=== PATIENT | male | born 1960 | race Caucasian/White ===

== ENCOUNTER 2017-05-17 13:01 | Emergency (ER) | payer MEDICARE, OTHER ==
[2017-05-17 13:01] VITALS: BMI 31.0
[2017-05-17 13:07] VITALS: BP 163/73; PULSE 109; RESP 16; TEMP 98.4; O2SAT 97
--- NOTE | 2017-05-17 13:55 | ED PDOC ---
HPI: Abdomen Time Seen by Provider: 05/17/17 13:19 Chief Complaint (Nursing): Alcohol Ingestion Chief Complaint (Provider): Abdominal Pain History Per: Patient History/Exam Limitations: no limitations Onset/Duration Of Symptoms: Days Location Of Pain/Discomfort: RUQ Associated Symptoms: Nausea, Vomiting Additional Complaint(s): Shiv Alfonso is a 56 year old male with a past medical history of hypertension , diabetes, depression, and anxiety, who was brought to the ER by EMS for evaluation of vomiting, with associated abdominal pain, onset yesterday. Patient reports occasional mild back pain, and right upper quadrant abdominal pain. He admits to alcohol use yesterday. Patient offers no other medical complaints at this time. PMD: Phill Pandey Past Medical History Reviewed: Historical Data, Nursing Documentation, Vital Signs Vital Signs: Last Vital Signs Temp 98.4 F 05/17/17 13:04 Pulse 109 H 05/17/17 13:04 Resp 16 05/17/17 13:04 BP 163/73 H 05/17/17 13:04 Pulse Ox 97 05/17/17 16:01 - Medical History PMH: Anxiety, Bipolar Disorder, Depression, Diabetes, HTN Denies: Chronic Kidney Disease - Surgical History Surgical History: No Surg Hx - Family History Family History: States: Unknown Family Hx - Social History Current smoker - smoking cessation education provided: No Alcohol: Other (admits use) - Immunization History Hx Tetanus Toxoid Vaccination: No Hx Influenza Vaccination: No Hx Pneumococcal Vaccination: No - Home Medications Home Medications: Ambulatory Orders Medication Instructions Recorded MetFORMIN [glucoPHAGE] 1,000 mg PO BID 01/14/14 Famotidine [Pepcid] 20 mg PO BID #30 tab 09/14/14 Haloperidol 2 mg PO HS 09/14/14 Aspirin [Ecotrin] 81 mg PO DAILY #30 tabec 03/18/15 Citalopram [celEXA] 20 mg PO DAILY #30 tab 03/18/15 Folic Acid 1 mg PO DAILY #30 tab 03/18/15 Haloperidol [Haldol] 2 mg PO HS #30 tab 03/18/15 Lisinopril [Zestril] 20 mg PO DAILY #0 tab 03/18/15 Lisinopril [Zestril] 20 mg PO DAILY #30 tab 03/18/15 Metoprolol Tartrate 50 mg PO Q12H #60 tablet 03/18/15 Thiamine [Vitamin B1 Tab] 100 mg PO DAILY #30 tab 03/18/15 busPIRone [Buspar] 5 mg PO DAILY #30 tab 03/18/15 diltiaZEM CD [Cardizem CD] 240 mg PO DAILY #30 tab 03/18/15 metFORMIN [glucOPHAGE] 1,000 mg PO BID #60 tab 03/18/15 - Allergies Allergies/Adverse Reactions: Allergies Allergy/AdvReac Type Severity Reaction Status Date / Time No Known Allergies Allergy Verified 03/12/15 18:59 Review of Systems ROS Statement: Except As Marked, All Systems Reviewed And Found Negative Gastrointestinal: Positive for: Vomiting, Abdominal Pain Musculoskeletal: Positive for: Back Pain (mild, occasional) Physical Exam - Reviewed Nursing Documentation Reviewed: Yes Vital Signs Reviewed: Yes - Physical Exam Appears: Positive for: Non-toxic, No Acute Distress Head Exam: Positive for: ATRAUMATIC, NORMAL INSPECTION, NORMOCEPHALIC Skin: Positive for: Normal Color Eye Exam: Positive for: Normal appearance. Negative for: Nystagmus, Periorbital swelling, Conjunctival injection Neck: Positive for: Normal, Painless ROM, Supple, Trachea Midline. Negative for : Decreased ROM Cardiovascular/Chest: Positive for: Regular Rate, Rhythm. Negative for: Murmur Respiratory: Positive for: Normal Breath Sounds. Negative for: Respiratory Distress Pulses-Carotid (L): 2+ Pulses-Carotid (R): 2+ Pulses-Radial (L): 2+ Pulses-Radial (R): 2+ Gastrointestinal/Abdominal: Positive for: Soft, Other ((+) Fields's Sign; (+) Hanna Sign; (-) rovsing; no rebound tenderness or guarding). Negative for: Guarding, Rebound, Asicites Extremity: Positive for: Normal ROM, Capillary Refill, Other ((-) Florian's sign) . Negative for: Deformity, Swelling Neurologic/Psych: Positive for: Alert - Laboratory Results Result Diagrams: 05/17/17 14:21 05/17/17 14:21 - ECG O2 Sat by Pulse Oximetry: 97 (RA) Pulse Ox Interpretation: Normal Medical Decision Making Medical Decision Making: Time: 13:17 Differential: Cholecystitis Plan: --Alcohol Serum --Amylase --CMP --Drug Screen --Lipase --CBC --Urinalysis -- Regular Insulin 10 units --US Abdomen RBS - 457 on arrival with ETOH at 167 upon discharge RBS 158; Abdominal Ultrasound: FINDINGS: LIVER: Measures 18.0 cm. Hepatopedal blood flow. Fatty infiltration manifest ultrasonographically as increased echogenicity of the liver parenchyma. Nodular contour to the liver suggests cirrhotic disease. No mass. No intrahepatic bile duct dilatation. GALLBLADDER: Cholelithiasis. Negative study for gallbladder wall thickening, pericholecystic fluid, sonographic Fields's sign. COMMON BILE DUCT: Measures 5 mm. No stones. No dilatation. PANCREAS: Unremarkable as visualized. No mass. No ductal dilatation. RIGHT KIDNEY: Measures cm. Normal echogenicity. No calculus, mass, or hydronephrosis. LEFT KIDNEY: Measures cm. Normal echogenicity. No calculus, mass, or hydronephrosis. SPLEEN: Normal in size and contour. No mass. AORTA: No aneurysmal dilatation. IVC: Unremarkable. OTHER FINDINGS: None. IMPRESSION: Cholelithiasis. No sonographic evidence of acute cholecystitis. Similar findings identified on the prior study. Scribe Attestation: Documented by Wendy Cid, acting as a scribe for Obey Hernandez PA-C Provider Scribe Attestation: All medical record entries made by the Scribe were at my direction and personally dictated by me. I have reviewed the chart and agree that the record accurately reflects my personal performance of the history, physical exam, medical decision making, and the department course for this patient. I have also personally directed, reviewed, and agree with the discharge instructions and disposition. Disposition - Clinical Impression Clinical Impression: Alcohol abuse with intoxication, Cholecystolithiasis - Patient ED Disposition Is Patient to be Admitted: No Doctor Will See Patient In The: Office Counseled Patient/Family Regarding: Studies Performed, Diagnosis, Need For Followup, Rx Given, Smoking Cessation - Disposition Referrals: [facility] [Outside] Disposition: Routine/Home Disposition Time: 17:04 Condition: GOOD Additional Instructions: Continue to take your diabetes medication-- it is critical Instructions: Gallstones (DC), Alcohol Abuse and Alcoholism (DC), Effects of Alcohol on Your Health, Gallstones Forms: [employer] (German)
[2017-05-17 14:31] LABS: BASO % 0.8 % (0.0-2.0); EOS % 1.1 % (0.0-4.0); HEMOGLOBIN 13.4 g/dL (12.0-18.0); LYMPH # 1.5 K/uL (1.0-4.3); LYMPH % 34.1 % (20.0-40.0); MEAN CORPUSCULAR HEMOGLOBIN 38.8 pg (27.0-31.0); MONO # 0.4 K/uL (0.0-0.8); MONO % 9.4 % (0.0-10.0); NEUT # 2.4 K/uL (1.8-7.0); NEUT % 54.6 % (50.0-75.0); NRBC % 0.1 % (0.0-0.0); RBC 3.46 Mil/uL (4.40-5.90); RED CELL DISTRIBUTION WIDTH 14.6 % (11.5-14.5); WHITE BLOOD COUNT 4.4 K/uL (4.8-10.8)
[2017-05-17 14:36] LABS: URINE BILIRUBIN NEGATIVE (NEGATIVE); URINE BLOOD NEGATIVE (NEGATIVE); URINE CLARITY CLEAR (Clear); URINE GLUCOSE (UA) >=500 mg/dL (Normal); URINE LEUKOCYTE ESTERASE NEG Leu/uL (Negative); URINE PROTEIN NEGATIVE (NEGATIVE); URINE UROBILINOGEN 0.2-1.0 mg/dL (0.2-1.0)
[2017-05-17 14:38] LABS: URINE COLOR YELLOW (YELLOW)
[2017-05-17] MEDS: Sodium Chloride 0.9% 1,000 ML IV SCH ×2 (14:46→15:30)
[2017-05-17 14:48] LABS: ALB/GLOB RATIO 1.1 (1.0-2.1); ALT/SGPT 39 U/L (21-72); AMYLASE 83 U/L (30-110); AST/SGOT 50 U/L (17-59); BLOOD UREA NITROGEN 7 mg/dl (9-20); CALCIUM 9.3 mg/dL (8.4-10.2); GFR AFRICAN-AMERICAN > 60; GFR NON-AFRICAN AMERICAN > 60; LIPASE 78 U/L (23-300)
[2017-05-17 14:54] LABS: BARBITURATES, UR NEGATIVE (NEGATIVE); BENZODIAZEPINES, UR NEGATIVE (NEGATIVE); OPIATES, UR NEGATIVE (NEGATIVE); PHENCYCLIDINE, UR NEGATIVE (NEGATIVE)
--- NOTE | 2017-05-17 15:31 | US ---
HISTORY: r/o choley and acute abd COMPARISON: 01/17/2013 abdominal ultrasound TECHNIQUE: Sonographic evaluation of the abdomen. FINDINGS: LIVER: Measures 18.0 cm. Hepatopedal blood flow. Fatty infiltration manifest ultrasonographically as increased echogenicity of the liver parenchyma. Nodular contour to the liver suggests cirrhotic disease. No mass. No intrahepatic bile duct dilatation. GALLBLADDER: Cholelithiasis. Negative study for gallbladder wall thickening, pericholecystic fluid, sonographic Fields's sign. COMMON BILE DUCT: Measures 5 mm. No stones. No dilatation. PANCREAS: Unremarkable as visualized. No mass. No ductal dilatation. RIGHT KIDNEY: Measures cm. Normal echogenicity. No calculus, mass, or hydronephrosis. LEFT KIDNEY: Measures cm. Normal echogenicity. No calculus, mass, or hydronephrosis. SPLEEN: Normal in size and contour. No mass. AORTA: No aneurysmal dilatation. IVC: Unremarkable. OTHER FINDINGS: None. IMPRESSION: Cholelithiasis. No sonographic evidence of acute cholecystitis. Similar findings identified on the prior study.
[2017-05-17] MEDS ORDERED: Insulin Regular 100 units/ml IV SCH (16:00)
[2017-05-17 16:16] LABS: MEAN CELL VOLUME 110.7 fl (80.0-94.0)
[2017-05-17] MEDS ORDERED: Insulin Regular 100 units/ml ONE (16:21)
== END 2017-05-17 17:21 | disposition home or self-care (01) ==
LOC: H.ER 13:01
DX: K80.20 Calculus of gallbladder without cholecystitis without obstruction (principal); F10.129 Alcohol abuse with intoxication, unspecified; E11.9 Type 2 diabetes mellitus without complications; Z86.59 Personal history of other mental and behavioral disorders; I10 Essential (primary) hypertension; Z79.4 Long term (current) use of insulin; Z79.82 Long term (current) use of aspirin
CPT/HCPCS: 76700; 80053; 80320; 80324; 80345; 80346; 80349; 80353; 80358; 80361; 81003; 82150; 82948; 83690; 83992; 85025; 96361; 96374; 99282; J7040

== ENCOUNTER 2017-10-21 20:21 | Emergency (ER) | payer MEDICARE ==
[2017-10-21 20:22] VITALS: BMI 27.4
[2017-10-21 20:48] VITALS: BP 131/49; PULSE 85; RESP 18; TEMP 98.9; O2SAT 100
--- NOTE | 2017-10-21 22:31 | ED PDOC ---
Lower Extremity Pain/Injury Time Seen by Provider: 10/21/17 21:24 Chief Complaint (Nursing): Weakness/Neurological Deficit Chief Complaint (Provider): Weakness/Neurological Deficit History Per: Patient History/Exam Limitations: no limitations Onset/Duration Of Symptoms: Persistent (x2 months) Current Symptoms Are (Timing): Still Present Additional Complaint(s): 57 year old male with pmHx of HTN and arthritis, arrives with complaint of persistent bilateral lower extremity pain for the last 2 months. Patient reports he had physical therapy, in which, he completed treatment today. He denies taking any medication for relief or further medical complaints. Patient is requesting Rx for percocet as it has "helped in the past". PMD: Dr. Beba Castillo Past Medical History Reviewed: Historical Data, Nursing Documentation, Vital Signs Vital Signs: Last Vital Signs Temp 98.9 F 10/21/17 20:45 Pulse 85 10/21/17 20:45 Resp 18 10/21/17 20:45 BP 131/49 L 10/21/17 20:45 Pulse Ox 100 10/21/17 20:45 - Medical History PMH: Anxiety, Asthma, Atrial Fibrillation, Bipolar Disorder, Depression, Diabetes, HTN Denies: HIV, Chronic Kidney Disease - Surgical History Other surgeries: bilateral knee repair - Family History Family History: States: Unknown Family Hx - Immunization History Hx Tetanus Toxoid Vaccination: No Hx Influenza Vaccination: No Hx Pneumococcal Vaccination: No - Home Medications Home Medications: Ambulatory Orders Medication Instructions Recorded Famotidine [Pepcid] 20 mg PO BID #30 tab 09/14/14 Aspirin [Ecotrin] 81 mg PO DAILY #30 tabec 03/18/15 Citalopram [celEXA] 20 mg PO DAILY #30 tab 03/18/15 Folic Acid 1 mg PO DAILY #30 tab 03/18/15 Haloperidol [Haldol] 2 mg PO HS #30 tab 03/18/15 Lisinopril [Zestril] 20 mg PO DAILY #30 tab 03/18/15 Metoprolol Tartrate 50 mg PO Q12H #60 tablet 03/18/15 Thiamine [Vitamin B1 Tab] 100 mg PO DAILY #30 tab 03/18/15 busPIRone [Buspar] 5 mg PO DAILY #30 tab 03/18/15 diltiaZEM CD [Cardizem CD] 240 mg PO DAILY #30 tab 03/18/15 metFORMIN [glucOPHAGE] 1,000 mg PO BID #60 tab 03/18/15 Albuterol HFA [Ventolin HFA 90 1 puff IH Q4 #1 puff 08/14/17 mcg/actuation (8 g)] Hydroxyzine HCl 25 mg PO Q8 #20 tablet 08/14/17 Naproxen 500 mg PO BID #20 tab 10/21/17 oxyCODONE/Acetaminophen [Percocet 1 ea PO Q6 PRN #12 tab 10/21/17 5/325 mg Tab] - Allergies Allergies/Adverse Reactions: Allergies Allergy/AdvReac Type Severity Reaction Status Date / Time No Known Allergies Allergy Verified 10/21/17 20:45 Review of Systems ROS Statement: Except As Marked, All Systems Reviewed And Found Negative Musculoskeletal: Positive for: Leg Pain (bilateral) Neurological: Positive for: Weakness (lower extremities) Physical Exam - Reviewed Nursing Documentation Reviewed: Yes Vital Signs Reviewed: Yes - Physical Exam Appears: Positive for: Non-toxic, No Acute Distress Head Exam: Positive for: ATRAUMATIC, NORMAL INSPECTION, NORMOCEPHALIC Skin: Positive for: Normal Color Eye Exam: Positive for: Normal appearance, EOMI, PERRL ENT: Positive for: Normal ENT Inspection Neck: Positive for: Normal, Painless ROM, Supple Cardiovascular/Chest: Positive for: Regular Rate, Rhythm, Chest Non Tender Respiratory: Positive for: Normal Breath Sounds. Negative for: Respiratory Distress Extremity: Positive for: Normal ROM (upper/lower). 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 Negative for: Motor/Sensory Deficits - ECG O2 Sat by Pulse Oximetry: 100 (RA) Pulse Ox Interpretation: Normal - Progress Re-evaluation Time: 22:45 Condition: Re-examined, Improved Medical Decision Making Medical Decision Making: Initial Impression: Chronic lower extremity pain; arthritis Initial Plan: * Accucheck * Toradol 30mg IM Scribe Attestation: Documented by Angela Oakes, acting as a scribe for Yaa Mahmood MD. Provider Scribe Attestation: All medical record entries made by the Scribe were at my direction and personally dictated by me. I have reviewed the chart and agree that the record accurately reflects my personal performance of the history, physical exam, medical decision making, and the department course for this patient. I have also personally directed, reviewed, and agree with the discharge instructions and disposition. Disposition - Clinical Impression Clinical Impression: Knee pain, chronic - Patient ED Disposition Is Patient to be Admitted: No Doctor Will See Patient In The: Office Counseled Patient/Family Regarding: Studies Performed, Diagnosis, Need For Followup - Disposition Referrals: Beba Castillo MD [Medical Doctor] - Disposition: Routine/Home Disposition Time: 22:46 Condition: GOOD Additional Instructions: CHRISTEN MANZO, thank you for letting us take care of you today. Your provider was Yaa Mahmood MD and you were treated for BODY PAIN. The emergency medical care you received today was directed at your acute symptoms. If you were prescribed any medication, please fill it and take as directed. It may take several days for your symptoms to resolve. Return to the Emergency Department if your symptoms worsen, do not improve, or if you have any other problems. Please contact your doctor or call one of the physicians/clinics you have been referred to that are listed on the Patient Visit Information form that is included in your discharge packet. Bring any paperwork you were given at discharge with you along with any medications you are taking to your follow up visit. Our treatment cannot replace ongoing medical care by a primary care provider outside of the emergency department. Thank you for allowing the [facility] team to be part of your care today. If you had an X-Ray or CT scan: A Radiologist will review the ED reading if any change in treatment is needed we will contact you. If you had a blood, urine, or wound culture: It will take several days for the results, if any change in treatment is needed we will contact you. If you had an STI test: It will take 48 hours for the results. Please call after 1 week if you have not heard back. Prescriptions: Naproxen 500 mg PO BID #20 tab oxyCODONE/Acetaminophen [Percocet 5/325 mg Tab] 1 ea PO Q6 PRN #12 tab PRN Reason: Pain, Severe (8-10) Instructions: Knee Pain (DC)
== END 2017-10-21 23:00 | disposition home or self-care (01) ==
LOC: H.ER 20:21
DX: M79.606 Pain in leg, unspecified (principal); M25.569 Pain in unspecified knee; E11.9 Type 2 diabetes mellitus without complications; F31.9 Bipolar disorder, unspecified; F41.9 Anxiety disorder, unspecified; I10 Essential (primary) hypertension; Z79.84 Long term (current) use of oral hypoglycemic drugs
CPT/HCPCS: 82948; 96372; 99281; J1885

== ENCOUNTER 2017-12-07 02:11 | Observation (INO) | payer MEDICARE ==
[2017-12-07 02:11] VITALS: BMI 27.4
[2017-12-07] MEDS ORDERED: Morphine 4 MG/ML VIAL IVP ONE (02:57)
[2017-12-07] MEDS ORDERED: Sodium Chloride 0.9% 250 ML IV STA (02:58)
--- NOTE | 2017-12-07 03:01 | ED PDOC ---
HPI: Abdomen Time Seen by Provider: 12/07/17 02:35 Chief Complaint (Nursing): Abdominal Pain Chief Complaint (Provider): abdominal pain History Per: Patient History/Exam Limitations: no limitations Onset/Duration Of Symptoms: Hrs (5) Current Symptoms Are (Timing): Still Present Location Of Pain/Discomfort: RUQ, Epigastric Associated Symptoms: Nausea, Vomiting Additional Complaint(s): 57 y/o male history of liver cirrhosis brought in by EMS for evaluation of upper abdominal pain x 5 hours. Associated vomiting x 2. Denies fever, chest pain, shortness of breath, palpitations, changes in bowel movements, urinary symptoms. Last paracentisis approximately 3 weeks ago Past Medical History Reviewed: Historical Data, Nursing Documentation, Vital Signs Vital Signs: Last Vital Signs Temp 98.6 F 12/07/17 02:17 Pulse 106 H 12/07/17 02:17 Resp 17 12/07/17 02:17 BP 95/68 L 12/07/17 02:17 Pulse Ox 98 12/07/17 02:17 - Medical History PMH: Anxiety, Asthma, Atrial Fibrillation, Bipolar Disorder, Depression, Diabetes, HTN Denies: HIV, Chronic Kidney Disease - Surgical History Surgical History: No Surg Hx - Family History Family History: States: Unknown Family Hx - Immunization History Hx Tetanus Toxoid Vaccination: (unk) Hx Influenza Vaccination: No Hx Pneumococcal Vaccination: (unk) - Home Medications Home Medications: Ambulatory Orders Medication Instructions Recorded No Known Home Med 12/07/17 - Allergies Allergies/Adverse Reactions: Allergies Allergy/AdvReac Type Severity Reaction Status Date / Time No Known Allergies Allergy Verified 12/07/17 02:19 Review of Systems ROS Statement: Except As Marked, All Systems Reviewed And Found Negative Gastrointestinal: Positive for: Nausea, Vomiting, Abdominal Pain Physical Exam - Reviewed Nursing Documentation Reviewed: Yes Vital Signs Reviewed: Yes - Physical Exam Appears: Positive for: Well, Non-toxic Head Exam: Positive for: ATRAUMATIC Skin: Positive for: Normal Color Eye Exam: Positive for: Normal appearance ENT: Positive for: Normal ENT Inspection Cardiovascular/Chest: Positive for: Regular Rate, Rhythm Respiratory: Positive for: Normal Breath Sounds Gastrointestinal/Abdominal: Positive for: Bowel Sounds, Soft, Tenderness (epigastric, RUQ), Asicites Back: Positive for: Normal Inspection Extremity: Positive for: Normal ROM Neurologic/Psych: Positive for: Alert, Oriented (x3) - Laboratory Results Result Diagrams: 12/07/17 03:10 12/07/17 03:10 - ECG ECG: Positive for: Viewed By Me (reviewed by ED attending) ECG Rhythm: Positive for: Sinus Rhythm O2 Sat by Pulse Oximetry: 98 - Progress ED Course And Treament: labs, ekg, IV morphine, IV fluids, IV zofran Lac 2.9 Case discussed with ED attending Dr. Carreno, IV rocephin, IV vanco ordered. Will admit for SBP Case discussed with Dr. Romano, medical service on-call, for admission Disposition - Clinical Impression Clinical Impression: SBP (spontaneous bacterial peritonitis), Liver cirrhosis, Abdominal pain - Patient ED Disposition Is Patient to be Admitted: Yes - Disposition Disposition Time: 05:00 Condition: FAIR
[2017-12-07] MEDS ORDERED: Morphine 4 MG/ML VIAL ONE (03:10)
[2017-12-07 03:19] LABS: BASO % 0.8 % (0.0-2.0); EOS # 0.1 K/uL (0.0-0.7); HEMOGLOBIN 10.6 g/dL (12.0-18.0); LYMPH # 1.4 K/uL (1.0-4.3); LYMPH % 23.3 % (20.0-40.0); MEAN CELL VOLUME 107.7 fl (80.0-94.0); MEAN CORPUSCULAR HEMOGLOBIN 37.8 pg (27.0-31.0); MEAN CORPUSCULAR HGB CONC 35.1 g/dL (33.0-37.0); MONO # 0.7 K/uL (0.0-0.8); MONO % 12.1 % (0.0-10.0); NEUT # 3.6 K/uL (1.8-7.0); NEUT % 61.8 % (50.0-75.0); RBC 2.79 Mil/uL (4.40-5.90); RED CELL DISTRIBUTION WIDTH 15.8 % (11.5-14.5); WHITE BLOOD COUNT 5.9 K/uL (4.8-10.8)
[2017-12-07 03:33] LABS: ALB/GLOB RATIO 0.6 (1.0-2.1); ALBUMIN 2.6 g/dL (3.5-5.0); ALT/SGPT 22 U/L (21-72); AST/SGOT 36 U/L (17-59); BLOOD UREA NITROGEN 14 mg/dl (9-20); CALCIUM 8.4 mg/dL (8.4-10.2); GFR NON-AFRICAN AMERICAN > 60; LIPASE 28 U/L (23-300)
[2017-12-07 04:07] LABS: VENOUS BLOOD GAS BASE EXCESS 2.6 mmol/L (0.0-2.0); VENOUS BLOOD GAS PCO2 41 mmHg (40-60); VENOUS BLOOD GAS PO2 17 mm/Hg (30-55); VENOUS BLOOD PH 7.43 (7.32-7.43)
[2017-12-07] MEDS ORDERED: Piperacillin/Tazobact 3.375 GM in Sodium Chloride 0.9% 100 ML IV ONE (04:09)
[2017-12-07] MEDS ORDERED: Vancomycin 1 g Inj ONE (04:13)
[2017-12-07] MEDS ORDERED: Piperacillin/Tazobact 3.375 gm Inj IVPB ONE (05:23)
--- NOTE | 2017-12-07 07:02 | CARD ---
APPROVED REPORT Date of service: 12/07/2017 EKG Measurement Heart [id number] <Conclusion> Normal sinus rhythm Prolonged QT Abnormal ECG
--- NOTE | 2017-12-07 07:52 | CP.PCM.HP ---
<Mendez Benjamin - Last Filed: 12/07/17 12:46> History of Present Illness - History of Present Illness History of Present Illness: 57 y/o M with a PMHx of HTN, DM, asthma, ETOH abuse with liver cirrhosis, was admitted for evaluation and management of upper abdominal pain x 5 hours. Abdominal pain was diffuse, severe and associated with nausea and nbnb vomiting x2. He reports last paracentesis approximately 3 weeks ago. Otherwise he denies fever, chest pain, shortness of breath, palpitations, changes in bowel movements, urinary symptoms. PMH: liver cirrhosis, anxiety, depression, DM, HTN, Alcohol abuse, asthma PSH: denies FH: denies SH: Does report smoking. Pt drinks at least 3x per week, ~3 beers as per patient. No recent rec drugs. Present on Admission - Present on Admission Any Indicators Present on Admission: No Review of Systems - Review of Systems All systems: reviewed and no additional remarkable complaints except (HPI) Past Patient History - Infectious Disease Hx of Infectious Diseases: None - Past Medical History & Family History Past Medical History?: Yes - Past Social History Smoking Status: Never Smoked - CARDIAC Hx Cardiac Disorders: Yes (HTN, afib) Hx Atrial Fibrillation: Yes Hx Hypertension: Yes - PULMONARY Hx Respiratory Disorders: Yes (asthma) Hx Asthma: Yes - NEUROLOGICAL Hx Neurological Disorder: No - HEENT Hx HEENT Problems: No - RENAL Hx Chronic Kidney Disease: No - ENDOCRINE/METABOLIC Hx Endocrine Disorders: Yes (DM) Hx Diabetes Mellitus Type 2: Yes - HEMATOLOGICAL/ONCOLOGICAL Hx Blood Disorders: Yes (liver cirrhosis) Hx Cirrhosis: Yes - INTEGUMENTARY Hx Dermatological Problems: No - MUSCULOSKELETAL/RHEUMATOLOGICAL Hx Musculoskeletal Disorders: No Hx Falls: No - GASTROINTESTINAL Hx Gastrointestinal Disorders: No - GENITOURINARY/GYNECOLOGICAL Hx Genitourinary Disorders: No - PSYCHIATRIC Hx Psychophysiologic Disorder: Yes (anxiety, depression, bipolar) Hx Anxiety: Yes Hx Bipolar Disorder: Yes Hx Substance Use: No - SURGICAL HISTORY Hx Surgeries: Yes Hx Herniorrhaphy: Yes - ANESTHESIA Hx Anesthesia: Yes Hx Anesthesia Reactions: No Hx Malignant Hyperthermia: No Has any member of the family had a problem w/ anesthesia?: No Meds Allergies/Adverse Reactions: Allergies Allergy/AdvReac Type Severity Reaction Status Date / Time No Known Allergies Allergy Verified 12/07/17 02:19 Physical Exam - Constitutional Appears: No Acute Distress - Head Exam Head Exam: NORMAL INSPECTION - Eye Exam Eye Exam: EOMI - Respiratory Exam Respiratory Exam: Clear to Auscultation Bilateral - Cardiovascular Exam Cardiovascular Exam: REGULAR RHYTHM, +S1, +S2 - GI/Abdominal Exam GI & Abdominal Exam: Distended, Normal Bowel Sounds. absent: Tenderness - Extremities Exam Extremities exam: Negative for: pedal edema - Neurological Exam Neurological exam: Alert, Oriented x3 - Skin Skin Exam: Dry, Warm Results - Vital Signs Recent Vital Signs: Last Vital Signs Temp 97.8 F 12/07/17 05:19 Pulse 80 12/07/17 05:19 Resp 22 12/07/17 05:19 BP 101/59 L 12/07/17 05:19 Pulse Ox 97 12/07/17 05:19 - Labs Result Diagrams: 12/07/17 03:10 12/07/17 03:10 Labs: Laboratory Results - last 24 hr 12/07/17 12/07/17 12/07/17 03:10 03:10 03:10 WBC 5.9 RBC 2.79 L Hgb 10.6 L Hct 30.1 L MCV 107.7 H D MCH 37.8 H MCHC 35.1 RDW 15.8 H Plt Count 182 MPV 9.0 Neut % (Auto) 61.8 Lymph % (Auto) 23.3 [place] % (Auto) 12.1 H Eos % (Auto) 2.0 Baso % (Auto) 0.8 Neut # (Auto) 3.6 Lymph # (Auto) 1.4 [place] # (Auto) 0.7 Eos # (Auto) 0.1 Baso # (Auto) 0.0 pO2 VBG pH VBG pCO2 VBG HCO3 VBG Total CO2 VBG O2 Sat (Calc) VBG Base Excess VBG Potassium Glucose Lactate FiO2 Sodium 136 Potassium 4.4 Chloride 105 Carbon Dioxide 24 Anion Gap 11 BUN 14 Creatinine 1.1 Est GFR ( Amer) > 60 Est GFR (Non-Af Amer) > 60 POC Glucose (mg/dL) Random Glucose 115 H Lactic Acid Calcium 8.4 Total Bilirubin 2.4 H AST 36 ALT 22 Alkaline Phosphatase 115 Ammonia 30 D Total Protein 7.2 Albumin 2.6 L Globulin 4.6 H Albumin/Globulin Ratio 0.6 L Lipase 28 Venous Blood Potassium Alcohol, Quantitative < 10 12/07/17 12/07/17 12/07/17 03:55 06:40 07:10 WBC RBC Hgb Hct MCV MCH MCHC RDW Plt Count MPV Neut % (Auto) Lymph % (Auto) [place] % (Auto) Eos % (Auto) Baso % (Auto) Neut # (Auto) Lymph # (Auto) [place] # (Auto) Eos # (Auto) Baso # (Auto) pO2 17 L VBG pH 7.43 VBG pCO2 41 VBG HCO3 25.0 VBG Total CO2 28.5 H VBG O2 Sat (Calc) 24.0 L VBG Base Excess 2.6 H VBG Potassium 4.8 Glucose 119 H Lactate 2.9 H FiO2 21.0 Sodium 138.0 Potassium Chloride 108.0 H Carbon Dioxide Anion Gap BUN Creatinine Est GFR ( Amer) Est GFR (Non-Af Amer) POC Glucose (mg/dL) 107 Random Glucose Lactic Acid 1.2 Calcium Total Bilirubin AST ALT Alkaline Phosphatase Ammonia Total Protein Albumin Globulin Albumin/Globulin Ratio Lipase Venous Blood Potassium 4.8 Alcohol, Quantitative Assessment & Plan - Assessment and Plan (Free Text) Assessment: 57 y/o M with a PMHx of HTN, DM, asthma, ETOH abuse with liver cirrhosis admitted with abdominal pain, leukocytosis r/o SBP (spontaneous bacterial peritonitis). Plan: Labs reviewed NPO IV fluids Home meds resumed GI consulted, input appreciated continue IV abx Continue management as ordered. Case seen and examined with Dr Romano. <Robbin Romano - Last Filed: 12/09/17 15:51> Results - Vital Signs Recent Vital Signs: Last Vital Signs Temp 97.7 F 12/09/17 08:02 Pulse 84 12/09/17 08:02 Resp 19 12/09/17 08:02 BP 106/56 L 12/09/17 08:02 Pulse Ox 99 12/09/17 08:02 - Labs Result Diagrams: 12/08/17 13:46 12/07/17 03:10 Labs: Laboratory Results - last 24 hr 12/08/17 12/08/17 12/09/17 15:49 21:14 06:34 POC Glucose (mg/dL) 140 H 126 H 151 H Assessment & Plan - Assessment and Plan (Free Text) Assessment: Patient was personally seen and examined by me in rounds with residents. Available labs and diagnostic data reviewed. Case, Patient's condition and management plan discussed with residents in rounds. Agree with resident's progress note. Plan: As ordered.
--- NOTE | 2017-12-07 08:30 | RAD ---
Date of service: 12/07/2017 HISTORY: admit COMPARISON: 10/03/2017 FINDINGS: LUNGS: Current lung volumes more shallow than before. No interval infiltrate PLEURA: No significant pleural effusion identified, no pneumothorax apparent. CARDIOVASCULAR: There is presence of aortic atherosclerotic calcification on x-ray. Mild cardiomegaly suspect-even allowing for shallow inspiration. No pulmonary vascular congestion. OSSEOUS STRUCTURES: Bilateral shoulder arthrosis VISUALIZED UPPER ABDOMEN: Normal. OTHER FINDINGS: None. IMPRESSION: No interval pathology noted.
[2017-12-07 09:40] LABS: INR 1.9; PROTHROMBIN TIME 21.1 Seconds (9.8-13.1)
[2017-12-07 09:43] LABS: PARTIAL THROMBOPLASTIN TIME 36.2 Seconds (25.6-37.1)
[2017-12-07] MEDS: Piperacillin/Tazobact 3.375 GM in Sodium Chloride 0.9% 100 ML IVPB SCH ×3 (11:40→21:43)
[2017-12-07 16:51] LABS: URINE BILIRUBIN NEGATIVE (NEGATIVE); URINE BLOOD NEGATIVE (NEGATIVE); URINE CALCIUM OXALATE CRYSTALS OCC /hpf (<OCC); URINE CLARITY SLIGHTY-CLOUDY (Clear); URINE COLOR AMBER (YELLOW); URINE GLUCOSE (UA) NEG (Normal); URINE LEUKOCYTE ESTERASE NEG Leu/uL (Negative); URINE PROTEIN NEGATIVE (NEGATIVE)
[2017-12-07 17:34] LABS: BARBITURATES, UR NEGATIVE (NEGATIVE); BENZODIAZEPINES, UR POSITIVE (NEGATIVE); OPIATES, UR POSITIVE (NEGATIVE); PHENCYCLIDINE, UR NEGATIVE (NEGATIVE)
[2017-12-08] MEDS: Piperacillin/Tazobact 3.375 GM in Sodium Chloride 0.9% 100 ML IVPB SCH ×4 (04:08→23:00)
--- NOTE | 2017-12-08 07:27 | CP.PCM.PN ---
<Rodrick Guzman - Last Filed: 12/08/17 18:50> Subjective - Date & Time of Evaluation Date of Evaluation: 12/08/17 Time of Evaluation: 07:15 - Subjective Subjective: 57 y/o M was seen and examined by bedside with Dr Romano. Pt reports feeling OK, abdominal pain has improved. Pt afebrile, tolerating liquid diet, had abdominal pain and acid reflux overnight, both of them resolved as per patient. Objective - Vital Signs/Intake and Output Vital Signs (last 24 hours): Temp Pulse Resp BP Pulse Ox 98.6 F 82 18 135/81 97 12/08/17 00:05 12/08/17 00:05 12/08/17 00:05 12/08/17 00:05 12/08/17 00:05 - Medications Medications: Current Medications Acetaminophen (Tylenol 325mg Tab) 650 mg PO Q6 PRN PRN Reason: Pain, moderate (4-7) Vancomycin HCl 1 gm/ Sodium (Chloride) 250 mls @ 166.667 mls/hr IVPB Q12 JERED; Protocol Last Admin: 12/07/17 21:40 Dose: 166.667 mls/hr Piperacillin Sod/Tazobactam (Sod 3.375 gm/ Sodium Chloride) 100 mls @ 100 mls/hr IVPB Q6 JERED; Protocol Last Admin: 12/08/17 04:08 Dose: 100 mls/hr - Labs Labs: 12/07/17 03:10 12/07/17 03:10 PT 21.1 Seconds (9.8-13.1) H 12/07/17 09:24 INR 1.9 12/07/17 09:24 APTT 36.2 Seconds (25.6-37.1) 12/07/17 09:24 - Constitutional Appears: No Acute Distress - Head Exam Head Exam: ATRAUMATIC, NORMAL INSPECTION - Eye Exam Eye Exam: EOMI, Normal appearance - ENT Exam ENT Exam: Mucous Membranes Dry - Neck Exam Neck Exam: Full ROM. absent: Meningismus - Respiratory Exam Respiratory Exam: NORMAL BREATHING PATTERN. absent: Rales, Rhonchi, Wheezes - Cardiovascular Exam Cardiovascular Exam: REGULAR RHYTHM, +S1, +S2 - GI/Abdominal Exam GI & Abdominal Exam: Distended (very distended, mild caput medusa observed. ), Soft. absent: Guarding, Tenderness - Extremities Exam Extremities Exam: absent: Calf Tenderness - Neurological Exam Neurological Exam: Alert, Awake, Oriented x3 Assessment and Plan - Assessment and Plan (Free Text) Assessment: 57 y/o M with a PMHx of HTN, DM, asthma, ETOH abuse with liver cirrhosis admit carlyle with abdominal pain, leukocytosis r/o SBP (spontaneous bacterial peritonitis). PLAN: --On liquid diet. Will advance diet after paracentesis. --Paracentesis to be performed today. --Will order ascitic fluid studies. Need to r/o SBP. --GI consulted, input appreciated --continue IV Vancomycina dn IV Zosyn. --Continue management as ordered. Case discussed with Dr Romano. <Robbin Romano - Last Filed: 12/09/17 15:47> Objective - Vital Signs/Intake and Output Vital Signs (last 24 hours): Temp Pulse Resp BP Pulse Ox 97.7 F 84 19 106/56 L 99 12/09/17 08:02 12/09/17 08:02 12/09/17 08:02 12/09/17 08:02 12/09/17 08:02 - Labs Labs: 12/08/17 13:46 12/07/17 03:10 PT 21.1 Seconds (9.8-13.1) H 12/07/17 09:24 INR 1.9 12/07/17 09:24 APTT 36.2 Seconds (25.6-37.1) 12/07/17 09:24 Assessment and Plan - Assessment and Plan (Free Text) Assessment: Patient was personally seen and examined by me in rounds with residents. Available labs and diagnostic data reviewed. Case, Patient's condition and management plan discussed with residents in rounds. Agree with resident's progress note. Plan: As ordered.
--- NOTE | 2017-12-08 09:50 | CP.PCM.PN ---
Subjective - Date & Time of Evaluation Date of Evaluation: 12/08/17 Time of Evaluation: 09:49 - Subjective Subjective: no overnight events Objective - Vital Signs/Intake and Output Vital Signs (last 24 hours): Temp Pulse Resp BP Pulse Ox 97.9 F 79 20 126/76 98 12/08/17 08:28 12/08/17 08:28 12/08/17 08:28 12/08/17 08:28 12/08/17 08:28 - Medications Medications: Current Medications Acetaminophen (Tylenol 325mg Tab) 650 mg PO Q6 PRN PRN Reason: Pain, moderate (4-7) Vancomycin HCl 1 gm/ Sodium (Chloride) 250 mls @ 166.667 mls/hr IVPB Q12 JERED; Protocol Last Admin: 12/08/17 09:20 Dose: 166.667 mls/hr Piperacillin Sod/Tazobactam (Sod 3.375 gm/ Sodium Chloride) 100 mls @ 100 mls/hr IVPB Q6 JERED; Protocol Last Admin: 12/08/17 09:19 Dose: 100 mls/hr - Labs Labs: 12/07/17 03:10 12/07/17 03:10 PT 21.1 Seconds (9.8-13.1) H 12/07/17 09:24 INR 1.9 12/07/17 09:24 APTT 36.2 Seconds (25.6-37.1) 12/07/17 09:24 - Head Exam Head Exam: NORMOCEPHALIC - Neck Exam Neck Exam: Normal Inspection - Respiratory Exam Respiratory Exam: Clear to Ausculation Bilateral, NORMAL BREATHING PATTERN - Cardiovascular Exam Cardiovascular Exam: REGULAR RHYTHM - GI/Abdominal Exam GI & Abdominal Exam: Distended, Normal Bowel Sounds Assessment and Plan - Assessment and Plan (Free Text) Assessment: 57 yo male with ascites paraentesis consider imaging
[2017-12-08] MEDS ORDERED: Lidocaine Hydrochloride 0 ML INJ ONE (12:20)
[2017-12-08] MEDS ORDERED: Lidocaine 1% Inj (20ml) ONE (12:21)
--- NOTE | 2017-12-08 13:14 | PCM.SURG1 ---
Surgeon's Initial Post Op Note - Surgeon's Notes Surgeon: Cruzito Reilly MD Stone Operator: NONE Type of Anesthesia: Local Pre-Operative Diagnosis: Ascites, cirrhosis Operative Findings: US showed large amount of ascites Post-Operative Diagnosis: Ascites, cirrhosis Operation Performed: US guided paracentesis Specimen/Specimens Removed: 9.6 liters of straw colored fluid Estimated Blood Loss: EBL {In ML}: 0 Blood Products Given: N/A Drains Used: No Drains Post-Op Condition: Fair Date of Surgery/Procedure: 12/08/17 Time of Surgery/Procedure: 13:10
[2017-12-08 13:28] LABS: TOTAL PROTEIN,BODY FLUID < 2.0 g/dL (NONE ESTABLISHED)
[2017-12-08 14:22] LABS: EOS # 0.1 K/uL (0.0-0.7); EOS % 2.5 % (0.0-4.0); HEMOGLOBIN 10.6 g/dL (12.0-18.0); LYMPH # 1.7 K/uL (1.0-4.3); LYMPH % 32.4 % (20.0-40.0); MEAN CORPUSCULAR HGB CONC 33.9 g/dL (33.0-37.0); MEAN PLATELET VOLUME 9.6 fl (7.2-11.7); MONO # 0.6 K/uL (0.0-0.8); MONO % 11.6 % (0.0-10.0); NEUT # 2.7 K/uL (1.8-7.0); NEUT % 52.5 % (50.0-75.0); NRBC % 0.2 % (0.0-0.0); RBC 2.86 Mil/uL (4.40-5.90); RED CELL DISTRIBUTION WIDTH 15.9 % (11.5-14.5); WHITE BLOOD COUNT 5.1 K/uL (4.8-10.8)
--- NOTE | 2017-12-08 20:44 | CON ---
DATE: 12/07/2017 REFERRING DOCTOR: Robbin Romano MD REASON FOR CONSULTATION: Ascites and abdominal pain. HISTORY OF PRESENT ILLNESS: This is a 57-year-old male with history of recent diabetes, , alcohol abuse, history of cirrhosis, ascites who actually had a paracentesis a few weeks ago, now comes in with shortness of breath and increased abdominal girth as well. The patient denies any fever, chills, nausea, or vomiting. The pain is minimal, still is actively drinking, otherwise lying in bed; comfortable, in no apparent distress. PAST MEDICAL HISTORY: As above. PAST SURGICAL HISTORY: As above. MEDICATIONS: Have been reviewed. REVIEW OF SYSTEMS: All other systems have been reviewed and negative apart from the HPI. PHYSICAL EXAMINATION: GENERAL: A pleasant elderly-appearing female, lying in bed comfortably, in no apparent distress. VITAL SIGNS: Here in the hospital are grossly unremarkable. HEENT: Head: Normocephalic and atraumatic. Eyes: Pupils are equally reactive to light bilaterally. No conjunctival pallor or icterus. NECK: Supple. Normal range of motion. No lymphadenopathy appreciated. LUNGS: Coarse breath sounds bilaterally. HEART: S1 and S2. Regular rate and rhythm. No murmurs appreciated. ABDOMEN: Soft, distended. No rebound. No guarding. RECTAL: Deferred. EXTREMITIES: Pulses felt bilaterally. SKIN: Warm, dry, and intact. NEUROLOGIC: A and O x3. LABORATORY DATA: Labs and radiology have been reviewed. WBC 5.9, hemoglobin 10.6, hematocrit 30.1, INR 1.9. LFTs are essentially unremarkable. ASSESSMENT AND PLAN: This is a 57-year-old man with pain and discomfort. The plan is for diagnostic therapeutic paracentesis, antibiotics for now. We will follow the patient with you. Thank you for the consult. Juan Galdamez MD/ PhD cc: Robbin Romano MD
[2017-12-09] MEDS: Piperacillin/Tazobact 3.375 GM in Sodium Chloride 0.9% 100 ML IVPB SCH ×2 (04:59→08:59)
--- NOTE | 2017-12-09 07:17 | CP.PCM.PN ---
Subjective - Date & Time of Evaluation Date of Evaluation: 12/09/17 Time of Evaluation: 07:10 Objective - Vital Signs/Intake and Output Vital Signs (last 24 hours): Temp Pulse Resp BP Pulse Ox 97.9 F 76 20 124/74 100 12/09/17 00:38 12/09/17 00:38 12/09/17 00:38 12/09/17 00:38 12/09/17 00:38 - Medications Medications: Current Medications Acetaminophen (Tylenol 325mg Tab) 650 mg PO Q6 PRN PRN Reason: Pain, moderate (4-7) Last Admin: 12/08/17 10:42 Dose: 650 mg Famotidine (Pepcid) 40 mg PO HS JERED Last Admin: 12/08/17 23:00 Dose: 40 mg Vancomycin HCl 1 gm/ Sodium (Chloride) 250 mls @ 166.667 mls/hr IVPB Q12 JERED; Protocol Last Admin: 12/08/17 22:00 Dose: 166.667 mls/hr Piperacillin Sod/Tazobactam (Sod 3.375 gm/ Sodium Chloride) 100 mls @ 100 mls /hr IVPB Q6 JERED; Protocol Last Admin: 12/09/17 04:59 Dose: 100 mls/hr - Labs Labs: 12/08/17 13:46 12/07/17 03:10 PT 21.1 Seconds (9.8-13.1) H 12/07/17 09:24 INR 1.9 12/07/17 09:24 APTT 36.2 Seconds (25.6-37.1) 12/07/17 09:24
[2017-12-09 08:03] VITALS: BP 106/56; PULSE 84; RESP 19; TEMP 97.7; O2SAT 99
[2017-12-09] MEDS ORDERED: Lactobacillus Acidophilus 500 MU Cap PO SCH (10:30)
--- NOTE | 2017-12-09 12:39 | US ---
Date of Procedure: 12/08/2017 PROCEDURE: Ultrasound-guided paracentesis, CPT 53815 Medications: 7 cc 1% Lidocaine HISTORY: Ascites, abdominal pain, cirrhosis TECHNIQUE: Following informed consent , the patient was placed supine on the stretcher and the site was marked. A limited abdominal ultrasound was performed that showed a large amount of intra-abdominal fluid. Procedural time out was called and the Pt's abdomen was marked and prepped and draped in the usual sterile fashion. Ultrasound-guided large volume paracentesis performed. A total of 10 liters of straw colored fluid was removed without complication. IMPRESSION: Ultrasound-guided large volume paracentesis.
--- NOTE | 2017-12-09 12:40 | CP.PCM.PCO ---
Assessment/Plan - Assessment/Plan Assessment (Free Text): Pt stable, feels better today after paracentesis yesterday. Pt ambulated on unit with PT and did well. Rx given for rolling walker. Pt's ascitic fluid culture so far negative, reviewed labs with Dr. Galdamez, patient is cleared to be discharged home with outpatient follow up. Patient seen and cleared for d/c home by Dr. Romano.
--- NOTE | 2017-12-09 13:17 | CP.PCM.PN ---
Subjective - Date & Time of Evaluation Date of Evaluation: 12/09/17 Time of Evaluation: 13:16 - Subjective Subjective: no overnight events Objective - Vital Signs/Intake and Output Vital Signs (last 24 hours): Temp Pulse Resp BP Pulse Ox 97.7 F 84 19 106/56 L 99 12/09/17 08:02 12/09/17 08:02 12/09/17 08:02 12/09/17 08:02 12/09/17 08:02 - Medications Medications: Current Medications Acetaminophen (Tylenol 325mg Tab) 650 mg PO Q6 PRN PRN Reason: Pain, moderate (4-7) Last Admin: 12/08/17 10:42 Dose: 650 mg Famotidine (Pepcid) 40 mg PO HS JERED Last Admin: 12/08/17 23:00 Dose: 40 mg Vancomycin HCl 1 gm/ Sodium (Chloride) 250 mls @ 166.667 mls/hr IVPB Q12 JERED; Protocol Last Admin: 12/09/17 08:58 Dose: 166.667 mls/hr Piperacillin Sod/Tazobactam (Sod 3.375 gm/ Sodium Chloride) 100 mls @ 100 mls/hr IVPB Q6 JERED; Protocol Last Admin: 12/09/17 08:59 Dose: 100 mls/hr Lactobacillus Acidophilus (Bacid Acidophilus) 1 cap PO BID JERED Last Admin: 12/09/17 10:56 Dose: 1 cap - Labs Labs: 12/08/17 13:46 12/07/17 03:10 PT 21.1 Seconds (9.8-13.1) H 12/07/17 09:24 INR 1.9 12/07/17 09:24 APTT 36.2 Seconds (25.6-37.1) 12/07/17 09:24 - Head Exam Head Exam: NORMOCEPHALIC - Neck Exam Neck Exam: Normal Inspection - Respiratory Exam Respiratory Exam: NORMAL BREATHING PATTERN - Cardiovascular Exam Cardiovascular Exam: REGULAR RHYTHM - GI/Abdominal Exam GI & Abdominal Exam: Soft, Normal Bowel Sounds Assessment and Plan - Assessment and Plan (Free Text) Assessment: 57 yo male with decompensated cirrhosis doing well after paracentesis dc planning when able
--- NOTE | 2017-12-09 13:55 | CP.PCM.DIS ---
Provider - Provider Date of Admission: 12/07/17 04:10 Attending physician: Robbin Romano MD Primary care physician: none Consults: GI: Dr Galdamez Time Spent in preparation of Discharge (in minutes): 30 Diagnosis - Discharge Diagnosis (1) Abdominal pain Status: Acute (2) Ascites Status: Acute (3) Liver cirrhosis Status: Chronic Hospital Course - Lab Results Lab Results: Micro Results 12/08/17 13:00 Ascitic Fluid Gram Stain - Final 12/08/17 13:00 Ascitic Fluid Body Fluid Culture - Preliminary NO GROWTH AFTER 24 HOURS 12/07/17 04:20 Blood-Venous Blood Culture - Preliminary NO GROWTH AFTER 48 HOURS 12/07/17 04:50 Blood-Venous Blood Culture - Preliminary NO GROWTH AFTER 48 HOURS Most Recent Lab Values WBC 5.1 K/uL (4.8-10.8) 12/08/17 13:46 RBC 2.86 Mil/uL (4.40-5.90) L 12/08/17 13:46 Hgb 10.6 g/dL (12.0-18.0) L 12/08/17 13:46 Hct 31.2 % (35.0-51.0) L 12/08/17 13:46 MCV 109.0 fl (80.0-94.0) H 12/08/17 13:46 MCH 37.0 pg (27.0-31.0) H 12/08/17 13:46 MCHC 33.9 g/dL (33.0-37.0) 12/08/17 13:46 RDW 15.9 % (11.5-14.5) H 12/08/17 13:46 Plt Count 184 K/uL (130-400) 12/08/17 13:46 MPV 9.6 fl (7.2-11.7) 12/08/17 13:46 Neut % (Auto) 52.5 % (50.0-75.0) 12/08/17 13:46 Lymph % (Auto) 32.4 % (20.0-40.0) 12/08/17 13:46 [place] % (Auto) 11.6 % (0.0-10.0) H 12/08/17 13:46 Eos % (Auto) 2.5 % (0.0-4.0) 12/08/17 13:46 Baso % (Auto) 1.0 % (0.0-2.0) 12/08/17 13:46 Neut # (Auto) 2.7 K/uL (1.8-7.0) 12/08/17 13:46 Lymph # (Auto) 1.7 K/uL (1.0-4.3) 12/08/17 13:46 [place] # (Auto) 0.6 K/uL (0.0-0.8) 12/08/17 13:46 Eos # (Auto) 0.1 K/uL (0.0-0.7) 12/08/17 13:46 Baso # (Auto) 0.0 K/uL (0.0-0.2) 12/08/17 13:46 PT 21.1 Seconds (9.8-13.1) H 12/07/17 09:24 INR 1.9 12/07/17 09:24 APTT 36.2 Seconds (25.6-37.1) 12/07/17 09:24 pO2 17 mm/Hg (30-55) L 12/07/17 03:55 VBG pH 7.43 (7.32-7.43) 12/07/17 03:55 VBG pCO2 41 mmHg (40-60) 12/07/17 03:55 VBG HCO3 25.0 mmol/L 12/07/17 03:55 VBG Total CO2 28.5 mmol/L (22-28) H 12/07/17 03:55 VBG O2 Sat (Calc) 24.0 % (40-65) L 12/07/17 03:55 VBG Base Excess 2.6 mmol/L (0.0-2.0) H 12/07/17 03:55 VBG Potassium 4.8 mmol/L (3.6-5.2) 12/07/17 03:55 Sodium 138.0 mmol/L (132-148) 12/07/17 03:55 Chloride 108.0 mmol/L (98-107) H 12/07/17 03:55 Glucose 119 mg/dL (75-110) H 12/07/17 03:55 Lactate 2.9 mmol/L (0.7-2.1) H 12/07/17 03:55 FiO2 21.0 % 12/07/17 03:55 Sodium 136 mmol/l (132-148) 12/07/17 03:10 Potassium 4.4 MMOL/L (3.6-5.0) 12/07/17 03:10 Chloride 105 mmol/L (98-107) 12/07/17 03:10 Carbon Dioxide 24 mmol/L (22-30) 12/07/17 03:10 Anion Gap 11 (10-20) 12/07/17 03:10 BUN 14 mg/dl (9-20) 12/07/17 03:10 Creatinine 1.1 mg/dl (0.8-1.5) 12/07/17 03:10 Est GFR ( Amer) > 60 12/07/17 03:10 Est GFR (Non-Af Amer) > 60 12/07/17 03:10 POC Glucose (mg/dL) 151 mg/dL (65-110) H 12/09/17 06:34 Random Glucose 115 mg/dL (75-110) H 12/07/17 03:10 Lactic Acid 1.2 MMOL/L (0.7-2.1) 12/07/17 06:40 Calcium 8.4 mg/dL (8.4-10.2) 12/07/17 03:10 Total Bilirubin 2.4 mg/dl (0.2-1.3) H 12/07/17 03:10 AST 36 U/L (17-59) 12/07/17 03:10 ALT 22 U/L (21-72) 12/07/17 03:10 Alkaline Phosphatase 115 U/L (38-126) 12/07/17 03:10 Ammonia 30 umo/L (16-60) D 12/07/17 03:10 Total Protein 7.2 G/DL (6.3-8.2) 12/07/17 03:10 Albumin 2.6 g/dL (3.5-5.0) L 12/07/17 03:10 Globulin 4.6 gm/dL (2.2-3.9) H 12/07/17 03:10 Albumin/Globulin Ratio 0.6 (1.0-2.1) L 12/07/17 03:10 Lipase 28 U/L (23-300) 12/07/17 03:10 Venous Blood Potassium 4.8 mmol/L (3.6-5.2) 12/07/17 03:55 Urine Color Katerina (YELLOW) 12/07/17 16:34 Urine Clarity Slighty-cloudy (Clear) 12/07/17 16:34 Urine pH 5.0 (5.0-8.0) 12/07/17 16:34 Ur Specific [place] 1.015 (1.003-1.030) 12/07/17 16:34 Urine Protein Negative mg/dL (NEGATIVE) 12/07/17 16:34 Urine Glucose (UA) Neg mg/dL (Normal) 12/07/17 16:34 Urine Ketones Negative mg/dL (NEGATIVE) 12/07/17 16:34 Urine Blood Negative (NEGATIVE) 12/07/17 16:34 Urine Nitrate Negative (NEGATIVE) 12/07/17 16:34 Urine Bilirubin Negative (NEGATIVE) 12/07/17 16:34 Urine Urobilinogen 4.0 mg/dL (0.2-1.0) 12/07/17 16:34 Ur Leukocyte Esterase Neg Jessica/uL (Negative) 12/07/17 16:34 Urine RBC (Auto) 1 /hpf (0-3) 12/07/17 16:34 Urine Microscopic WBC 2 /hpf (0-5) 12/07/17 16:34 Calcium Oxalate Crystal Occ /hpf (<OCC) H 12/07/17 16:34 Hyaline Casts 11-20 /hpf (0-2) H 12/07/17 16:34 Fluid Glucose 112 mg/dL (NONE ESTABLISHED) 12/08/17 13:00 Fluid Total Protein < 2.0 g/dL (NONE ESTABLISHED) 12/08/17 13:00 Fluid LDH 147 IU (NONE ESTABLISHED) 12/08/17 13:00 Urine Opiates Screen Positive (NEGATIVE) H 12/07/17 16:34 Urine Methadone Screen Negative (NEGATIVE) 12/07/17 16:34 Ur Barbiturates Screen Negative (NEGATIVE) 12/07/17 16:34 Ur Phencyclidine Scrn Negative (NEGATIVE) 12/07/17 16:34 Ur Amphetamines Screen Negative (NEGATIVE) 12/07/17 16:34 U Benzodiazepines Scrn Positive (NEGATIVE) 12/07/17 16:34 U Oth Cocaine Metabols Negative (NEGATIVE) 12/07/17 16:34 U Cannabinoids Screen Negative (NEGATIVE) 12/07/17 16:34 Alcohol, Quantitative < 10 mg/dl (0-10) 12/07/17 03:10 - Hospital Course Hospital Course: 57 y/o M with a PMHx of HTN, DM, asthma, ETOH abuse with liver cirrhosis, was admitted for evaluation and management of severe abdominal pain, ascitis and ?SBP. Pt had a paracentesis during this admission, 9.6L were extracted. Ascitic culture showed NO growth in 24 hours, WBC is wnl, pt has remained afebrile, tolerating PO and hemodynamically stable. No suspicion of SBP. GI specialist, Dr Galdamez, evaluated patient and recommended outpatient management. Pt will be discharged with instructions to f/u PCP and GI doctor within 1 week. - Date & Time of H&P Date of H&P: 12/07/17 Time of H&P: 07:52 Discharge Exam - Head Exam Head Exam: NORMOCEPHALIC - Additional Findings Additional findings: - Constitutional Appears: No Acute Distress - Head Exam Head Exam: ATRAUMATIC, NORMAL INSPECTION - Eye Exam Eye Exam: EOMI, Normal appearance - ENT Exam ENT Exam: Mucous Membranes Dry - Neck Exam Neck Exam: Full ROM. absent: Meningismus - Respiratory Exam Respiratory Exam: NORMAL BREATHING PATTERN. absent: Rales, Rhonchi, Wheezes - Cardiovascular Exam Cardiovascular Exam: REGULAR RHYTHM, +S1, +S2 - GI/Abdominal Exam GI & Abdominal Exam: Non-distended, Soft. absent: Guarding, Tenderness - Extremities Exam Extremities Exam: absent: Calf Tenderness - Neurological Exam Neurological Exam: Alert, Awake, Oriented x3 Discharge Plan - Discharge Medications Prescriptions: Famotidine [Pepcid] 40 mg PO HS #30 tab - Follow Up Plan Condition: FAIR Disposition: HOME/ ROUTINE Instructions: Cirrhosis (DC), Peritonitis (DC), Abdominal Paracentesis (DC) Additional Instructions: hacer ilana con bill primario dentro 1 semana Referrals: [facility] [place] [Outside] Robbin Romano MD [Staff Provider] - Juan Galdamez MD, PhD [Staff Provider] -
== END 2017-12-09 13:51 | disposition home or self-care (01) ==
LOC: H.ER 02:11 → INTOOBSV 04:10 → H.ERHOLD 04:10 → H.MEDSURG1 05:48
PROVIDERS: ADMIT Internal Medicine; ATTEND Internal Medicine
DX: K70.31 Alcoholic cirrhosis of liver with ascites (principal); K21.9 Gastro-esophageal reflux disease without esophagitis; I48.91 Unspecified atrial fibrillation; I10 Essential (primary) hypertension; E11.9 Type 2 diabetes mellitus without complications; J45.909 Unspecified asthma, uncomplicated; F31.9 Bipolar disorder, unspecified; F41.9 Anxiety disorder, unspecified
CPT/HCPCS: 36415; 49083; 71045; 80053; 80320; 80324; 80345; 80346; 80349; 80353; 80358; 80361; 81003; 82140; 82803; 82945; 82948; 83605; 83615; 83690; 83992; 85025; 85610; 85730; 87015; 87040; 87070; 87116; 87206; 88104; 88305; 93005; 96374; 99285; C1729; G0378; J2270; J2405; J2543; J7040

== ENCOUNTER 2017-12-13 12:52 | Inpatient (IN) | payer MEDICARE ==
[2017-12-13 12:52] VITALS: BMI 27.4
--- NOTE | 2017-12-13 14:12 | ED PDOC ---
HPI: SOB/CHF/COPD Time Seen by Provider: 12/13/17 13:39 Chief Complaint (Nursing): Shortness Of Breath Chief Complaint (Provider): Shortness Of Breath History Per: Patient History/Exam Limitations: no limitations Onset/Duration Of Symptoms: Days (x2) Current Symptoms Are (Timing): Still Present Additional Complaint(s): 57 year old male with pmHx of ascites and liver cirrhosis, arrives to ED for an evaluation of abdominal swelling, vomiting, and shortness of breath ongoing for weeks. Patient reports latest paracentesis was performed on 12/07/17. Additionally, he states that he hears the devil telling him to kill himself and yelling "help" in exam room. Otherwise, he denies any visual hallucinations, fever, chills, chest pain, abdominal pain, or taking any medications for relief. PCP: Dr. Beba Castillo Past Medical History Reviewed: Historical Data, Nursing Documentation, Vital Signs Vital Signs: Last Vital Signs Temp 98.1 F 12/13/17 13:08 Pulse 107 H 12/13/17 13:08 Resp 26 H 12/13/17 13:08 BP 119/73 12/13/17 13:08 Pulse Ox 99 12/13/17 13:08 - Medical History PMH: Anxiety, Asthma, Atrial Fibrillation, Bipolar Disorder, Depression, Diabetes, HTN Denies: HIV, Chronic Kidney Disease - Family History Family History: States: Unknown Family Hx - Immunization History Hx Tetanus Toxoid Vaccination: (unk) Hx Influenza Vaccination: No Hx Pneumococcal Vaccination: (unk) - Home Medications Home Medications: Ambulatory Orders Medication Instructions Recorded RX: No Known Home Med 12/13/17 - Allergies Allergies/Adverse Reactions: Allergies Allergy/AdvReac Type Severity Reaction Status Date / Time No Known Allergies Allergy Verified 12/13/17 13:08 Review of Systems ROS Statement: Except As Marked, All Systems Reviewed And Found Negative Constitutional: Negative for: Fever, Chills Cardiovascular: Negative for: Chest Pain Gastrointestinal: Positive for: Vomiting, Other (abdominal swelling). Negative for: Abdominal Pain Psych: Positive for: Suicidal ideation (with auditory hallucinations) Physical Exam - Reviewed Nursing Documentation Reviewed: Yes Vital Signs Reviewed: Yes - Physical Exam Appears: Positive for: No Acute Distress Head Exam: Positive for: ATRAUMATIC, NORMAL INSPECTION, NORMOCEPHALIC Skin: Positive for: Normal Color Eye Exam: Positive for: Scleral icterus. Negative for: Normal appearance ENT: Positive for: Normal ENT Inspection Neck: Positive for: Normal Cardiovascular/Chest: Positive for: Tachycardia. Negative for: Regular Rate, Rhythm Respiratory: Positive for: Normal Breath Sounds. Negative for: Respiratory Distress Gastrointestinal/Abdominal: Positive for: Soft, Distended. Negative for: Tenderness Extremity: Positive for: Normal ROM (upper/lower) Neurologic/Psych: Positive for: Alert, Oriented - Laboratory Results Result Diagrams: 12/13/17 14:10 12/13/17 14:10 - ECG O2 Sat by Pulse Oximetry: 99 (RA) Pulse Ox Interpretation: Normal Medical Decision Making Medical Decision Making: Initial Impression: Ascites; Dyspnea; SI Differential Diagnosis: Ascites, renal failure, anasarca, psychosis, hepatic en cephalopathy Initial Plan: * EKG * Labs * Crisis evaluation * CXR * 1:1 OBS -- Scribe Attestation: Documented by Angela Oakes, acting as a scribe for Yaa Mahmood MD. Provider Scribe Attestation: All medical record entries made by the Scribe were at my direction and personally dictated by me. I have reviewed the chart and agree that the record accurately reflects my personal performance of the history, physical exam, medical decision making, and the department course for this patient. I have also personally directed, reviewed, and agree with the discharge instructions and disposition. Disposition - Clinical Impression Clinical Impression: Ascites, Dyspnea, Suicidal ideation - Patient ED Disposition Is Patient to be Admitted: Yes Discussed With : Robbin Romano Doctor Will See Patient In The: ED Counseled Patient/Family Regarding: Studies Performed, Diagnosis - Disposition Disposition Time: 15:00 Condition: FAIR - Pt Status Changed To: Hospital Disposition Of: Observation - POA Present On Arrival: None
[2017-12-13 14:36] LABS: BASO % 0.3 % (0.0-2.0); EOS # 0.1 K/uL (0.0-0.7); EOS % 1.5 % (0.0-4.0); HEMOGLOBIN 10.4 g/dL (12.0-18.0); MEAN CELL VOLUME 110.8 fl (80.0-94.0); MEAN CORPUSCULAR HEMOGLOBIN 36.6 pg (27.0-31.0); MEAN CORPUSCULAR HGB CONC 33.1 g/dL (33.0-37.0); MEAN PLATELET VOLUME 9.4 fl (7.2-11.7); MONO # 0.6 K/uL (0.0-0.8); MONO % 10.2 % (0.0-10.0); NEUT # 4.3 K/uL (1.8-7.0); NRBC % 0.1 % (0.0-0.0); RBC 2.85 Mil/uL (4.40-5.90); RED CELL DISTRIBUTION WIDTH 16.2 % (11.5-14.5)
--- NOTE | 2017-12-13 14:41 | RAD ---
Date of service: 12/13/2017 HISTORY: dyspnea COMPARISON: 12/07/2017. FINDINGS: LUNGS: The lungs are well inflated and clear. PLEURA: No pleural effusions or pneumothorax. CARDIOVASCULAR: The heart is normal in size. Atherosclerotic aortic arch calcifications are present. OSSEOUS STRUCTURES: Within normal limits for the patient's age. VISUALIZED UPPER ABDOMEN: Normal. OTHER FINDINGS: None. IMPRESSION: No active pulmonary disease.
[2017-12-13 14:47] LABS: INR 1.5
[2017-12-13 14:49] LABS: PARTIAL THROMBOPLASTIN TIME 33.1 Seconds (25.6-37.1)
[2017-12-13 14:54] LABS: ALB/GLOB RATIO 0.6 (1.0-2.1); ALBUMIN 2.9 g/dL (3.5-5.0); CALCIUM 8.5 mg/dL (8.4-10.2)
[2017-12-13] MEDS ORDERED: Alum-Mag Hydrox-Simethicone Susp (30 mL) PO PRN (17:19)
[2017-12-13] MEDS ORDERED: Alum-Mag Hydrox-Simethicone Susp (30 mL) ONE (18:07)
--- NOTE | 2017-12-13 18:16 | CARD ---
APPROVED REPORT Date of service: 12/13/2017 EKG Measurement Heart [id number] [place] [id number] [id number] <Conclusion> Sinus tachycardia with premature atrial complexes Otherwise normal ECG
[2017-12-13 19:36] LABS: ABG ALLEN TEST YES; ARTERIAL BLOOD GAS HCO3 24.7 mmol/L (21-28); ARTERIAL BLOOD GAS O2 SAT 100.5 % (95-98); ARTERIAL BLOOD GAS PCO2 32 mm/Hg (35-45); ARTERIAL BLOOD GAS PH 7.46 (7.35-7.45); ARTERIAL BLOOD GAS PO2 83 mm/Hg (80-100); ARTERIAL BLOOD GAS TCO2 23.8 mmol/L (22-28)
[2017-12-13] MEDS ORDERED: Oxycodone/Acetaminophen 5/325 mg Tab ONE (22:20)
[2017-12-13] MEDS: Oxycodone/Acetaminophen 5/325 mg Tab PO PRN (22:22)
[2017-12-14] MEDS: Oxycodone/Acetaminophen 5/325 mg Tab PO PRN ×2 (03:28→23:48)
[2017-12-14 06:22] LABS: BASO # 0.1 K/uL (0.0-0.2); BASO % 1.5 % (0.0-2.0); EOS # 0.2 K/uL (0.0-0.7); EOS % 3.9 % (0.0-4.0); HEMOGLOBIN 9.4 g/dL (12.0-18.0); LYMPH # 1.6 K/uL (1.0-4.3); LYMPH % 31.4 % (20.0-40.0); MEAN CORPUSCULAR HEMOGLOBIN 36.7 pg (27.0-31.0); MEAN CORPUSCULAR HGB CONC 34.3 g/dL (33.0-37.0); MEAN PLATELET VOLUME 8.8 fl (7.2-11.7); MONO # 0.7 K/uL (0.0-0.8); MONO % 12.9 % (0.0-10.0); NEUT # 2.6 K/uL (1.8-7.0); NEUT % 50.3 % (50.0-75.0); RBC 2.55 Mil/uL (4.40-5.90); RED CELL DISTRIBUTION WIDTH 16.3 % (11.5-14.5); WHITE BLOOD COUNT 5.2 K/uL (4.8-10.8)
[2017-12-14 06:43] LABS: ALB/GLOB RATIO 0.5 (1.0-2.1); ALBUMIN 2.3 g/dL (3.5-5.0); CALCIUM 8.1 mg/dL (8.4-10.2)
--- NOTE | 2017-12-14 07:47 | CP.PCM.HP ---
<ThomasRodrick - Last Filed: 12/14/17 13:32> History of Present Illness - History of Present Illness History of Present Illness: 57 y/o M with a PMHx of HTN, DM, asthma, ETOH abuse with liver cirrhosis, was admitted for evaluation and management of recurrent abdominal pain, abdominal distension and hearing voices. Pt was recently discharged from hospital after extracting 9.6 L of fluid from paracentesis. Pt was ankit and examiend by bedside with Dr Romano. Pt reports abdominal pain and distension. Pt re-stated that he is hearing the devil telling him to kill himself. Pt afebrile, no WBC elevation with NO events overnight. PMHx: liver cirrhosis, anxiety, depression, DM, HTN, Alcohol abuse, asthma PSHx: denies FHx: denies SHx: Does report smoking. Pt drinks at least 3x per week, ~3 beers as per patient. No recent rec drugs. Present on Admission - Present on Admission Any Indicators Present on Admission: No Review of Systems - Constitutional Constitutional: absent: Chills, Fever - EENT Eyes: absent: Change in Vision Nose/Mouth/Throat: absent: Nasal Congestion, Dysphagia, Sore Throat, Facial Pain, Neck Pain - Cardiovascular Cardiovascular: absent: Chest Pain, Diaphoresis - Respiratory Respiratory: absent: Cough, Dyspnea - Gastrointestinal Gastrointestinal: Abdominal Pain, Bloating, Nausea. absent: Diarrhea, Vomiting - Genitourinary Genitourinary: absent: Dysuria, Hematuria, Nocturia Past Patient History - Infectious Disease Hx of Infectious Diseases: None - Past Medical History & Family History Past Medical History?: Yes - Past Social History Smoking Status: Never Smoked - CARDIAC Hx Cardiac Disorders: Yes Hx Atrial Fibrillation: Yes Hx Hypertension: Yes - PULMONARY Hx Respiratory Disorders: Yes Hx Asthma: Yes - NEUROLOGICAL Hx Neurological Disorder: No - HEENT Hx HEENT Problems: No - RENAL Hx Chronic Kidney Disease: No - ENDOCRINE/METABOLIC Hx Endocrine Disorders: Yes (DM) Hx Diabetes Mellitus Type 2: Yes - HEMATOLOGICAL/ONCOLOGICAL Hx Blood Disorders: No Hx Human Immunodeficiency Virus (HIV): No - INTEGUMENTARY Hx Dermatological Problems: No - MUSCULOSKELETAL/RHEUMATOLOGICAL Hx Musculoskeletal Disorders: Yes Hx Falls: Yes - GASTROINTESTINAL Hx Gastrointestinal Disorders: No - GENITOURINARY/GYNECOLOGICAL Hx Genitourinary Disorders: No - PSYCHIATRIC Hx Psychophysiologic Disorder: Yes Hx Anxiety: Yes Hx Bipolar Disorder: Yes Hx Depression: Yes - SURGICAL HISTORY Hx Surgeries: Yes Hx Herniorrhaphy: Yes - ANESTHESIA Hx Anesthesia: Yes Hx Anesthesia Reactions: No Meds Allergies/Adverse Reactions: Allergies Allergy/AdvReac Type Severity Reaction Status Date / Time No Known Allergies Allergy Verified 12/13/17 13:08 Physical Exam - Constitutional Appears: No Acute Distress - Head Exam Head Exam: ATRAUMATIC, NORMAL INSPECTION - Eye Exam Eye Exam: EOMI - ENT Exam ENT Exam: Mucous Membranes Dry - Neck Exam Neck exam: Positive for: Full Rom, Normal Inspection - Respiratory Exam Respiratory Exam: NORMAL BREATHING PATTERN. absent: Rhonchi, Wheezes - Cardiovascular Exam Cardiovascular Exam: +S1, +S2 - GI/Abdominal Exam GI & Abdominal Exam: Normal Bowel Sounds, Soft. absent: Guarding, Rebound, Tenderness - Extremities Exam Extremities exam: Positive for: full ROM, normal inspection. Negative for: calf tenderness - Back Exam Back exam: absent: CVA tenderness (L), CVA tenderness (R) - Neurological Exam Neurological exam: Alert, Oriented x3 Results - Vital Signs Recent Vital Signs: Last Vital Signs Temp 98.1 F 12/14/17 00:33 Pulse 82 12/14/17 00:33 Resp 19 12/14/17 00:33 BP 117/80 12/14/17 00:33 Pulse Ox 97 12/14/17 00:33 - Labs Result Diagrams: 12/14/17 05:45 12/14/17 05:45 Labs: Laboratory Results - last 24 hr 12/13/17 12/13/17 12/13/17 14:10 14:10 14:10 WBC 6.0 RBC 2.85 L Hgb 10.4 L Hct 31.6 L MCV 110.8 H MCH 36.6 H MCHC 33.1 RDW 16.2 H Plt Count 178 MPV 9.4 Neut % (Auto) 72.0 Lymph % (Auto) 16.0 L Moody % (Auto) 10.2 H Eos % (Auto) 1.5 Baso % (Auto) 0.3 Neut # (Auto) 4.3 Lymph # (Auto) 1.0 Moody # (Auto) 0.6 Eos # (Auto) 0.1 Baso # (Auto) 0.0 PT 17.0 H INR 1.5 APTT 33.1 pCO2 pO2 HCO3 ABG pH ABG Total CO2 ABG O2 Saturation ABG Base Excess Alcides Test ABG Potassium A-a O2 Difference Glucose Lactate FiO2 Sodium 132 Potassium 4.0 Chloride 100 Carbon Dioxide 20 L Anion Gap 16 BUN 35 H Creatinine 3.7 H Est GFR ( Amer) 21 Est GFR (Non-Af Amer) 17 POC Glucose (mg/dL) Random Glucose 246 H Calcium 8.5 Total Bilirubin 1.3 AST 34 ALT 28 Alkaline Phosphatase 135 H Ammonia NT-Pro-B Natriuret Pep 1540 H Total Protein 7.5 Albumin 2.9 L Globulin 4.7 H Albumin/Globulin Ratio 0.6 L Arterial Blood Potassium 12/13/17 12/13/17 12/13/17 14:10 19:18 19:30 WBC RBC Hgb Hct MCV MCH MCHC RDW Plt Count MPV Neut % (Auto) Lymph % (Auto) Moody % (Auto) Eos % (Auto) Baso % (Auto) Neut # (Auto) Lymph # (Auto) Moody # (Auto) Eos # (Auto) Baso # (Auto) PT INR APTT pCO2 32 L pO2 83 HCO3 24.7 ABG pH 7.46 H ABG Total CO2 23.8 ABG O2 Saturation 100.5 H ABG Base Excess -0.3 Alcides Test Yes ABG Potassium 3.0 L A-a O2 Difference 27.0 Glucose 252 H Lactate 2.7 H FiO2 21.0 Sodium 129.0 L Potassium Chloride 100.0 Carbon Dioxide Anion Gap BUN Creatinine Est GFR ( Amer) Est GFR (Non-Af Amer) POC Glucose (mg/dL) 197 H Random Glucose Calcium Total Bilirubin AST ALT Alkaline Phosphatase Ammonia 10 L NT-Pro-B Natriuret Pep Total Protein Albumin Globulin Albumin/Globulin Ratio Arterial Blood Potassium 3.0 L 12/13/17 12/14/17 12/14/17 23:15 05:45 05:45 WBC 5.2 RBC 2.55 L Hgb 9.4 L Hct 27.3 L MCV 107.0 H D MCH 36.7 H MCHC 34.3 RDW 16.3 H Plt Count 138 MPV 8.8 Neut % (Auto) 50.3 Lymph % (Auto) 31.4 Moody % (Auto) 12.9 H Eos % (Auto) 3.9 Baso % (Auto) 1.5 Neut # (Auto) 2.6 Lymph # (Auto) 1.6 Moody # (Auto) 0.7 Eos # (Auto) 0.2 Baso # (Auto) 0.1 PT INR APTT pCO2 pO2 HCO3 ABG pH ABG Total CO2 ABG O2 Saturation ABG Base Excess Alcides Test ABG Potassium A-a O2 Difference Glucose Lactate FiO2 Sodium 132 Potassium 3.3 L Chloride 102 Carbon Dioxide 22 Anion Gap 11 BUN 36 H Creatinine 4.0 H Est GFR ( Amer) 19 Est GFR (Non-Af Amer) 16 POC Glucose (mg/dL) 207 H Random Glucose 138 H Calcium 8.1 L Total Bilirubin 1.2 AST 37 ALT 22 Alkaline Phosphatase 86 Ammonia NT-Pro-B Natriuret Pep Total Protein 6.5 Albumin 2.3 L D Globulin 4.2 H Albumin/Globulin Ratio 0.5 L Arterial Blood Potassium 12/14/17 06:33 WBC RBC Hgb Hct MCV MCH MCHC RDW Plt Count MPV Neut % (Auto) Lymph % (Auto) Moody % (Auto) Eos % (Auto) Baso % (Auto) Neut # (Auto) Lymph # (Auto) Moody # (Auto) Eos # (Auto) Baso # (Auto) PT INR APTT pCO2 pO2 HCO3 ABG pH ABG Total CO2 ABG O2 Saturation ABG Base Excess Alcides Test ABG Potassium A-a O2 Difference Glucose Lactate FiO2 Sodium Potassium Chloride Carbon Dioxide Anion Gap BUN Creatinine Est GFR ( Amer) Est GFR (Non-Af Amer) POC Glucose (mg/dL) 135 H Random Glucose Calcium Total Bilirubin AST ALT Alkaline Phosphatase Ammonia NT-Pro-B Natriuret Pep Total Protein Albumin Globulin Albumin/Globulin Ratio Arterial Blood Potassium Assessment & Plan - Assessment and Plan (Free Text) Assessment: 57 y/o M with a PMHx of HTN, DM, asthma, ETOH abuse with liver cirrhosis, admitted for evaluation and management of recurrent of ascitis and auditory hallucinations. PLAN: --Stable --Paracentesis --GI consult, Dr Galdamez --Psychiatry consult, Dr Herrera. --Serum alcohol level --UDS --Potassium chloride PO due to hypokalemia 3.3. --Continue management as ordered Case discussed with Dr Juan Antonio Lozoya, PGY-2 - Date & Time Date: 12/14/17 Time: 13:57 <Robbin Romano - Last Filed: 12/17/17 06:53> Results - Vital Signs Recent Vital Signs: Last Vital Signs Temp 98.2 F 12/17/17 01:25 Pulse 81 12/17/17 01:25 Resp 20 12/17/17 01:25 BP 95/51 L 12/17/17 01:25 Pulse Ox 98 12/17/17 01:25 - Labs Result Diagrams: 12/16/17 10:03 12/16/17 10:03 Labs: Laboratory Results - last 24 hr 12/16/17 12/16/17 12/16/17 10:03 10:03 10:03 WBC 4.3 L RBC 2.52 L Hgb 9.2 L Hct 27.2 L MCV 107.8 H D MCH 36.5 H MCHC 33.9 RDW 16.0 H Plt Count 146 MPV 9.4 Neut % (Auto) 44.9 L Lymph % (Auto) 35.2 Moody % (Auto) 14.6 H Eos % (Auto) 4.0 Baso % (Auto) 1.3 Neut # (Auto) 2.0 Lymph # (Auto) 1.5 Moody # (Auto) 0.6 Eos # (Auto) 0.2 Baso # (Auto) 0.1 Sodium 132 Potassium 4.4 Chloride 103 Carbon Dioxide 21 L Anion Gap 12 BUN 39 H Creatinine 4.6 H Est GFR ( Amer) 16 Est GFR (Non-Af Amer) 13 POC Glucose (mg/dL) Random Glucose 116 H Calcium 8.2 L Total Bilirubin 1.8 H AST 26 ALT 22 Alkaline Phosphatase 75 Ammonia 26 Total Protein 6.2 L Albumin 2.5 L Globulin 3.7 Albumin/Globulin Ratio 0.7 L Lipase 30 Fluid Source Fluid Appearance Fluid WBC Fluid RBC Fluid Tot Cell Count Fluid Neutrophils Fluid Lymphocytes Fld Monocyte/Macrophag Fluid Comment 12/16/17 12/16/17 12/16/17 11:03 13:36 15:19 WBC RBC Hgb Hct MCV MCH MCHC RDW Plt Count MPV Neut % (Auto) Lymph % (Auto) Moody % (Auto) Eos % (Auto) Baso % (Auto) Neut # (Auto) Lymph # (Auto) Moody # (Auto) Eos # (Auto) Baso # (Auto) Sodium Potassium Chloride Carbon Dioxide Anion Gap BUN Creatinine Est GFR ( Amer) Est GFR (Non-Af Amer) POC Glucose (mg/dL) 112 H 103 Random Glucose Calcium Total Bilirubin AST ALT Alkaline Phosphatase Ammonia Total Protein Albumin Globulin Albumin/Globulin Ratio Lipase Fluid Source Peritoneal/ascites Fluid Appearance Cloudy Fluid WBC 140.0 Fluid RBC 20.0 H Fluid Tot Cell Count 100 H Fluid Neutrophils 41.0 H Fluid Lymphocytes 40.0 H Fld Monocyte/Macrophag 19 H Fluid Comment None 12/16/17 12/17/17 21:24 06:20 WBC RBC Hgb Hct MCV MCH MCHC RDW Plt Count MPV Neut % (Auto) Lymph % (Auto) Moody % (Auto) Eos % (Auto) Baso % (Auto) Neut # (Auto) Lymph # (Auto) Moody # (Auto) Eos # (Auto) Baso # (Auto) Sodium Potassium Chloride Carbon Dioxide Anion Gap BUN Creatinine Est GFR ( Amer) Est GFR (Non-Af Amer) POC Glucose (mg/dL) 174 H 95 Random Glucose Calcium Total Bilirubin AST ALT Alkaline Phosphatase Ammonia Total Protein Albumin Globulin Albumin/Globulin Ratio Lipase Fluid Source Fluid Appearance Fluid WBC Fluid RBC Fluid Tot Cell Count Fluid Neutrophils Fluid Lymphocytes Fld Monocyte/Macrophag Fluid Comment Assessment & Plan - Assessment and Plan (Free Text) Assessment: Patient was personally seen and examined by me in rounds with residents. Available labs and diagnostic data reviewed. Case, Patient's condition and management plan discussed with residents in rounds. Agree with resident's progress note. Plan: As ordered.
--- NOTE | 2017-12-14 09:06 | CT ---
Date of service: 12/13/2017 PROCEDURE: CT HEAD WITHOUT CONTRAST. HISTORY: ALTERED MENTAL STATUS COMPARISON: None available. TECHNIQUE: Axial computed tomography images were obtained through the head/brain without intravenous contrast. Radiation dose: Total exam DLP = 1000.29 mGy-cm. This CT exam was performed using one or more of the following dose reduction techniques: Automated exposure control, adjustment of the mA and/or kV according to patient size, and/or use of iterative reconstruction technique. FINDINGS: HEMORRHAGE: No intracranial hemorrhage. BRAIN: No mass effect or edema. Mild cerebral atrophy. VENTRICLES: Unremarkable. No hydrocephalus. CALVARIUM: Unremarkable. PARANASAL SINUSES: Unremarkable as visualized. No significant inflammatory changes. MASTOID AIR CELLS: Unremarkable as visualized. No inflammatory changes. OTHER FINDINGS: None. IMPRESSION: Mild cerebral atrophy.
[2017-12-14] MEDS: Insulin Lispro (humaLOG) 100 Units/ml Inj SC SCH ×4 (09:21→21:48)
[2017-12-14] MEDS ORDERED: Potassium Chloride 20 mEq ER Tab PO ONE (12:27)
--- NOTE | 2017-12-14 14:44 | CP.PCM.CON ---
History of Present Illness - History of Present Illness History of Present Illness: This patient whole is 57 years of age male I was called to see him for abnormal kidney function. Was a rising BUN/creatinine. Apparently patient has been admitted multiple time and he has been having recurrent ascites and has been having paracentesis and the last treatment was about a week ago and they remove about 9000 mL of fluid at that time or more. And readmitted today was rising BUN/creatinine.patient was diagnosed with alcoholic liver cirrhosis. Home medication is not available at this point. Patient complaining golf nausea no vomiting PMHx: liver cirrhosis, anxiety, depression, DM, HTN, Alcohol abuse, asthma PSHx: denies FHx: denies SHx: Does report smoking. Pt drinks at least 3x per week, ~3 beers as per patie nt. No recent rec drugs. Review of Systems - Constitutional Constitutional: Anorexia. absent: Chills - EENT Eyes: absent: Exophthalmos Nose/Mouth/Throat: absent: Epistaxis, Nasal Discharge - Cardiovascular Cardiovascular: Leg Edema. absent: Chest Pain, Dyspnea, Leg Ulcers - Respiratory Respiratory: Chest Congestion. absent: Hemoptysis - Gastrointestinal Gastrointestinal: absent: Abdominal Pain, Coffee Ground Emesis Additional comments: distention of the abdomen - Genitourinary Genitourinary: Nocturia - Musculoskeletal Musculoskeletal: Muscle Weakness - Neurological Neurological: absent: Confusion, Numbness, Focal Weakness - Psychiatric Psychiatric: Change in Appetite, Confusion - Endocrine Endocrine: Fatigue - Hematologic/Lymphatic Hematologic: absent: Easy Bleeding Past Patient History - Infectious Disease Hx of Infectious Diseases: None - Past Medical History & Family History Past Medical History?: Yes - Past Social History Smoking Status: Never Smoked - CARDIAC Hx Cardiac Disorders: Yes Hx Atrial Fibrillation: Yes Hx Hypertension: Yes - PULMONARY Hx Respiratory Disorders: Yes Hx Asthma: Yes - NEUROLOGICAL Hx Neurological Disorder: No - HEENT Hx HEENT Problems: No - RENAL Hx Chronic Kidney Disease: No - ENDOCRINE/METABOLIC Hx Endocrine Disorders: Yes (DM) Hx Diabetes Mellitus Type 2: Yes - HEMATOLOGICAL/ONCOLOGICAL Hx Blood Disorders: No Hx Human Immunodeficiency Virus (HIV): No - INTEGUMENTARY Hx Dermatological Problems: No - MUSCULOSKELETAL/RHEUMATOLOGICAL Hx Musculoskeletal Disorders: Yes Hx Falls: Yes - GASTROINTESTINAL Hx Gastrointestinal Disorders: No - GENITOURINARY/GYNECOLOGICAL Hx Genitourinary Disorders: No - PSYCHIATRIC Hx Psychophysiologic Disorder: Yes Hx Anxiety: Yes Hx Bipolar Disorder: Yes Hx Depression: Yes - SURGICAL HISTORY Hx Surgeries: Yes Hx Herniorrhaphy: Yes - ANESTHESIA Hx Anesthesia: Yes Hx Anesthesia Reactions: No Meds Allergies/Adverse Reactions: Allergies Allergy/AdvReac Type Severity Reaction Status Date / Time No Known Allergies Allergy Verified 12/13/17 13:08 - Medications Medications: Current Medications Acetaminophen (Tylenol 325mg Tab) 650 mg PO Q4 PRN PRN Reason: Pain, moderate (4-7) Last Admin: 12/13/17 18:09 Dose: 650 mg Al Hydrox/Mg Hydrox/Simethicone (Maalox Plus 30 Ml) 30 ml PO DAILY PRN PRN Reason: Indigestion / Heartburn Last Admin: 12/13/17 18:06 Dose: 30 ml Famotidine (Pepcid) 40 mg PO HS JERED Last Admin: 12/13/17 22:22 Dose: 40 mg Insulin Human Lispro (Humalog) 0 units SC ACHS JERED; Protocol Last Admin: 12/14/17 10:57 Dose: Not Given Lactulose (Enulose) 20 gm PO Q8 JERED Ondansetron HCl (Zofran Tab) 4 mg PO Q4 PRN PRN Reason: Nausea/Vomiting Oxycodone/Acetaminophen (Percocet 5/325 Mg Tab) 1 tab PO Q4 PRN PRN Reason: Pain, severe (8-10) Stop: 12/16/17 17:21 Last Admin: 12/14/17 03:28 Dose: 1 tab Physical Exam - Constitutional Appears: No Acute Distress - Eye Exam Eye Exam: Conjunctival injection - ENT Exam ENT Exam: Mucous Membranes Moist - Neck Exam Neck exam: Negative for: Lymphadenopathy - Respiratory Exam Respiratory Exam: NORMAL BREATHING PATTERN. absent: Chest Wall Tenderness - Cardiovascular Exam Cardiovascular Exam: absent: Gallop, JVD, Rubs - GI/Abdominal Exam GI & Abdominal Exam: Distended Additional comments: massive ascites - Extremities Exam Extremities exam: Negative for: calf tenderness - Back Exam Back exam: absent: CVA tenderness (L), CVA tenderness (R) - Neurological Exam Neurological exam: Altered - Psychiatric Exam Psychiatric exam: Depressed Results - Vital Signs Recent Vital Signs: Last Vital Signs Temp 97.4 F L 12/14/17 09:18 Pulse 81 12/14/17 09:18 Resp 20 12/14/17 09:18 BP 104/57 L 12/14/17 09:18 Pulse Ox 98 12/14/17 09:18 - Labs Result Diagrams: 12/14/17 05:45 12/14/17 05:45 Labs: Laboratory Results - last 24 hr 12/13/17 12/13/17 12/13/17 14:10 14:10 14:10 WBC RBC Hgb Hct MCV MCH MCHC RDW Plt Count MPV Neut % (Auto) Lymph % (Auto) Calvert % (Auto) Eos % (Auto) Baso % (Auto) Neut # (Auto) Lymph # (Auto) Calvert # (Auto) Eos # (Auto) Baso # (Auto) PT 17.0 H INR 1.5 APTT 33.1 pCO2 pO2 HCO3 ABG pH ABG Total CO2 ABG O2 Saturation ABG Base Excess Alcides Test ABG Potassium A-a O2 Difference Glucose Lactate FiO2 Sodium 132 Potassium 4.0 Chloride 100 Carbon Dioxide 20 L Anion Gap 16 BUN 35 H Creatinine 3.7 H Est GFR ( Amer) 21 Est GFR (Non-Af Amer) 17 POC Glucose (mg/dL) Random Glucose 246 H Calcium 8.5 Total Bilirubin 1.3 AST 34 ALT 28 Alkaline Phosphatase 135 H Ammonia 10 L NT-Pro-B Natriuret Pep 1540 H Total Protein 7.5 Albumin 2.9 L Globulin 4.7 H Albumin/Globulin Ratio 0.6 L Arterial Blood Potassium 12/13/17 12/13/17 12/13/17 19:18 19:30 23:15 WBC RBC Hgb Hct MCV MCH MCHC RDW Plt Count MPV Neut % (Auto) Lymph % (Auto) Calvert % (Auto) Eos % (Auto) Baso % (Auto) Neut # (Auto) Lymph # (Auto) Calvert # (Auto) Eos # (Auto) Baso # (Auto) PT INR APTT pCO2 32 L pO2 83 HCO3 24.7 ABG pH 7.46 H ABG Total CO2 23.8 ABG O2 Saturation 100.5 H ABG Base Excess -0.3 Alcides Test Yes ABG Potassium 3.0 L A-a O2 Difference 27.0 Glucose 252 H Lactate 2.7 H FiO2 21.0 Sodium 129.0 L Potassium Chloride 100.0 Carbon Dioxide Anion Gap BUN Creatinine Est GFR ( Amer) Est GFR (Non-Af Amer) POC Glucose (mg/dL) 197 H 207 H Random Glucose Calcium Total Bilirubin AST ALT Alkaline Phosphatase Ammonia NT-Pro-B Natriuret Pep Total Protein Albumin Globulin Albumin/Globulin Ratio Arterial Blood Potassium 3.0 L 12/14/17 12/14/17 12/14/17 05:45 05:45 06:33 WBC 5.2 RBC 2.55 L Hgb 9.4 L Hct 27.3 L MCV 107.0 H D MCH 36.7 H MCHC 34.3 RDW 16.3 H Plt Count 138 MPV 8.8 Neut % (Auto) 50.3 Lymph % (Auto) 31.4 Calvert % (Auto) 12.9 H Eos % (Auto) 3.9 Baso % (Auto) 1.5 Neut # (Auto) 2.6 Lymph # (Auto) 1.6 Calvert # (Auto) 0.7 Eos # (Auto) 0.2 Baso # (Auto) 0.1 PT INR APTT pCO2 pO2 HCO3 ABG pH ABG Total CO2 ABG O2 Saturation ABG Base Excess Alcides Test ABG Potassium A-a O2 Difference Glucose Lactate FiO2 Sodium 132 Potassium 3.3 L Chloride 102 Carbon Dioxide 22 Anion Gap 11 BUN 36 H Creatinine 4.0 H Est GFR ( Amer) 19 Est GFR (Non-Af Amer) 16 POC Glucose (mg/dL) 135 H Random Glucose 138 H Calcium 8.1 L Total Bilirubin 1.2 AST 37 ALT 22 Alkaline Phosphatase 86 Ammonia NT-Pro-B Natriuret Pep Total Protein 6.5 Albumin 2.3 L D Globulin 4.2 H Albumin/Globulin Ratio 0.5 L Arterial Blood Potassium 12/14/17 10:49 WBC RBC Hgb Hct MCV MCH MCHC RDW Plt Count MPV Neut % (Auto) Lymph % (Auto) Calvert % (Auto) Eos % (Auto) Baso % (Auto) Neut # (Auto) Lymph # (Auto) Calvert # (Auto) Eos # (Auto) Baso # (Auto) PT INR APTT pCO2 pO2 HCO3 ABG pH ABG Total CO2 ABG O2 Saturation ABG Base Excess Alcides Test ABG Potassium A-a O2 Difference Glucose Lactate FiO2 Sodium Potassium Chloride Carbon Dioxide Anion Gap BUN Creatinine Est GFR ( Amer) Est GFR (Non-Af Amer) POC Glucose (mg/dL) 146 H Random Glucose Calcium Total Bilirubin AST ALT Alkaline Phosphatase Ammonia NT-Pro-B Natriuret Pep Total Protein Albumin Globulin Albumin/Globulin Ratio Arterial Blood Potassium Assessment & Plan (1) SHELLIE (acute kidney injury) Assessment and Plan: acute kidney injury superimposed perhaps on chronic kidney disease related to massive ascites with recurrent hemodynamic changes. I cannot rule out hepatorenal syndrome. Alcoholic liver disease with massive ascitis with recurrent paracentesis anemia Massive ascites recommendation Stat spot urine for sodium osmolality and creatinine Stat 25% 50 mL albumin every 4 hrs for 6 doses. IV fluid D5 normal saline at 40 mL/h. Prognosis is guarded. medication dose is adjusted per renal failure DC aluminium hydroxide Status: Acute (2) Ascites Status: Acute
--- NOTE | 2017-12-14 15:28 | CP.PCM.CON ---
History of Present Illness - History of Present Illness History of Present Illness: 57 y/o M with a PMHx of HTN, DM, asthma, ETOH abuse with liver cirrhosis, was admitted for evaluation and management of recurrent abdominal pain, abdominal distension and hearing voices. Pt was recently discharged from hospital after e xtracting 9.6 L of fluid from paracentesis. Pt re-stated that he is hearing the devil telling him to kill himself. pt on evaluation confused , oriented to person only , reported auditory hallucinations, voices asking him to hurt himself , unable to engage in the interview believing he is in a caravan and stating the month is February Past Patient History - Infectious Disease Hx of Infectious Diseases: None - Past Medical History & Family History Past Medical History?: Yes - Past Social History Smoking Status: Never Smoked - CARDIAC Hx Cardiac Disorders: Yes Hx Atrial Fibrillation: Yes Hx Hypertension: Yes - PULMONARY Hx Respiratory Disorders: Yes Hx Asthma: Yes - NEUROLOGICAL Hx Neurological Disorder: No - HEENT Hx HEENT Problems: No - RENAL Hx Chronic Kidney Disease: No - ENDOCRINE/METABOLIC Hx Endocrine Disorders: Yes (DM) Hx Diabetes Mellitus Type 2: Yes - HEMATOLOGICAL/ONCOLOGICAL Hx Blood Disorders: No Hx Human Immunodeficiency Virus (HIV): No - INTEGUMENTARY Hx Dermatological Problems: No - MUSCULOSKELETAL/RHEUMATOLOGICAL Hx Musculoskeletal Disorders: Yes Hx Falls: Yes - GASTROINTESTINAL Hx Gastrointestinal Disorders: No - GENITOURINARY/GYNECOLOGICAL Hx Genitourinary Disorders: No - PSYCHIATRIC Hx Psychophysiologic Disorder: Yes Hx Anxiety: Yes Hx Bipolar Disorder: Yes Hx Depression: Yes - SURGICAL HISTORY Hx Surgeries: Yes Hx Herniorrhaphy: Yes - ANESTHESIA Hx Anesthesia: Yes Hx Anesthesia Reactions: No Meds Allergies/Adverse Reactions: Allergies Allergy/AdvReac Type Severity Reaction Status Date / Time No Known Allergies Allergy Verified 12/13/17 13:08 - Medications Medications: Current Medications Acetaminophen (Tylenol 325mg Tab) 650 mg PO Q4 PRN PRN Reason: Pain, moderate (4-7) Last Admin: 12/13/17 18:09 Dose: 650 mg Al Hydrox/Mg Hydrox/Simethicone (Maalox Plus 30 Ml) 30 ml PO DAILY PRN PRN Reason: Indigestion / Heartburn Last Admin: 12/13/17 18:06 Dose: 30 ml Famotidine (Pepcid) 40 mg PO HS [facility] Last Admin: 12/13/17 22:22 Dose: 40 mg Insulin Human Lispro (Humalog) 0 units SC ACHS [facility]; Protocol Last Admin: 12/14/17 10:57 Dose: Not Given Lactulose (Enulose) 20 gm PO Q8 [facility] Ondansetron HCl (Zofran Tab) 4 mg PO Q4 PRN PRN Reason: Nausea/Vomiting Oxycodone/Acetaminophen (Percocet 5/325 Mg Tab) 1 tab PO Q4 PRN PRN Reason: Pain, severe (8-10) Stop: 12/16/17 17:21 Last Admin: 12/14/17 03:28 Dose: 1 tab Results - Vital Signs Recent Vital Signs: Last Vital Signs Temp 97.4 F L 12/14/17 09:18 Pulse 81 12/14/17 09:18 Resp 20 12/14/17 09:18 BP 104/57 L 12/14/17 09:18 Pulse Ox 98 12/14/17 09:18 - Labs Result Diagrams: 12/14/17 05:45 12/14/17 05:45 Labs: Laboratory Results - last 24 hr 12/13/17 12/13/17 12/13/17 19:18 19:30 23:15 WBC RBC Hgb Hct MCV MCH MCHC RDW Plt Count MPV Neut % (Auto) Lymph % (Auto) [place] % (Auto) Eos % (Auto) Baso % (Auto) Neut # (Auto) Lymph # (Auto) [place] # (Auto) Eos # (Auto) Baso # (Auto) pCO2 32 L pO2 83 HCO3 24.7 ABG pH 7.46 H ABG Total CO2 23.8 ABG O2 Saturation 100.5 H ABG Base Excess -0.3 Alcides Test Yes ABG Potassium 3.0 L A-a O2 Difference 27.0 Sodium 129.0 L Chloride 100.0 Glucose 252 H Lactate 2.7 H FiO2 21.0 Potassium Carbon Dioxide Anion Gap BUN Creatinine Est GFR ( Amer) Est GFR (Non-Af Amer) POC Glucose (mg/dL) 197 H 207 H Random Glucose Calcium Total Bilirubin AST ALT Alkaline Phosphatase Total Protein Albumin Globulin Albumin/Globulin Ratio Arterial Blood Potassium 3.0 L 12/14/17 12/14/17 12/14/17 05:45 05:45 06:33 WBC 5.2 RBC 2.55 L Hgb 9.4 L Hct 27.3 L MCV 107.0 H D MCH 36.7 H MCHC 34.3 RDW 16.3 H Plt Count 138 MPV 8.8 Neut % (Auto) 50.3 Lymph % (Auto) 31.4 [place] % (Auto) 12.9 H Eos % (Auto) 3.9 Baso % (Auto) 1.5 Neut # (Auto) 2.6 Lymph # (Auto) 1.6 [place] # (Auto) 0.7 Eos # (Auto) 0.2 Baso # (Auto) 0.1 pCO2 pO2 HCO3 ABG pH ABG Total CO2 ABG O2 Saturation ABG Base Excess Alcides Test ABG Potassium A-a O2 Difference Sodium 132 Chloride 102 Glucose Lactate FiO2 Potassium 3.3 L Carbon Dioxide 22 Anion Gap 11 BUN 36 H Creatinine 4.0 H Est GFR ( Amer) 19 Est GFR (Non-Af Amer) 16 POC Glucose (mg/dL) 135 H Random Glucose 138 H Calcium 8.1 L Total Bilirubin 1.2 AST 37 ALT 22 Alkaline Phosphatase 86 Total Protein 6.5 Albumin 2.3 L D Globulin 4.2 H Albumin/Globulin Ratio 0.5 L Arterial Blood Potassium 12/14/17 10:49 WBC RBC Hgb Hct MCV MCH MCHC RDW Plt Count MPV Neut % (Auto) Lymph % (Auto) [place] % (Auto) Eos % (Auto) Baso % (Auto) Neut # (Auto) Lymph # (Auto) [place] # (Auto) Eos # (Auto) Baso # (Auto) pCO2 pO2 HCO3 ABG pH ABG Total CO2 ABG O2 Saturation ABG Base Excess Alcides Test ABG Potassium A-a O2 Difference Sodium Chloride Glucose Lactate FiO2 Potassium Carbon Dioxide Anion Gap BUN Creatinine Est GFR ( Amer) Est GFR (Non-Af Amer) POC Glucose (mg/dL) 146 H Random Glucose Calcium Total Bilirubin AST ALT Alkaline Phosphatase Total Protein Albumin Globulin Albumin/Globulin Ratio Arterial Blood Potassium Assessment & Plan - Assessment and Plan (Free Text) Assessment: delirium with psychosis alcohol abuse Plan: recommend to start haldol 0.25mg bid continue 1:1 precautions for safety
[2017-12-14] MEDS ORDERED: Dextrose 5%/0.9% NS 1,000 ML IV SCH (15:30)
[2017-12-14] MEDS: Albumin Human 25% (12.5 gm/50 ml) IV SCH ×3 (17:06→23:29)
[2017-12-15 01:53] LABS: CREATININE, RANDOM URINE 254.2 mg/dL
[2017-12-15 01:56] LABS: BARBITURATES, UR NEGATIVE (NEGATIVE); BENZODIAZEPINES, UR POSITIVE (NEGATIVE); OPIATES, UR POSITIVE (NEGATIVE); OSMOLALITY,URINE 314 mosm/kg (300-1000); PHENCYCLIDINE, UR NEGATIVE (NEGATIVE)
[2017-12-15] MEDS: Albumin Human 25% (12.5 gm/50 ml) IV SCH ×4 (05:00→15:11)
[2017-12-15] MEDS: Insulin Lispro (humaLOG) 100 Units/ml Inj SC SCH ×4 (07:58→22:46)
[2017-12-15 08:22] LABS: HEMOGLOBIN 9.7 g/dL (12.0-18.0); MEAN CELL VOLUME 110.8 fl (80.0-94.0); MEAN CORPUSCULAR HEMOGLOBIN 36.9 pg (27.0-31.0); MEAN CORPUSCULAR HGB CONC 33.3 g/dL (33.0-37.0); RBC 2.63 Mil/uL (4.40-5.90); RED CELL DISTRIBUTION WIDTH 15.6 % (11.5-14.5); WHITE BLOOD COUNT 5.2 K/uL (4.8-10.8)
--- NOTE | 2017-12-15 08:23 | CON ---
DATE: 12/14/2017REFERRING DOCTOR: Robbin Romano MD REASON FOR CONSULTATION: Ascites. HISTORY OF PRESENT ILLNESS: This is a pleasant 57-year-old man, who visited the hospital for paracentesis, who now comes in for abdominal pain, , and shortness of breath, but also mental status changes as well. He is not acting himself. He is hearing voices and is confused. Otherwise, he is lying in bed comfortable, in no apparent distress. PAST MEDICAL HISTORY: Includes anxiety, asthma, AFib, bipolar, depression, diabetes, hypertension, and cirrhosis. PAST SURGICAL HISTORY: Noncontributory. FAMILY HISTORY: Noncontributory. SOCIAL HISTORY: poor historian. MEDICATIONS: Have been reviewed. PHYSICAL EXAMINATION GENERAL: Pleasant, elderly-appearing man, confused, lying in bed comfortably, in no apparent distress. HEENT: Head: Normocephalic, atraumatic. Eyes: Pupils equally reactive to light bilaterally. No conjunctival pallor or icterus. NECK: Supple. LUNGS: Coarse breath sounds bilaterally. HEART: S1, S2, regular rate and rhythm. ABDOMEN: Distended, some discomfort on deep palpation. No rebound or guarding. RECTAL: Deferred. EXTREMITIES: Some edema. NEUROLOGIC: A and O x1. LABORATORY DATA: All labs and relevant radiology have been reviewed, WBC 5.3, hemoglobin 9.4, hematocrit 27.3, and potassium is 3.3. LFT is essentially unremarkable. ASSESSMENT AND PLAN: This is a 57-year-old male with confusion and ascites and cirrhosis. I would recommend workup for a possible including empirical dose of lactulose. I will consider paracentesis through as well as reese-culturing the patient for . Prognosis is guarded. We will follow the patient with you. Thank you for consult. Juan Galdamez MD/ PhD
[2017-12-15 08:40] LABS: ALB/GLOB RATIO 0.6 (1.0-2.1); ALBUMIN 2.8 g/dL (3.5-5.0); CALCIUM 8.2 mg/dL (8.4-10.2)
--- NOTE | 2017-12-15 09:21 | CP.PCM.PN ---
Subjective - Date & Time of Evaluation Date of Evaluation: 12/14/17 Time of Evaluation: 13:15 - Subjective Subjective: no overnight events Objective - Vital Signs/Intake and Output Vital Signs (last 24 hours): Temp Pulse Resp BP Pulse Ox 98.2 F 100 H 19 146/85 98 12/15/17 08:12 12/15/17 08:12 12/15/17 08:12 12/15/17 08:12 12/15/17 08:12 - Medications Medications: Current Medications Acetaminophen (Tylenol 325mg Tab) 650 mg PO Q4 PRN PRN Reason: Pain, moderate (4-7) Last Admin: 12/13/17 18:09 Dose: 650 mg Albumin Human (Albumin Human 25% (12.5 Gm/50 Ml)) 12.5 gm IV Q4 JERED Last Admin: 12/15/17 08:24 Dose: 12.5 gm Famotidine (Pepcid) 40 mg PO HS JERED Last Admin: 12/14/17 21:49 Dose: 40 mg Haloperidol (Haldol) 0.25 mg PO BID [facility]ER[facility] Dextrose/Sodium Chloride (Dextrose 5%/0.9% Ns 1000 Ml) 1,000 mls @ 40 mls/hr IV .Q24H [facility] Stop: 12/15/17 15:27 Last Admin: 12/14/17 17:10 Dose: 40 mls/hr Insulin Human Lispro (Humalog) 0 units SC ACHS [facility]; Protocol Last Admin: 12/15/17 07:58 Dose: Not Given Lactulose (Enulose) 20 gm PO Q8 JERED Last Admin: 12/15/17 08:55 Dose: 20 gm Oxycodone/Acetaminophen (Percocet 5/325 Mg Tab) 1 tab PO Q4 PRN PRN Reason: Pain, severe (8-10) Stop: 12/16/17 17:21 Last Admin: 12/14/17 23:48 Dose: 1 tab - Labs Labs: 12/15/17 08:00 12/15/17 08:00 PT 17.0 Seconds (9.8-13.1) H 12/13/17 14:10 INR 1.5 12/13/17 14:10 APTT 33.1 Seconds (25.6-37.1) 12/13/17 14:10 - Neck Exam Neck Exam: Normal Inspection - Respiratory Exam Respiratory Exam: Clear to Ausculation Bilateral, NORMAL BREATHING PATTERN - Cardiovascular Exam Cardiovascular Exam: REGULAR RHYTHM - GI/Abdominal Exam GI & Abdominal Exam: Distended, Soft Assessment and Plan - Assessment and Plan (Free Text) Assessment: 57 yo male with decompensated cirrhosis IR for paracentesis once consent psych consult
--- NOTE | 2017-12-15 10:09 | CP.PCM.PN ---
Subjective - Date & Time of Evaluation Date of Evaluation: 12/15/17 Time of Evaluation: 10:08 - Subjective Subjective: no overnight events Objective - Vital Signs/Intake and Output Vital Signs (last 24 hours): Temp Pulse Resp BP Pulse Ox 98.2 F 100 H 19 146/85 98 12/15/17 08:12 12/15/17 08:12 12/15/17 08:12 12/15/17 08:12 12/15/17 08:12 - Medications Medications: Current Medications Acetaminophen (Tylenol 325mg Tab) 650 mg PO Q4 PRN PRN Reason: Pain, moderate (4-7) Last Admin: 12/13/17 18:09 Dose: 650 mg Albumin Human (Albumin Human 25% (12.5 Gm/50 Ml)) 12.5 gm IV Q4 JERED Last Admin: 12/15/17 08:24 Dose: 12.5 gm Famotidine (Pepcid) 40 mg PO HS JERED Last Admin: 12/14/17 21:49 Dose: 40 mg Haloperidol Lactate (Haldol) 0.25 mg PO BID JERED Dextrose/Sodium Chloride (Dextrose 5%/0.9% Ns 1000 Ml) 1,000 mls @ 40 mls/hr IV .Q24H [facility]ER[facility] Stop: 12/15/17 15:27 Last Admin: 12/14/17 17:10 Dose: 40 mls/hr Insulin Human Lispro (Humalog) 0 units SC ACHS [facility]; Protocol Last Admin: 12/15/17 07:58 Dose: Not Given Lactulose (Enulose) 20 gm PO Q8 JERED Last Admin: 12/15/17 08:55 Dose: 20 gm Oxycodone/Acetaminophen (Percocet 5/325 Mg Tab) 1 tab PO Q4 PRN PRN Reason: Pain, severe (8-10) Stop: 12/16/17 17:21 Last Admin: 12/14/17 23:48 Dose: 1 tab - Labs Labs: 12/15/17 08:00 12/15/17 08:00 PT 17.0 Seconds (9.8-13.1) H 12/13/17 14:10 INR 1.5 12/13/17 14:10 APTT 33.1 Seconds (25.6-37.1) 12/13/17 14:10 - Head Exam Head Exam: NORMOCEPHALIC - Neck Exam Neck Exam: Normal Inspection - Cardiovascular Exam Cardiovascular Exam: REGULAR RHYTHM - GI/Abdominal Exam GI & Abdominal Exam: Soft, Normal Bowel Sounds Assessment and Plan - Assessment and Plan (Free Text) Assessment: 57 yo male with decompensated cirrhosis paracentesis psych consult
--- NOTE | 2017-12-15 10:24 | CP.PCM.PN ---
Subjective - Date & Time of Evaluation Date of Evaluation: 12/15/17 Time of Evaluation: 10:24 - Subjective Subjective: patient is partially comfortable was Vital sign noted Objective - Vital Signs/Intake and Output Vital Signs (last 24 hours): Temp Pulse Resp BP Pulse Ox 98.2 F 100 H 19 146/85 98 12/15/17 08:12 12/15/17 08:12 12/15/17 08:12 12/15/17 08:12 12/15/17 08:12 - Medications Medications: Current Medications Acetaminophen (Tylenol 325mg Tab) 650 mg PO Q4 PRN PRN Reason: Pain, moderate (4-7) Last Admin: 12/13/17 18:09 Dose: 650 mg Albumin Human (Albumin Human 25% (12.5 Gm/50 Ml)) 12.5 gm IV Q4 JERED Last Admin: 12/15/17 08:24 Dose: 12.5 gm Famotidine (Pepcid) 40 mg PO HS JERED Last Admin: 12/14/17 21:49 Dose: 40 mg Haloperidol Lactate (Haldol) 0.25 mg PO BID JERED Dextrose/Sodium Chloride (Dextrose 5%/0.9% Ns 1000 Ml) 1,000 mls @ 40 mls/hr IV .Q24H [facility] Stop: 12/15/17 15:27 Last Admin: 12/14/17 17:10 Dose: 40 mls/hr Insulin Human Lispro (Humalog) 0 units SC ACHS [facility]; Protocol Last Admin: 12/15/17 07:58 Dose: Not Given Lactulose (Enulose) 20 gm PO Q8 JERED Last Admin: 12/15/17 08:55 Dose: 20 gm Oxycodone/Acetaminophen (Percocet 5/325 Mg Tab) 1 tab PO Q4 PRN PRN Reason: Pain, severe (8-10) Stop: 12/16/17 17:21 Last Admin: 12/14/17 23:48 Dose: 1 tab - Labs Labs: 12/15/17 08:00 12/15/17 08:00 PT 17.0 Seconds (9.8-13.1) H 12/13/17 14:10 INR 1.5 12/13/17 14:10 APTT 33.1 Seconds (25.6-37.1) 12/13/17 14:10 - Constitutional Appears: No Acute Distress - Eye Exam Eye Exam: Conjunctival injection - ENT Exam ENT Exam: Mucous Membranes Moist - Neck Exam Neck Exam: absent: Lymphadenopathy - Respiratory Exam Respiratory Exam: Rhonchi, NORMAL BREATHING PATTERN. absent: Chest Wall Tenderness - Cardiovascular Exam Cardiovascular Exam: absent: Gallop, JVD, Rubs - GI/Abdominal Exam GI & Abdominal Exam: Soft, Normal Bowel Sounds - Extremities Exam Extremities Exam: absent: Calf Tenderness - Back Exam Back Exam: absent: CVA tenderness (L), CVA tenderness (R) - Neurological Exam Neurological Exam: Alert - Skin Skin Exam: absent: Cyanosis Assessment and Plan (1) SHELLIE (acute kidney injury) Assessment & Plan: Assessment and Plan: acute kidney injury superimposed perhaps on chronic kidney disease related to massive ascites with recurrent hemodynamic changes. hepatorenal syndrome. Alcoholic liver disease with massive ascitis with recurrent paracentesis anemia Massive ascites recommendation Stat spot urine for sodium osmolality and creatinine Stat 25% 50 mL albumin every 4 hrs for 6 doses. Prognosis is guarded. medication dose is adjusted per renal failure DC aluminium hydroxide patient may need hemodialysis if kidney function worsening by tomorrow Status: Acute (2) Ascites Status: Acute
[2017-12-15] MEDS: Haloperidol Lactate 2 mg/ml Liquid PO SCH ×2 (10:57→16:03)
--- NOTE | 2017-12-15 11:52 | CP.PCM.PN ---
<Rodrick Guzman - Last Filed: 12/15/17 11:50> Subjective - Date & Time of Evaluation Date of Evaluation: 12/15/17 Time of Evaluation: 10:00 - Subjective Subjective: 57 y/o M was seen and examined by bedside with Dr Loredo. Pt was responsive to verbal commands, seems confused, only oriented to person. Pt afebrile with NO acute events overnight. Paracentesis was not performed yesterday as patient in confused, he could not give consent. Objective - Vital Signs/Intake and Output Vital Signs (last 24 hours): Temp Pulse Resp BP Pulse Ox 98.2 F 100 H 19 146/85 98 12/15/17 08:12 12/15/17 08:12 12/15/17 08:12 12/15/17 08:12 12/15/17 08:12 - Medications Medications: Current Medications Acetaminophen (Tylenol 325mg Tab) 650 mg PO Q4 PRN PRN Reason: Pain, moderate (4-7) Last Admin: 12/13/17 18:09 Dose: 650 mg Albumin Human (Albumin Human 25% (12.5 Gm/50 Ml)) 12.5 gm IV Q4 [facility] Last Admin: 12/15/17 10:55 Dose: 12.5 gm Famotidine (Pepcid) 40 mg PO HS [facility] Last Admin: 12/14/17 21:49 Dose: 40 mg Haloperidol Lactate (Haldol) 0.25 mg PO BID [facility] Last Admin: 12/15/17 10:57 Dose: 0.25 mg Dextrose/Sodium Chloride (Dextrose 5%/0.9% Ns 1000 Ml) 1,000 mls @ 40 mls/hr IV .Q24H [facility] Stop: 12/15/17 15:27 Last Admin: 12/14/17 17:10 Dose: 40 mls/hr Insulin Human Lispro (Humalog) 0 units SC ACHS [facility]; Protocol Last Admin: 12/15/17 07:58 Dose: Not Given Lactulose (Enulose) 20 gm PO Q8 [facility] Last Admin: 12/15/17 08:55 Dose: 20 gm Oxycodone/Acetaminophen (Percocet 5/325 Mg Tab) 1 tab PO Q4 PRN PRN Reason: Pain, severe (8-10) Stop: 12/16/17 17:21 Last Admin: 12/14/17 23:48 Dose: 1 tab - Labs Labs: 12/15/17 08:00 12/15/17 08:00 PT 17.0 Seconds (9.8-13.1) H 12/13/17 14:10 INR 1.5 12/13/17 14:10 APTT 33.1 Seconds (25.6-37.1) 12/13/17 14:10 - Constitutional Appears: No Acute Distress, Confused - Head Exam Head Exam: ATRAUMATIC, NORMAL INSPECTION - Eye Exam Eye Exam: EOMI - ENT Exam ENT Exam: Mucous Membranes Dry - Neck Exam Neck Exam: Full ROM, Normal Inspection. absent: Meningismus - Respiratory Exam Respiratory Exam: NORMAL BREATHING PATTERN. absent: Rales, Rhonchi, Wheezes - Cardiovascular Exam Cardiovascular Exam: REGULAR RHYTHM, +S1, +S2 - GI/Abdominal Exam GI & Abdominal Exam: Distended, Firm, Tenderness (diffuse). absent: Guarding - Extremities Exam Extremities Exam: Normal Inspection. absent: Calf Tenderness Assessment and Plan - Assessment and Plan (Free Text) Assessment: 57 y/o M with a PMHx of HTN, DM, asthma, ETOH abuse with liver cirrhosis, admitted for evaluation and management of recurrent of ascitis and auditory hallucinations. PLAN: --Confused, creatinine rising, GFR decreasing, abdomen increasing in size, cirrhisis is decompensated. Paracentesis is medically necessary. --GI consult, Dr Galdamez --Psychiatry consult, Dr Herrera. Not able to performed an accurate exam due to confusion. --Serum alcohol level and UDS --Continue management as ordered Case was discussed with Dr Loredo who agrees with the above. JESSICA Lozoya PGY-2 <Mingo Loredo - Last Filed: 12/25/17 20:24> Objective - Vital Signs/Intake and Output Vital Signs (last 24 hours): Temp Pulse Resp BP Pulse Ox 97.6 F 66 20 136/83 100 12/25/17 16:38 12/25/17 16:38 12/25/17 16:38 12/25/17 16:38 12/25/17 16:38 - Medications Medications: Current Medications Acetaminophen (Tylenol 325mg Tab) 650 mg PO Q4 PRN PRN Reason: Pain, moderate (4-7) Last Admin: 12/24/17 17:48 Dose: 650 mg Acetaminophen/Codeine Phosphate (Tylenol/Codeine 300 Mg/30 Mg) 1 tab PO Q6 PRN PRN Reason: Pain, severe (8-10) Last Admin: 12/24/17 19:49 Dose: 1 tab Bacitracin (Bacitracin) 1 ea TOP TID [facility] Famotidine (Pepcid) 40 mg PO HS [facility] Last Admin: 12/24/17 21:22 Dose: 40 mg Furosemide (Lasix) 20 mg PO DAILY [facility] Last Admin: 12/25/17 09:08 Dose: 20 mg Haloperidol (Haldol) 2 mg PO TID [facility] Last Admin: 12/25/17 16:42 Dose: 2 mg Insulin Human Lispro (Humalog) 0 units SC ACHS [facility]; Protocol Last Admin: 12/25/17 16:44 Dose: 2 u Lactulose (Enulose) 20 gm PO Q8 [facility] Last Admin: 12/25/17 16:42 Dose: 20 gm Midodrine (Proamatine) 10 mg PO TID [facility] Last Admin: 12/25/17 16:43 Dose: 10 mg Octreotide Acetate (Sandostatin) 200 mcg SC Q8 [facility] Last Admin: 12/25/17 16:46 Dose: 200 mcg Ondansetron HCl (Zofran Inj) 4 mg IVP Q8 PRN PRN Reason: Nausea/Vomiting Last Admin: 12/22/17 08:33 Dose: 4 mg Propranolol HCl (Inderal) 10 mg PO Q12 [facility] Last Admin: 12/25/17 09:09 Dose: 10 mg Sodium Bicarbonate (Sodium Bicarbonate Tab) 650 mg PO BID [facility] Last Admin: 12/25/17 16:42 Dose: 650 mg Spironolactone (Aldactone) 12.5 mg PO DAILY [facility] Last Admin: 12/25/17 09:08 Dose: 12.5 mg Thiamine HCl (Vitamin B1 Tab) 100 mg PO DAILY [facility] Last Admin: 12/25/17 09:08 Dose: 100 mg Vitamin B Complex/Vit C/Folic Acid (Nephro-Ree) 1 tab PO DAILY [facility] Last Admin: 12/25/17 09:05 Dose: 1 tab - Labs Labs: 12/25/17 06:20 12/25/17 06:20 PT 17.0 Seconds (9.8-13.1) H 12/13/17 14:10 INR 1.5 12/13/17 14:10 APTT 33.1 Seconds (25.6-37.1) 12/13/17 14:10 Assessment and Plan - Assessment and Plan (Free Text) Plan: I was present during evaluation and discussed with Dr Guzman re plans of care and mgt. Mingo Loredo M.D.
[2017-12-16] MEDS: Oxycodone/Acetaminophen 5/325 mg Tab PO PRN (05:35)
[2017-12-16] MEDS: Insulin Lispro (humaLOG) 100 Units/ml Inj SC SCH ×4 (07:15→22:10)
[2017-12-16] MEDS: Haloperidol Lactate 2 mg/ml Liquid PO SCH ×2 (08:19→16:20)
--- NOTE | 2017-12-16 09:15 | CP.PCM.PCO ---
Assessment & Plan - Assessment and Plan (Free Text) Assessment: 57 yr old M with decompensated liver cirrhosis with ARF, pt. is very confused, disoriented to place and time, pt. does not have next to kin for contact ; No emergency contact or friend/ family listed; with large ascites, worsening renal fx pt. will require stat Paracentesis today
[2017-12-16] MEDS ORDERED: Albumin Human 25% (12.5 gm/50 ml) IV ONE (09:21)
[2017-12-16 10:12] LABS: BASO # 0.1 K/uL (0.0-0.2); BASO % 1.3 % (0.0-2.0); EOS # 0.2 K/uL (0.0-0.7); HEMOGLOBIN 9.2 g/dL (12.0-18.0); LYMPH # 1.5 K/uL (1.0-4.3); LYMPH % 35.2 % (20.0-40.0); MEAN CELL VOLUME 107.8 fl (80.0-94.0); MEAN CORPUSCULAR HEMOGLOBIN 36.5 pg (27.0-31.0); MEAN CORPUSCULAR HGB CONC 33.9 g/dL (33.0-37.0); MEAN PLATELET VOLUME 9.4 fl (7.2-11.7); MONO # 0.6 K/uL (0.0-0.8); MONO % 14.6 % (0.0-10.0); NEUT % 44.9 % (50.0-75.0); RBC 2.52 Mil/uL (4.40-5.90); WHITE BLOOD COUNT 4.3 K/uL (4.8-10.8)
[2017-12-16 10:22] LABS: ALB/GLOB RATIO 0.7 (1.0-2.1); ALBUMIN 2.5 g/dL (3.5-5.0); CALCIUM 8.2 mg/dL (8.4-10.2)
--- NOTE | 2017-12-16 11:55 | CP.PCM.PCO ---
Assessment and Plan - Assessment and Plan (Free Text) Assessment: patient markedly confused , disoriented with massive ascites, decompensated liver cirrohsis and will require paracentesis stat pt. currently unable to give consent and does not have next of kin or emergency contact listed, therefore plan for paracentesis today plan for Albumin 25% pre and post paracentesis cont to monitor renal fx
[2017-12-16] MEDS ORDERED: Lidocaine 1% Inj (20ml) ONE (12:20)
--- NOTE | 2017-12-16 12:47 | CP.PCM.PCO ---
Physician Communication Note - Physician Communication Note Physician Communication Note: Stat paracentesis performed.
--- NOTE | 2017-12-16 12:49 | PCM.SURG1 ---
Surgeon's Initial Post Op Note - Surgeon's Notes Surgeon: Rashawn Embroidery Supervisor: None Type of Anesthesia: Local Pre-Operative Diagnosis: Ascites Operative Findings: Ascites Post-Operative Diagnosis: Ascites. Paracentesis performed based on the emergent need as per two of his physicians as documented. Operation Performed: Paracentesis Specimen/Specimens Removed: Abdominal fluid aspirated. Estimated Blood Loss: EBL {In ML}: 1 Date of Surgery/Procedure: 12/16/17 Time of Surgery/Procedure: 12:45
--- NOTE | 2017-12-16 13:25 | PN ---
DATE: 12/16/2017 SUBJECTIVE: The patient seen and examined. Interim events noted. The patient remains in regular medical floor with one-to-one observation for safety. The patient feels okay. Complains of abdominal distention. Remains confused, requiring one-to-one observation. Denies any chest pain or shortness of breath at rest. PHYSICAL EXAMINATION: GENERAL: The patient is in no acute distress. VITAL SIGNS: Stable. HEART: S1 and S2, normal, regular. LUNGS: Good bilateral air exchange. ABDOMEN: Soft, distended. No actual tenderness but lots of ascites fluid. No sign of acute abdomen. No guarding. No rigidity. No rebound. Bowel sounds are present and normal. EXTREMITIES: No edema. No calf swelling. No tenderness. No acute ischemia CENTRAL NERVOUS SYSTEM: Essentially unchanged. DIAGNOSTIC DATA: Available diagnostic data reviewed. ASSESSMENT AND PLAN: The patient does require paracentesis although family is not available, as per the patient's friend. He does not know about any family member. He signed the consent. Paracentesis is medically necessary and emergent. I agree with the administrative consent by ____ physician. Plan as ordered. Robbin Romano MD
--- NOTE | 2017-12-16 13:31 | CP.PCM.PN ---
Subjective - Date & Time of Evaluation Date of Evaluation: 12/16/17 Time of Evaluation: 13:35 - Subjective Subjective: Patient just came from paracentesis Awake and conscious appears to be comfortable Objective - Vital Signs/Intake and Output Vital Signs (last 24 hours): Temp Pulse Resp BP Pulse Ox 97.6 F 77 17 102/56 L 100 12/16/17 13:26 12/16/17 13:26 12/16/17 13:26 12/16/17 13:26 12/16/17 13:26 - Medications Medications: Current Medications Acetaminophen (Tylenol 325mg Tab) 650 mg PO Q4 PRN PRN Reason: Pain, moderate (4-7) Last Admin: 12/13/17 18:09 Dose: 650 mg Albumin Human (Albumin Human 25% (12.5 Gm/50 Ml)) 12.5 gm IV Q8 JERED Famotidine (Pepcid) 40 mg PO HS [facility] Last Admin: 12/15/17 22:48 Dose: 40 mg Haloperidol Lactate (Haldol) 0.25 mg PO BID [facility] Last Admin: 12/16/17 08:19 Dose: 0.25 mg Insulin Human Lispro (Humalog) 0 units SC ACHS [facility]; Protocol Last Admin: 12/16/17 13:08 Dose: Not Given Lactulose (Enulose) 20 gm PO Q8 [facility] Last Admin: 12/16/17 08:19 Dose: 20 gm Oxycodone/Acetaminophen (Percocet 5/325 Mg Tab) 1 tab PO Q4 PRN PRN Reason: Pain, severe (8-10) Stop: 12/16/17 17:21 Last Admin: 12/16/17 05:35 Dose: 1 tab - Labs Labs: 12/16/17 10:03 12/16/17 10:03 PT 17.0 Seconds (9.8-13.1) H 12/13/17 14:10 INR 1.5 12/13/17 14:10 APTT 33.1 Seconds (25.6-37.1) 12/13/17 14:10 - Constitutional Appears: No Acute Distress - Eye Exam Eye Exam: Conjunctival injection - ENT Exam ENT Exam: Mucous Membranes Moist - Neck Exam Neck Exam: absent: Lymphadenopathy - Respiratory Exam Respiratory Exam: absent: Chest Wall Tenderness - GI/Abdominal Exam GI & Abdominal Exam: Guarding, Soft, Normal Bowel Sounds Additional comments: Status post paracentesis now - Extremities Exam Extremities Exam: absent: Calf Tenderness - Back Exam Back Exam: absent: CVA tenderness (L), CVA tenderness (R) - Neurological Exam Neurological Exam: Alert - Psychiatric Exam Psychiatric exam: Normal Affect - Skin Skin Exam: absent: Cyanosis Assessment and Plan (1) SHELLIE (acute kidney injury) Assessment & Plan: acute kidney injury superimposed perhaps on chronic kidney disease related to massive ascites with recurrent hemodynamic changes. hepatorenal syndrome. 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 massive ascitis with recurrent paracentesis anemia recommendation Stat 25% 50 mL albumin every 12 hours for 2 days. Prognosis is guarded. medication dose is adjusted per renal failure DC aluminium hydroxide patient may need hemodialysis if kidney function worsening by tomorrow Status post paracentesis with removal of 5 L of fluid today Status: Acute (2) Ascites Status: Acute
[2017-12-16 13:37] LABS: BODY FLUID TYPE PERITONEAL/ASCITES
[2017-12-16 14:22] LABS: BF GROSS APPEARANCE CLOUDY (CLEAR)
[2017-12-16 14:52] LABS: BODY FLUID MONO/MACROPHAGE 19 % (0-0); BODY FLUID TOTAL COUNT 100 (0-0)
[2017-12-16] MEDS: Albumin Human 25% (12.5 gm/50 ml) IV SCH (16:20)
[2017-12-17] MEDS: Albumin Human 25% (12.5 gm/50 ml) IV SCH ×5 (00:45→22:17)
[2017-12-17] MEDS: Insulin Lispro (humaLOG) 100 Units/ml Inj SC SCH ×4 (07:03→22:16)
[2017-12-17 07:48] LABS: HEMOGLOBIN 8.2 g/dL (12.0-18.0); MEAN CELL VOLUME 107.3 fl (80.0-94.0); MEAN CORPUSCULAR HEMOGLOBIN 36.5 pg (27.0-31.0); RBC 2.25 Mil/uL (4.40-5.90); RED CELL DISTRIBUTION WIDTH 15.7 % (11.5-14.5); WHITE BLOOD COUNT 3.7 K/uL (4.8-10.8)
[2017-12-17 07:59] LABS: ALB/GLOB RATIO 0.7 (1.0-2.1); ALBUMIN 2.3 g/dL (3.5-5.0); CALCIUM 7.9 mg/dL (8.4-10.2)
[2017-12-17] MEDS ORDERED: Epoetin Alfa 4000 UNIT/ML Inj SC SCH (10:00)
[2017-12-17] MEDS: Haloperidol Lactate 2 mg/ml Liquid PO SCH ×2 (10:11→17:29)
[2017-12-17] MEDS: Multivitamin Vitamin B Complex (Nephro-Vite) Tab PO SCH (11:58)
--- NOTE | 2017-12-17 13:59 | PN ---
DATE: 12/17/2017 SUBJECTIVE: The patient seen and examined. Interim events noted. Consults noted and appreciated. The patient is status post abdominal paracentesis. The patient had 5 liter liquid removed. The patient is sleeping, arousable. Feels okay. Denies any chest pain or shortness of breath, but the patient required one-to-one observation for safety. PHYSICAL EXAMINATION: GENERAL: The patient is in no acute distress. VITAL SIGNS: Stable. HEART: S1 and S2, normal and regular. LUNGS: Good bilateral air exchange. ABDOMEN: Soft and nontender. The patient has gross ascites still present, but no sign of acute abdomen. No guarding. No rigidity. No rebound. Bowel sounds are plus and normal EXTREMITIES: No edema. No calf swelling. No tenderness. No acute ischemia. CENTRAL NERVOUS SYSTEM: Essentially unchanged. DIAGNOSTIC DATA: Available diagnostic data reviewed. Paracentesis fluid shows WBC count of 140 compared to the RBC count of . Cultures is pending. ASSESSMENT AND PLAN: Overall, the patient is clinically stable. Blood pressure was on a little bit of lower side. The patient is already on . Plan as ordered. Robbin Romano MD
--- NOTE | 2017-12-17 16:28 | CP.PCM.PN ---
Subjective - Date & Time of Evaluation Date of Evaluation: 12/17/17 Time of Evaluation: 16:25 - Subjective Subjective: Nephrology Consultation Note Assessment: Stable Acute Kidney Injury (N17.9) likely due to hepatorenal syndrome DM, HTN, alcoholic cirrhosis, anemia Plan No acute need for renal replacement therapy at this time but may need soon and will need close follow up. Maintain hemodynamics stable. Avoid hypotension. Patient not on ACEI/ARB due to recent SHELLIE Monitor Input/Output, daily weights and renal function with basic metabolic panel started Octreotide and Midodrine albumin 100 gm over next 24 hrs ordered added thiamine, MVI and epogen for anemia consider further evaluation at liver transplant center in view of advanced cirrhosis and severe SHELLIE Dose meds/antibiotics for reduced GFR. Avoid fleets enema/magnesium based laxatives. Avoid nephrotoxins/NSAIDs/ iodinated contrast (unless needed emergently) Glycemic control Further work up for as per primary team Thanks for allowing me to participate in care of your patient. Will follow p atient with you. Please call if any Qs Dr Braxton Graham Office: [phone] Subjective: Noted events overnight. Patients feels okay. Denies chest pain, palpitation, shortness of breath, c/o leg swelling. All other negative Physical Examination: General Appearance: Comfortable, in no acute respiratory distress, co-operative . Vitals reviewed and noted as below Head; Atraumatic, normocephalic ENT: no ulcers no thrush. Tongue is midline. Oropharynx: no rash or ulcers. EYES: Pupils are equal, round and reactive to light accommodation. Eye muscles and extraocular movement intact. Sclera is anicteric. Neck; supple no lymphadenopathy, no thyromegaly or bruit Lungs: Normal respiratory rate/effort. Breath sounds bilateral equal and clear Heart: Normal rate. s1s2 normal. No rub or gallop. Extremities: trace edema. No varicose veins Neurological: Patient is alert, awake and oriented to person, place and time. No focal deficit. Strength bilateral appropriate and equal Skin: Warm and dry. Normal turgor. No rash. Palpitation: Normal elasticity for age Abdomen: Abdomen is soft. Bowel sounds +. There is no abdominal tenderness, no guarding/rigidity no organomegaly. distended and ascitic + Psych: normal insight and normal affect/mood MSK: no joint tenderness or swelling. Digits and nails normal, no deformity : kidney or bladder not palpable Labs/imaging reviewed. Past medical history, past surgical history, family history, social history, allergy reviewed and noted as below Family hx: no hx of CKD. Rest non-contributory Objective - Vital Signs/Intake and Output Vital Signs (last 24 hours): Temp Pulse Resp BP Pulse Ox 98 F 81 19 85/52 L 95 12/17/17 08:56 12/17/17 08:56 12/17/17 08:56 12/17/17 08:56 12/17/17 08:56 - Medications Medications: Current Medications Acetaminophen (Tylenol 325mg Tab) 650 mg PO Q4 PRN PRN Reason: Pain, moderate (4-7) Last Admin: 12/17/17 03:49 Dose: 650 mg Albumin Human (Albumin Human 25% (12.5 Gm/50 Ml)) 25 gm IV Q6 [facility] Stop: 12/18/17 04:01 Last Admin: 12/17/17 11:55 Dose: 25 gm Epoetin José Manuel (Procrit) 4,000 unit SC TTS [facility] Stop: 12/22/17 09:01 Last Admin: 12/17/17 11:58 Dose: 4,000 unit Famotidine (Pepcid) 40 mg PO HS [facility] Last Admin: 12/16/17 21:42 Dose: 40 mg Haloperidol Lactate (Haldol) 0.25 mg PO BID [facility] Last Admin: 12/17/17 10:11 Dose: 0.25 mg Insulin Human Lispro (Humalog) 0 units SC ACHS [facility]; Protocol Last Admin: 12/17/17 12:57 Dose: Not Given Lactulose (Enulose) 20 gm PO Q8 [facility] Last Admin: 12/17/17 10:11 Dose: 20 gm Midodrine (Proamatine) 10 mg PO TID [facility] Last Admin: 12/17/17 14:32 Dose: Not Given Octreotide Acetate (Sandostatin) 200 mcg SC Q8 [facility] Last Admin: 12/17/17 11:57 Dose: 200 mcg Thiamine HCl (Vitamin B1 Tab) 100 mg PO DAILY [facility] Last Admin: 12/17/17 11:57 Dose: 100 mg Vitamin B Complex/Vit C/Folic Acid (Nephro-Ree) 1 tab PO DAILY [facility] Last Admin: 12/17/17 11:58 Dose: 1 tab - Labs Labs: 12/17/17 05:30 12/17/17 05:30 PT 17.0 Seconds (9.8-13.1) H 12/13/17 14:10 INR 1.5 12/13/17 14:10 APTT 33.1 Seconds (25.6-37.1) 12/13/17 14:10
[2017-12-18] MEDS: Albumin Human 25% (12.5 gm/50 ml) IV SCH (03:52)
[2017-12-18] MEDS: Insulin Lispro (humaLOG) 100 Units/ml Inj SC SCH ×5 (06:53→22:53)
[2017-12-18 07:26] LABS: HEMOGLOBIN 8.6 g/dL (12.0-18.0); MEAN CELL VOLUME 107.5 fl (80.0-94.0); MEAN CORPUSCULAR HEMOGLOBIN 36.7 pg (27.0-31.0); MEAN CORPUSCULAR HGB CONC 34.1 g/dL (33.0-37.0); RBC 2.33 Mil/uL (4.40-5.90); RED CELL DISTRIBUTION WIDTH 15.9 % (11.5-14.5); WHITE BLOOD COUNT 3.7 K/uL (4.8-10.8)
[2017-12-18 08:16] LABS: ALB/GLOB RATIO 1.1 (1.0-2.1); ALBUMIN 3.3 g/dL (3.5-5.0); CALCIUM 8.5 mg/dL (8.4-10.2)
[2017-12-18] MEDS: Haloperidol Lactate 2 mg/ml Liquid PO SCH ×2 (08:44→17:07)
[2017-12-18] MEDS: Multivitamin Vitamin B Complex (Nephro-Vite) Tab PO SCH (08:44)
--- NOTE | 2017-12-18 10:22 | PN ---
DATE: 12/18/2017 SUBJECTIVE: The patient seen and examined. Interim events noted. Consults noted and appreciated. The patient remains in regular medical floor with observation for safety and psychiatric issue. Denies any specific medical complaint. PHYSICAL EXAMINATION: VITAL SIGNS: Stable. HEART: S1 and S2, normal, regular. LUNGS: Good bilateral air exchange. ABDOMEN: The patient still has significant ascites, but no sign of acute abdomen. No guarding. No rigidity. No rebound. Bowel sounds are plus and normal. Abdomen is soft with ascites. EXTREMITIES: No edema. No calf swelling. No tenderness. No acute ischemia. CENTRAL NERVOUS SYSTEM: Essentially unchanged. DIAGNOSTIC DATA: Available diagnostic data reviewed. culture so far is negative. ASSESSMENT AND PLAN: Overall, the patient is clinically stable. Plan as ordered. Robbin Romano MD
--- NOTE | 2017-12-18 12:59 | CP.PCM.PN ---
Subjective - Date & Time of Evaluation Date of Evaluation: 12/18/17 Time of Evaluation: 12:59 - Subjective Subjective: Nephrology Consultation Note Assessment: Stable Acute Kidney Injury (N17.9) likely due to hepatorenal syndrome DM, HTN, alcoholic cirrhosis, anemia Plan No acute need for renal replacement therapy at this time but may need soon and will need close follow up. Maintain hemodynamics stable. Avoid hypotension. Patient not on ACEI/ARB due to recent SHELLIE Monitor Input/Output, daily weights and renal function with basic metabolic p kylie started Octreotide and Midodrine albumin 100 gm over next 24 hrs ordered added thiamine, MVI and epogen for anemia, sodium bicarb 650 bid consider further evaluation at liver transplant center in view of advanced cirrhosis and severe SHELLIE Dose meds/antibiotics for reduced GFR. Avoid fleets enema/magnesium based laxatives. Avoid nephrotoxins/NSAIDs/ iodinated contrast (unless needed emergently) Glycemic control Further work up for as per primary team Thanks for allowing me to participate in care of your patient. Dr Dalton Kim will follow patient with you from tomorrow. Please call if any Qs Dr Braxton Graham Office: [phone] Subjective: Noted events overnight. Patients feels okay. Denies chest pain, palpitation, shortness of breath, c/o leg swelling. also c/o upper abdomen pain All other negative Physical Examination: General Appearance: Comfortable, in no acute respiratory distress, co-operative . Vitals reviewed and noted as below Head; Atraumatic, normocephalic ENT: no ulcers no thrush. Tongue is midline. Oropharynx: no rash or ulcers. EYES: Pupils are equal, round and reactive to light accommodation. Eye muscles and extraocular movement intact. Sclera is anicteric. Neck; supple no lymphadenopathy, no thyromegaly or bruit Lungs: Normal respiratory rate/effort. Breath sounds bilateral equal and clear Heart: Normal rate. s1s2 normal. No rub or gallop. Extremities: trace edema. No varicose veins Neurological: Patient is alert, awake and oriented to person, place and time. No focal deficit. Strength bilateral appropriate and equal Skin: Warm and dry. Normal turgor. No rash. Palpitation: Normal elasticity for age Abdomen: Abdomen is soft. Bowel sounds +. There is mild epigastric abdominal tenderness, no guarding/rigidity no organomegaly. distended and ascitic + Psych: normal insight and normal affect/mood MSK: no joint tenderness or swelling. Digits and nails normal, no deformity : kidney or bladder not palpable Labs/imaging reviewed. Past medical history, past surgical history, family history, social history, allergy reviewed and noted as below Family hx: no hx of CKD. Rest non-contributory Objective - Vital Signs/Intake and Output Vital Signs (last 24 hours): Temp Pulse Resp BP Pulse Ox 97.9 F 69 20 135/65 99 12/18/17 08:34 12/18/17 08:34 12/18/17 08:34 12/18/17 08:34 12/18/17 08:34 - Medications Medications: Current Medications Acetaminophen (Tylenol 325mg Tab) 650 mg PO Q4 PRN PRN Reason: Pain, moderate (4-7) Last Admin: 12/18/17 08:43 Dose: 650 mg Epoetin José Manuel (Procrit) 8,000 unit SC MWF [facility] Stop: 12/23/17 09:01 Famotidine (Pepcid) 40 mg PO HS [facility] Last Admin: 12/17/17 22:16 Dose: 40 mg Haloperidol Lactate (Haldol) 0.25 mg PO BID [facility] Last Admin: 12/18/17 08:44 Dose: 0.25 mg Insulin Human Lispro (Humalog) 0 units SC ACHS [facility]; Protocol Last Admin: 12/18/17 12:51 Dose: 1 u Lactulose (Enulose) 20 gm PO Q8 [facility] Last Admin: 12/18/17 08:42 Dose: 20 gm Midodrine (Proamatine) 10 mg PO TID [facility] Last Admin: 12/18/17 12:53 Dose: 10 mg Octreotide Acetate (Sandostatin) 200 mcg SC Q8 [facility] Last Admin: 12/18/17 01:05 Dose: 200 mcg Sodium Bicarbonate (Sodium Bicarbonate Tab) 650 mg PO BID [facility] Last Admin: 12/18/17 12:53 Dose: 650 mg Thiamine HCl (Vitamin B1 Tab) 100 mg PO DAILY [facility] Last Admin: 12/18/17 08:44 Dose: 100 mg Vitamin B Complex/Vit C/Folic Acid (Nephro-Ree) 1 tab PO DAILY [facility] Last Admin: 12/18/17 08:44 Dose: 1 tab - Labs Labs: 12/18/17 05:30 12/18/17 05:30 PT 17.0 Seconds (9.8-13.1) H 12/13/17 14:10 INR 1.5 12/13/17 14:10 APTT 33.1 Seconds (25.6-37.1) 12/13/17 14:10
[2017-12-18] MEDS ORDERED: Acetaminophen-Codeine 300/30 mg Tab PO STA (13:51)
--- NOTE | 2017-12-18 18:03 | US ---
Ultrasound guided paracentesis. Clinical History: Ascites with abdominal pain and distension. Technique: Informed consent could not be obtained from the patient due to his confused status. Due to the emergent nature of the procedure, two attending physicians involved in the care of the patient documented the immediate need for the procedure. Sonography of the abdomen was performed in a supine position. This revealed a small amount of non-loculated ascites, greatest in the right lower quadrant. A puncture site was selected and the area was prepped and draped in the usual sterile fashion. 1% lidocaine was used to anesthetize the skin and soft tissues. A 5 Maltese paracentesis catheter was trocared into the right lower quadrant under real time ultrasound guidance. A permanent image was stored. Abdominal fluid aspirated. Impression: Ultrasound-guided paracentesis in the right lower quadrant. Patient tolerated the procedure well.
[2017-12-19 06:36] LABS: HEMOGLOBIN 9.6 g/dL (12.0-18.0); MEAN CELL VOLUME 107.2 fl (80.0-94.0); MEAN CORPUSCULAR HEMOGLOBIN 36.3 pg (27.0-31.0); MEAN CORPUSCULAR HGB CONC 33.9 g/dL (33.0-37.0); RBC 2.65 Mil/uL (4.40-5.90); RED CELL DISTRIBUTION WIDTH 16.3 % (11.5-14.5); WHITE BLOOD COUNT 5.5 K/uL (4.8-10.8)
[2017-12-19 06:55] LABS: ALB/GLOB RATIO 0.9 (1.0-2.1); CALCIUM 8.7 mg/dL (8.4-10.2)
[2017-12-19] MEDS: Insulin Lispro (humaLOG) 100 Units/ml Inj SC SCH ×4 (08:38→21:46)
[2017-12-19] MEDS: Haloperidol Lactate 2 mg/ml Liquid PO SCH (08:38)
[2017-12-19] MEDS: Multivitamin Vitamin B Complex (Nephro-Vite) Tab PO SCH (08:39)
--- NOTE | 2017-12-19 09:17 | CP.PCM.PN ---
Subjective - Date & Time of Evaluation Date of Evaluation: 12/19/17 Time of Evaluation: 09:17 - Subjective Subjective: patient awake not in acute distress Vital sign noted to be stable Objective - Vital Signs/Intake and Output Vital Signs (last 24 hours): Temp Pulse Resp BP Pulse Ox 97.9 F 63 20 94/51 L 100 12/19/17 01:12 12/19/17 01:12 12/19/17 01:12 12/19/17 01:12 12/19/17 01:12 - Medications Medications: Current Medications Acetaminophen (Tylenol 325mg Tab) 650 mg PO Q4 PRN PRN Reason: Pain, moderate (4-7) Last Admin: 12/18/17 08:43 Dose: 650 mg Epoetin José Manuel (Procrit) 8,000 unit SC F [facility] Stop: 12/23/17 09:01 Famotidine (Pepcid) 40 mg PO HS [facility] Last Admin: 12/18/17 21:53 Dose: 40 mg Haloperidol Lactate (Haldol) 0.25 mg PO BID [facility] Last Admin: 12/19/17 08:38 Dose: 0.25 mg Insulin Human Lispro (Humalog) 0 units SC [facility]; Protocol Last Admin: 12/19/17 08:38 Dose: Not Given Lactulose (Enulose) 20 gm PO Q8 [facility] Last Admin: 12/19/17 08:38 Dose: 20 gm Midodrine (Proamatine) 10 mg PO TID [facility] Last Admin: 12/19/17 08:39 Dose: 10 mg Octreotide Acetate (Sandostatin) 200 mcg SC Q8 [facility] Last Admin: 12/19/17 08:42 Dose: 200 mcg Sodium Bicarbonate (Sodium Bicarbonate Tab) 650 mg PO BID [facility] Last Admin: 12/19/17 08:38 Dose: 650 mg Thiamine HCl (Vitamin B1 Tab) 100 mg PO DAILY [facility] Last Admin: 12/19/17 08:40 Dose: 100 mg Vitamin B Complex/Vit C/Folic Acid (Nephro-Ree) 1 tab PO DAILY [facility] Last Admin: 12/19/17 08:39 Dose: 1 tab - Labs Labs: 12/19/17 06:00 12/19/17 06:00 PT 17.0 Seconds (9.8-13.1) H 12/13/17 14:10 INR 1.5 12/13/17 14:10 APTT 33.1 Seconds (25.6-37.1) 12/13/17 14:10 - Constitutional Appears: No Acute Distress - Eye Exam Eye Exam: Conjunctival injection - ENT Exam ENT Exam: Mucous Membranes Moist - Neck Exam Neck Exam: absent: Lymphadenopathy - Respiratory Exam Respiratory Exam: NORMAL BREATHING PATTERN. absent: Chest Wall Tenderness - GI/Abdominal Exam GI & Abdominal Exam: Soft, Normal Bowel Sounds - Extremities Exam Extremities Exam: absent: Calf Tenderness - Back Exam Back Exam: absent: CVA tenderness (L), CVA tenderness (R) - Neurological Exam Neurological Exam: Awake - Skin Skin Exam: absent: Cyanosis Assessment and Plan (1) SHELLIE (acute kidney injury) Assessment & Plan: acute kidney injury superimposed perhaps on chronic kidney disease related to massive ascites with recurrent hemodynamic changes. hepatorenal syndrome. 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 massive ascitis with recurrent paracentesis anemia recommendation intermittent use of 25% albumin for hypotension. Prognosis is guarded. medication dose is adjusted per renal failure DC aluminium hydroxide kidney function improving serum creatinine trending down and coming down slowly. Status post paracentesis with removal of 5 L of fluid continue EPO for anemia Status: Acute (2) Ascites Status: Acute
[2017-12-19] MEDS: Epoetin Alfa 20000 UNIT/ML Inj SC SCH (10:01)
--- NOTE | 2017-12-19 12:22 | PN ---
DATE: 12/19/2017 SUBJECTIVE: The patient seen and examined. Interim events noted. Consults noted and appreciated. The patient remains in regular medical floor with one-to-one observation. The patient is more awake, responsive, conversant, wants to talk with family, also cannot provide family information about how to reach them. Does provide some names, [place]. The patient denies any medical complaint. No chest pain or shortness of breath. Just worried about abdominal distention, but has no pain in the abdomen. Able to tolerate food well. PHYSICAL EXAMINATION: GENERAL: The patient is in no acute distress. VITAL SIGNS: Stable. HEART: S1 and S2, normal and regular. LUNGS: Good bilateral air exchange. ABDOMEN: Soft, nontender, distended. The patient has marked ascites. No sign of acute abdomen. No guarding. No rigidity. No rebound. EXTREMITIES: No edema. No calf swelling. No tenderness. No acute ischemia. CENTRAL NERVOUS SYSTEM: Essentially unchanged. DIAGNOSTIC DATA: Available diagnostic data reviewed. ASSESSMENT AND PLAN: Overall, the patient's . Robbin Romano MD
--- NOTE | 2017-12-19 14:10 | CP.PCM.CON ---
History of Present Illness - History of Present Illness History of Present Illness: Psychiatry consult follow-up note CC: "I get confused sometimes." HPI: 57 y/o M with a PMHx of HTN, DM, asthma, ETOH abuse with liver cirrhosis, was admitted for evaluation and management of recurrent abdominal pain, abdominal distension and acute psychosis. Patient continues to be acutely psychotic, w/ intermittent AH telling him to hurt himself and intermittent VH of a "black man". He is also paranoid that someone may be doing something to his food, but can not elaborate further. He is currently A + O x self. He does not know the date, but is aware he is in a hospital (does not know which one or the city). He believes he is in the hospital because he is not eating well. He does remember that the doctors told him that his liver and kidneys "are not working well." He denies active ideation to harm himself but does report feeling distressed by his hallucinations. Impression: 57 yo male w/ acute delirium w/ psychosis. -Patient does not have capacity to make medical decisions at this time -Increase Haldol -Continue 1:1 for safety Past Patient History - Infectious Disease Hx of Infectious Diseases: None - Past Medical History & Family History Past Medical History?: Yes - Past Social History Smoking Status: Never Smoked - CARDIAC Hx Cardiac Disorders: Yes Hx Atrial Fibrillation: Yes Hx Hypertension: Yes - PULMONARY Hx Respiratory Disorders: Yes Hx Asthma: Yes - NEUROLOGICAL Hx Neurological Disorder: No - HEENT Hx HEENT Problems: No - RENAL Hx Chronic Kidney Disease: No - ENDOCRINE/METABOLIC Hx Endocrine Disorders: Yes (DM) Hx Diabetes Mellitus Type 2: Yes - HEMATOLOGICAL/ONCOLOGICAL Hx Blood Disorders: No Hx Human Immunodeficiency Virus (HIV): No - INTEGUMENTARY Hx Dermatological Problems: No - MUSCULOSKELETAL/RHEUMATOLOGICAL Hx Musculoskeletal Disorders: Yes Hx Falls: Yes - GASTROINTESTINAL Hx Gastrointestinal Disorders: No - GENITOURINARY/GYNECOLOGICAL Hx Genitourinary Disorders: No - PSYCHIATRIC Hx Psychophysiologic Disorder: Yes Hx Anxiety: Yes Hx Bipolar Disorder: Yes Hx Depression: Yes - SURGICAL HISTORY Hx Surgeries: Yes Hx Herniorrhaphy: Yes - ANESTHESIA Hx Anesthesia: Yes Hx Anesthesia Reactions: No Meds Allergies/Adverse Reactions: Allergies Allergy/AdvReac Type Severity Reaction Status Date / Time No Known Allergies Allergy Verified 12/13/17 13:08 - Medications Medications: Current Medications Acetaminophen (Tylenol 325mg Tab) 650 mg PO Q4 PRN PRN Reason: Pain, moderate (4-7) Last Admin: 12/18/17 08:43 Dose: 650 mg Epoetin José Manuel (Procrit) 8,000 unit SC MWF [facility] Stop: 12/23/17 09:01 Last Admin: 12/19/17 10:01 Dose: 8,000 unit Famotidine (Pepcid) 40 mg PO HS [facility] Last Admin: 12/18/17 21:53 Dose: 40 mg Haloperidol (Haldol) 0.5 mg PO BID [facility] Insulin Human Lispro (Humalog) 0 units SC ACHS [facility]; Protocol Last Admin: 12/19/17 12:07 Dose: 1 u Lactulose (Enulose) 20 gm PO Q8 [facility] Last Admin: 12/19/17 08:38 Dose: 20 gm Midodrine (Proamatine) 10 mg PO TID [facility] Last Admin: 12/19/17 12:07 Dose: 10 mg Octreotide Acetate (Sandostatin) 200 mcg SC Q8 [facility] Last Admin: 12/19/17 08:42 Dose: 200 mcg Sodium Bicarbonate (Sodium Bicarbonate Tab) 650 mg PO BID [facility] Last Admin: 12/19/17 08:38 Dose: 650 mg Thiamine HCl (Vitamin B1 Tab) 100 mg PO DAILY [facility] Last Admin: 12/19/17 08:40 Dose: 100 mg Vitamin B Complex/Vit C/Folic Acid (Nephro-Ree) 1 tab PO DAILY [facility] Last Admin: 12/19/17 08:39 Dose: 1 tab Results - Vital Signs Recent Vital Signs: Last Vital Signs Temp 97.7 F 12/19/17 09:18 Pulse 69 12/19/17 09:18 Resp 20 12/19/17 09:18 BP 115/52 L 12/19/17 09:18 Pulse Ox 100 12/19/17 09:18 - Labs Result Diagrams: 12/19/17 06:00 12/19/17 06:00 Labs: Laboratory Results - last 24 hr 12/17/17 12/17/17 12/17/17 10:49 15:25 21:20 WBC RBC Hgb Hct MCV MCH MCHC RDW Plt Count Sodium Potassium Chloride Carbon Dioxide Anion Gap BUN Creatinine Est GFR ( Amer) Est GFR (Non-Af Amer) POC Glucose (mg/dL) 124 H 149 H 200 H Random Glucose Calcium Total Bilirubin AST ALT Alkaline Phosphatase Total Protein Albumin Globulin Albumin/Globulin Ratio 12/18/17 12/18/17 12/18/17 05:51 11:28 16:20 WBC RBC Hgb Hct MCV MCH MCHC RDW Plt Count Sodium Potassium Chloride Carbon Dioxide Anion Gap BUN Creatinine Est GFR ( Amer) Est GFR (Non-Af Amer) POC Glucose (mg/dL) 180 H 172 H 149 H Random Glucose Calcium Total Bilirubin AST ALT Alkaline Phosphatase Total Protein Albumin Globulin Albumin/Globulin Ratio 12/18/17 12/19/17 12/19/17 21:18 05:00 06:00 WBC 5.5 RBC 2.65 L Hgb 9.6 L Hct 28.4 L MCV 107.2 H MCH 36.3 H MCHC 33.9 RDW 16.3 H Plt Count 152 Sodium Potassium Chloride Carbon Dioxide Anion Gap BUN Creatinine Est GFR ( Amer) Est GFR (Non-Af Amer) POC Glucose (mg/dL) 184 H 178 H Random Glucose Calcium Total Bilirubin AST ALT Alkaline Phosphatase Total Protein Albumin Globulin Albumin/Globulin Ratio 12/19/17 12/19/17 06:00 11:33 WBC RBC Hgb Hct MCV MCH MCHC RDW Plt Count Sodium 136 Potassium 3.9 Chloride 106 Carbon Dioxide 20 L Anion Gap 14 BUN 37 H Creatinine 3.9 H Est GFR ( Amer) 19 Est GFR (Non-Af Amer) 16 POC Glucose (mg/dL) 191 H Random Glucose 173 H Calcium 8.7 Total Bilirubin 1.8 H AST 30 ALT 25 Alkaline Phosphatase 65 Total Protein 6.3 Albumin 3.0 L Globulin 3.3 Albumin/Globulin Ratio 0.9 L
[2017-12-20 06:24] LABS: HEMOGLOBIN 9.8 g/dL (12.0-18.0); MEAN CELL VOLUME 107.3 fl (80.0-94.0); MEAN CORPUSCULAR HEMOGLOBIN 36.1 pg (27.0-31.0); MEAN CORPUSCULAR HGB CONC 33.6 g/dL (33.0-37.0); RBC 2.72 Mil/uL (4.40-5.90); RED CELL DISTRIBUTION WIDTH 16.1 % (11.5-14.5); WHITE BLOOD COUNT 6.1 K/uL (4.8-10.8)
[2017-12-20] MEDS: Insulin Lispro (humaLOG) 100 Units/ml Inj SC SCH ×4 (06:42→21:52)
[2017-12-20 06:48] LABS: ALB/GLOB RATIO 0.9 (1.0-2.1); CALCIUM 8.2 mg/dL (8.4-10.2)
[2017-12-20] MEDS: Acetaminophen-Codeine 300/30 mg Tab PO PRN ×2 (08:57→16:42)
[2017-12-20] MEDS: Multivitamin Vitamin B Complex (Nephro-Vite) Tab PO SCH (08:58)
[2017-12-20] MEDS ORDERED: Potassium Chloride 20 mEq ER Tab PO ONE (10:29)
--- NOTE | 2017-12-20 11:10 | CP.PCM.PN ---
Subjective - Date & Time of Evaluation Date of Evaluation: 12/20/17 Time of Evaluation: 11:08 - Subjective Subjective: patient awake not in acute distress. Vital signs stable Objective - Vital Signs/Intake and Output Vital Signs (last 24 hours): Temp Pulse Resp BP Pulse Ox 97.8 F 70 20 96/58 L 99 12/20/17 08:47 12/20/17 08:47 12/20/17 08:47 12/20/17 08:47 12/20/17 08:47 - Medications Medications: Current Medications Acetaminophen (Tylenol 325mg Tab) 650 mg PO Q4 PRN PRN Reason: Pain, moderate (4-7) Last Admin: 12/20/17 06:04 Dose: 650 mg Acetaminophen/Codeine Phosphate (Tylenol/Codeine 300 Mg/30 Mg) 1 tab PO Q6 PRN PRN Reason: Pain, severe (8-10) Last Admin: 12/20/17 08:57 Dose: 1 tab Epoetin José Manuel (Procrit) 8,000 unit SC MWF [facility] Stop: 12/23/17 09:01 Last Admin: 12/19/17 10:01 Dose: 8,000 unit Famotidine (Pepcid) 40 mg PO HS [facility] Last Admin: 12/19/17 21:08 Dose: 40 mg Haloperidol (Haldol) 0.5 mg PO TID [facility] Last Admin: 12/20/17 08:56 Dose: 0.5 mg Insulin Human Lispro (Humalog) [address] [facility]; Protocol Last Admin: 12/20/17 06:42 Dose: Not Given Lactulose (Enulose) 20 gm PO Q8 [facility] Last Admin: 12/20/17 08:55 Dose: 20 gm Midodrine (Proamatine) 10 mg PO TID [facility] Last Admin: 12/20/17 08:58 Dose: 10 mg Octreotide Acetate (Sandostatin) 200 mcg SC Q8 [facility] Last Admin: 12/20/17 09:05 Dose: 200 mcg Sodium Bicarbonate (Sodium Bicarbonate Tab) 650 mg PO BID [facility] Last Admin: 12/20/17 08:58 Dose: 650 mg Thiamine HCl (Vitamin B1 Tab) 100 mg PO DAILY [facility] Last Admin: 12/20/17 08:57 Dose: 100 mg Vitamin B Complex/Vit C/Folic Acid (Nephro-Ree) 1 tab PO DAILY [facility] Last Admin: 12/20/17 08:58 Dose: 1 tab - Labs Labs: 12/20/17 05:35 12/20/17 05:35 PT 17.0 Seconds (9.8-13.1) H 12/13/17 14:10 INR 1.5 12/13/17 14:10 APTT 33.1 Seconds (25.6-37.1) 12/13/17 14:10 - Constitutional Appears: No Acute Distress - Eye Exam Eye Exam: Conjunctival injection - ENT Exam ENT Exam: Mucous Membranes Moist - Respiratory Exam Respiratory Exam: NORMAL BREATHING PATTERN. absent: Chest Wall Tenderness - Cardiovascular Exam Cardiovascular Exam: absent: Gallop, JVD, Rubs - GI/Abdominal Exam GI & Abdominal Exam: Guarding, Soft, Normal Bowel Sounds - Extremities Exam Extremities Exam: absent: Calf Tenderness - Back Exam Back Exam: absent: CVA tenderness (L), CVA tenderness (R) - Neurological Exam Neurological Exam: Alert - Psychiatric Exam Psychiatric exam: Normal Affect - Skin Skin Exam: absent: Cyanosis Assessment and Plan (1) SHELLIE (acute kidney injury) Assessment & Plan: acute kidney injury superimposed perhaps on chronic kidney disease related to massive ascites with recurrent hemodynamic changes. hepatorenal syndrome. 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 massive ascitis with recurrent paracentesis anemia recommendation intermittent use of 25% albumin for hypotension. Prognosis is guarded. medication dose is adjusted per renal failure DC aluminium hydroxide kidney function improving serum creatinine trending down and coming down slowly. Status post paracentesis with removal of 5 L of fluid continue EPO for anemia Status: Acute (2) Ascites Status: Acute
--- NOTE | 2017-12-20 12:54 | PN ---
DATE: 12/20/2017 SUBJECTIVE: The patient seen and examined. Interim events noted. The patient complains of pain, not adequately controlled with current pain management. No chest pain. No shortness of breath. Abdomen remains distended, but no sign of obstruction. The patient is moving bowels and is moving gas. Also able to tolerate food without any problems. PHYSICAL EXAMINATION: GENERAL: The patient is in discomfort due to pain, but no acute distress. VITAL SIGNS: Stable. HEENT: S1 and S2, normal and regular. LUNGS: Good bilateral air exchange. ABDOMEN: Soft and nontender. The patient has ascites. No sign of acute abdomen. No guarding. No rigidity. No rebound. EXTREMITIES: No calf swelling. No tenderness. No acute ischemia. CENTRAL NERVOUS SYSTEM: Essentially unchanged. DIAGNOSTIC DATA: Available diagnostic data reviewed. ASSESSMENT AND PLAN: Overall, the patient's general medical condition is stable. Abdomen remains grossly distended with ascites, may need paracentesis again. Plan as ordered. Robbin Romano MD
[2017-12-21 06:14] LABS: HEMOGLOBIN 9.8 g/dL (12.0-18.0); MEAN CELL VOLUME 106.3 fl (80.0-94.0); MEAN CORPUSCULAR HEMOGLOBIN 36.1 pg (27.0-31.0); RBC 2.73 Mil/uL (4.40-5.90); RED CELL DISTRIBUTION WIDTH 16.2 % (11.5-14.5); WHITE BLOOD COUNT 5.5 K/uL (4.8-10.8)
[2017-12-21 06:32] LABS: ALB/GLOB RATIO 0.8 (1.0-2.1); ALBUMIN 2.5 g/dL (3.5-5.0); CALCIUM 8.3 mg/dL (8.4-10.2)
[2017-12-21] MEDS: Insulin Lispro (humaLOG) 100 Units/ml Inj SC SCH ×4 (06:47→22:36)
[2017-12-21] MEDS: Multivitamin Vitamin B Complex (Nephro-Vite) Tab PO SCH (09:49)
--- NOTE | 2017-12-21 10:11 | PN ---
DATE: 12/21/2017 SUBJECTIVE: The patient seen and examined. Interim events noted. The patient remains in regular medical floor with observation. Currently, the patient is sleeping, arousable. Still complains of lot of pain, but it is controlled with pain medication. No new complaint of chest pain or shortness of breath. PHYSICAL EXAMINATION: GENERAL: The patient is in no acute distress. VITAL SIGNS: Stable. HEART: S1 and S2, normal, regular. LUNGS: Good bilateral air exchange. ABDOMEN: Soft, nontender. The patient has gross ascites, but no sign of acute abdomen. No guarding, no rigidity, no rebound. EXTREMITIES: No edema. No calf swelling. No tenderness. No acute ischemia. CENTRAL NERVOUS SYSTEM: Essentially unchanged. DIAGNOSTIC DATA: Available diagnostic data reviewed. ASSESSMENT AND PLAN: Overall, the patient's general medical condition is stable. Plan as ordered. Robbin Romano MD
[2017-12-21] MEDS: Acetaminophen-Codeine 300/30 mg Tab PO PRN ×2 (10:46→20:41)
--- NOTE | 2017-12-21 10:51 | CP.PCM.PN ---
Subjective - Date & Time of Evaluation Date of Evaluation: 12/16/17 Time of Evaluation: 16:30 - Subjective Subjective: s/p paracentesis Objective - Vital Signs/Intake and Output Vital Signs (last 24 hours): Temp Pulse Resp BP Pulse Ox 97.6 F 67 20 124/58 L 99 12/21/17 08:59 12/21/17 08:59 12/21/17 08:59 12/21/17 08:59 12/21/17 08:59 - Medications Medications: Current Medications Acetaminophen (Tylenol 325mg Tab) 650 mg PO Q4 PRN PRN Reason: Pain, moderate (4-7) Last Admin: 12/20/17 12:12 Dose: 650 mg Acetaminophen/Codeine Phosphate (Tylenol/Codeine 300 Mg/30 Mg) 1 tab PO Q6 PRN PRN Reason: Pain, severe (8-10) Last Admin: 12/21/17 10:46 Dose: 1 tab Epoetin José Manuel (Procrit) 8,000 unit SC MWF [facility] Stop: 12/23/17 09:01 Last Admin: 12/19/17 10:01 Dose: 8,000 unit Famotidine (Pepcid) 40 mg PO HS [facility] Last Admin: 12/20/17 21:01 Dose: 40 mg Haloperidol (Haldol) 0.5 mg PO TID [facility] Last Admin: 12/21/17 09:48 Dose: 0.5 mg Insulin Human Lispro (Humalog) 0 units SC [facility]; Protocol Last Admin: 12/21/17 06:47 Dose: Not Given Lactulose (Enulose) 20 gm PO Q8 [facility] Last Admin: 12/21/17 09:48 Dose: 20 gm Midodrine (Proamatine) 10 mg PO TID [facility] Last Admin: 12/21/17 09:51 Dose: 10 mg Octreotide Acetate (Sandostatin) 200 mcg SC Q8 [facility] Last Admin: 12/21/17 09:52 Dose: 200 mcg Ondansetron HCl (Zofran Inj) 4 mg IVP Q8 PRN PRN Reason: Nausea/Vomiting Last Admin: 12/20/17 21:01 Dose: 4 mg Sodium Bicarbonate (Sodium Bicarbonate Tab) 650 mg PO BID [facility] Last Admin: 12/21/17 09:51 Dose: 650 mg Thiamine HCl (Vitamin B1 Tab) 100 mg PO DAILY [facility] Last Admin: 12/21/17 09:49 Dose: 100 mg Vitamin B Complex/Vit C/Folic Acid (Nephro-Ree) 1 tab PO DAILY [facility] Last Admin: 12/21/17 09:49 Dose: 1 tab - Labs Labs: 12/21/17 06:00 12/21/17 06:00 PT 17.0 Seconds (9.8-13.1) H 12/13/17 14:10 INR 1.5 12/13/17 14:10 APTT 33.1 Seconds (25.6-37.1) 12/13/17 14:10 - Neck Exam Neck Exam: Normal Inspection - Respiratory Exam Respiratory Exam: Clear to Ausculation Bilateral, NORMAL BREATHING PATTERN - Cardiovascular Exam Cardiovascular Exam: REGULAR RHYTHM - GI/Abdominal Exam GI & Abdominal Exam: Distended, Soft, Normal Bowel Sounds Assessment and Plan - Assessment and Plan (Free Text) Assessment: 57 yo male with decompensated cirrhosis tends labs psych consult
--- NOTE | 2017-12-21 12:27 | CP.PCM.PN ---
Subjective - Date & Time of Evaluation Date of Evaluation: 12/19/17 Time of Evaluation: 08:15 - Subjective Subjective: no overnight events Objective - Vital Signs/Intake and Output Vital Signs (last 24 hours): Temp Pulse Resp BP Pulse Ox 97.6 F 67 20 124/58 L 99 12/21/17 08:59 12/21/17 08:59 12/21/17 08:59 12/21/17 08:59 12/21/17 08:59 - Medications Medications: Current Medications Acetaminophen (Tylenol 325mg Tab) 650 mg PO Q4 PRN PRN Reason: Pain, moderate (4-7) Last Admin: 12/20/17 12:12 Dose: 650 mg Acetaminophen/Codeine Phosphate (Tylenol/Codeine 300 Mg/30 Mg) 1 tab PO Q6 PRN PRN Reason: Pain, severe (8-10) Last Admin: 12/21/17 10:46 Dose: 1 tab Epoetin José Manuel (Procrit) 8,000 unit SC MWF [facility] Stop: 12/23/17 09:01 Last Admin: 12/19/17 10:01 Dose: 8,000 unit Famotidine (Pepcid) 40 mg PO HS [facility] Last Admin: 12/20/17 21:01 Dose: 40 mg Haloperidol (Haldol) 0.5 mg PO TID [facility] Last Admin: 12/21/17 09:48 Dose: 0.5 mg Insulin Human Lispro (Humalog) 0 units SC [facility]; Protocol Last Admin: 12/21/17 06:47 Dose: Not Given Lactulose (Enulose) 20 gm PO Q8 [facility] Last Admin: 12/21/17 09:48 Dose: 20 gm Midodrine (Proamatine) 10 mg PO TID [facility] Last Admin: 12/21/17 09:51 Dose: 10 mg Octreotide Acetate (Sandostatin) 200 mcg SC Q8 [facility] Last Admin: 12/21/17 09:52 Dose: 200 mcg Ondansetron HCl (Zofran Inj) 4 mg IVP Q8 PRN PRN Reason: Nausea/Vomiting Last Admin: 12/20/17 21:01 Dose: 4 mg Sodium Bicarbonate (Sodium Bicarbonate Tab) 650 mg PO BID [facility] Last Admin: 12/21/17 09:51 Dose: 650 mg Thiamine HCl (Vitamin B1 Tab) 100 mg PO DAILY [facility] Last Admin: 12/21/17 09:49 Dose: 100 mg Vitamin B Complex/Vit C/Folic Acid (Nephro-Ree) 1 tab PO DAILY [facility] Last Admin: 12/21/17 09:49 Dose: 1 tab - Labs Labs: 12/21/17 06:00 12/21/17 06:00 PT 17.0 Seconds (9.8-13.1) H 12/13/17 14:10 INR 1.5 12/13/17 14:10 APTT 33.1 Seconds (25.6-37.1) 12/13/17 14:10 - Head Exam Head Exam: NORMOCEPHALIC - Neck Exam Neck Exam: Normal Inspection - Respiratory Exam Respiratory Exam: Clear to Ausculation Bilateral, NORMAL BREATHING PATTERN - Cardiovascular Exam Cardiovascular Exam: REGULAR RHYTHM - GI/Abdominal Exam GI & Abdominal Exam: Distended, Soft, Normal Bowel Sounds Assessment and Plan - Assessment and Plan (Free Text) Assessment: 57 yo male with decompensated cirrhosis no new events
--- NOTE | 2017-12-21 12:44 | CP.PCM.PN ---
Subjective - Date & Time of Evaluation Date of Evaluation: 12/21/17 Time of Evaluation: 12:43 - Subjective Subjective: patient awake Vital signs stable No significant changes Objective - Vital Signs/Intake and Output Vital Signs (last 24 hours): Temp Pulse Resp BP Pulse Ox 97.6 F 67 20 124/58 L 99 12/21/17 08:59 12/21/17 08:59 12/21/17 08:59 12/21/17 08:59 12/21/17 08:59 - Medications Medications: Current Medications Acetaminophen (Tylenol 325mg Tab) 650 mg PO Q4 PRN PRN Reason: Pain, moderate (4-7) Last Admin: 12/20/17 12:12 Dose: 650 mg Acetaminophen/Codeine Phosphate (Tylenol/Codeine 300 Mg/30 Mg) 1 tab PO Q6 PRN PRN Reason: Pain, severe (8-10) Last Admin: 12/21/17 10:46 Dose: 1 tab Epoetin José Manuel (Procrit) 8,000 unit SC MWF [facility] Stop: 12/23/17 09:01 Last Admin: 12/19/17 10:01 Dose: 8,000 unit Famotidine (Pepcid) 40 mg PO HS [facility] Last Admin: 12/20/17 21:01 Dose: 40 mg Haloperidol (Haldol) 0.5 mg PO TID [facility] Last Admin: 12/21/17 09:48 Dose: 0.5 mg Insulin Human Lispro (Humalog) 0 units SC [facility]; Protocol Last Admin: 12/21/17 06:47 Dose: Not Given Lactulose (Enulose) 20 gm PO Q8 [facility] Last Admin: 12/21/17 09:48 Dose: 20 gm Midodrine (Proamatine) 10 mg PO TID [facility] Last Admin: 12/21/17 09:51 Dose: 10 mg Octreotide Acetate (Sandostatin) 200 mcg SC Q8 [facility] Last Admin: 12/21/17 09:52 Dose: 200 mcg Ondansetron HCl (Zofran Inj) 4 mg IVP Q8 PRN PRN Reason: Nausea/Vomiting Last Admin: 12/20/17 21:01 Dose: 4 mg Sodium Bicarbonate (Sodium Bicarbonate Tab) 650 mg PO BID [facility] Last Admin: 12/21/17 09:51 Dose: 650 mg Thiamine HCl (Vitamin B1 Tab) 100 mg PO DAILY [facility] Last Admin: 12/21/17 09:49 Dose: 100 mg Vitamin B Complex/Vit C/Folic Acid (Nephro-Ree) 1 tab PO DAILY [facility] Last Admin: 12/21/17 09:49 Dose: 1 tab - Labs Labs: 12/21/17 06:00 12/21/17 06:00 PT 17.0 Seconds (9.8-13.1) H 12/13/17 14:10 INR 1.5 12/13/17 14:10 APTT 33.1 Seconds (25.6-37.1) 12/13/17 14:10 - Constitutional Appears: No Acute Distress - Eye Exam Eye Exam: Conjunctival injection - ENT Exam ENT Exam: Mucous Membranes Moist - Neck Exam Neck Exam: absent: Lymphadenopathy - Respiratory Exam Respiratory Exam: Chest Wall Tenderness, NORMAL BREATHING PATTERN - Cardiovascular Exam Cardiovascular Exam: absent: Gallop, Rubs - GI/Abdominal Exam GI & Abdominal Exam: Distended, Normal Bowel Sounds - Extremities Exam Extremities Exam: absent: Calf Tenderness - Back Exam Back Exam: absent: CVA tenderness (L), CVA tenderness (R) Assessment and Plan (1) SHELLIE (acute kidney injury) Assessment & Plan: acute kidney injury superimposed perhaps on chronic kidney disease related to massive ascites with recurrent hemodynamic changes. hepatorenal syndrome. 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 massive ascitis with recurrent paracentesis anemia recommendation intermittent use of 25% albumin for hypotension. Prognosis is guarded. medication dose is adjusted per renal failure DC aluminium hydroxide kidney function improving serum creatinine trending down and coming down slowly. Status post paracentesis with removal of 5 L of fluid continue EPO for anemia Status: Acute (2) Ascites Status: Acute
[2017-12-21] MEDS: Epoetin Alfa 20000 UNIT/ML Inj SC SCH (13:36)
[2017-12-22 06:58] LABS: HEMOGLOBIN 10.1 g/dL (12.0-18.0); MEAN CELL VOLUME 109.7 fl (80.0-94.0); MEAN CORPUSCULAR HEMOGLOBIN 36.8 pg (27.0-31.0); MEAN CORPUSCULAR HGB CONC 33.6 g/dL (33.0-37.0); RBC 2.76 Mil/uL (4.40-5.90); RED CELL DISTRIBUTION WIDTH 16.4 % (11.5-14.5); WHITE BLOOD COUNT 5.2 K/uL (4.8-10.8)
[2017-12-22 07:09] LABS: ALB/GLOB RATIO 0.8 (1.0-2.1); ALBUMIN 2.9 g/dL (3.5-5.0); CALCIUM 8.4 mg/dL (8.4-10.2)
[2017-12-22] MEDS: Acetaminophen-Codeine 300/30 mg Tab PO PRN (08:28)
[2017-12-22] MEDS: Insulin Lispro (humaLOG) 100 Units/ml Inj SC SCH ×4 (08:33→22:56)
[2017-12-22] MEDS: Multivitamin Vitamin B Complex (Nephro-Vite) Tab PO SCH (08:34)
--- NOTE | 2017-12-22 09:17 | PN ---
DATE: 12/22/2017 SUBJECTIVE: The patient seen and examined. Interim events noted. The patient remains in regular medical floor with observation for safety. The patient feels okay actually. Does not feel any pain at this time. No chest pain. No shortness of breath. PHYSICAL EXAMINATION: GENERAL The patient is in no acute distress. VITAL SIGNS: Stable. HEART: S1 and S2, normal and regular. LUNGS: Good bilateral air exchange. ABDOMEN: The patient has gross ascites. No sign of acute abdomen. No guarding. No rigidity. No rebound. Bowel sounds are present and normal. EXTREMITIES: No calf swelling. No tenderness. No acute ischemia. CENTRAL NERVOUS SYSTEM: Exam is essentially unchanged. DIAGNOSTIC DATA: Available diagnostic data reviewed. ASSESSMENT AND PLAN: Nephrology consult noted and appreciated. Overall, the patient is medically stable. Pain seems to be improved. Plan as ordered. Robbin Romano MD
--- NOTE | 2017-12-22 10:40 | CP.PCM.PN ---
Subjective - Date & Time of Evaluation Date of Evaluation: 12/22/17 Time of Evaluation: 10:39 - Subjective Subjective: patient awake not in acute distress Vital sign noted to be stable Objective - Vital Signs/Intake and Output Vital Signs (last 24 hours): Temp Pulse Resp BP Pulse Ox 97.7 F 82 19 124/74 100 12/22/17 08:04 12/22/17 08:04 12/22/17 08:04 12/22/17 08:04 12/22/17 08:04 - Medications Medications: Current Medications Acetaminophen (Tylenol 325mg Tab) 650 mg PO Q4 PRN PRN Reason: Pain, moderate (4-7) Last Admin: 12/20/17 12:12 Dose: 650 mg Acetaminophen/Codeine Phosphate (Tylenol/Codeine 300 Mg/30 Mg) 1 tab PO Q6 PRN PRN Reason: Pain, severe (8-10) Last Admin: 12/22/17 08:28 Dose: 1 tab Epoetin José Manuel (Procrit) 8,000 unit SC MWF [facility] Stop: 12/23/17 09:01 Last Admin: 12/21/17 13:36 Dose: 8,000 unit Famotidine (Pepcid) 40 mg PO HS [facility] Last Admin: 12/21/17 21:19 Dose: 40 mg Haloperidol (Haldol) 0.5 mg PO TID [facility] Last Admin: 12/22/17 08:33 Dose: 0.5 mg Insulin Human Lispro (Humalog) 0 units SC ACHS [facility]; Protocol Last Admin: 12/22/17 08:33 Dose: 1 u Lactulose (Enulose) 20 gm PO Q8 [facility] Last Admin: 12/22/17 08:33 Dose: 20 gm Midodrine (Proamatine) 10 mg PO TID [facility] Last Admin: 12/22/17 08:34 Dose: 10 mg Octreotide Acetate (Sandostatin) 200 mcg SC Q8 [facility] Last Admin: 12/22/17 08:34 Dose: 200 mcg Ondansetron HCl (Zofran Inj) 4 mg IVP Q8 PRN PRN Reason: Nausea/Vomiting Last Admin: 12/22/17 08:33 Dose: 4 mg Sodium Bicarbonate (Sodium Bicarbonate Tab) 650 mg PO BID [facility] Last Admin: 12/22/17 08:34 Dose: 650 mg Thiamine HCl (Vitamin B1 Tab) 100 mg PO DAILY [facility] Last Admin: 12/22/17 08:35 Dose: 100 mg Vitamin B Complex/Vit C/Folic Acid (Nephro-Ree) 1 tab PO DAILY [facility] Last Admin: 12/22/17 08:34 Dose: 1 tab - Labs Labs: 12/22/17 06:05 12/22/17 06:05 PT 17.0 Seconds (9.8-13.1) H 12/13/17 14:10 INR 1.5 12/13/17 14:10 APTT 33.1 Seconds (25.6-37.1) 12/13/17 14:10 - Constitutional Appears: No Acute Distress - Eye Exam Eye Exam: absent: Conjunctival injection - ENT Exam ENT Exam: Mucous Membranes Moist - Neck Exam Neck Exam: absent: Lymphadenopathy - Respiratory Exam Respiratory Exam: NORMAL BREATHING PATTERN. absent: Chest Wall Tenderness - Cardiovascular Exam Cardiovascular Exam: absent: Gallop, JVD, Rubs - GI/Abdominal Exam GI & Abdominal Exam: Distended, Soft, Normal Bowel Sounds - Extremities Exam Extremities Exam: absent: Calf Tenderness - Back Exam Back Exam: absent: CVA tenderness (L), CVA tenderness (R) - Skin Skin Exam: absent: Cyanosis Assessment and Plan (1) SHELLIE (acute kidney injury) Assessment & Plan: acute kidney injury superimposed perhaps on chronic kidney disease related to massive ascites with recurrent hemodynamic changes. hepatorenal syndrome. 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 massive ascitis with recurrent paracentesis anemia recommendation intermittent use of 25% albumin for hypotension. Prognosis is guarded. medication dose is adjusted per renal failure DC aluminium hydroxide kidney function improving serum creatinine trending down and coming down slowly. Status post paracentesis with removal of 5 L of fluid continue EPO for anemia Status: Acute (2) Ascites Status: Acute
[2017-12-23] MEDS: Acetaminophen-Codeine 300/30 mg Tab PO PRN (02:58)
--- NOTE | 2017-12-23 07:47 | CP.PCM.PN ---
<Mendez Benjamin - Last Filed: 12/23/17 11:09> Subjective - Date & Time of Evaluation Date of Evaluation: 12/23/17 Time of Evaluation: 07:46 - Subjective Subjective: Patient seen and examined with Dr Romano, patient does not have any medical complaint at this time, continue 1:1 for safety. Afebrile, VSS. Objective - Vital Signs/Intake and Output Vital Signs (last 24 hours): Temp Pulse Resp BP Pulse Ox 98.2 F 69 18 146/55 L 97 12/23/17 00:40 12/23/17 00:40 12/23/17 00:40 12/23/17 00:40 12/23/17 00:40 - Medications Medications: Current Medications Acetaminophen (Tylenol 325mg Tab) 650 mg PO Q4 PRN PRN Reason: Pain, moderate (4-7) Last Admin: 12/20/17 12:12 Dose: 650 mg Acetaminophen/Codeine Phosphate (Tylenol/Codeine 300 Mg/30 Mg) 1 tab PO Q6 PRN PRN Reason: Pain, severe (8-10) Last Admin: 12/23/17 02:58 Dose: 1 tab Epoetin José Manuel (Procrit) 8,000 unit SC MWF [facility] Stop: 12/23/17 09:01 Last Admin: 12/21/17 13:36 Dose: 8,000 unit Famotidine (Pepcid) 40 mg PO HS [facility] Last Admin: 12/22/17 21:39 Dose: 40 mg Haloperidol (Haldol) 2 mg PO Q12 [facility] Last Admin: 12/22/17 21:39 Dose: 2 mg Insulin Human Lispro (Humalog) [address] [facility]; Protocol Last Admin: 12/22/17 22:56 Dose: Not Given Lactulose (Enulose) 20 gm PO Q8 [facility] Last Admin: 12/23/17 00:23 Dose: 20 gm Midodrine (Proamatine) 10 mg PO TID [facility] Last Admin: 12/22/17 16:49 Dose: 10 mg Octreotide Acetate (Sandostatin) 200 mcg SC Q8 [facility] Last Admin: 12/23/17 00:23 Dose: 200 mcg Ondansetron HCl (Zofran Inj) 4 mg IVP Q8 PRN PRN Reason: Nausea/Vomiting Last Admin: 12/22/17 08:33 Dose: 4 mg Sodium Bicarbonate (Sodium Bicarbonate Tab) 650 mg PO BID [facility] Last Admin: 12/22/17 16:49 Dose: 650 mg Thiamine HCl (Vitamin B1 Tab) 100 mg PO DAILY [facility] Last Admin: 12/22/17 08:35 Dose: 100 mg Vitamin B Complex/Vit C/Folic Acid (Nephro-Ree) 1 tab PO DAILY [facility] Last Admin: 12/22/17 08:34 Dose: 1 tab - Labs Labs: 12/22/17 06:05 12/22/17 06:05 PT 17.0 Seconds (9.8-13.1) H 12/13/17 14:10 INR 1.5 12/13/17 14:10 APTT 33.1 Seconds (25.6-37.1) 12/13/17 14:10 - Constitutional Appears: No Acute Distress - Respiratory Exam Respiratory Exam: Clear to Ausculation Bilateral - Cardiovascular Exam Cardiovascular Exam: REGULAR RHYTHM, +S1, +S2 - GI/Abdominal Exam GI & Abdominal Exam: Distended, Normal Bowel Sounds. absent: Guarding, Tenderness - Extremities Exam Extremities Exam: absent: Calf Tenderness - Neurological Exam Neurological Exam: Alert, Awake Assessment and Plan - Assessment and Plan (Free Text) Assessment: 57 y/o M with a PMHx of HTN, DM, asthma, ETOH abuse with liver cirrhosis, admitted for evaluation and management of recurrent of ascitis and auditory hallucinations. Hepatorenal syndrome. PLAN: - continue 1:1 for safety - GI consult, Dr Galdamez - nephro consulted, recommendations appreciated - creatinine trending down - f/u labs in am. - Psychiatry on board Dr Herrera - Continue management as ordered <Robbin Romano - Last Filed: 12/26/17 07:45> Objective - Vital Signs/Intake and Output Vital Signs (last 24 hours): Temp Pulse Resp BP Pulse Ox 97.6 F 61 20 99/51 L 96 12/26/17 01:00 12/26/17 01:00 12/26/17 01:00 12/26/17 01:00 12/26/17 01:00 Intake and Output: 12/25/17 12/26/17 23:59 11:59 Intake Total 100 Balance 100 - Medications Medications: Current Medications Acetaminophen (Tylenol 325mg Tab) 650 mg PO Q4 PRN PRN Reason: Pain, moderate (4-7) Last Admin: 12/24/17 17:48 Dose: 650 mg Acetaminophen/Codeine Phosphate (Tylenol/Codeine 300 Mg/30 Mg) 1 tab PO Q6 PRN PRN Reason: Pain, severe (8-10) Last Admin: 12/25/17 21:44 Dose: 1 tab Bacitracin (Bacitracin) 1 ea TOP TID [facility] Famotidine (Pepcid) 40 mg PO HS [facility] Last Admin: 12/25/17 21:45 Dose: 40 mg Furosemide (Lasix) 20 mg PO DAILY [facility] Last Admin: 12/25/17 09:08 Dose: 20 mg Haloperidol (Haldol) 2 mg PO TID [facility] Last Admin: 12/25/17 16:42 Dose: 2 mg Insulin Human Lispro (Humalog) 0 units SC ACHS [facility]; Protocol Last Admin: 12/25/17 22:47 Dose: Not Given Lactulose (Enulose) 20 gm PO Q8 [facility] Last Admin: 12/26/17 00:40 Dose: 20 gm Midodrine (Proamatine) 10 mg PO TID [facility] Last Admin: 12/25/17 16:43 Dose: 10 mg Octreotide Acetate (Sandostatin) 200 mcg SC Q8 [facility] Last Admin: 12/26/17 00:40 Dose: 200 mcg Ondansetron HCl (Zofran Inj) 4 mg IVP Q8 PRN PRN Reason: Nausea/Vomiting Last Admin: 12/22/17 08:33 Dose: 4 mg Propranolol HCl (Inderal) 10 mg PO Q12 [facility] Last Admin: 12/25/17 21:45 Dose: 10 mg Sodium Bicarbonate (Sodium Bicarbonate Tab) 650 mg PO BID [facility] Last Admin: 12/25/17 16:42 Dose: 650 mg Spironolactone (Aldactone) 12.5 mg PO DAILY [facility] Last Admin: 12/25/17 09:08 Dose: 12.5 mg Thiamine HCl (Vitamin B1 Tab) 100 mg PO DAILY [facility] Last Admin: 12/25/17 09:08 Dose: 100 mg Vitamin B Complex/Vit C/Folic Acid (Nephro-Ree) 1 tab PO DAILY [facility] Last Admin: 12/25/17 09:05 Dose: 1 tab - Labs Labs: 12/26/17 05:35 12/26/17 05:35 PT 17.0 Seconds (9.8-13.1) H 12/13/17 14:10 INR 1.5 12/13/17 14:10 APTT 33.1 Seconds (25.6-37.1) 12/13/17 14:10 Assessment and Plan - Assessment and Plan (Free Text) Assessment: Patient was personally seen and examined by me in rounds with residents. Available labs and diagnostic data reviewed. Case, Patient's condition and management plan discussed with residents in rounds. Agree with resident's progress note. Plan: As ordered.
[2017-12-23 09:00] LABS: ALB/GLOB RATIO 0.8 (1.0-2.1); ALBUMIN 2.8 g/dL (3.5-5.0); CALCIUM 8.5 mg/dL (8.4-10.2)
[2017-12-23] MEDS: Multivitamin Vitamin B Complex (Nephro-Vite) Tab PO SCH (09:21)
[2017-12-23] MEDS: Insulin Lispro (humaLOG) 100 Units/ml Inj SC SCH ×4 (09:26→22:22)
[2017-12-23] MEDS: Epoetin Alfa 20000 UNIT/ML Inj SC SCH (09:49)
--- NOTE | 2017-12-23 13:52 | CP.PCM.CON ---
History of Present Illness - History of Present Illness History of Present Illness: Psychiatry consult follow-up note CC: AH HPI: 57 y/o M with a PMHx of HTN, DM, asthma, ETOH abuse with liver cirrhosis, was admitted for evaluation and management of recurrent abdominal pain, abdominal distension and acute psychosis. Patient continues to be acutely psychotic, w/ intermittent AH telling him to hurt himself. He is currently A + O x [facility]. He denies active ideation to harm himself but does report feeling distressed by his hallucinations. Impression: 57 yo male w/ acute delirium w/ psychosis. -Patient does not have capacity to make medical decisions at this time -Continue to titrate Haldol -Continue 1:1 for safety Past Patient History - Infectious Disease Hx of Infectious Diseases: None - Past Medical History & Family History Past Medical History?: Yes - Past Social History Smoking Status: Never Smoked - CARDIAC Hx Cardiac Disorders: Yes Hx Atrial Fibrillation: Yes Hx Hypertension: Yes - PULMONARY Hx Respiratory Disorders: Yes Hx Asthma: Yes - NEUROLOGICAL Hx Neurological Disorder: No - HEENT Hx HEENT Problems: No - RENAL Hx Chronic Kidney Disease: No - ENDOCRINE/METABOLIC Hx Endocrine Disorders: Yes (DM) Hx Diabetes Mellitus Type 2: Yes - HEMATOLOGICAL/ONCOLOGICAL Hx Blood Disorders: No Hx Human Immunodeficiency Virus (HIV): No - INTEGUMENTARY Hx Dermatological Problems: No - MUSCULOSKELETAL/RHEUMATOLOGICAL Hx Musculoskeletal Disorders: Yes Hx Falls: Yes - GASTROINTESTINAL Hx Gastrointestinal Disorders: No - GENITOURINARY/GYNECOLOGICAL Hx Genitourinary Disorders: No - PSYCHIATRIC Hx Psychophysiologic Disorder: Yes Hx Anxiety: Yes Hx Bipolar Disorder: Yes Hx Depression: Yes - SURGICAL HISTORY Hx Surgeries: Yes Hx Herniorrhaphy: Yes - ANESTHESIA Hx Anesthesia: Yes Hx Anesthesia Reactions: No Meds Allergies/Adverse Reactions: Allergies Allergy/AdvReac Type Severity Reaction Status Date / Time No Known Allergies Allergy Verified 12/13/17 13:08 - Medications Medications: Current Medications Acetaminophen (Tylenol 325mg Tab) 650 mg PO Q4 PRN PRN Reason: Pain, moderate (4-7) Last Admin: 12/20/17 12:12 Dose: 650 mg Acetaminophen/Codeine Phosphate (Tylenol/Codeine 300 Mg/30 Mg) 1 tab PO Q6 PRN PRN Reason: Pain, severe (8-10) Last Admin: 12/23/17 02:58 Dose: 1 tab Famotidine (Pepcid) 40 mg PO HS [facility] Last Admin: 12/22/17 21:39 Dose: 40 mg Haloperidol (Haldol) 2 mg PO TID [facility] Insulin Human Lispro (Humalog) 0 units SC ACHS [facility]; Protocol Last Admin: 12/23/17 12:38 Dose: 3 u Lactulose (Enulose) 20 gm PO Q8 [facility] Last Admin: 12/23/17 09:21 Dose: 20 gm Midodrine (Proamatine) 10 mg PO TID [facility] Last Admin: 12/23/17 12:38 Dose: 10 mg Octreotide Acetate (Sandostatin) 200 mcg SC Q8 [facility] Last Admin: 12/23/17 09:25 Dose: 200 mcg Ondansetron HCl (Zofran Inj) 4 mg IVP Q8 PRN PRN Reason: Nausea/Vomiting Last Admin: 12/22/17 08:33 Dose: 4 mg Sodium Bicarbonate (Sodium Bicarbonate Tab) 650 mg PO BID [facility] Last Admin: 12/23/17 09:21 Dose: 650 mg Thiamine HCl (Vitamin B1 Tab) 100 mg PO DAILY [facility] Last Admin: 12/23/17 09:21 Dose: 100 mg Vitamin B Complex/Vit C/Folic Acid (Nephro-Ree) 1 tab PO DAILY [facility] Last Admin: 12/23/17 09:21 Dose: 1 tab Results - Vital Signs Recent Vital Signs: Last Vital Signs Temp 98.3 F 12/23/17 08:09 Pulse 79 12/23/17 08:09 Resp 19 12/23/17 08:09 BP 121/71 12/23/17 08:09 Pulse Ox 99 12/23/17 08:09 - Labs Result Diagrams: 12/22/17 06:05 12/23/17 08:18 Labs: Laboratory Results - last 24 hr 12/22/17 12/22/17 12/23/17 16:00 21:49 05:03 Sodium Potassium Chloride Carbon Dioxide Anion Gap BUN Creatinine Est GFR ( Amer) Est GFR (Non-Af Amer) POC Glucose (mg/dL) 158 H 191 H 157 H Random Glucose Calcium Total Bilirubin AST ALT Alkaline Phosphatase Total Protein Albumin Globulin Albumin/Globulin Ratio 12/23/17 12/23/17 08:18 11:02 Sodium 135 Potassium 3.9 Chloride 106 Carbon Dioxide 19 L Anion Gap 14 BUN 39 H Creatinine 3.6 H Est GFR ( Amer) 21 Est GFR (Non-Af Amer) 18 POC Glucose (mg/dL) 251 H Random Glucose 178 H Calcium 8.5 Total Bilirubin 2.0 H AST 21 ALT 27 Alkaline Phosphatase 77 Total Protein 6.5 Albumin 2.8 L Globulin 3.6 Albumin/Globulin Ratio 0.8 L
--- NOTE | 2017-12-23 14:16 | CP.PCM.PN ---
Subjective - Date & Time of Evaluation Date of Evaluation: 12/23/17 Time of Evaluation: 14:14 - Subjective Subjective: Patient appears to be confused and having hallucination Objective - Vital Signs/Intake and Output Vital Signs (last 24 hours): Temp Pulse Resp BP Pulse Ox 98.3 F 79 19 121/71 99 12/23/17 08:09 12/23/17 08:09 12/23/17 08:09 12/23/17 08:09 12/23/17 08:09 - Medications Medications: Current Medications Acetaminophen (Tylenol 325mg Tab) 650 mg PO Q4 PRN PRN Reason: Pain, moderate (4-7) Last Admin: 12/20/17 12:12 Dose: 650 mg Acetaminophen/Codeine Phosphate (Tylenol/Codeine 300 Mg/30 Mg) 1 tab PO Q6 PRN PRN Reason: Pain, severe (8-10) Last Admin: 12/23/17 02:58 Dose: 1 tab Famotidine (Pepcid) 40 mg PO HS [facility] Last Admin: 12/22/17 21:39 Dose: 40 mg Haloperidol (Haldol) 2 mg PO TID [facility] Insulin Human Lispro (Humalog) 0 units SC ACHS [facility]; Protocol Last Admin: 12/23/17 12:38 Dose: 3 u Lactulose (Enulose) 20 gm PO Q8 [facility] Last Admin: 12/23/17 09:21 Dose: 20 gm Midodrine (Proamatine) 10 mg PO TID [facility] Last Admin: 12/23/17 12:38 Dose: 10 mg Octreotide Acetate (Sandostatin) 200 mcg SC Q8 [facility] Last Admin: 12/23/17 09:25 Dose: 200 mcg Ondansetron HCl (Zofran Inj) 4 mg IVP Q8 PRN PRN Reason: Nausea/Vomiting Last Admin: 12/22/17 08:33 Dose: 4 mg Sodium Bicarbonate (Sodium Bicarbonate Tab) 650 mg PO BID [facility] Last Admin: 12/23/17 09:21 Dose: 650 mg Thiamine HCl (Vitamin B1 Tab) 100 mg PO DAILY [facility] Last Admin: 12/23/17 09:21 Dose: 100 mg Vitamin B Complex/Vit C/Folic Acid (Nephro-Ree) 1 tab PO DAILY [facility] Last Admin: 12/23/17 09:21 Dose: 1 tab - Labs Labs: 12/22/17 06:05 12/23/17 08:18 PT 17.0 Seconds (9.8-13.1) H 12/13/17 14:10 INR 1.5 12/13/17 14:10 APTT 33.1 Seconds (25.6-37.1) 12/13/17 14:10 - Constitutional Appears: No Acute Distress - Eye Exam Eye Exam: Conjunctival injection - ENT Exam ENT Exam: Mucous Membranes Moist - Neck Exam Neck Exam: absent: Lymphadenopathy - Respiratory Exam Respiratory Exam: absent: Chest Wall Tenderness, NORMAL BREATHING PATTERN - GI/Abdominal Exam GI & Abdominal Exam: Distended - Extremities Exam Extremities Exam: absent: Calf Tenderness - Back Exam Back Exam: absent: CVA tenderness (L), CVA tenderness (R) - Neurological Exam Neurological Exam: Altered - Psychiatric Exam Psychiatric exam: Flat Affect - Skin Skin Exam: absent: Cyanosis Assessment and Plan (1) SHELLIE (acute kidney injury) Assessment & Plan: Assessment & Plan: acute kidney injury superimposed perhaps on chronic kidney disease related to massive ascites with recurrent hemodynamic changes. hepatorenal syndrome. 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 massive ascitis with recurrent paracentesis anemia recommendation intermittent use of 25% albumin for hypotension. Prognosis is guarded. medication dose is adjusted per renal failure kidney function improving serum creatinine stable in the range of 3.6 Status post paracentesis with removal of 5 L of fluid continue EPO for anemia Ascites reaccumulated Check ammonia level Status: Acute (2) Ascites Status: Acute
[2017-12-24] MEDS: Insulin Lispro (humaLOG) 100 Units/ml Inj SC SCH ×4 (07:33→21:21)
[2017-12-24] MEDS: Multivitamin Vitamin B Complex (Nephro-Vite) Tab PO SCH (09:04)
--- NOTE | 2017-12-24 09:57 | PN ---
DATE: 12/24/2017 SUBJECTIVE: The patient seen and examined. Interim events noted. The patient remains in regular medical floor with observation. Psychiatric followup and intervention noted and appreciated. The patient is sleeping, arousable, but does not want to get into conversation at this time. No specific issue reported by nursing staff. PHYSICAL EXAMINATION: GENERAL: The patient is in no acute distress. VITAL SIGNS: Stable. HEART: S1 and S2, normal, regular. LUNGS: Good bilateral air exchange. ABDOMEN: Soft, nontender. The patient has massive ascites. No sign of acute abdomen. No guarding, no rigidity, no rebound. Bowel sounds are plus and normal. EXTREMITIES: No edema, no calf swelling, no tenderness. No acute ischemia. CENTRAL NERVOUS SYSTEM: Essentially unchanged. DIAGNOSTIC DATA: Available diagnostic data reviewed. ASSESSMENT AND PLAN: Overall, the patient's general medical condition is stable. Plan as ordered. Robbin Romano MD
--- NOTE | 2017-12-24 15:23 | CP.PCM.PN ---
Subjective - Date & Time of Evaluation Date of Evaluation: 12/24/17 Time of Evaluation: 09:15 - Subjective Subjective: RENAL S: seen and examined no complaints o: vs as below gen: nad sclera: nonicteric op: clear neck: supple cv: +s1+s2 no rub abd: distended, + fluid wave + bowel sound lungs: reduced at bases ext: trace edema neuro: follows commands psych: flat skin: scattered ecchymoses imp: ARF/ Cirrhosis/ ANemia/ acidosis/ hepatorenal plan: SHELLIE likely HRS on HRS cocktain monitor h and h continue bicarb Objective - Vital Signs/Intake and Output Vital Signs (last 24 hours): Temp Pulse Resp BP Pulse Ox 98.3 F 74 20 96/59 L 100 12/24/17 08:40 12/24/17 08:40 12/24/17 08:40 12/24/17 08:40 12/24/17 08:40 - Medications Medications: Current Medications Acetaminophen (Tylenol 325mg Tab) 650 mg PO Q4 PRN PRN Reason: Pain, moderate (4-7) Last Admin: 12/20/17 12:12 Dose: 650 mg Acetaminophen/Codeine Phosphate (Tylenol/Codeine 300 Mg/30 Mg) 1 tab PO Q6 PRN PRN Reason: Pain, severe (8-10) Last Admin: 12/23/17 02:58 Dose: 1 tab Famotidine (Pepcid) 40 mg PO HS [facility] Last Admin: 12/23/17 22:24 Dose: 40 mg Haloperidol (Haldol) 2 mg PO TID [facility] Last Admin: 12/24/17 12:38 Dose: 2 mg Insulin Human Lispro (Humalog) 0 units SC ACHS [facility]; Protocol Last Admin: 12/24/17 12:38 Dose: 1 u Lactulose (Enulose) 20 gm PO Q8 [facility] Last Admin: 12/24/17 09:03 Dose: 20 gm Midodrine (Proamatine) 10 mg PO TID [facility] Last Admin: 12/24/17 12:38 Dose: 10 mg Octreotide Acetate (Sandostatin) 200 mcg SC Q8 [facility] Last Admin: 12/24/17 09:04 Dose: 200 mcg Ondansetron HCl (Zofran Inj) 4 mg IVP Q8 PRN PRN Reason: Nausea/Vomiting Last Admin: 12/22/17 08:33 Dose: 4 mg Sodium Bicarbonate (Sodium Bicarbonate Tab) 650 mg PO BID [facility] Last Admin: 12/24/17 09:04 Dose: 650 mg Thiamine HCl (Vitamin B1 Tab) 100 mg PO DAILY [facility] Last Admin: 12/24/17 09:04 Dose: 100 mg Vitamin B Complex/Vit C/Folic Acid (Nephro-Ree) 1 tab PO DAILY [facility] Last Admin: 12/24/17 09:04 Dose: 1 tab - Labs Labs: 12/22/17 06:05 12/23/17 08:18 PT 17.0 Seconds (9.8-13.1) H 12/13/17 14:10 INR 1.5 12/13/17 14:10 APTT 33.1 Seconds (25.6-37.1) 12/13/17 14:10
[2017-12-24] MEDS: Acetaminophen-Codeine 300/30 mg Tab PO PRN (19:49)
[2017-12-25 08:34] LABS: HEMOGLOBIN 10.3 g/dL (12.0-18.0); MEAN CORPUSCULAR HEMOGLOBIN 36.3 pg (27.0-31.0); RBC 2.84 Mil/uL (4.40-5.90); RED CELL DISTRIBUTION WIDTH 16.8 % (11.5-14.5); WHITE BLOOD COUNT 6.3 K/uL (4.8-10.8)
[2017-12-25] MEDS: Multivitamin Vitamin B Complex (Nephro-Vite) Tab PO SCH (09:05)
[2017-12-25 09:06] LABS: ALB/GLOB RATIO 0.8 (1.0-2.1); ALBUMIN 3.1 g/dL (3.5-5.0); CALCIUM 8.7 mg/dL (8.4-10.2)
[2017-12-25] MEDS: Insulin Lispro (humaLOG) 100 Units/ml Inj SC SCH ×4 (09:10→22:47)
--- NOTE | 2017-12-25 10:26 | PN ---
DATE: 12/25/2017 SUBJECTIVE: The patient seen and examined. Interim events noted. Telephone orders were given. The patient complained of pain, but currently the patient is sleeping, arousable, denies any specific pain. No specific issue reported by nursing staff or one-to-one observation. Family complained of pain by patient. PHYSICAL EXAMINATION: GENERAL: The patient is in no acute distress. VITAL SIGNS: Stable. HEART: S1 and S2, normal, regular. LUNGS: Good bilateral air exchange. ABDOMEN: Soft, nontender. The patient has gross ascites. There is no sign of acute abdomen. No guarding. No rigidity. No rebound. Bowel sounds are plus and normal. EXTREMITIES: No calf swelling. No tenderness. No acute ischemia. CENTRAL NERVOUS SYSTEM: Essentially unchanged. DIAGNOSTIC DATA: Available diagnostic data reviewed. ASSESSMENT AND PLAN: Overall, the patient's general medical condition is stable. Plan as ordered. Robbin Romano MD
[2017-12-25] MEDS ORDERED: Potassium Chloride 20 mEq 100 ML IVPB ONE (10:50)
--- NOTE | 2017-12-25 10:50 | CP.PCM.PN ---
Subjective - Date & Time of Evaluation Date of Evaluation: 12/25/17 Time of Evaluation: 10:49 - Subjective Subjective: RENAL S: seen and examined abdomen feels full o: vs as below gen: nad sclera: nonicteric op: clear neck: supple cv: +s1+s2 no rub abd: distended, + fluid wave + bowel sound lungs: reduced at bases ext: trace edema neuro: follows commands psych: flat skin: scattered ecchymoses imp: ARF/ Cirrhosis/ ANemia/ acidosis/ hepatorenal/hypokalemia plan: SHELLIE likely HRS on HRS cocktail given worsening abdominal distension recc consider para, may have element of abdominal hypertension, defer to pcp/gi. cr is improved will replete k as hypok can increase ammoniagenesis monitor h and h continue bicarb Objective - Vital Signs/Intake and Output Vital Signs (last 24 hours): Temp Pulse Resp BP Pulse Ox 97.5 F L 73 20 133/63 100 12/25/17 08:22 12/25/17 09:09 12/25/17 08:22 12/25/17 09:09 12/25/17 08:22 Intake and Output: 12/25/17 12/25/17 06:59 18:59 Intake Total 1300 Output Total 400 Balance 900 - Medications Medications: Current Medications Acetaminophen (Tylenol 325mg Tab) 650 mg PO Q4 PRN PRN Reason: Pain, moderate (4-7) Last Admin: 12/24/17 17:48 Dose: 650 mg Acetaminophen/Codeine Phosphate (Tylenol/Codeine 300 Mg/30 Mg) 1 tab PO Q6 PRN PRN Reason: Pain, severe (8-10) Last Admin: 12/24/17 19:49 Dose: 1 tab Famotidine (Pepcid) 40 mg PO HS [facility] Last Admin: 12/24/17 21:22 Dose: 40 mg Furosemide (Lasix) 20 mg PO DAILY [facility] Last Admin: 12/25/17 09:08 Dose: 20 mg Haloperidol (Haldol) 2 mg PO TID [facility] Last Admin: 12/25/17 09:09 Dose: 2 mg Insulin Human Lispro (Humalog) 0 units SC ACHS [facility]; Protocol Last Admin: 12/25/17 09:10 Dose: 1 u Lactulose (Enulose) 20 gm PO Q8 [facility] Last Admin: 11/18/18 09:05 Dose: 20 gm Midodrine (Proamatine) 10 mg PO TID [facility] Last Admin: 12/25/17 09:05 Dose: 10 mg Octreotide Acetate (Sandostatin) 200 mcg SC Q8 [facility] Last Admin: 12/25/17 09:05 Dose: 200 mcg Ondansetron HCl (Zofran Inj) 4 mg IVP Q8 PRN PRN Reason: Nausea/Vomiting Last Admin: 12/22/17 08:33 Dose: 4 mg Propranolol HCl (Inderal) 10 mg PO Q12 [facility] Last Admin: 12/25/17 09:09 Dose: 10 mg Sodium Bicarbonate (Sodium Bicarbonate Tab) 650 mg PO BID [facility] Last Admin: 12/25/17 09:04 Dose: 650 mg Spironolactone (Aldactone) 12.5 mg PO DAILY [facility] Last Admin: 12/25/17 09:08 Dose: 12.5 mg Thiamine HCl (Vitamin B1 Tab) 100 mg PO DAILY [facility] Last Admin: 12/25/17 09:08 Dose: 100 mg Vitamin B Complex/Vit C/Folic Acid (Nephro-Ree) 1 tab PO DAILY [facility] Last Admin: 12/25/17 09:05 Dose: 1 tab - Labs Labs: 12/25/17 06:20 12/25/17 06:20 PT 17.0 Seconds (9.8-13.1) H 12/13/17 14:10 INR 1.5 12/13/17 14:10 APTT 33.1 Seconds (25.6-37.1) 12/13/17 14:10
--- NOTE | 2017-12-25 13:39 | US ---
Date of service: 12/24/2017 Indication: r/o ascites Limited abdomen Comparison: None available Findings: Limited provided views of the abdomen reveal large abdominal ascites. Impression: Large abdominal ascites.
--- NOTE | 2017-12-25 17:51 | CP.PCM.PCO ---
Assessment/Plan - Assessment and Plan (Free Text) Assessment: MD was called after patient experienced a ground level fall. Pt was ambulating with 1:1 tech when he tripped on a cart in the hallway and fell. Fall was guided by tech, forward fall, no LOC, no head trauma. Pt was able to get up right after the fall and walked back to his room. Pt denies syncope, dizziness, chest pain, dyspnea. Pt endorsing pain in L palm which he used to stop his fall. VS taken, reviewed. GEN: NAD, normocephalic, atruamatic, H: S1S2 no additional heart sounds L: clear breath sounds EXt: 1x2 cm abrasion in the L palm, non-bleeding, skin open. Small 0.5cmx0.5cm abrasion in the lateral L knee, non-bleeding Neuro: AAO x 3, normal gait A/P: patient is doing well post fall, VS wnl -bacitricin to affected areas
[2017-12-25] MEDS: Acetaminophen-Codeine 300/30 mg Tab PO PRN (21:44)
[2017-12-26 06:33] LABS: HEMOGLOBIN 9.6 g/dL (12.0-18.0); MEAN CELL VOLUME 107.5 fl (80.0-94.0); MEAN CORPUSCULAR HEMOGLOBIN 36.1 pg (27.0-31.0); MEAN CORPUSCULAR HGB CONC 33.6 g/dL (33.0-37.0); RBC 2.65 Mil/uL (4.40-5.90); RED CELL DISTRIBUTION WIDTH 17.3 % (11.5-14.5); WHITE BLOOD COUNT 5.1 K/uL (4.8-10.8)
[2017-12-26 06:56] LABS: ALB/GLOB RATIO 0.7 (1.0-2.1); ALBUMIN 2.6 g/dL (3.5-5.0); CALCIUM 8.4 mg/dL (8.4-10.2)
[2017-12-26] MEDS: Insulin Lispro (humaLOG) 100 Units/ml Inj SC SCH ×5 (08:49→21:42)
--- NOTE | 2017-12-26 10:28 | PN ---
DATE: 12/26/2017 SUBJECTIVE: The patient seen and examined. Interim events noted. The patient remains in regular medical floor. The patient had a ground-level fall yesterday. No sign of superficial or deep injury. Currently denies any specific complaints of any new pain. PHYSICAL EXAMINATION: GENERAL: The patient is in no acute distress. VITAL SIGNS: Stable. HEART: S1 and S2. Normal and regular. LUNGS: Good bilateral air exchange. ABDOMEN: The patient has gross ascites. No sign of acute abdomen. No guarding. No rigidity. No rebound. Bowel sounds are plus and normal. EXTREMITIES: No edema. No calf swelling. No tenderness. No acute ischemia. No sign of superficial or deep injury from the incident yesterday. DIAGNOSTIC DATA: Available diagnostic data reviewed. ASSESSMENT AND PLAN: Overall, the patient is clinically stable. Plan as ordered. Robbin Romano MD
[2017-12-26] MEDS: Multivitamin Vitamin B Complex (Nephro-Vite) Tab PO SCH (10:41)
[2017-12-26] MEDS: Bacitracin 500 Units/gm Oint Foilpak UD TOP SCH ×3 (10:44→18:37)
--- NOTE | 2017-12-26 14:49 | CP.PCM.PCO ---
Assessment & Plan - Assessment and Plan (Free Text) Assessment: Patient has decompensated liver cirrhosis with ARF. Patient is still confused, disoriented to place and time but however, is able to verbalize that the fluid in his belly should come out because he is not able to breathe. Patient does not have next to kin for contact ; No emergency contact or friend/ family listed. Patient has again developed large ascites and shortness of breath. Renal function has slightly improved since last paracentesis. Patient will require stat paracentesis today.
--- NOTE | 2017-12-26 20:37 | CP.PCM.PN ---
Subjective - Date & Time of Evaluation Date of Evaluation: 12/26/17 Time of Evaluation: 20:37 - Subjective Subjective: confused resless Objective - Vital Signs/Intake and Output Vital Signs (last 24 hours): Temp Pulse Resp BP Pulse Ox 97.3 F L 70 20 136/77 95 12/26/17 17:00 12/26/17 17:00 12/26/17 17:00 12/26/17 17:00 12/26/17 17:00 - Medications Medications: Current Medications Acetaminophen (Tylenol 325mg Tab) 650 mg PO Q4 PRN PRN Reason: Pain, moderate (4-7) Last Admin: 12/24/17 17:48 Dose: 650 mg Acetaminophen/Codeine Phosphate (Tylenol/Codeine 300 Mg/30 Mg) 1 tab PO Q6 PRN PRN Reason: Pain, severe (8-10) Last Admin: 12/25/17 21:44 Dose: 1 tab Bacitracin (Bacitracin) 1 ea TOP TID [facility] Last Admin: 12/26/17 18:37 Dose: 1 ea Famotidine (Pepcid) 40 mg PO HS [facility] Last Admin: 12/25/17 21:45 Dose: 40 mg Furosemide (Lasix) 20 mg PO DAILY [facility] Last Admin: 12/26/17 10:42 Dose: 20 mg Haloperidol (Haldol) 2 mg PO TID [facility] Last Admin: 12/26/17 18:38 Dose: 2 mg Insulin Human Lispro (Humalog) 0 units SC ACHS [facility]; Protocol Last Admin: 12/26/17 17:55 Dose: 1 u Lactulose (Enulose) 20 gm PO Q8 [facility] Last Admin: 12/26/17 18:37 Dose: 20 gm Midodrine (Proamatine) 10 mg PO TID [facility] Last Admin: 12/26/17 18:37 Dose: 10 mg Octreotide Acetate (Sandostatin) 200 mcg SC Q8 [facility] Last Admin: 12/26/17 19:15 Dose: 200 mcg Ondansetron HCl (Zofran Inj) 4 mg IVP Q8 PRN PRN Reason: Nausea/Vomiting Last Admin: 12/22/17 08:33 Dose: 4 mg Propranolol HCl (Inderal) 10 mg PO Q12 [facility] Last Admin: 12/26/17 10:40 Dose: 10 mg Sodium Bicarbonate (Sodium Bicarbonate Tab) 650 mg PO BID [facility] Last Admin: 12/26/17 18:39 Dose: 650 mg Spironolactone (Aldactone) 12.5 mg PO DAILY [facility] Last Admin: 12/26/17 10:39 Dose: 12.5 mg Thiamine HCl (Vitamin B1 Tab) 100 mg PO DAILY [facility] Last Admin: 12/26/17 10:42 Dose: 100 mg Vitamin B Complex/Vit C/Folic Acid (Nephro-Ree) 1 tab PO DAILY [facility] Last Admin: 12/26/17 10:41 Dose: 1 tab - Labs Labs: 12/26/17 05:35 12/26/17 05:35 PT 17.0 Seconds (9.8-13.1) H 12/13/17 14:10 INR 1.5 12/13/17 14:10 APTT 33.1 Seconds (25.6-37.1) 12/13/17 14:10 - Constitutional Appears: In Acute Distress - Respiratory Exam Respiratory Exam: Chest Wall Tenderness - Cardiovascular Exam Cardiovascular Exam: JVD. absent: Gallop - GI/Abdominal Exam GI & Abdominal Exam: Firm, Guarding. absent: Distended - Extremities Exam Extremities Exam: absent: Calf Tenderness - Back Exam Back Exam: absent: CVA tenderness (L), CVA tenderness (R) - Neurological Exam Neurological Exam: absent: Altered Assessment and Plan (1) SHELLIE (acute kidney injury) Assessment & Plan: cute kidney injury superimposed perhaps on chronic kidney disease related to massive ascites with recurrent hemodynamic changes. hepatorenal syndrome. 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 massive ascitis with recurrent paracentesis anemia Plan worsening ascitis and abdominal distention critical that he needs more paracentesis Status: Acute (2) Ascites Status: Acute
--- NOTE | 2017-12-27 07:17 | CP.PCM.PN ---
<Mendez Benjamin - Last Filed: 12/27/17 09:43> Subjective - Date & Time of Evaluation Date of Evaluation: 12/27/17 Time of Evaluation: 07:17 - Subjective Subjective: Patient seen and examined today at bedside with Dr Romano, no overnight events. Patient reports feeling better, denies arm or hand pain. Otherwise no active complaints today. For paracentesis today. Objective - Vital Signs/Intake and Output Vital Signs (last 24 hours): Temp Pulse Resp BP Pulse Ox 97.3 F L 73 20 113/68 95 12/26/17 17:00 12/26/17 21:28 12/26/17 17:00 12/26/17 21:28 12/26/17 17:00 - Medications Medications: Current Medications Acetaminophen (Tylenol 325mg Tab) 650 mg PO Q4 PRN PRN Reason: Pain, moderate (4-7) Last Admin: 12/24/17 17:48 Dose: 650 mg Acetaminophen/Codeine Phosphate (Tylenol/Codeine 300 Mg/30 Mg) 1 tab PO Q6 PRN PRN Reason: Pain, severe (8-10) Last Admin: 12/25/17 21:44 Dose: 1 tab Bacitracin (Bacitracin) 1 ea TOP TID [facility] Last Admin: 12/26/17 18:37 Dose: 1 ea Famotidine (Pepcid) 40 mg PO HS [facility] Last Admin: 12/26/17 21:25 Dose: 40 mg Furosemide (Lasix) 20 mg PO DAILY [facility] Last Admin: 12/26/17 10:42 Dose: 20 mg Haloperidol (Haldol) 2 mg PO TID [facility] Last Admin: 12/26/17 18:38 Dose: 2 mg Insulin Human Lispro (Humalog) 0 units SC [facility]; Protocol Last Admin: 12/26/17 21:42 Dose: Not Given Lactulose (Enulose) 20 gm PO Q8 [facility] Last Admin: 12/27/17 00:58 Dose: 20 gm Midodrine (Proamatine) 10 mg PO TID [facility] Last Admin: 12/26/17 18:37 Dose: 10 mg Octreotide Acetate (Sandostatin) 200 mcg SC Q8 [facility] Last Admin: 12/27/17 00:58 Dose: 200 mcg Ondansetron HCl (Zofran Inj) 4 mg IVP Q8 PRN PRN Reason: Nausea/Vomiting Last Admin: 12/22/17 08:33 Dose: 4 mg Propranolol HCl (Inderal) 10 mg PO Q12 [facility] Last Admin: 12/26/17 21:28 Dose: 10 mg Sodium Bicarbonate (Sodium Bicarbonate Tab) 650 mg PO BID [facility] Last Admin: 12/26/17 18:39 Dose: 650 mg Spironolactone (Aldactone) 12.5 mg PO DAILY [facility] Last Admin: 12/26/17 10:39 Dose: 12.5 mg Thiamine HCl (Vitamin B1 Tab) 100 mg PO DAILY [facility] Last Admin: 12/26/17 10:42 Dose: 100 mg Vitamin B Complex/Vit C/Folic Acid (Nephro-Ree) 1 tab PO DAILY [facility] Last Admin: 12/26/17 10:41 Dose: 1 tab - Labs Labs: 12/26/17 05:35 12/26/17 05:35 PT 17.0 Seconds (9.8-13.1) H 12/13/17 14:10 INR 1.5 12/13/17 14:10 APTT 33.1 Seconds (25.6-37.1) 12/13/17 14:10 - Constitutional Appears: No Acute Distress - Respiratory Exam Respiratory Exam: Clear to Ausculation Bilateral, NORMAL BREATHING PATTERN - Cardiovascular Exam Cardiovascular Exam: REGULAR RHYTHM, +S1, +S2 - GI/Abdominal Exam GI & Abdominal Exam: Distended, Tenderness (diffuse) - Extremities Exam Extremities Exam: absent: Calf Tenderness, Pedal Edema - Neurological Exam Neurological Exam: Alert, Awake Assessment and Plan - Assessment and Plan (Free Text) Assessment: 57 y/o M with a PMHx of HTN, DM, asthma, ETOH abuse with liver cirrhosis, admitted for evaluation and management of recurrent of ascitis and auditory sergio lucinations. Hepatorenal syndrome. PLAN: - for parascentesis today - continue 1:1 for safety - GI consult, Dr Galdamez - nephro consulted, recommendations appreciated - creatinine improving - f/u labs in am. - Psychiatry on board Dr Herrera - Continue management as ordered <Robbin Romano - Last Filed: 12/30/17 14:12> Objective - Vital Signs/Intake and Output Vital Signs (last 24 hours): Temp Pulse Resp BP Pulse Ox 97.8 F 68 20 120/53 L 100 12/30/17 08:37 12/30/17 08:37 12/30/17 08:37 12/30/17 08:37 12/30/17 08:37 - Medications Medications: Current Medications Acetaminophen (Tylenol 325mg Tab) 650 mg PO Q4 PRN PRN Reason: Pain, moderate (4-7) Last Admin: 12/24/17 17:48 Dose: 650 mg Acetaminophen/Codeine Phosphate (Tylenol/Codeine 300 Mg/30 Mg) 1 tab PO Q6 PRN PRN Reason: Pain, severe (8-10) Last Admin: 12/25/17 21:44 Dose: 1 tab Bacitracin (Bacitracin) 1 ea TOP TID [facility] Last Admin: 12/30/17 12:16 Dose: 1 ea Diphenhydramine HCl (Benadryl) 50 mg PO HS PRN PRN Reason: Sleep Last Admin: 12/29/17 21:41 Dose: 50 mg Famotidine (Pepcid) 40 mg PO HS [facility] Last Admin: 12/29/17 21:17 Dose: 40 mg Furosemide (Lasix) 20 mg PO DAILY [facility] Last Admin: 12/30/17 08:26 Dose: 20 mg Haloperidol (Haldol) 2 mg PO TID [facility] Last Admin: 12/30/17 12:21 Dose: 2 mg Insulin Human Lispro (Humalog) 0 units SC [facility]; Protocol Last Admin: 12/30/17 12:14 Dose: 2 units Lactulose (Enulose) 20 gm PO Q8 [facility] Last Admin: 12/30/17 08:23 Dose: 20 gm Midodrine (Proamatine) 10 mg PO TID [facility] Last Admin: 12/30/17 12:19 Dose: 10 mg Octreotide Acetate (Sandostatin) 200 mcg SC Q8@0500,1300,2100 [facility] Last Admin: 12/30/17 12:22 Dose: 200 mcg Ondansetron HCl (Zofran Inj) 4 mg IVP Q8 PRN PRN Reason: Nausea/Vomiting Last Admin: 12/22/17 08:33 Dose: 4 mg Propranolol HCl (Inderal) 10 mg PO Q12 [facility] Last Admin: 12/30/17 08:25 Dose: 10 mg Sodium Bicarbonate (Sodium Bicarbonate Tab) 650 mg PO BID [facility] Last Admin: 12/30/17 08:22 Dose: 650 mg Spironolactone (Aldactone) 12.5 mg PO DAILY [facility] Last Admin: 12/30/17 08:24 Dose: 12.5 mg Thiamine HCl (Vitamin B1 Tab) 100 mg PO DAILY [facility] Last Admin: 12/30/17 08:25 Dose: 100 mg Trazodone HCl (Desyrel) 50 mg PO [facility] Vitamin B Complex/Vit C/Folic Acid (Nephro-Ree) 1 tab PO DAILY [facility] Last Admin: 12/30/17 08:23 Dose: 1 tab - Labs Labs: 12/30/17 05:35 12/30/17 05:35 PT 17.0 Seconds (9.8-13.1) H 12/13/17 14:10 INR 1.5 12/13/17 14:10 APTT 33.1 Seconds (25.6-37.1) 12/13/17 14:10 Assessment and Plan - Assessment and Plan (Free Text) Assessment: Patient was personally seen and examined by me in rounds with residents. Available labs and diagnostic data reviewed. Case, Patient's condition and management plan discussed with residents in ro unds. Agree with resident's progress note. Plan: As ordered.
[2017-12-27] MEDS ORDERED: Lidocaine 1% Inj (20ml) ONE (09:42)
--- NOTE | 2017-12-27 11:41 | PCM.SURG1 ---
Surgeon's Initial Post Op Note - Surgeon's Notes Surgeon: Cruzito Reilly MD Editor: NONE Type of Anesthesia: Local Pre-Operative Diagnosis: Ascites Operative Findings: US showed a large amount of ascites Post-Operative Diagnosis: Ascites Operation Performed: US guided paracentesis Specimen/Specimens Removed: 10.6 liters of straw colored fluid Estimated Blood Loss: EBL {In ML}: 0 Blood Products Given: N/A Drains Used: No Drains Post-Op Condition: Fair Date of Surgery/Procedure: 12/27/17 Time of Surgery/Procedure: 11:40
[2017-12-27] MEDS: Bacitracin 500 Units/gm Oint Foilpak UD TOP SCH ×3 (11:42→18:22)
[2017-12-27] MEDS: Multivitamin Vitamin B Complex (Nephro-Vite) Tab PO SCH (11:42)
[2017-12-27] MEDS: Insulin Lispro (humaLOG) 100 Units/ml Inj SC SCH ×5 (11:51→22:21)
--- NOTE | 2017-12-27 13:56 | CP.PCM.PN ---
Subjective - Date & Time of Evaluation Date of Evaluation: 12/27/17 Time of Evaluation: 13:55 - Subjective Subjective: just came back from paracentesis feeling much better after removing 10 L of fluid Discussed with the nurse practitioner to give 25% 50 mL albumin because of the hypotension Objective - Vital Signs/Intake and Output Vital Signs (last 24 hours): Temp Pulse Resp BP Pulse Ox 97.2 F L 64 18 88/44 L 99 12/27/17 11:32 12/27/17 11:32 12/27/17 11:32 12/27/17 12:06 12/27/17 11:32 - Medications Medications: Current Medications Acetaminophen (Tylenol 325mg Tab) 650 mg PO Q4 PRN PRN Reason: Pain, moderate (4-7) Last Admin: 12/24/17 17:48 Dose: 650 mg Acetaminophen/Codeine Phosphate (Tylenol/Codeine 300 Mg/30 Mg) 1 tab PO Q6 PRN PRN Reason: Pain, severe (8-10) Last Admin: 12/25/17 21:44 Dose: 1 tab Bacitracin (Bacitracin) 1 ea TOP TID [facility] Last Admin: 12/27/17 11:42 Dose: 1 ea Famotidine (Pepcid) 40 mg PO HS [facility] Last Admin: 12/26/17 21:25 Dose: 40 mg Furosemide (Lasix) 20 mg PO DAILY [facility] Last Admin: 12/27/17 12:03 Dose: Not Given Haloperidol (Haldol) 2 mg PO TID [facility] Last Admin: 12/27/17 11:43 Dose: 2 mg Insulin Human Lispro (Humalog) 0 units SC ACHS [facility]; Protocol Last Admin: 12/27/17 11:51 Dose: 2 u Lactulose (Enulose) 20 gm PO Q8 [facility] Last Admin: 12/27/17 12:11 Dose: Not Given Midodrine (Proamatine) 10 mg PO TID [facility] Last Admin: 12/27/17 11:41 Dose: 10 mg Octreotide Acetate (Sandostatin) 200 mcg SC Q8 [facility] Last Admin: 12/27/17 12:12 Dose: 200 mcg Ondansetron HCl (Zofran Inj) 4 mg IVP Q8 PRN PRN Reason: Nausea/Vomiting Last Admin: 12/22/17 08:33 Dose: 4 mg Propranolol HCl (Inderal) 10 mg PO Q12 [facility] Last Admin: 12/27/17 12:06 Dose: Not Given Sodium Bicarbonate (Sodium Bicarbonate Tab) 650 mg PO BID [facility] Last Admin: 12/27/17 11:40 Dose: 650 mg Spironolactone (Aldactone) 12.5 mg PO DAILY [facility] Last Admin: 12/27/17 12:10 Dose: Not Given Thiamine HCl (Vitamin B1 Tab) 100 mg PO DAILY [facility] Last Admin: 12/27/17 11:43 Dose: 100 mg Vitamin B Complex/Vit C/Folic Acid (Nephro-Ree) 1 tab PO DAILY [facility] Last Admin: 12/27/17 11:42 Dose: 1 tab - Labs Labs: 12/26/17 05:35 12/26/17 05:35 PT 17.0 Seconds (9.8-13.1) H 12/13/17 14:10 INR 1.5 12/13/17 14:10 APTT 33.1 Seconds (25.6-37.1) 12/13/17 14:10 - Constitutional Appears: No Acute Distress - Eye Exam Eye Exam: Conjunctival injection - ENT Exam ENT Exam: Mucous Membranes Moist - Neck Exam Neck Exam: absent: Lymphadenopathy - Respiratory Exam Respiratory Exam: absent: Chest Wall Tenderness - Cardiovascular Exam Cardiovascular Exam: absent: Gallop, JVD, Rubs - GI/Abdominal Exam GI & Abdominal Exam: Soft, Normal Bowel Sounds - Extremities Exam Extremities Exam: absent: Calf Tenderness - Back Exam Back Exam: absent: CVA tenderness (L), CVA tenderness (R) - Neurological Exam Neurological Exam: Altered Assessment and Plan (1) SHELLIE (acute kidney injury) Assessment & Plan: acute kidney injury superimposed perhaps on chronic kidney disease related to massive ascites with recurrent hemodynamic changes. hepatorenal syndrome. 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 massive ascitis with recurrent paracentesis anemia recommendation intermittent use of 25% albumin for hypotension. Prognosis is guarded. medication dose is adjusted per renal failure kidney function improving serum creatinine stable in the range of 3.6 Status post paracentesis today over 10 L of fluid was removed Status: Acute (2) Ascites Status: Acute
--- NOTE | 2017-12-27 14:29 | US ---
Date of Procedure: 12/27/2017 PROCEDURE: Ultrasound-guided paracentesis, CPT 71025 Medications: 7 cc 1% Lidocaine HISTORY: Ascites, abdominal pain, cirrhosis TECHNIQUE: Following informed consent , the patient was placed supine on the stretcher and the site was marked. A limited abdominal ultrasound was performed that showed a large amount of intra-abdominal fluid. Procedural time out was called and the Pt's abdomen was marked and prepped and draped in the usual sterile fashion. Ultrasound-guided large volume paracentesis performed. A total of 10.6 liters of straw colored fluid was removed without complication. IMPRESSION: Ultrasound-guided large volume paracentesis.
[2017-12-27] MEDS: Albumin Human 25% (12.5 gm/50 ml) IV SCH ×2 (18:21)
[2017-12-28] MEDS: Albumin Human 25% (12.5 gm/50 ml) IV SCH ×4 (00:29→17:06)
[2017-12-28 06:13] LABS: HEMOGLOBIN 9.8 g/dL (12.0-18.0); MEAN CELL VOLUME 106.3 fl (80.0-94.0); MEAN CORPUSCULAR HEMOGLOBIN 35.9 pg (27.0-31.0); MEAN CORPUSCULAR HGB CONC 33.7 g/dL (33.0-37.0); RBC 2.73 Mil/uL (4.40-5.90); RED CELL DISTRIBUTION WIDTH 17.4 % (11.5-14.5); WHITE BLOOD COUNT 4.8 K/uL (4.8-10.8)
[2017-12-28 06:42] LABS: ALB/GLOB RATIO 0.7 (1.0-2.1); ALBUMIN 2.5 g/dL (3.5-5.0); CALCIUM 8.4 mg/dL (8.4-10.2)
--- NOTE | 2017-12-28 07:45 | CP.PCM.PN ---
<Mendez Benjamin - Last Filed: 12/28/17 07:43> Subjective - Date & Time of Evaluation Date of Evaluation: 12/28/17 Time of Evaluation: 07:43 - Subjective Subjective: Patient seen and examined this morning with Dr Romano, no overnight events. Reports feeling better, s/p parascentesis yesterday with removal of 10.6 L of fluid. Afebrile, VSS. Objective - Vital Signs/Intake and Output Vital Signs (last 24 hours): Temp Pulse Resp BP Pulse Ox 98.4 F 71 19 103/41 L 100 12/28/17 00:21 12/28/17 00:21 12/28/17 00:21 12/28/17 00:21 12/28/17 00:21 Intake and Output: 12/28/17 12/28/17 06:59 18:59 Intake Total 420 Balance 420 - Medications Medications: Current Medications Acetaminophen (Tylenol 325mg Tab) 650 mg PO Q4 PRN PRN Reason: Pain, moderate (4-7) Last Admin: 12/24/17 17:48 Dose: 650 mg Acetaminophen/Codeine Phosphate (Tylenol/Codeine 300 Mg/30 Mg) 1 tab PO Q6 PRN PRN Reason: Pain, severe (8-10) Last Admin: 12/25/17 21:44 Dose: 1 tab Albumin Human (Albumin Human 25% (12.5 Gm/50 Ml)) 12.5 gm IV 0000,0600,1200,1800 [facility] Last Admin: 12/28/17 06:09 Dose: 12.5 gm Bacitracin (Bacitracin) 1 ea TOP TID [facility] Last Admin: 12/27/17 18:22 Dose: 1 ea Famotidine (Pepcid) 40 mg PO HS [facility] Last Admin: 12/27/17 21:19 Dose: 40 mg Furosemide (Lasix) 20 mg PO DAILY [facility] Last Admin: 12/27/17 12:03 Dose: Not Given Haloperidol (Haldol) 2 mg PO TID [facility] Last Admin: 12/27/17 18:25 Dose: 2 mg Insulin Human Lispro (Humalog) 0 units SC ACHS [facility]; Protocol Last Admin: 12/27/17 22:21 Dose: Not Given Lactulose (Enulose) 20 gm PO Q8 [facility] Last Admin: 12/28/17 00:28 Dose: 20 gm Midodrine (Proamatine) 10 mg PO TID [facility] Last Admin: 12/27/17 18:25 Dose: 10 mg Octreotide Acetate (Sandostatin) 200 mcg SC Q8 [facility] Last Admin: 12/28/17 00:29 Dose: 200 mcg Ondansetron HCl (Zofran Inj) 4 mg IVP Q8 PRN PRN Reason: Nausea/Vomiting Last Admin: 12/22/17 08:33 Dose: 4 mg Propranolol HCl (Inderal) 10 mg PO Q12 [facility] Last Admin: 12/27/17 21:19 Dose: 10 mg Sodium Bicarbonate (Sodium Bicarbonate Tab) 650 mg PO BID [facility] Last Admin: 12/27/17 18:26 Dose: 650 mg Spironolactone (Aldactone) 12.5 mg PO DAILY [facility] Last Admin: 12/27/17 12:10 Dose: Not Given Thiamine HCl (Vitamin B1 Tab) 100 mg PO DAILY [facility] Last Admin: 12/27/17 11:43 Dose: 100 mg Vitamin B Complex/Vit C/Folic Acid (Nephro-Ree) 1 tab PO DAILY [facility] Last Admin: 12/27/17 11:42 Dose: 1 tab - Labs Labs: 12/28/17 05:55 12/28/17 05:55 PT 17.0 Seconds (9.8-13.1) H 12/13/17 14:10 INR 1.5 12/13/17 14:10 APTT 33.1 Seconds (25.6-37.1) 12/13/17 14:10 - Constitutional Appears: No Acute Distress - Respiratory Exam Respiratory Exam: Clear to Ausculation Bilateral, NORMAL BREATHING PATTERN - Cardiovascular Exam Cardiovascular Exam: REGULAR RHYTHM, +S1, +S2 - GI/Abdominal Exam GI & Abdominal Exam: Distended (improved), Normal Bowel Sounds. absent: Guarding, Tenderness - Extremities Exam Extremities Exam: absent: Calf Tenderness, Pedal Edema - Neurological Exam Neurological Exam: Alert, Awake Assessment and Plan - Assessment and Plan (Free Text) Assessment: 57 y/o M with a PMHx of HTN, DM, asthma, ETOH abuse with liver cirrhosis, adm itted for evaluation and management of recurrent of ascitis and auditory hallucinations. Hepatorenal syndrome. PLAN: - s/p parascentesis - continue 1:1 for safety - GI consult, Dr Galdamez - nephro consulted, recommendations appreciated - creatinine improving - H/H stable, no signs of bleeding - Psychiatry on board Dr Herrera - Waiting for placement - Continue management as ordered <Robbin Romano - Last Filed: 12/30/17 14:10> Objective - Vital Signs/Intake and Output Vital Signs (last 24 hours): Temp Pulse Resp BP Pulse Ox 97.8 F 68 20 120/53 L 100 12/30/17 08:37 12/30/17 08:37 12/30/17 08:37 12/30/17 08:37 12/30/17 08:37 - Medications Medications: Current Medications Acetaminophen (Tylenol 325mg Tab) 650 mg PO Q4 PRN PRN Reason: Pain, moderate (4-7) Last Admin: 12/24/17 17:48 Dose: 650 mg Acetaminophen/Codeine Phosphate (Tylenol/Codeine 300 Mg/30 Mg) 1 tab PO Q6 PRN PRN Reason: Pain, severe (8-10) Last Admin: 12/25/17 21:44 Dose: 1 tab Bacitracin (Bacitracin) 1 ea TOP TID [facility] Last Admin: 12/30/17 12:16 Dose: 1 ea Diphenhydramine HCl (Benadryl) 50 mg PO HS PRN PRN Reason: Sleep Last Admin: 12/29/17 21:41 Dose: 50 mg Famotidine (Pepcid) 40 mg PO HS [facility] Last Admin: 12/29/17 21:17 Dose: 40 mg Furosemide (Lasix) 20 mg PO DAILY [facility] Last Admin: 12/30/17 08:26 Dose: 20 mg Haloperidol (Haldol) 2 mg PO TID [facility] Last Admin: 12/30/17 12:21 Dose: 2 mg Insulin Human Lispro (Humalog) 0 units SC ACHS [facility]; Protocol Last Admin: 12/30/17 12:14 Dose: 2 units Lactulose (Enulose) 20 gm PO Q8 [facility] Last Admin: 12/30/17 08:23 Dose: 20 gm Midodrine (Proamatine) 10 mg PO TID [facility] Last Admin: 12/30/17 12:19 Dose: 10 mg Octreotide Acetate (Sandostatin) 200 mcg SC Q8@0500,1300,2100 [facility] Last Admin: 12/30/17 12:22 Dose: 200 mcg Ondansetron HCl (Zofran Inj) 4 mg IVP Q8 PRN PRN Reason: Nausea/Vomiting Last Admin: 12/22/17 08:33 Dose: 4 mg Propranolol HCl (Inderal) 10 mg PO Q12 [facility] Last Admin: 12/30/17 08:25 Dose: 10 mg Sodium Bicarbonate (Sodium Bicarbonate Tab) 650 mg PO BID [facility] Last Admin: 12/30/17 08:22 Dose: 650 mg Spironolactone (Aldactone) 12.5 mg PO DAILY [facility] Last Admin: 12/30/17 08:24 Dose: 12.5 mg Thiamine HCl (Vitamin B1 Tab) 100 mg PO DAILY [facility] Last Admin: 12/30/17 08:25 Dose: 100 mg Trazodone HCl (Desyrel) 50 mg PO [facility] Vitamin B Complex/Vit C/Folic Acid (Nephro-Ree) 1 tab PO DAILY [facility] Last Admin: 12/30/17 08:23 Dose: 1 tab - Labs Labs: 12/30/17 05:35 12/30/17 05:35 PT 17.0 Seconds (9.8-13.1) H 12/13/17 14:10 INR 1.5 12/13/17 14:10 APTT 33.1 Seconds (25.6-37.1) 12/13/17 14:10 Assessment and Plan - Assessment and Plan (Free Text) Assessment: Patient was personally seen and examined by me in rounds with residents. Available labs and diagnostic data reviewed. Case, Patient's condition and management plan discussed with residents in rounds. Agree with resident's progress note. Plan: As ordered.
[2017-12-28] MEDS: Multivitamin Vitamin B Complex (Nephro-Vite) Tab PO SCH (08:13)
[2017-12-28] MEDS: Bacitracin 500 Units/gm Oint Foilpak UD TOP SCH ×3 (08:14→16:25)
[2017-12-28] MEDS: Insulin Lispro (humaLOG) 100 Units/ml Inj SC SCH ×4 (08:14→22:48)
--- NOTE | 2017-12-28 13:20 | CP.PCM.PN ---
Subjective - Date & Time of Evaluation Date of Evaluation: 12/28/17 Time of Evaluation: 13:19 - Subjective Subjective: patient is appeared to be comfortable No acute distress Objective - Vital Signs/Intake and Output Vital Signs (last 24 hours): Temp Pulse Resp BP Pulse Ox 97.1 F L 70 20 120/54 L 100 12/28/17 08:47 12/28/17 08:47 12/28/17 08:47 12/28/17 08:47 12/28/17 08:47 Intake and Output: 12/28/17 12/28/17 06:59 18:59 Intake Total 420 Balance 420 - Medications Medications: Current Medications Acetaminophen (Tylenol 325mg Tab) 650 mg PO Q4 PRN PRN Reason: Pain, moderate (4-7) Last Admin: 12/24/17 17:48 Dose: 650 mg Acetaminophen/Codeine Phosphate (Tylenol/Codeine 300 Mg/30 Mg) 1 tab PO Q6 PRN PRN Reason: Pain, severe (8-10) Last Admin: 12/25/17 21:44 Dose: 1 tab Albumin Human (Albumin Human 25% (12.5 Gm/50 Ml)) 12.5 gm IV 0000,0600,1200,1800 [facility] Last Admin: 12/28/17 11:40 Dose: 12.5 gm Bacitracin (Bacitracin) 1 ea TOP TID [facility] Last Admin: 12/28/17 12:04 Dose: 1 ea Famotidine (Pepcid) 40 mg PO HS [facility] Last Admin: 12/27/17 21:19 Dose: 40 mg Furosemide (Lasix) 20 mg PO DAILY [facility] Last Admin: 12/28/17 08:15 Dose: 20 mg Haloperidol (Haldol) 2 mg PO TID [facility] Last Admin: 12/28/17 12:04 Dose: 2 mg Insulin Human Lispro (Humalog) 0 units SC ACHS [facility]; Protocol Last Admin: 12/28/17 11:39 Dose: 3 u Lactulose (Enulose) 20 gm PO Q8 [facility] Last Admin: 12/28/17 11:40 Dose: Not Given Midodrine (Proamatine) 10 mg PO TID [facility] Last Admin: 12/28/17 12:04 Dose: 10 mg Octreotide Acetate (Sandostatin) 200 mcg SC Q8 [facility] Last Admin: 12/28/17 11:39 Dose: 200 mcg Ondansetron HCl (Zofran Inj) 4 mg IVP Q8 PRN PRN Reason: Nausea/Vomiting Last Admin: 12/22/17 08:33 Dose: 4 mg Propranolol HCl (Inderal) 10 mg PO Q12 [facility] Last Admin: 12/28/17 08:14 Dose: Not Given Sodium Bicarbonate (Sodium Bicarbonate Tab) 650 mg PO BID [facility] Last Admin: 12/28/17 08:16 Dose: 650 mg Spironolactone (Aldactone) 12.5 mg PO DAILY [facility] Last Admin: 12/28/17 08:13 Dose: 12.5 mg Thiamine HCl (Vitamin B1 Tab) 100 mg PO DAILY [facility] Last Admin: 12/28/17 08:15 Dose: 100 mg Vitamin B Complex/Vit C/Folic Acid (Nephro-Ree) 1 tab PO DAILY [facility] Last Admin: 12/28/17 08:13 Dose: 1 tab - Labs Labs: 12/28/17 05:55 12/28/17 05:55 PT 17.0 Seconds (9.8-13.1) H 12/13/17 14:10 INR 1.5 12/13/17 14:10 APTT 33.1 Seconds (25.6-37.1) 12/13/17 14:10 - Constitutional Appears: No Acute Distress - Eye Exam Eye Exam: Conjunctival injection - ENT Exam ENT Exam: Mucous Membranes Moist - Respiratory Exam Respiratory Exam: NORMAL BREATHING PATTERN. absent: Chest Wall Tenderness - Cardiovascular Exam Cardiovascular Exam: absent: Gallop, JVD - GI/Abdominal Exam GI & Abdominal Exam: Soft, Normal Bowel Sounds - Extremities Exam Extremities Exam: absent: Calf Tenderness - Back Exam Back Exam: absent: CVA tenderness (L), CVA tenderness (R) - Neurological Exam Neurological Exam: Altered Assessment and Plan (1) SHELLIE (acute kidney injury) Assessment & Plan: acute kidney injury superimposed perhaps on chronic kidney disease related to massive ascites with recurrent hemodynamic changes. hepatorenal syndrome. 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 massive ascitis with recurrent paracentesis anemia recommendation intermittent use of 25% albumin for hypotension. Prognosis is guarded. medication dose is adjusted per renal failure kidney function stable serum creatinine stable in the range of 3.6 Status post paracentesis 12/27 over 10 L of fluid was removed Status: Acute (2) Ascites Status: Acute
[2017-12-29] MEDS: Bacitracin 500 Units/gm Oint Foilpak UD TOP SCH ×3 (09:27→17:46)
[2017-12-29] MEDS: Insulin Lispro (humaLOG) 100 Units/ml Inj SC SCH ×4 (09:28→23:06)
[2017-12-29] MEDS: Multivitamin Vitamin B Complex (Nephro-Vite) Tab PO SCH (09:29)
[2017-12-29] MEDS ORDERED: Octreotide 500 mcg/ml Inj SC SCH (11:45)
--- NOTE | 2017-12-29 12:15 | PN ---
DATE: 12/29/2017 SUBJECTIVE: The patient is seen and examined. Interim events noted. Consults noted and appreciated. Pain Management followup and interventions noted and appreciated. The patient remains in regular medical floor. Still complains of pain. It does have slightly improved after injection. No new complaint. No chest pain. No shortness of breath. PHYSICAL EXAMINATION: GENERAL: The patient is in no acute distress. VITAL SIGNS: Stable. HEART: S1 and S2, normal and regular. LUNGS: Good bilateral air exchange. No rales, rhonchi, or wheezing. ABDOMEN: Soft, nontender. EXTREMITIES: No edema. No calf swelling. No tenderness. No acute ischemia. No sign of acute distal neurovascular compromise. CENTRAL NERVOUS SYSTEM: Exam is essentially unchanged. DIAGNOSTIC DATA: Available diagnostic data reviewed. ASSESSMENT AND PLAN: Overall, the patient is clinically stable. The patient has some improvement in back pain, but still has difficulty doing her activities of daily living. Plan as ordered. Robbin Romano MD
--- NOTE | 2017-12-29 15:50 | CP.PCM.PN ---
Subjective - Date & Time of Evaluation Date of Evaluation: 12/29/17 Time of Evaluation: 15:47 - Subjective Subjective: renal follow up note no events overnight VSS heent normal op moist no jvd skin nromal abdo distended, bS+ no resp dsitress s1s2 present ao times 3 cooperative SHELLIE/CKD/HRS/liver cirrhosis/ascites/anemia/acidosis/hypoalbuminemia cr improving, monitoro I&Os lytes ok continue po bicarb continue midodrine and octreotide anemia stable transfuse prn can continue to use albumin 25% as needed ascites paracentesis per primary team Objective - Vital Signs/Intake and Output Vital Signs (last 24 hours): Temp Pulse Resp BP Pulse Ox 98.3 F 69 18 102/52 L 95 12/29/17 09:00 12/29/17 09:28 12/29/17 09:00 12/29/17 09:29 12/29/17 09:00 Intake and Output: 12/29/17 12/29/17 06:59 18:59 Intake Total 250 Balance 250 - Medications Medications: Current Medications Acetaminophen (Tylenol 325mg Tab) 650 mg PO Q4 PRN PRN Reason: Pain, moderate (4-7) Last Admin: 12/24/17 17:48 Dose: 650 mg Acetaminophen/Codeine Phosphate (Tylenol/Codeine 300 Mg/30 Mg) 1 tab PO Q6 PRN PRN Reason: Pain, severe (8-10) Last Admin: 12/25/17 21:44 Dose: 1 tab Bacitracin (Bacitracin) 1 ea TOP TID [facility] Last Admin: 12/29/17 13:18 Dose: 1 ea Diphenhydramine HCl (Benadryl) 50 mg PO HS PRN PRN Reason: Sleep Last Admin: 12/28/17 22:54 Dose: 50 mg Famotidine (Pepcid) 40 mg PO HS [facility] Last Admin: 12/28/17 21:03 Dose: 40 mg Furosemide (Lasix) 20 mg PO DAILY [facility] Last Admin: 12/29/17 09:29 Dose: 20 mg Haloperidol (Haldol) 2 mg PO TID [facility] Last Admin: 12/29/17 13:18 Dose: 2 mg Insulin Human Lispro (Humalog) 0 units SC ACHS [facility]; Protocol Last Admin: 12/29/17 13:18 Dose: 2 u Lactulose (Enulose) 20 gm PO Q8 [facility] Last Admin: 12/29/17 09:27 Dose: 20 gm Midodrine (Proamatine) 10 mg PO TID [facility] Last Admin: 12/29/17 13:18 Dose: 10 mg Octreotide Acetate (Sandostatin) 200 mcg SC Q8 [facility] Last Admin: 12/29/17 13:19 Dose: 200 mcg Ondansetron HCl (Zofran Inj) 4 mg IVP Q8 PRN PRN Reason: Nausea/Vomiting Last Admin: 12/22/17 08:33 Dose: 4 mg Propranolol HCl (Inderal) 10 mg PO Q12 [facility] Last Admin: 12/29/17 09:28 Dose: 10 mg Sodium Bicarbonate (Sodium Bicarbonate Tab) 650 mg PO BID [facility] Last Admin: 12/29/17 09:29 Dose: 650 mg Spironolactone (Aldactone) 12.5 mg PO DAILY [facility] Last Admin: 12/29/17 09:27 Dose: 12.5 mg Thiamine HCl (Vitamin B1 Tab) 100 mg PO DAILY [facility] Last Admin: 12/29/17 09:29 Dose: 100 mg Vitamin B Complex/Vit C/Folic Acid (Nephro-Ree) 1 tab PO DAILY [facility] Last Admin: 12/29/17 09:29 Dose: 1 tab - Labs Labs: 12/28/17 05:55 12/28/17 05:55 PT 17.0 Seconds (9.8-13.1) H 12/13/17 14:10 INR 1.5 12/13/17 14:10 APTT 33.1 Seconds (25.6-37.1) 12/13/17 14:10
[2017-12-29] MEDS: Octreotide 500 mcg/ml Inj SC SCH (21:14)
[2017-12-30] MEDS: Octreotide 500 mcg/ml Inj SC SCH ×3 (05:27→21:19)
[2017-12-30 06:31] LABS: HEMOGLOBIN 10.1 g/dL (12.0-18.0); MEAN CELL VOLUME 106.5 fl (80.0-94.0); MEAN CORPUSCULAR HEMOGLOBIN 36.9 pg (27.0-31.0); MEAN CORPUSCULAR HGB CONC 34.6 g/dL (33.0-37.0); RBC 2.73 Mil/uL (4.40-5.90); RED CELL DISTRIBUTION WIDTH 17.5 % (11.5-14.5); WHITE BLOOD COUNT 5.1 K/uL (4.8-10.8)
[2017-12-30 06:45] LABS: ALB/GLOB RATIO 0.8 (1.0-2.1); ALBUMIN 2.9 g/dL (3.5-5.0); CALCIUM 8.7 mg/dL (8.4-10.2)
[2017-12-30] MEDS: Bacitracin 500 Units/gm Oint Foilpak UD TOP SCH ×3 (08:23→16:26)
[2017-12-30] MEDS: Multivitamin Vitamin B Complex (Nephro-Vite) Tab PO SCH (08:23)
[2017-12-30] MEDS: Insulin Lispro (humaLOG) 100 Units/ml Inj SC SCH ×4 (08:24→21:45)
--- NOTE | 2017-12-30 10:12 | CP.PCM.PN ---
<Mendez Benjamin - Last Filed: 12/30/17 10:13> Subjective - Date & Time of Evaluation Date of Evaluation: 12/30/17 Time of Evaluation: 10:07 - Subjective Subjective: Patient seen and examined this morning at beside, no overnight events. Reports feeling better, states good appetite, normal voiding and BM, AAO x3, denies hallucinations SI/HI at this time. Objective - Vital Signs/Intake and Output Vital Signs (last 24 hours): Temp Pulse Resp BP Pulse Ox 97.8 F 68 20 120/53 L 100 12/30/17 08:37 12/30/17 08:37 12/30/17 08:37 12/30/17 08:37 12/30/17 08:37 Intake and Output: 12/30/17 12/30/17 06:59 18:59 Intake Total 596 Output Total 600 Balance -4 - Medications Medications: Current Medications Acetaminophen (Tylenol 325mg Tab) 650 mg PO Q4 PRN PRN Reason: Pain, moderate (4-7) Last Admin: 12/24/17 17:48 Dose: 650 mg Acetaminophen/Codeine Phosphate (Tylenol/Codeine 300 Mg/30 Mg) 1 tab PO Q6 PRN PRN Reason: Pain, severe (8-10) Last Admin: 12/25/17 21:44 Dose: 1 tab Bacitracin (Bacitracin) 1 ea TOP TID [facility] Last Admin: 12/30/17 08:23 Dose: 1 ea Diphenhydramine HCl (Benadryl) 50 mg PO HS PRN PRN Reason: Sleep Last Admin: 12/29/17 21:41 Dose: 50 mg Famotidine (Pepcid) 40 mg PO HS [facility] Last Admin: 12/29/17 21:17 Dose: 40 mg Furosemide (Lasix) 20 mg PO DAILY [facility] Last Admin: 12/30/17 08:26 Dose: 20 mg Haloperidol (Haldol) 2 mg PO TID [facility] Last Admin: 12/30/17 08:23 Dose: 2 mg Insulin Human Lispro (Humalog) 0 units SC ACHS [facility]; Protocol Last Admin: 12/30/17 08:24 Dose: 4 units Lactulose (Enulose) 20 gm PO Q8 [facility] Last Admin: 12/30/17 08:23 Dose: 20 gm Midodrine (Proamatine) 10 mg PO TID [facility] Last Admin: 12/30/17 08:22 Dose: 10 mg Octreotide Acetate (Sandostatin) 200 mcg SC Q8@0500,1300,2100 [facility] Last Admin: 12/30/17 05:27 Dose: 200 mcg Ondansetron HCl (Zofran Inj) 4 mg IVP Q8 PRN PRN Reason: Nausea/Vomiting Last Admin: 12/22/17 08:33 Dose: 4 mg Propranolol HCl (Inderal) 10 mg PO Q12 [facility] Last Admin: 12/30/17 08:25 Dose: 10 mg Sodium Bicarbonate (Sodium Bicarbonate Tab) 650 mg PO BID [facility] Last Admin: 12/30/17 08:22 Dose: 650 mg Spironolactone (Aldactone) 12.5 mg PO DAILY [facility] Last Admin: 12/30/17 08:24 Dose: 12.5 mg Thiamine HCl (Vitamin B1 Tab) 100 mg PO DAILY [facility] Last Admin: 12/30/17 08:25 Dose: 100 mg Vitamin B Complex/Vit C/Folic Acid (Nephro-Ree) 1 tab PO DAILY [facility] Last Admin: 12/30/17 08:23 Dose: 1 tab - Labs Labs: 12/30/17 05:35 12/30/17 05:35 PT 17.0 Seconds (9.8-13.1) H 12/13/17 14:10 INR 1.5 12/13/17 14:10 APTT 33.1 Seconds (25.6-37.1) 12/13/17 14:10 - Constitutional Appears: No Acute Distress - Respiratory Exam Respiratory Exam: Clear to Ausculation Bilateral, NORMAL BREATHING PATTERN - Cardiovascular Exam Cardiovascular Exam: REGULAR RHYTHM, +S1, +S2 - GI/Abdominal Exam GI & Abdominal Exam: Distended, Normal Bowel Sounds. absent: Guarding, Tenderness - Extremities Exam Extremities Exam: absent: Calf Tenderness, Pedal Edema - Neurological Exam Neurological Exam: Alert, Awake Assessment and Plan - Assessment and Plan (Free Text) Assessment: 57 y/o M with a PMHx of HTN, DM, asthma, ETOH abuse with liver cirrhosis, admitted for evaluation and management of recurrent of ascitis and auditory hallucinations. Hepatorenal syndrome. PLAN: - s/p parascentesis - continue 1:1 for safety - GI consult, Dr Galdamez - nephro consulted, recommendations appreciated - creatinine improving - H/H stable - Psychiatry on board Dr Herrera - referral, patient states he is homeless - Continue management as ordered <Robbin Romano - Last Filed: 12/30/17 14:09> Objective - Vital Signs/Intake and Output Vital Signs (last 24 hours): Temp Pulse Resp BP Pulse Ox 97.8 F 68 20 120/53 L 100 12/30/17 08:37 12/30/17 08:37 12/30/17 08:37 12/30/17 08:37 12/30/17 08:37 - Medications Medications: Current Medications Acetaminophen (Tylenol 325mg Tab) 650 mg PO Q4 PRN PRN Reason: Pain, moderate (4-7) Last Admin: 12/24/17 17:48 Dose: 650 mg Acetaminophen/Codeine Phosphate (Tylenol/Codeine 300 Mg/30 Mg) 1 tab PO Q6 PRN PRN Reason: Pain, severe (8-10) Last Admin: 12/25/17 21:44 Dose: 1 tab Bacitracin (Bacitracin) 1 ea TOP TID [facility] Last Admin: 12/30/17 12:16 Dose: 1 ea Diphenhydramine HCl (Benadryl) 50 mg PO HS PRN PRN Reason: Sleep Last Admin: 12/29/17 21:41 Dose: 50 mg Famotidine (Pepcid) 40 mg PO HS [facility] Last Admin: 12/29/17 21:17 Dose: 40 mg Furosemide (Lasix) 20 mg PO DAILY [facility] Last Admin: 12/30/17 08:26 Dose: 20 mg Haloperidol (Haldol) 2 mg PO TID [facility] Last Admin: 12/30/17 12:21 Dose: 2 mg Insulin Human Lispro (Humalog) 0 units SC ACHS [facility]; Protocol Last Admin: 12/30/17 12:14 Dose: 2 units Lactulose (Enulose) 20 gm PO Q8 [facility] Last Admin: 12/30/17 08:23 Dose: 20 gm Midodrine (Proamatine) 10 mg PO TID [facility] Last Admin: 12/30/17 12:19 Dose: 10 mg Octreotide Acetate (Sandostatin) 200 mcg SC Q8@0500,1300,2100 [facility] Last Admin: 12/30/17 12:22 Dose: 200 mcg Ondansetron HCl (Zofran Inj) 4 mg IVP Q8 PRN PRN Reason: Nausea/Vomiting Last Admin: 12/22/17 08:33 Dose: 4 mg Propranolol HCl (Inderal) 10 mg PO Q12 [facility] Last Admin: 12/30/17 08:25 Dose: 10 mg Sodium Bicarbonate (Sodium Bicarbonate Tab) 650 mg PO BID [facility] Last Admin: 12/30/17 08:22 Dose: 650 mg Spironolactone (Aldactone) 12.5 mg PO DAILY [facility] Last Admin: 12/30/17 08:24 Dose: 12.5 mg Thiamine HCl (Vitamin B1 Tab) 100 mg PO DAILY [facility] Last Admin: 12/30/17 08:25 Dose: 100 mg Trazodone HCl (Desyrel) 50 mg PO [facility] Vitamin B Complex/Vit C/Folic Acid (Nephro-Ree) 1 tab PO DAILY [facility] Last Admin: 12/30/17 08:23 Dose: 1 tab - Labs Labs: 12/30/17 05:35 12/30/17 05:35 PT 17.0 Seconds (9.8-13.1) H 12/13/17 14:10 INR 1.5 12/13/17 14:10 APTT 33.1 Seconds (25.6-37.1) 12/13/17 14:10 Assessment and Plan - Assessment and Plan (Free Text) Assessment: Patient was personally seen and examined by me in rounds with residents. Available labs and diagnostic data reviewed. Case, Patient's condition and management plan discussed with residents in rounds. Agree with resident's progress note. Plan: As ordered.
--- NOTE | 2017-12-30 11:35 | CP.PCM.CON ---
History of Present Illness - History of Present Illness History of Present Illness: 57 y/o M with a PMHx of HTN, DM, asthma, ETOH abuse with liver cirrhosis, was admitted for evaluation and management of recurrent abdominal pain, abdominal distension and acute psychosis. pt on evaluation today is more alert and awake, pt was able to report that he is in the hospital, able to state that the season is winter reported he has been in outpatient treatment with Dr West for depression and alcohol induced hallucinations at current mental status pt reported feeling depressed because of his current living situation being homeless, reported decreased sleep about two hours a night, reported partial clearing of the auditory hallucinations,denied command hallucinations, continues to report passive suicidal ideation without plan Past Patient History - Infectious Disease Hx of Infectious Diseases: None - Past Medical History & Family History Past Medical History?: Yes - Past Social History Smoking Status: Never Smoked - CARDIAC Hx Cardiac Disorders: Yes Hx Atrial Fibrillation: Yes Hx Hypertension: Yes - PULMONARY Hx Respiratory Disorders: Yes Hx Asthma: Yes - NEUROLOGICAL Hx Neurological Disorder: No - HEENT Hx HEENT Problems: No - RENAL Hx Chronic Kidney Disease: No - ENDOCRINE/METABOLIC Hx Endocrine Disorders: Yes (DM) Hx Diabetes Mellitus Type 2: Yes - HEMATOLOGICAL/ONCOLOGICAL Hx Blood Disorders: No Hx Human Immunodeficiency Virus (HIV): No - INTEGUMENTARY Hx Dermatological Problems: No - MUSCULOSKELETAL/RHEUMATOLOGICAL Hx Musculoskeletal Disorders: Yes Hx Falls: Yes - GASTROINTESTINAL Hx Gastrointestinal Disorders: No - GENITOURINARY/GYNECOLOGICAL Hx Genitourinary Disorders: No - PSYCHIATRIC Hx Psychophysiologic Disorder: Yes Hx Anxiety: Yes Hx Bipolar Disorder: Yes Hx Depression: Yes - SURGICAL HISTORY Hx Surgeries: Yes Hx Herniorrhaphy: Yes - ANESTHESIA Hx Anesthesia: Yes Hx Anesthesia Reactions: No Meds Allergies/Adverse Reactions: Allergies Allergy/AdvReac Type Severity Reaction Status Date / Time No Known Allergies Allergy Verified 12/13/17 13:08 - Medications Medications: Current Medications Acetaminophen (Tylenol 325mg Tab) 650 mg PO Q4 PRN PRN Reason: Pain, moderate (4-7) Last Admin: 12/24/17 17:48 Dose: 650 mg Acetaminophen/Codeine Phosphate (Tylenol/Codeine 300 Mg/30 Mg) 1 tab PO Q6 PRN PRN Reason: Pain, severe (8-10) Last Admin: 12/25/17 21:44 Dose: 1 tab Bacitracin (Bacitracin) 1 ea TOP TID [facility] Last Admin: 12/30/17 08:23 Dose: 1 ea Diphenhydramine HCl (Benadryl) 50 mg PO HS PRN PRN Reason: Sleep Last Admin: 12/29/17 21:41 Dose: 50 mg Famotidine (Pepcid) 40 mg PO HS [facility] Last Admin: 12/29/17 21:17 Dose: 40 mg Furosemide (Lasix) 20 mg PO DAILY [facility] Last Admin: 12/30/17 08:26 Dose: 20 mg Haloperidol (Haldol) 2 mg PO TID [facility] Last Admin: 12/30/17 08:23 Dose: 2 mg Insulin Human Lispro (Humalog) 0 units SC ACHS [facility]; Protocol Last Admin: 12/30/17 08:24 Dose: 4 units Lactulose (Enulose) 20 gm PO Q8 [facility] Last Admin: 12/30/17 08:23 Dose: 20 gm Midodrine (Proamatine) 10 mg PO TID [facility] Last Admin: 12/30/17 08:22 Dose: 10 mg Octreotide Acetate (Sandostatin) 200 mcg SC Q8@0500,1300,2100 [facility] Last Admin: 12/30/17 05:27 Dose: 200 mcg Ondansetron HCl (Zofran Inj) 4 mg IVP Q8 PRN PRN Reason: Nausea/Vomiting Last Admin: 12/22/17 08:33 Dose: 4 mg Propranolol HCl (Inderal) 10 mg PO Q12 [facility] Last Admin: 12/30/17 08:25 Dose: 10 mg Sodium Bicarbonate (Sodium Bicarbonate Tab) 650 mg PO BID [facility] Last Admin: 12/30/17 08:22 Dose: 650 mg Spironolactone (Aldactone) 12.5 mg PO DAILY [facility] Last Admin: 12/30/17 08:24 Dose: 12.5 mg Thiamine HCl (Vitamin B1 Tab) 100 mg PO DAILY [facility] Last Admin: 12/30/17 08:25 Dose: 100 mg Vitamin B Complex/Vit C/Folic Acid (Nephro-Ree) 1 tab PO DAILY [facility] Last Admin: 12/30/17 08:23 Dose: 1 tab Results - Vital Signs Recent Vital Signs: Last Vital Signs Temp 97.8 F 12/30/17 08:37 Pulse 68 12/30/17 08:37 Resp 20 12/30/17 08:37 BP 120/53 L 12/30/17 08:37 Pulse Ox 100 12/30/17 08:37 - Labs Result Diagrams: 12/30/17 05:35 12/30/17 05:35 Labs: Laboratory Results - last 24 hr 12/29/17 12/29/17 12/30/17 15:58 21:42 05:35 WBC 5.1 RBC 2.73 L Hgb 10.1 L Hct 29.1 L MCV 106.5 H MCH 36.9 H MCHC 34.6 RDW 17.5 H Plt Count 150 Sodium Potassium Chloride Carbon Dioxide Anion Gap BUN Creatinine Est GFR ( Amer) Est GFR (Non-Af Amer) POC Glucose (mg/dL) 353 H 242 H Random Glucose Calcium Phosphorus Magnesium Total Bilirubin AST ALT Alkaline Phosphatase Total Protein Albumin Globulin Albumin/Globulin Ratio 12/30/17 12/30/17 05:35 05:45 WBC RBC Hgb Hct MCV MCH MCHC RDW Plt Count Sodium 134 Potassium 3.9 Chloride 102 Carbon Dioxide 22 Anion Gap 14 BUN 31 H Creatinine 1.7 H Est GFR ( Amer) 51 Est GFR (Non-Af Amer) 42 POC Glucose (mg/dL) 309 H Random Glucose 298 H Calcium 8.7 Phosphorus 2.8 Magnesium 1.7 Total Bilirubin 1.6 H AST 41 ALT 29 Alkaline Phosphatase 91 Total Protein 6.7 Albumin 2.9 L Globulin 3.8 Albumin/Globulin Ratio 0.8 L Assessment & Plan - Assessment and Plan (Free Text) Assessment: alcohol induced persistent hallucinations alcohol abuse depression Plan: continue 1:1 for safety recommend starting trazodone 50mg qhs for insomnia continue with current dose of haldol pt would benefit from admission to psychiatry for furhter stabilization after medical clearance
--- NOTE | 2017-12-30 15:34 | PN ---
DATE: 12/29/2017 SUBJECTIVE: The patient seen and examined. Interim events noted. Consults noted and appreciated. The patient remains in regular medical floor with observation for safety. The patient remains confused. He denies any specific pain. No chest pain. No shortness of breath. PHYSICAL EXAMINATION: GENERAL: The patient is in no acute distress. VITAL SIGNS: Stable. HEART: S1 and S2, normal and regular. LUNGS: Good bilateral air exchange. ABDOMEN: The patient has gross ascites, much softer than the paracentesis. No sign of acute abdomen. No guarding. No rigidity. No rebound. EXTREMITIES: No edema. No calf swelling. No tenderness. No acute ischemia. CENTRAL NERVOUS SYSTEM: Essentially unchanged. DIAGNOSTIC DATA: Available diagnostic data reviewed. ASSESSMENT AND PLAN: Overall, the patient's general medical condition is stable. Plan as ordered. Robbin Romano MD
[2017-12-31] MEDS: Octreotide 500 mcg/ml Inj SC SCH (05:48)
[2017-12-31] MEDS: Bacitracin 500 Units/gm Oint Foilpak UD TOP SCH ×3 (09:31→17:11)
[2017-12-31] MEDS: Insulin Lispro (humaLOG) 100 Units/ml Inj SC SCH ×4 (09:33→22:34)
[2017-12-31] MEDS: Multivitamin Vitamin B Complex (Nephro-Vite) Tab PO SCH (09:35)
--- NOTE | 2017-12-31 11:55 | PN ---
DATE: 12/31/2017 SUBJECTIVE: The patient is seen and examined. Interim events noted. Consults noted and appreciated. Patient's followup intervention noted and appreciated. Patient remains in regular medical floor with observation, sleepy. Patient is sleeping and arousable. Denies any specific complaints. PHYSICAL EXAMINATION: GENERAL: The patient is in no acute distress. VITAL SIGNS: Stable. HEART: S1 and S2 normal and regular. LUNGS: Good bilateral air exchange. ABDOMEN: Patient has gross ascites. No acute abdomen. No guarding. No rigidity. Bowel sounds are plus and normal. EXTREMITIES: No edema. No calf swelling or tenderness. No acute ischemia. 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 DIAGNOSTIC DATA: Available diagnostic data reviewed. ASSESSMENT AND PLAN: Overall, the patient's general medical condition is stable. Plan as ordered. Robbin Romano MD
--- NOTE | 2017-12-31 16:22 | CP.PCM.PN ---
Subjective - Date & Time of Evaluation Date of Evaluation: 12/31/17 Time of Evaluation: 16:22 - Subjective Subjective: renal follow up note no events overnight VSS heent normal op moist no jvd skin nromal abdo distended, bS+ no resp dsitress s1s2 present ao times 3 cooperative SHELLIE/CKD/HRS/liver cirrhosis/ascites/anemia/acidosis/hypoalbuminemia cr improving on yesterday labs, no labs today , monitor I&Os lytes ok continue po bicarb continue midodrine and octreotide anemia stable transfuse prn can continue to use albumin 25% as needed ascites .liver cirrhosis per primary team Objective - Vital Signs/Intake and Output Vital Signs (last 24 hours): Temp Pulse Resp BP Pulse Ox 98.5 F 77 18 124/66 100 12/31/17 16:16 12/31/17 16:16 12/31/17 16:16 12/31/17 16:16 12/31/17 16:16 - Medications Medications: Current Medications Acetaminophen (Tylenol 325mg Tab) 650 mg PO Q4 PRN PRN Reason: Pain, moderate (4-7) Last Admin: 12/24/17 17:48 Dose: 650 mg Acetaminophen/Codeine Phosphate (Tylenol/Codeine 300 Mg/30 Mg) 1 tab PO Q6 PRN PRN Reason: Pain, severe (8-10) Last Admin: 12/25/17 21:44 Dose: 1 tab Bacitracin (Bacitracin) 1 ea TOP TID [facility] Last Admin: 12/31/17 12:06 Dose: 1 ea Diphenhydramine HCl (Benadryl) 50 mg PO HS PRN PRN Reason: Sleep Last Admin: 12/31/17 00:09 Dose: 50 mg Famotidine (Pepcid) 40 mg PO HS [facility] Last Admin: 12/30/17 21:47 Dose: 40 mg Furosemide (Lasix) 20 mg PO DAILY [facility] Last Admin: 12/31/17 09:35 Dose: 20 mg Haloperidol (Haldol) 2 mg PO TID [facility] Last Admin: 12/31/17 12:06 Dose: 2 mg Insulin Human Lispro (Humalog) 0 units SC ACHS [facility]; Protocol Last Admin: 12/31/17 12:06 Dose: 3 units Lactulose (Enulose) 20 gm PO Q8 [facility] Last Admin: 12/31/17 09:33 Dose: 20 gm Midodrine (Proamatine) 10 mg PO TID [facility] Last Admin: 12/31/17 12:08 Dose: 10 mg Octreotide Acetate (Sandostatin) 200 mcg SC Q8@0500,1300,2100 [facility] Last Admin: 12/31/17 12:05 Dose: 200 mcg Ondansetron HCl (Zofran Inj) 4 mg IVP Q8 PRN PRN Reason: Nausea/Vomiting Last Admin: 12/22/17 08:33 Dose: 4 mg Propranolol HCl (Inderal) 10 mg PO Q12 [facility] Last Admin: 12/31/17 09:34 Dose: 10 mg Sodium Bicarbonate (Sodium Bicarbonate Tab) 650 mg PO BID [facility] Last Admin: 12/31/17 09:36 Dose: 650 mg Spironolactone (Aldactone) 12.5 mg PO DAILY [facility] Last Admin: 12/31/17 09:32 Dose: 12.5 mg Thiamine HCl (Vitamin B1 Tab) 100 mg PO DAILY [facility] Last Admin: 12/31/17 09:36 Dose: 100 mg Trazodone HCl (Desyrel) 50 mg PO HS [facility] Last Admin: 12/30/17 21:20 Dose: 50 mg Vitamin B Complex/Vit C/Folic Acid (Nephro-Ree) 1 tab PO DAILY [facility] Last Admin: 12/31/17 09:35 Dose: 1 tab - Labs Labs: 12/30/17 05:35 12/30/17 05:35 PT 17.0 Seconds (9.8-13.1) H 12/13/17 14:10 INR 1.5 12/13/17 14:10 APTT 33.1 Seconds (25.6-37.1) 12/13/17 14:10
[2018-01-01 08:36] LABS: HEMOGLOBIN 10.4 g/dL (12.0-18.0); MEAN CORPUSCULAR HEMOGLOBIN 36.4 pg (27.0-31.0); MEAN CORPUSCULAR HGB CONC 33.4 g/dL (33.0-37.0); RBC 2.87 Mil/uL (4.40-5.90); RED CELL DISTRIBUTION WIDTH 18.2 % (11.5-14.5); WHITE BLOOD COUNT 4.8 K/uL (4.8-10.8)
[2018-01-01 08:48] LABS: ALB/GLOB RATIO 0.7 (1.0-2.1); ALBUMIN 2.9 g/dL (3.5-5.0); CALCIUM 8.7 mg/dL (8.4-10.2)
[2018-01-01] MEDS: Bacitracin 500 Units/gm Oint Foilpak UD TOP SCH ×3 (09:44→16:32)
[2018-01-01] MEDS: Multivitamin Vitamin B Complex (Nephro-Vite) Tab PO SCH (09:45)
[2018-01-01] MEDS: Insulin Lispro (humaLOG) 100 Units/ml Inj SC SCH ×4 (09:46→23:00)
[2018-01-01] MEDS: guaiFENesin DM 100 mg-10 mg/5 ml UD PO PRN ×2 (17:31→22:03)
[2018-01-02] MEDS: guaiFENesin DM 100 mg-10 mg/5 ml UD PO PRN ×2 (03:47→15:45)
[2018-01-02 06:17] LABS: HEMOGLOBIN 9.9 g/dL (12.0-18.0); MEAN CELL VOLUME 106.8 fl (80.0-94.0); MEAN CORPUSCULAR HEMOGLOBIN 36.3 pg (27.0-31.0); RBC 2.72 Mil/uL (4.40-5.90); RED CELL DISTRIBUTION WIDTH 19.2 % (11.5-14.5); WHITE BLOOD COUNT 5.1 K/uL (4.8-10.8)
[2018-01-02 06:29] LABS: ALB/GLOB RATIO 0.7 (1.0-2.1); ALBUMIN 2.6 g/dL (3.5-5.0); CALCIUM 8.3 mg/dL (8.4-10.2)
[2018-01-02] MEDS: Bacitracin 500 Units/gm Oint Foilpak UD TOP SCH ×3 (08:37→16:54)
[2018-01-02] MEDS: Insulin Lispro (humaLOG) 100 Units/ml Inj SC SCH ×4 (08:38→21:24)
[2018-01-02] MEDS: Multivitamin Vitamin B Complex (Nephro-Vite) Tab PO SCH (08:39)
--- NOTE | 2018-01-02 08:52 | PN ---
DATE: 01/01/2018 SUBJECTIVE: The patient is seen and examined. Interim events noted. The patient remains in regular medical floor with one-to-one observation. The patient is sleeping, arousable. Denies any specific complaint. No specific issue reported by nursing staff. PHYSICAL EXAMINATION: GENERAL: The patient is in no acute distress. VITAL SIGNS: Stable. HEART: S1, S2, normal and regular. LUNGS: Good bilateral air exchange. ABDOMEN: The patient has gross ascites. No sign of acute abdomen. No guarding, no rigidity, no rebound. Bowel sounds are plus and normal. EXTREMITIES: No edema, no calf swelling, no tenderness, no acute ischemia. CENTRAL NERVOUS SYSTEM: Exam is essentially unchanged. DIAGNOSTIC DATA: Available diagnostic data reviewed. ASSESSMENT AND PLAN: Overall, the patient is clinically stable. Plan as ordered. Robbin Romano MD
--- NOTE | 2018-01-02 09:47 | PN ---
DATE: 01/02/2018 SUBJECTIVE: The patient is seen and examined. Interim events noted. Patient remains regular medical floor with observation for safety. Remains confused. Talked to him about getting out of the hospital ____ to go by travel ticket, but denies any chest pain, nausea or shortness of breath. PHYSICAL EXAMINATION: GENERAL: The patient is in no acute distress. VITAL SIGNS: Stable. The patient is gaining weight. HEART: S1 and S2 normal and regular. LUNGS: Good bilateral air exchange. ABDOMEN: The patient has gross ascites. No sign of acute abdomen though. No guarding. No rigidity. No rebound. Bowel sounds are present and normal. EXTREMITIES: No edema. No calf swelling. No tenderness. No acute ischemia. 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 DIAGNOSTIC DATA: ____. ASSESSMENT: Patient's general medical condition is stable. PLAN: As ordered. Robbin Romano MD
--- NOTE | 2018-01-02 10:00 | CP.PCM.PN ---
Subjective - Date & Time of Evaluation Date of Evaluation: 01/02/18 Time of Evaluation: 09:56 - Subjective Subjective: patient somewhat confused Objective - Vital Signs/Intake and Output Vital Signs (last 24 hours): Temp Pulse Resp BP Pulse Ox 98.4 F 71 18 116/68 100 01/02/18 07:54 01/02/18 08:38 01/02/18 07:54 01/02/18 08:38 01/02/18 07:54 Intake and Output: 01/02/18 01/02/18 06:59 18:59 Intake Total 360 Output Total 300 Balance 60 - Medications Medications: Current Medications Acetaminophen (Tylenol 325mg Tab) 650 mg PO Q4 PRN PRN Reason: Pain, moderate (4-7) Last Admin: 12/24/17 17:48 Dose: 650 mg Acetaminophen (Tylenol 325mg Tab) 650 mg PO Q6 PRN PRN Reason: Fever >100.4 F Last Admin: 01/01/18 00:34 Dose: 650 mg Acetaminophen/Codeine Phosphate (Tylenol/Codeine 300 Mg/30 Mg) 1 tab PO Q6 PRN PRN Reason: Pain, severe (8-10) Last Admin: 12/25/17 21:44 Dose: 1 tab Albuterol (Ventolin Hfa 90 Mcg/Actuation (8 G)) 1 puff INH RQ6 PRN PRN Reason: Shortness of Breath Bacitracin (Bacitracin) 1 ea TOP TID [facility] Last Admin: 01/02/18 08:37 Dose: 1 ea Diphenhydramine HCl (Benadryl) 50 mg PO HS PRN PRN Reason: Sleep Last Admin: 12/31/17 00:09 Dose: 50 mg Famotidine (Pepcid) 40 mg PO HS [facility] Last Admin: 01/01/18 22:04 Dose: 40 mg Furosemide (Lasix) 20 mg PO DAILY [facility] Last Admin: 01/02/18 08:37 Dose: 20 mg Guaifenesin/Dextromethorphan (Robitussin Dm) 5 ml PO TID PRN PRN Reason: Cough Last Admin: 01/02/18 03:47 Dose: 5 ml Haloperidol (Haldol) 2 mg PO TID [facility] Last Admin: 01/02/18 08:38 Dose: 2 mg Insulin Human Lispro (Humalog) 0 units SC [facility]; Protocol Last Admin: 01/02/18 08:38 Dose: 4 units Lactulose (Enulose) 20 gm PO Q8 [facility] Last Admin: 01/02/18 01:28 Dose: Not Given Midodrine (Proamatine) 10 mg PO TID [facility] Last Admin: 01/02/18 08:36 Dose: 10 mg Octreotide Acetate (Sandostatin) 200 mcg SC Q8@0500,1300,2100 [facility] Last Admin: 01/02/18 04:12 Dose: 200 mcg Ondansetron HCl (Zofran Inj) 4 mg IVP Q8 PRN PRN Reason: Nausea/Vomiting Last Admin: 12/22/17 08:33 Dose: 4 mg Propranolol HCl (Inderal) 10 mg PO Q12 [facility] Last Admin: 01/02/18 08:38 Dose: 10 mg Sodium Bicarbonate (Sodium Bicarbonate Tab) 650 mg PO BID [facility] Last Admin: 01/02/18 08:36 Dose: 650 mg Spironolactone (Aldactone) 12.5 mg PO DAILY [facility] Last Admin: 01/02/18 08:36 Dose: 12.5 mg Thiamine HCl (Vitamin B1 Tab) 100 mg PO DAILY [facility] Last Admin: 01/02/18 08:38 Dose: 100 mg Trazodone HCl (Desyrel) 50 mg PO HS [facility] Last Admin: 01/01/18 22:04 Dose: 50 mg Vitamin B Complex/Vit C/Folic Acid (Nephro-Ree) 1 tab PO DAILY [facility] Last Admin: 01/02/18 08:39 Dose: 1 tab - Labs Labs: 01/02/18 05:50 01/02/18 05:50 PT 17.0 Seconds (9.8-13.1) H 12/13/17 14:10 INR 1.5 12/13/17 14:10 APTT 33.1 Seconds (25.6-37.1) 12/13/17 14:10 - Constitutional Appears: No Acute Distress - ENT Exam ENT Exam: Mucous Membranes Moist - Neck Exam Neck Exam: absent: Lymphadenopathy - Respiratory Exam Respiratory Exam: NORMAL BREATHING PATTERN. absent: Chest Wall Tenderness - GI/Abdominal Exam GI & Abdominal Exam: Distended, Normal Bowel Sounds - Extremities Exam Extremities Exam: absent: Calf Tenderness - Back Exam Back Exam: absent: CVA tenderness (L), CVA tenderness (R) - Neurological Exam Neurological Exam: Altered - Skin Skin Exam: absent: Cyanosis Assessment and Plan (1) SHELLIE (acute kidney injury) Assessment & Plan: acute kidney injury superimposed perhaps on chronic kidney disease related to massive ascites with recurrent hemodynamic changes. hepatorenal syndrome. 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 massive ascitis with recurrent paracentesis anemia recommendation intermittent use of 25% albumin for hypotension. continue midodrine and octreotid Prognosis is guarded. medication dose is adjusted per renal failure kidney function stable serum creatinine stable in the range of 3.6 Status post paracentesis 12/27 over 10 L of fluid was removed Status: Acute (2) Ascites Status: Acute
[2018-01-02] MEDS: Albuterol HFA 90 mcg/actuation (8 g) INH PRN ×2 (10:07→15:45)
--- NOTE | 2018-01-02 13:55 | CP.PCM.CON ---
History of Present Illness - History of Present Illness History of Present Illness: blood cultures + 57 y/o M with a PMHx of HTN, DM, asthma, ETOH abuse with liver cirrhosis, was admitted for evaluation and management of recurrent abdominal pain, abdominal distension and acute psychosis. Past Patient History - Infectious Disease Hx of Infectious Diseases: None - Past Medical History & Family History Past Medical History?: Yes - Past Social History Smoking Status: Never Smoked - CARDIAC Hx Cardiac Disorders: Yes Hx Atrial Fibrillation: Yes Hx Hypertension: Yes - PULMONARY Hx Respiratory Disorders: Yes Hx Asthma: Yes - NEUROLOGICAL Hx Neurological Disorder: No - HEENT Hx HEENT Problems: No - RENAL Hx Chronic Kidney Disease: No - ENDOCRINE/METABOLIC Hx Endocrine Disorders: Yes (DM) Hx Diabetes Mellitus Type 2: Yes - HEMATOLOGICAL/ONCOLOGICAL Hx Blood Disorders: No Hx Human Immunodeficiency Virus (HIV): No - INTEGUMENTARY Hx Dermatological Problems: No - MUSCULOSKELETAL/RHEUMATOLOGICAL Hx Musculoskeletal Disorders: Yes Hx Falls: Yes - GASTROINTESTINAL Hx Gastrointestinal Disorders: No - GENITOURINARY/GYNECOLOGICAL Hx Genitourinary Disorders: No - PSYCHIATRIC Hx Psychophysiologic Disorder: Yes Hx Anxiety: Yes Hx Bipolar Disorder: Yes Hx Depression: Yes - SURGICAL HISTORY Hx Surgeries: Yes Hx Herniorrhaphy: Yes - ANESTHESIA Hx Anesthesia: Yes Hx Anesthesia Reactions: No Meds Allergies/Adverse Reactions: Allergies Allergy/AdvReac Type Severity Reaction Status Date / Time No Known Allergies Allergy Verified 12/13/17 13:08 - Medications Medications: Current Medications Acetaminophen (Tylenol 325mg Tab) 650 mg PO Q4 PRN PRN Reason: Pain, moderate (4-7) Last Admin: 12/24/17 17:48 Dose: 650 mg Acetaminophen (Tylenol 325mg Tab) 650 mg PO Q6 PRN PRN Reason: Fever >100.4 F Last Admin: 01/01/18 00:34 Dose: 650 mg Acetaminophen/Codeine Phosphate (Tylenol/Codeine 300 Mg/30 Mg) 1 tab PO Q6 PRN PRN Reason: Pain, severe (8-10) Last Admin: 12/25/17 21:44 Dose: 1 tab Albuterol (Ventolin Hfa 90 Mcg/Actuation (8 G)) 1 puff INH RQ6 PRN PRN Reason: Shortness of Breath Last Admin: 01/02/18 10:07 Dose: 1 puff Bacitracin (Bacitracin) 1 ea TOP TID [facility] Last Admin: 01/02/18 13:04 Dose: 1 ea Diphenhydramine HCl (Benadryl) 50 mg PO HS PRN PRN Reason: Sleep Last Admin: 12/31/17 00:09 Dose: 50 mg Famotidine (Pepcid) 40 mg PO HS [facility] Last Admin: 01/01/18 22:04 Dose: 40 mg Furosemide (Lasix) 20 mg PO DAILY [facility] Last Admin: 01/02/18 08:37 Dose: 20 mg Guaifenesin/Dextromethorphan (Robitussin Dm) 5 ml PO TID PRN PRN Reason: Cough Last Admin: 01/02/18 03:47 Dose: 5 ml Haloperidol (Haldol) 2 mg PO TID [facility] Last Admin: 01/02/18 13:04 Dose: 2 mg Insulin Human Lispro (Humalog) 0 units SC ACHS [facility]; Protocol Last Admin: 01/02/18 13:04 Dose: 6 units Lactulose (Enulose) 20 gm PO Q8 [facility] Last Admin: 01/02/18 13:04 Dose: Not Given Midodrine (Proamatine) 10 mg PO TID [facility] Last Admin: 01/02/18 13:04 Dose: 10 mg Octreotide Acetate (Sandostatin) 200 mcg SC Q8@0500,1300,2100 [facility] Last Admin: 01/02/18 13:06 Dose: 200 mcg Ondansetron HCl (Zofran Inj) 4 mg IVP Q8 PRN PRN Reason: Nausea/Vomiting Last Admin: 12/22/17 08:33 Dose: 4 mg Propranolol HCl (Inderal) 10 mg PO Q12 [facility] Last Admin: 01/02/18 08:38 Dose: 10 mg Sodium Bicarbonate (Sodium Bicarbonate Tab) 650 mg PO BID [facility] Last Admin: 01/02/18 08:36 Dose: 650 mg Spironolactone (Aldactone) 12.5 mg PO DAILY [facility] Last Admin: 01/02/18 08:36 Dose: 12.5 mg Thiamine HCl (Vitamin B1 Tab) 100 mg PO DAILY [facility] Last Admin: 01/02/18 08:38 Dose: 100 mg Trazodone HCl (Desyrel) 50 mg PO HS [facility] Last Admin: 01/01/18 22:04 Dose: 50 mg Vitamin B Complex/Vit C/Folic Acid (Nephro-Ree) 1 tab PO DAILY [facility] Last Admin: 01/02/18 08:39 Dose: 1 tab Results - Vital Signs Recent Vital Signs: Last Vital Signs Temp 98.4 F 01/02/18 07:54 Pulse 71 01/02/18 08:38 Resp 18 01/02/18 07:54 BP 116/68 01/02/18 08:38 Pulse Ox 100 01/02/18 07:54 - Labs Result Diagrams: 01/02/18 05:50 01/02/18 05:50 Labs: Laboratory Results - last 24 hr 01/01/18 01/01/18 01/01/18 11:16 15:48 21:34 WBC RBC Hgb Hct MCV MCH MCHC RDW Plt Count Sodium Potassium Chloride Carbon Dioxide Anion Gap BUN Creatinine Est GFR ( Amer) Est GFR (Non-Af Amer) POC Glucose (mg/dL) 415 H* 386 H 282 H Random Glucose Hemoglobin A1c Calcium Phosphorus Magnesium Total Bilirubin AST ALT Alkaline Phosphatase Total Protein Albumin Globulin Albumin/Globulin Ratio 01/02/18 01/02/18 01/02/18 05:01 05:50 05:50 WBC 5.1 RBC 2.72 L Hgb 9.9 L Hct 29.1 L MCV 106.8 H D MCH 36.3 H MCHC 34.0 RDW 19.2 H Plt Count 106 L Sodium 128 L Potassium 4.2 Chloride 100 Carbon Dioxide 23 Anion Gap 9 L BUN 28 H Creatinine 1.7 H Est GFR ( Amer) 51 Est GFR (Non-Af Amer) 42 POC Glucose (mg/dL) 325 H Random Glucose 316 H Hemoglobin A1c Calcium 8.3 L Phosphorus 3.6 Magnesium 1.5 L Total Bilirubin 1.4 H AST 37 ALT 22 Alkaline Phosphatase 99 Total Protein 6.4 Albumin 2.6 L Globulin 3.8 Albumin/Globulin Ratio 0.7 L 01/02/18 01/02/18 07:08 11:25 WBC RBC Hgb Hct MCV MCH MCHC RDW Plt Count Sodium Potassium Chloride Carbon Dioxide Anion Gap BUN Creatinine Est GFR ( Amer) Est GFR (Non-Af Amer) POC Glucose (mg/dL) 404 H* Random Glucose Hemoglobin A1c 6.0 Calcium Phosphorus Magnesium Total Bilirubin AST ALT Alkaline Phosphatase Total Protein Albumin Globulin Albumin/Globulin Ratio
[2018-01-02] MEDS: ceFAZolin 1 GM in Sodium Chloride 0.9% 100 ML IVPB SCH (16:54)
[2018-01-03] MEDS: ceFAZolin 1 GM in Sodium Chloride 0.9% 100 ML IVPB SCH ×3 (00:04→17:53)
[2018-01-03] MEDS: guaiFENesin DM 100 mg-10 mg/5 ml UD PO PRN (03:32)
[2018-01-03] MEDS: Albuterol HFA 90 mcg/actuation (8 g) INH PRN ×2 (06:42→17:55)
[2018-01-03 06:47] LABS: HEMOGLOBIN 9.7 g/dL (12.0-18.0); MEAN CELL VOLUME 110.9 fl (80.0-94.0); MEAN CORPUSCULAR HEMOGLOBIN 36.6 pg (27.0-31.0); RBC 2.65 Mil/uL (4.40-5.90); RED CELL DISTRIBUTION WIDTH 19.2 % (11.5-14.5); WHITE BLOOD COUNT 6.1 K/uL (4.8-10.8)
[2018-01-03 06:53] LABS: ALB/GLOB RATIO 0.7 (1.0-2.1); ALBUMIN 2.5 g/dL (3.5-5.0); CALCIUM 7.9 mg/dL (8.4-10.2)
--- NOTE | 2018-01-03 07:52 | PN ---
DATE: 01/03/2018 SUBJECTIVE: The patient seen and examined. Interim events noted. Consults noted and appreciated. Infectious Disease followup and interventions noted and appreciated. The patient remains in regular medical floor with observation for safety. Awake, responsive, confused. Denies any specific complaint. No chest pain. No shortness of breath. No abdominal pain, nausea, vomiting or diarrhea. PHYSICAL EXAMINATION: GENERAL: The patient is in no acute distress. VITAL SIGNS: Stable. HEART: S1 and S2, normal and regular. LUNGS: Good bilateral air exchange. ABDOMEN: Soft, nontender. The patient has prostatitis. No sign of acute abdomen. No guarding. No rigidity. No rebound. Bowel sounds are plus and normal. EXTREMITIES: No calf swelling. No tenderness. No acute ischemia. 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 DIAGNOSTIC DATA: Available diagnostic data reviewed. LABORATORY DATA: Blood culture is positive for gram-positive cocci. ASSESSMENT AND PLAN: Overall, the patient is with gram-positive septicemia and gross ascites with altered mental status. Plan as ordered. Robbin Romano MD
[2018-01-03] MEDS: Insulin Lispro (humaLOG) 100 Units/ml Inj SC SCH ×4 (08:58→22:57)
[2018-01-03] MEDS: Bacitracin 500 Units/gm Oint Foilpak UD TOP SCH ×3 (09:03→17:55)
[2018-01-03] MEDS: Multivitamin Vitamin B Complex (Nephro-Vite) Tab PO SCH (09:04)
--- NOTE | 2018-01-03 10:52 | CP.PCM.PN ---
Subjective - Date & Time of Evaluation Date of Evaluation: 01/03/18 Time of Evaluation: 10:49 - Subjective Subjective: no overnight events Objective - Vital Signs/Intake and Output Vital Signs (last 24 hours): Temp Pulse Resp BP Pulse Ox 97.9 F 69 18 116/51 L 99 01/03/18 08:04 01/03/18 08:04 01/03/18 08:04 01/03/18 09:03 01/03/18 08:04 Intake and Output: 01/03/18 01/03/18 06:59 18:59 Output Total 300 Balance -300 - Medications Medications: Current Medications Acetaminophen (Tylenol 325mg Tab) 650 mg PO Q4 PRN PRN Reason: Pain, moderate (4-7) Last Admin: 12/24/17 17:48 Dose: 650 mg Acetaminophen (Tylenol 325mg Tab) 650 mg PO Q6 PRN PRN Reason: Fever >100.4 F Last Admin: 01/01/18 00:34 Dose: 650 mg Acetaminophen/Codeine Phosphate (Tylenol/Codeine 300 Mg/30 Mg) 1 tab PO Q6 PRN PRN Reason: Pain, severe (8-10) Last Admin: 12/25/17 21:44 Dose: 1 tab Albuterol (Ventolin Hfa 90 Mcg/Actuation (8 G)) 1 puff INH RQ6 PRN PRN Reason: Shortness of Breath Last Admin: 01/03/18 06:42 Dose: 1 puff Bacitracin (Bacitracin) 1 ea TOP TID [facility] Last Admin: 01/03/18 09:03 Dose: 1 ea Diphenhydramine HCl (Benadryl) 50 mg PO HS PRN PRN Reason: Sleep Last Admin: 01/02/18 21:15 Dose: 50 mg Famotidine (Pepcid) 40 mg PO HS [facility] Last Admin: 01/02/18 21:15 Dose: 40 mg Furosemide (Lasix) 20 mg PO DAILY [facility] Last Admin: 01/03/18 09:03 Dose: 20 mg Guaifenesin/Dextromethorphan (Robitussin Dm) 5 ml PO TID PRN PRN Reason: Cough Last Admin: 01/03/18 03:32 Dose: 5 ml Haloperidol (Haldol) 2 mg PO TID [facility] Last Admin: 01/03/18 08:59 Dose: 2 mg Cefazolin Sodium 1 gm/ Sodium (Chloride) 100 mls @ 100 mls/hr IVPB Q8 [facility]; Protocol Last Admin: 01/03/18 08:57 Dose: 100 mls/hr Insulin Human Lispro (Humalog) 0 units SC ACHS [facility]; Protocol Last Admin: 01/03/18 08:58 Dose: 2 units Lactulose (Enulose) 20 gm PO Q8 [facility] Last Admin: 01/03/18 08:59 Dose: 20 gm Midodrine (Proamatine) 10 mg PO TID [facility] Last Admin: 01/03/18 08:59 Dose: 10 mg Octreotide Acetate (Sandostatin) 200 mcg SC Q8@0300,1100,1900 [facility] Last Admin: 01/03/18 03:30 Dose: 200 mcg Ondansetron HCl (Zofran Inj) 4 mg IVP Q8 PRN PRN Reason: Nausea/Vomiting Last Admin: 12/22/17 08:33 Dose: 4 mg Propranolol HCl (Inderal) 10 mg PO Q12 [facility] Last Admin: 01/03/18 09:03 Dose: 10 mg Sodium Bicarbonate (Sodium Bicarbonate Tab) 650 mg PO BID [facility] Last Admin: 01/03/18 09:00 Dose: 650 mg Spironolactone (Aldactone) 12.5 mg PO DAILY [facility] Last Admin: 01/03/18 09:00 Dose: 12.5 mg Thiamine HCl (Vitamin B1 Tab) 100 mg PO DAILY [facility] Last Admin: 01/03/18 09:04 Dose: 100 mg Trazodone HCl (Desyrel) 50 mg PO HS [facility] Last Admin: 01/02/18 21:15 Dose: 50 mg Vitamin B Complex/Vit C/Folic Acid (Nephro-Ree) 1 tab PO DAILY [facility] Last Admin: 01/03/18 09:04 Dose: 1 tab - Labs Labs: 01/03/18 05:40 01/03/18 05:40 PT 17.0 Seconds (9.8-13.1) H 12/13/17 14:10 INR 1.5 12/13/17 14:10 APTT 33.1 Seconds (25.6-37.1) 12/13/17 14:10 - Head Exam Head Exam: NORMOCEPHALIC - Neck Exam Neck Exam: Normal Inspection - Respiratory Exam Respiratory Exam: Clear to Ausculation Bilateral, NORMAL BREATHING PATTERN - Cardiovascular Exam Cardiovascular Exam: REGULAR RHYTHM - GI/Abdominal Exam GI & Abdominal Exam: Distended, Soft, Normal Bowel Sounds Assessment and Plan - Assessment and Plan (Free Text) Assessment: 57 yo male with decompensated cirrhosis cr improving appreciate renal input needs paracentesis but concerned for worsening renal function if overly aggressive with fluid removal
--- NOTE | 2018-01-03 10:58 | CP.PCM.CON ---
History of Present Illness - History of Present Illness History of Present Illness: 57 y/o M with a PMHx of HTN, DM, asthma, ETOH abuse with liver cirrhosis, was admitted for evaluation and management of recurrent abdominal pain, abdominal distension and acute psychosis. referred for ID eval for positive blood culture 1/2 sts [facility] ( ID pending ) I Review of Systems - Review of Systems All systems: reviewed and no additional remarkable complaints except - Constitutional Constitutional: As Per HPI - EENT Eyes: absent: As Per HPI, Blind Spots, Blurred Vision, Change in Vision, Decreased Night Vision, Diplopia, Discharge, Dry Eye, Exophthalmos, Floaters, Irritation, Itchy Eyes, Loss of Peripheral Vision, Pain, Photophobia, Requires Corrective Lenses, Sees Flashes, Spots in Vision, Tunnel Vision, Other Visual Disturbances, Loss of Vision, Other Ears: absent: As Per HPI, Decreased Hearing, Ear Discharge, Ear Pain, Tinnitus, Abnormal Hearing, Disequilibrium, Dizziness, Other Nose/Mouth/Throat: absent: As Per HPI, Epistaxis, Nasal Congestion, Nasal Discharge, Nasal Obstruction, Nasal Trauma, Nose Pain, Post Nasal Drip, Sinus Pain, Sinus Pressure, Bleeding Gums, Change in Voice, Dental Pain, Dry Mouth, Dysphagia, Halitosis, Hoarsness, Lip Swelling, Mouth Lesions, Mouth Pain, Odynophagia, Sore Throat, Throat Swelling, Tongue Swelling, Facial Pain, Neck Pain, Neck Mass, Other - Cardiovascular Cardiovascular: As Per HPI - Respiratory Respiratory: absent: As Per HPI, Cough, Dyspnea, Hemoptysis, Dyspnea on Exertion, Wheezing, Snoring, Stridor, Pain on Inspiration, Chest Congestion, Excessive Mucous Production, Change in Mucous Color, Pain with Coughing, Other - Gastrointestinal Gastrointestinal: As Per HPI, Abdominal Pain Past Patient History - Infectious Disease Hx of Infectious Diseases: None - Past Medical History & Family History Past Medical History?: Yes - Past Social History Smoking Status: Never Smoked - CARDIAC Hx Cardiac Disorders: Yes Hx Atrial Fibrillation: Yes Hx Hypertension: Yes - PULMONARY Hx Respiratory Disorders: Yes Hx Asthma: Yes - NEUROLOGICAL Hx Neurological Disorder: No - HEENT Hx HEENT Problems: No - RENAL Hx Chronic Kidney Disease: No - ENDOCRINE/METABOLIC Hx Endocrine Disorders: Yes (DM) Hx Diabetes Mellitus Type 2: Yes - HEMATOLOGICAL/ONCOLOGICAL Hx Blood Disorders: No Hx Human Immunodeficiency Virus (HIV): No - INTEGUMENTARY Hx Dermatological Problems: No - MUSCULOSKELETAL/RHEUMATOLOGICAL Hx Musculoskeletal Disorders: Yes Hx Falls: Yes - GASTROINTESTINAL Hx Gastrointestinal Disorders: No - GENITOURINARY/GYNECOLOGICAL Hx Genitourinary Disorders: No - PSYCHIATRIC Hx Psychophysiologic Disorder: Yes Hx Anxiety: Yes Hx Bipolar Disorder: Yes Hx Depression: Yes - SURGICAL HISTORY Hx Surgeries: Yes Hx Herniorrhaphy: Yes - ANESTHESIA Hx Anesthesia: Yes Hx Anesthesia Reactions: No Meds Allergies/Adverse Reactions: Allergies Allergy/AdvReac Type Severity Reaction Status Date / Time No Known Allergies Allergy Verified 12/13/17 13:08 - Medications Medications: Current Medications Acetaminophen (Tylenol 325mg Tab) 650 mg PO Q4 PRN PRN Reason: Pain, moderate (4-7) Last Admin: 12/24/17 17:48 Dose: 650 mg Acetaminophen (Tylenol 325mg Tab) 650 mg PO Q6 PRN PRN Reason: Fever >100.4 F Last Admin: 01/01/18 00:34 Dose: 650 mg Acetaminophen/Codeine Phosphate (Tylenol/Codeine 300 Mg/30 Mg) 1 tab PO Q6 PRN PRN Reason: Pain, severe (8-10) Last Admin: 12/25/17 21:44 Dose: 1 tab Albuterol (Ventolin Hfa 90 Mcg/Actuation (8 G)) 1 puff INH RQ6 PRN PRN Reason: Shortness of Breath Last Admin: 01/03/18 06:42 Dose: 1 puff Bacitracin (Bacitracin) 1 ea TOP TID JERED Last Admin: 01/03/18 09:03 Dose: 1 ea Diphenhydramine HCl (Benadryl) 50 mg PO HS PRN PRN Reason: Sleep Last Admin: 01/02/18 21:15 Dose: 50 mg Famotidine (Pepcid) 40 mg PO HS JERED Last Admin: 01/02/18 21:15 Dose: 40 mg Furosemide (Lasix) 20 mg PO DAILY JERED Last Admin: 01/03/18 09:03 Dose: 20 mg Guaifenesin/Dextromethorphan (Robitussin Dm) 5 ml PO TID PRN PRN Reason: Cough Last Admin: 01/03/18 03:32 Dose: 5 ml Haloperidol (Haldol) 2 mg PO TID JERED Last Admin: 11/27/18 08:59 Dose: 2 mg Cefazolin Sodium 1 gm/ Sodium (Chloride) 100 mls @ 100 mls/hr IVPB Q8 [facility]; Protocol Last Admin: 01/03/18 08:57 Dose: 100 mls/hr Insulin Human Lispro (Humalog) 0 units SC ACHS [facility]; Protocol Last Admin: 01/03/18 08:58 Dose: 2 units Lactulose (Enulose) 20 gm PO Q8 [facility] Last Admin: 01/03/18 08:59 Dose: 20 gm Midodrine (Proamatine) 10 mg PO TID [facility] Last Admin: 01/03/18 08:59 Dose: 10 mg Octreotide Acetate (Sandostatin) 200 mcg SC Q8@0300,1100,1900 [facility] Last Admin: 01/03/18 03:30 Dose: 200 mcg Ondansetron HCl (Zofran Inj) 4 mg IVP Q8 PRN PRN Reason: Nausea/Vomiting Last Admin: 12/22/17 08:33 Dose: 4 mg Propranolol HCl (Inderal) 10 mg PO Q12 [facility] Last Admin: 01/03/18 09:03 Dose: 10 mg Sodium Bicarbonate (Sodium Bicarbonate Tab) 650 mg PO BID [facility] Last Admin: 01/03/18 09:00 Dose: 650 mg Spironolactone (Aldactone) 12.5 mg PO DAILY [facility] Last Admin: 01/03/18 09:00 Dose: 12.5 mg Thiamine HCl (Vitamin B1 Tab) 100 mg PO DAILY [facility] Last Admin: 01/03/18 09:04 Dose: 100 mg Trazodone HCl (Desyrel) 50 mg PO HS [facility] Last Admin: 01/02/18 21:15 Dose: 50 mg Vitamin B Complex/Vit C/Folic Acid (Nephro-Ree) 1 tab PO DAILY [facility] Last Admin: 01/03/18 09:04 Dose: 1 tab Physical Exam - Constitutional Appears: No Acute Distress, Chronically Ill - Head Exam Head Exam: ATRAUMATIC - Eye Exam Eye Exam: absent: Scleral icterus - ENT Exam ENT Exam: Mucous Membranes Dry - Neck Exam Neck exam: Negative for: Lymphadenopathy - Respiratory Exam Respiratory Exam: Decreased Breath Sounds - Cardiovascular Exam Cardiovascular Exam: REGULAR RHYTHM - GI/Abdominal Exam GI & Abdominal Exam: Diminished Bowel Sounds, Distended, Guarding, Soft, Tenderness. absent: Rebound, Rigid - Rectal Exam Rectal Exam: Deferred - Exam Exam: NORMAL INSPECTION - Extremities Exam Extremities exam: Positive for: pedal edema, pedal pulses present. Negative f or: calf tenderness, tenderness - Back Exam Back exam: absent: CVA tenderness (L), CVA tenderness (R) - Neurological Exam Neurological exam: Alert, CN II-XII Intact, Oriented x3, Reflexes Normal - Psychiatric Exam Psychiatric exam: Normal Mood Results - Vital Signs Recent Vital Signs: Last Vital Signs Temp 97.9 F 01/03/18 08:04 Pulse 69 01/03/18 08:04 Resp 18 01/03/18 08:04 BP 116/51 L 01/03/18 09:03 Pulse Ox 99 01/03/18 08:04 - Labs Result Diagrams: 01/03/18 05:40 01/03/18 05:40 Labs: Laboratory Results - last 24 hr 01/02/18 01/02/18 01/02/18 07:08 11:25 15:43 WBC RBC Hgb Hct MCV MCH MCHC RDW Plt Count Sodium Potassium Chloride Carbon Dioxide Anion Gap BUN Creatinine Est GFR ( Amer) Est GFR (Non-Af Amer) POC Glucose (mg/dL) 404 H* 363 H Random Glucose Hemoglobin A1c 6.0 Calcium Phosphorus Magnesium Total Bilirubin AST ALT Alkaline Phosphatase Total Protein Albumin Globulin Albumin/Globulin Ratio 01/02/18 01/03/18 01/03/18 21:24 05:40 05:40 WBC 6.1 RBC 2.65 L Hgb 9.7 L Hct 29.4 L MCV 110.9 H D MCH 36.6 H MCHC 33.0 RDW 19.2 H Plt Count 118 L Sodium 129 L Potassium 4.7 Chloride 101 Carbon Dioxide 20 L Anion Gap 13 BUN 32 H Creatinine 1.5 Est GFR ( Amer) 58 Est GFR (Non-Af Amer) 48 POC Glucose (mg/dL) 249 H Random Glucose 246 H Hemoglobin A1c Calcium 7.9 L Phosphorus 3.6 Magnesium 1.5 L Total Bilirubin 1.4 H AST 51 ALT 31 Alkaline Phosphatase 89 Total Protein 6.3 Albumin 2.5 L Globulin 3.8 Albumin/Globulin Ratio 0.7 L 01/03/18 05:54 WBC RBC Hgb Hct MCV MCH MCHC RDW Plt Count Sodium Potassium Chloride Carbon Dioxide Anion Gap BUN Creatinine Est GFR ( Amer) Est GFR (Non-Af Amer) POC Glucose (mg/dL) 247 H Random Glucose Hemoglobin A1c Calcium Phosphorus Magnesium Total Bilirubin AST ALT Alkaline Phosphatase Total Protein Albumin Globulin Albumin/Globulin Ratio Assessment & Plan (1) SHELLIE (acute kidney injury) Status: Acute (2) Ascites Status: Acute (3) Abdominal pain Status: Acute (4) Alcohol abuse with intoxication Status: Acute (5) Anxiety Status: Chronic (6) Depression Status: Chronic (7) Diabetes mellitus Status: Chronic (8) Liver cirrhosis Status: Chronic - Assessment and Plan (Free Text) Assessment: positive blood c/s may represent contamination empiric IV Vanco x 1 given started ancef
--- NOTE | 2018-01-03 13:52 | CP.PCM.PN ---
Subjective - Date & Time of Evaluation Date of Evaluation: 01/03/18 Time of Evaluation: 13:51 - Subjective Subjective: no new events reported Vital signs stable Reaccumulating fluid Objective - Vital Signs/Intake and Output Vital Signs (last 24 hours): Temp Pulse Resp BP Pulse Ox 97.9 F 69 18 116/51 L 99 01/03/18 08:04 01/03/18 08:04 01/03/18 08:04 01/03/18 09:03 01/03/18 08:04 Intake and Output: 01/03/18 01/03/18 06:59 18:59 Output Total 300 Balance -300 - Medications Medications: Current Medications Acetaminophen (Tylenol 325mg Tab) 650 mg PO Q4 PRN PRN Reason: Pain, moderate (4-7) Last Admin: 12/24/17 17:48 Dose: 650 mg Acetaminophen (Tylenol 325mg Tab) 650 mg PO Q6 PRN PRN Reason: Fever >100.4 F Last Admin: 01/01/18 00:34 Dose: 650 mg Acetaminophen/Codeine Phosphate (Tylenol/Codeine 300 Mg/30 Mg) 1 tab PO Q6 PRN PRN Reason: Pain, severe (8-10) Last Admin: 12/25/17 21:44 Dose: 1 tab Albuterol (Ventolin Hfa 90 Mcg/Actuation (8 G)) 1 puff INH RQ6 PRN PRN Reason: Shortness of Breath Last Admin: 01/03/18 06:42 Dose: 1 puff Bacitracin (Bacitracin) 1 ea TOP TID JERED Last Admin: 01/03/18 12:40 Dose: 1 ea Diphenhydramine HCl (Benadryl) 50 mg PO HS PRN PRN Reason: Sleep Last Admin: 01/02/18 21:15 Dose: 50 mg Famotidine (Pepcid) 40 mg PO HS JERED Last Admin: 01/02/18 21:15 Dose: 40 mg Furosemide (Lasix) 20 mg PO DAILY [facility]ERED Last Admin: 01/03/18 09:03 Dose: 20 mg Guaifenesin/Dextromethorphan (Robitussin Dm) 5 ml PO TID PRN PRN Reason: Cough Last Admin: 01/03/18 03:32 Dose: 5 ml Haloperidol (Haldol) 2 mg PO TID JERED Last Admin: 01/03/18 12:42 Dose: 2 mg Cefazolin Sodium 1 gm/ Sodium (Chloride) 100 mls @ 100 mls/hr IVPB Q8 [facility]; P rotocol Last Admin: 01/03/18 08:57 Dose: 100 mls/hr Insulin Human Lispro (Humalog) 0 units SC ACHS [facility]; Protocol Last Admin: 01/03/18 12:40 Dose: 5 units Lactulose (Enulose) 20 gm PO Q8 [facility] Last Admin: 01/03/18 08:59 Dose: 20 gm Midodrine (Proamatine) 10 mg PO TID [facility] Last Admin: 01/03/18 12:42 Dose: 10 mg Octreotide Acetate (Sandostatin) 200 mcg SC Q8@0300,1100,1900 [facility] Last Admin: 01/03/18 12:46 Dose: 200 mcg Ondansetron HCl (Zofran Inj) 4 mg IVP Q8 PRN PRN Reason: Nausea/Vomiting Last Admin: 12/22/17 08:33 Dose: 4 mg Propranolol HCl (Inderal) 10 mg PO Q12 [facility] Last Admin: 01/03/18 09:03 Dose: 10 mg Sodium Bicarbonate (Sodium Bicarbonate Tab) 650 mg PO BID [facility] Last Admin: 01/03/18 09:00 Dose: 650 mg Spironolactone (Aldactone) 12.5 mg PO DAILY [facility] Last Admin: 01/03/18 09:00 Dose: 12.5 mg Thiamine HCl (Vitamin B1 Tab) 100 mg PO DAILY [facility] Last Admin: 01/03/18 09:04 Dose: 100 mg Trazodone HCl (Desyrel) 50 mg PO HS [facility] Last Admin: 01/02/18 21:15 Dose: 50 mg Vitamin B Complex/Vit C/Folic Acid (Nephro-Ree) 1 tab PO DAILY [facility] Last Admin: 01/03/18 09:04 Dose: 1 tab - Labs Labs: 01/03/18 05:40 01/03/18 05:40 PT 17.0 Seconds (9.8-13.1) H 12/13/17 14:10 INR 1.5 12/13/17 14:10 APTT 33.1 Seconds (25.6-37.1) 12/13/17 14:10 - Constitutional Appears: No Acute Distress - Eye Exam Eye Exam: Conjunctival injection - ENT Exam ENT Exam: Mucous Membranes Moist - Cardiovascular Exam Cardiovascular Exam: absent: Gallop, JVD, Rubs - GI/Abdominal Exam GI & Abdominal Exam: Soft, Normal Bowel Sounds - Extremities Exam Extremities Exam: absent: Calf Tenderness - Back Exam Back Exam: absent: CVA tenderness (L), CVA tenderness (R) - Skin Skin Exam: absent: Cyanosis Assessment and Plan (1) SHELLIE (acute kidney injury) Assessment & Plan: acute kidney injury superimposed perhaps on chronic kidney disease related to massive ascites with recurrent hemodynamic changes. hepatorenal syndrome. 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 massive ascitis with recurrent paracentesis anemia recommendation intermittent use of 25% albumin for hypotension. continue midodrine and octreotid Prognosis is guarded. medication dose is adjusted per renal failure kidney function continue to improve serum creatinine down 1.6 Status post paracentesis 12/27 over 10 L of fluid was removed Status: Acute (2) Ascites Status: Acute
[2018-01-03] MEDS ORDERED: Insulin Lispro (humaLOG) 100 Units/ml Inj SC ONE (17:46)
[2018-01-04] MEDS: ceFAZolin 1 GM in Sodium Chloride 0.9% 100 ML IVPB SCH ×3 (00:03→16:15)
[2018-01-04] MEDS: Albuterol HFA 90 mcg/actuation (8 g) INH PRN (01:43)
[2018-01-04] MEDS ORDERED: Albuterol-Ipratrop 3 mg / 0.5 (3 ml) UD INH STA (03:24)
--- NOTE | 2018-01-04 03:54 | CP.PCM.PCO ---
<Barb Albarran - Last Filed: 01/04/18 03:49> Assessment/Plan - Assessment and Plan (Free Text) Assessment: MD was called for pt experiencing dyspnea Pt seen and evaluated by bedside. able to speak in full sentences with O2 via NL. Mildly Tachypneic Endorsing dyspnea worsened overnight, denies chest pain, palpitations. VS: reviewed MARY: NAD, mild rapid respirations, normal saturation H: S1S2 no addition heart sounds L: decrease breath sounds in the lower lobes, rhonchi in the lower lobes b/l A: distended, fluid wave pos, NT N: AAO x 3 A/P: 57 YO Male admitted for ascites -dyspnea likely from ascites and edema -1x dose of Lasix IVP -duonab treatment ordered <Robbin Romano - Last Filed: 01/11/18 18:52> Assessment/Plan - Assessment and Plan (Free Text) Assessment: Patient was personally seen and examined by me in rounds with residents. Available labs and diagnostic data reviewed. Case, Patient's condition and management plan discussed with residents in rounds. Agree with resident's progress note. Plan: As ordered.
[2018-01-04 06:29] LABS: HEMOGLOBIN 10.1 g/dL (12.0-18.0); MEAN CELL VOLUME 108.7 fl (80.0-94.0); MEAN CORPUSCULAR HEMOGLOBIN 35.9 pg (27.0-31.0); MEAN CORPUSCULAR HGB CONC 33.1 g/dL (33.0-37.0); RBC 2.82 Mil/uL (4.40-5.90); RED CELL DISTRIBUTION WIDTH 18.6 % (11.5-14.5); WHITE BLOOD COUNT 6.4 K/uL (4.8-10.8)
[2018-01-04 06:42] LABS: ALB/GLOB RATIO 0.6 (1.0-2.1); ALBUMIN 2.5 g/dL (3.5-5.0); CALCIUM 8.1 mg/dL (8.4-10.2)
[2018-01-04] MEDS: Bacitracin 500 Units/gm Oint Foilpak UD TOP SCH ×3 (09:19→16:16)
[2018-01-04] MEDS: Multivitamin Vitamin B Complex (Nephro-Vite) Tab PO SCH (09:19)
[2018-01-04] MEDS: Insulin Lispro (humaLOG) 100 Units/ml Inj SC SCH ×4 (09:20→22:45)
[2018-01-04] MEDS ORDERED: Magnesium Oxide 400 mg Tab UD PO ONE (10:10)
--- NOTE | 2018-01-04 11:51 | CARD ---
APPROVED REPORT Date of service: 01/04/2018 EXAM: Two-dimensional and M-mode echocardiogram with Doppler and color Doppler. Other Information Quality : GoodRhythm : NSR INDICATION Infection:Subacute bacterial endocarditis 2D DIMENSIONS IVSd1.47 (0.7-1.1cm)LVDd4.58 (3.9-5.9cm) LVOT Diameter1.81 (1.8-2.4cm)PWd1.16 (0.7-1.1cm) IVSs1.37 (0.8-1.2cm)LVDs3.01 (2.5-4.0cm) FS (%) 34.4 %PWs1.32 (0.8-1.2cm) M-Mode DIMENSIONS Left Atrium (MM)5.56 (2.5-4.0cm)IVSd1.00 (0.7-1.1cm) Aortic Root2.91 (2.2-3.7cm)LVDd4.24 (4.0-5.6cm) Aortic Cusp Exc.1.59 (1.5-2.0cm)PWd1.21 (0.7-1.1cm) IVSs1.26 cmFS (%) 41 % LVDs2.50 (2.0-3.8cm)PWs1.29 cm Aortic Valve AoV Peak Kkgkfuns798.2cm/sAoV VTI32.2cmAO Peak GR.11mmHg LVOT Peak Tzpopdnq119.6cm/sLVOT VTI15.23cmAO Mean GR.6mmHg CONCEPCION (VMAX)0.01al9LEF (VTI)0.61cm2 Mitral Valve MV E Nptgyecl63.1cm/sMV DECEL [id number] A Mtmvpifh297.4cm/s MV SZX963ekL/A ratio0.8MVA (PHT)2.00cm2 TDI Lateral E' Peak V6.03cm/sMedial E' Peak V4.81cm/sE/Lateral E'14.1 E/Medial E'17.7 LEFT VENTRICLE The left ventricle is normal size. There is mild concentric left ventricular hypertrophy. The left ventricular systolic function is normal. The estimated ejection fraction is 60-65% No regional wall motion abnormalities noted.. Transmitral Doppler flow pattern is Grade I-abnormal relaxation pattern. No left ventricle thrombus noted on this study. There is no ventricular septal defect visualized. There is no left ventricular aneurysm. There is no mass noted in the left ventricle. RIGHT VENTRICLE The right ventricle is normal size. There is normal right ventricular wall thickness. The right ventricular systolic function is normal. ATRIA The left atrium is moderately dilated. The right atrium size is normal. The interatrial septum is intact with no evidence for an atrial septal defect. AORTIC VALVE The aortic valve is normal in structure. Mild aortic regurgitation is present. There is no aortic valvular stenosis. There is no aortic valvular vegetation. MITRAL VALVE The mitral valve is normal in structure. There is no evidence of mitral valve prolapse. There is no mitral valve stenosis. There is no mitral valve regurgitation noted. TRICUSPID VALVE The tricuspid valve is normal in structure. There is trivial tricuspid valve regurgitation noted. There is no tricuspid valve prolapse or vegetation. There is no tricuspid valve stenosis. PULMONIC VALVE The pulmonary valve is normal in structure. There is no pulmonic valvular regurgitation. There is no pulmonic valvular stenosis. GREAT VESSELS The aortic root is normal in size. The ascending aorta is normal in size. The pulmonary artery is normal. The IVC is normal in size and collapses >50% with inspiration. PERICARDIAL EFFUSION There is no pericardial effusion. There is large ascites. <Conclusion> Technically difficult study There is mild concentric left ventricular hypertrophy. The estimated ejection fraction is 60-65% Transmitral Doppler flow pattern is Grade I-abnormal relaxation pattern. The left atrium is moderately dilated. Mild aortic regurgitation is present. There is trivial tricuspid valve regurgitation noted. There is large ascites. No vegetations were seen on this study. Correlate clinically.
--- NOTE | 2018-01-04 12:47 | CP.PCM.PN ---
Subjective - Date & Time of Evaluation Date of Evaluation: 01/04/18 Time of Evaluation: 10:00 - Subjective Subjective: blood + MSSA consider echo if not done cont IV Ancef Objective - Vital Signs/Intake and Output Vital Signs (last 24 hours): Temp Pulse Resp BP Pulse Ox 98.4 F 74 20 101/66 98 01/04/18 07:49 01/04/18 09:20 01/04/18 07:49 01/04/18 09:20 01/04/18 07:49 Intake and Output: 01/04/18 01/04/18 06:59 18:59 Intake Total 400 Output Total 350 Balance 50 - Medications Medications: Current Medications Acetaminophen (Tylenol 325mg Tab) 650 mg PO Q4 PRN PRN Reason: Pain, moderate (4-7) Last Admin: 12/24/17 17:48 Dose: 650 mg Acetaminophen (Tylenol 325mg Tab) 650 mg PO Q6 PRN PRN Reason: Fever >100.4 F Last Admin: 01/01/18 00:34 Dose: 650 mg Acetaminophen/Codeine Phosphate (Tylenol/Codeine 300 Mg/30 Mg) 1 tab PO Q6 PRN PRN Reason: Pain, severe (8-10) Last Admin: 12/25/17 21:44 Dose: 1 tab Albuterol (Ventolin Hfa 90 Mcg/Actuation (8 G)) 1 puff INH RQ6 PRN PRN Reason: Shortness of Breath Last Admin: 01/04/18 01:43 Dose: 1 puff Bacitracin (Bacitracin) 1 ea TOP TID JERED Last Admin: 01/04/18 09:19 Dose: 1 ea Diphenhydramine HCl (Benadryl) 50 mg PO HS PRN PRN Reason: Sleep Last Admin: 01/02/18 21:15 Dose: 50 mg Famotidine (Pepcid) 40 mg PO HS JERED Last Admin: 01/03/18 21:32 Dose: 40 mg Furosemide (Lasix) 20 mg PO DAILY [facility] Last Admin: 01/04/18 09:19 Dose: 20 mg Guaifenesin/Dextromethorphan (Robitussin Dm) 5 ml PO TID PRN PRN Reason: Cough Last Admin: 01/03/18 03:32 Dose: 5 ml Haloperidol (Haldol) 2 mg PO TID JERED Last Admin: 01/04/18 09:21 Dose: 2 mg Cefazolin Sodium 1 gm/ Sodium (Chloride) 100 mls @ 100 mls/hr IVPB Q8 [facility]; Protocol Last Admin: 01/04/18 09:18 Dose: 100 mls/hr Insulin Human Lispro (Humalog) 0 units SC ACHS [facility]; Protocol Last Admin: 01/04/18 09:20 Dose: 3 units Lactulose (Enulose) 20 gm PO Q8 [facility] Last Admin: 01/04/18 09:28 Dose: Not Given Midodrine (Proamatine) 10 mg PO TID [facility] Last Admin: 01/04/18 09:18 Dose: 10 mg Octreotide Acetate (Sandostatin) 200 mcg SC Q8@0300,1100,1900 [facility] Last Admin: 01/04/18 03:25 Dose: 200 mcg Ondansetron HCl (Zofran Inj) 4 mg IVP Q8 PRN PRN Reason: Nausea/Vomiting Last Admin: 12/22/17 08:33 Dose: 4 mg Propranolol HCl (Inderal) 10 mg PO Q12 [facility] Last Admin: 01/04/18 09:20 Dose: 10 mg Sodium Bicarbonate (Sodium Bicarbonate Tab) 650 mg PO BID [facility] Last Admin: 01/04/18 09:19 Dose: 650 mg Spironolactone (Aldactone) 12.5 mg PO DAILY [facility] Last Admin: 01/04/18 09:19 Dose: 12.5 mg Thiamine HCl (Vitamin B1 Tab) 100 mg PO DAILY [facility] Last Admin: 01/04/18 09:20 Dose: 100 mg Trazodone HCl (Desyrel) 50 mg PO HS [facility] Last Admin: 01/03/18 21:33 Dose: 50 mg Vitamin B Complex/Vit C/Folic Acid (Nephro-Ree) 1 tab PO DAILY [facility] Last Admin: 01/04/18 09:19 Dose: 1 tab - Labs Labs: 01/04/18 06:05 01/04/18 06:05 PT 17.0 Seconds (9.8-13.1) H 12/13/17 14:10 INR 1.5 12/13/17 14:10 APTT 33.1 Seconds (25.6-37.1) 12/13/17 14:10 Assessment and Plan (1) SHELLIE (acute kidney injury) Status: Acute (2) Ascites Status: Acute (3) Abdominal pain Status: Acute (4) Alcohol abuse with intoxication Status: Acute (5) Anxiety Status: Chronic (6) Depression Status: Chronic (7) Diabetes mellitus Status: Chronic (8) Liver cirrhosis Status: Chronic
--- NOTE | 2018-01-04 14:08 | CP.PCM.PN ---
Subjective - Date & Time of Evaluation Date of Evaluation: 01/04/18 Time of Evaluation: 14:07 - Subjective Subjective: Patient is somewhat confused Vital sign noted Reaccumulation of ascites Objective - Vital Signs/Intake and Output Vital Signs (last 24 hours): Temp Pulse Resp BP Pulse Ox 98.4 F 74 20 101/66 98 01/04/18 07:49 01/04/18 09:20 01/04/18 07:49 01/04/18 09:20 01/04/18 07:49 Intake and Output: 01/04/18 01/04/18 06:59 18:59 Intake Total 400 Output Total 350 Balance 50 - Medications Medications: Current Medications Acetaminophen (Tylenol 325mg Tab) 650 mg PO Q4 PRN PRN Reason: Pain, moderate (4-7) Last Admin: 12/24/17 17:48 Dose: 650 mg Acetaminophen (Tylenol 325mg Tab) 650 mg PO Q6 PRN PRN Reason: Fever >100.4 F Last Admin: 01/01/18 00:34 Dose: 650 mg Acetaminophen/Codeine Phosphate (Tylenol/Codeine 300 Mg/30 Mg) 1 tab PO Q6 PRN PRN Reason: Pain, severe (8-10) Last Admin: 12/25/17 21:44 Dose: 1 tab Albuterol (Ventolin Hfa 90 Mcg/Actuation (8 G)) 1 puff INH RQ6 PRN PRN Reason: Shortness of Breath Last Admin: 01/04/18 01:43 Dose: 1 puff Bacitracin (Bacitracin) 1 ea TOP TID [facility] Last Admin: 01/04/18 12:46 Dose: 1 ea Diphenhydramine HCl (Benadryl) 50 mg PO HS PRN PRN Reason: Sleep Last Admin: 01/02/18 21:15 Dose: 50 mg Famotidine (Pepcid) 40 mg PO HS [facility] Last Admin: 01/03/18 21:32 Dose: 40 mg Furosemide (Lasix) 20 mg PO DAILY [facility] Last Admin: 01/04/18 09:19 Dose: 20 mg Guaifenesin/Dextromethorphan (Robitussin Dm) 5 ml PO TID PRN PRN Reason: Cough Last Admin: 01/03/18 03:32 Dose: 5 ml Haloperidol (Haldol) 2 mg PO TID [facility] Last Admin: 01/04/18 12:47 Dose: 2 mg Cefazolin Sodium 1 gm/ Sodium (Chloride) 100 mls @ 100 mls/hr IVPB Q8 [facility]; Protocol Last Admin: 01/04/18 09:18 Dose: 100 mls/hr Insulin Human Lispro (Humalog) 0 units SC ACHS [facility]; Protocol Last Admin: 01/04/18 12:47 Dose: 6 units Lactulose (Enulose) 20 gm PO Q8 [facility] Last Admin: 01/04/18 09:28 Dose: Not Given Midodrine (Proamatine) 10 mg PO TID [facility] Last Admin: 01/04/18 12:46 Dose: 10 mg Octreotide Acetate (Sandostatin) 200 mcg SC Q8@0300,1100,1900 [facility] Last Admin: 01/04/18 03:25 Dose: 200 mcg Ondansetron HCl (Zofran Inj) 4 mg IVP Q8 PRN PRN Reason: Nausea/Vomiting Last Admin: 12/22/17 08:33 Dose: 4 mg Propranolol HCl (Inderal) 10 mg PO Q12 [facility] Last Admin: 01/04/18 09:20 Dose: 10 mg Sodium Bicarbonate (Sodium Bicarbonate Tab) 650 mg PO BID [facility] Last Admin: 01/04/18 09:19 Dose: 650 mg Spironolactone (Aldactone) 12.5 mg PO DAILY [facility] Last Admin: 01/04/18 09:19 Dose: 12.5 mg Thiamine HCl (Vitamin B1 Tab) 100 mg PO DAILY [facility] Last Admin: 01/04/18 09:20 Dose: 100 mg Trazodone HCl (Desyrel) 50 mg PO HS [facility] Last Admin: 01/03/18 21:33 Dose: 50 mg Vitamin B Complex/Vit C/Folic Acid (Nephro-Ree) 1 tab PO DAILY [facility] Last Admin: 01/04/18 09:19 Dose: 1 tab - Labs Labs: 01/04/18 06:05 01/04/18 06:05 PT 17.0 Seconds (9.8-13.1) H 12/13/17 14:10 INR 1.5 12/13/17 14:10 APTT 33.1 Seconds (25.6-37.1) 12/13/17 14:10 - Constitutional Appears: No Acute Distress - Eye Exam Eye Exam: Conjunctival injection - Neck Exam Neck Exam: absent: Lymphadenopathy - Respiratory Exam Respiratory Exam: NORMAL BREATHING PATTERN. absent: Chest Wall Tenderness - Cardiovascular Exam Cardiovascular Exam: absent: Gallop, JVD, Rubs - GI/Abdominal Exam GI & Abdominal Exam: Guarding, Normal Bowel Sounds - Back Exam Back Exam: absent: CVA tenderness (L), CVA tenderness (R) - Neurological Exam Neurological Exam: Altered - Psychiatric Exam Psychiatric exam: Flat Affect - Skin Skin Exam: absent: Cyanosis Assessment and Plan (1) SHELLIE (acute kidney injury) Assessment & Plan: acute kidney injury superimposed perhaps on chronic kidney disease related to massive ascites with recurrent hemodynamic changes. hepatorenal syndrome. 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 massive ascitis with recurrent paracentesis anemia recommendation intermittent use of 25% albumin for hypotension. continue midodrine and octreotid Prognosis is guarded. medication dose is adjusted per renal failure kidney function continue to improve serum creatinine down 1.6 Status post paracentesis 12/27 over 10 L of fluid was removed Status: Acute (2) Ascites Status: Acute
[2018-01-05] MEDS: ceFAZolin 1 GM in Sodium Chloride 0.9% 100 ML IVPB SCH ×3 (00:04→17:07)
--- NOTE | 2018-01-05 02:23 | PN ---
DATE: 01/04/2018 SUBJECTIVE: The patient seen and examined. Interim events noted. Consult noted and appreciated. Infectious Disease and Gastroenterology followup and intervention noted and appreciated. The patient remains in regular medical floor with observation for safety. The patient denies any specific complaint of chest pain. No shortness of breath. The patient had episode of shortness of breath at nighttime . The patient is scheduled for thoracentesis today. PHYSICAL EXAMINATION: GENERAL: The patient is in no acute distress. VITAL SIGNS: Stable. HEART EXAM: S1, S2 normal and regular. LUNGS: Good bilateral air exchange. ABDOMEN: Soft and nontender. The patient has gross ascites. CENTRAL NERVOUS SYSTEM: Essentially unchanged. EXTREMITIES: No calf swelling. No tenderness. No acute ischemia. DIAGNOSTIC DATA: Available diagnostic data reviewed. ASSESSMENT AND PLAN: Overall, the patient is hemodynamically stable. The patient will have thoracentesis as ordered. Robbin Romano MD
[2018-01-05 06:15] LABS: MEAN CELL VOLUME 106.7 fl (80.0-94.0); MEAN CORPUSCULAR HEMOGLOBIN 36.2 pg (27.0-31.0); MEAN CORPUSCULAR HGB CONC 33.9 g/dL (33.0-37.0); RBC 2.77 Mil/uL (4.40-5.90); RED CELL DISTRIBUTION WIDTH 18.6 % (11.5-14.5); WHITE BLOOD COUNT 5.6 K/uL (4.8-10.8)
[2018-01-05 06:53] LABS: ALB/GLOB RATIO 0.6 (1.0-2.1); ALBUMIN 2.5 g/dL (3.5-5.0); ALT/SGPT 17 U/L (21-72); AST/SGOT 36 U/L (17-59); BLOOD UREA NITROGEN 31 mg/dl (9-20); CALCIUM 8.3 mg/dL (8.4-10.2); GFR NON-AFRICAN AMERICAN 52
[2018-01-05] MEDS: Bacitracin 500 Units/gm Oint Foilpak UD TOP SCH ×3 (08:50→18:09)
[2018-01-05] MEDS: Insulin Lispro (humaLOG) 100 Units/ml Inj SC SCH ×4 (08:50→22:08)
[2018-01-05] MEDS: Multivitamin Vitamin B Complex (Nephro-Vite) Tab PO SCH (08:51)
--- NOTE | 2018-01-05 09:54 | CP.PCM.PN ---
Subjective - Date & Time of Evaluation Date of Evaluation: 01/05/18 Time of Evaluation: 09:53 - Subjective Subjective: patient partially confused Abdomen distended and reaccumulation of fluid Objective - Vital Signs/Intake and Output Vital Signs (last 24 hours): Temp Pulse Resp BP Pulse Ox 97.7 F 80 20 123/65 99 01/05/18 08:49 01/05/18 08:51 01/05/18 08:49 01/05/18 08:51 01/05/18 08:49 - Medications Medications: Current Medications Acetaminophen (Tylenol 325mg Tab) 650 mg PO Q4 PRN PRN Reason: Pain, moderate (4-7) Last Admin: 12/24/17 17:48 Dose: 650 mg Acetaminophen (Tylenol 325mg Tab) 650 mg PO Q6 PRN PRN Reason: Fever >100.4 F Last Admin: 01/01/18 00:34 Dose: 650 mg Acetaminophen/Codeine Phosphate (Tylenol/Codeine 300 Mg/30 Mg) 1 tab PO Q6 PRN PRN Reason: Pain, severe (8-10) Last Admin: 12/25/17 21:44 Dose: 1 tab Albuterol (Ventolin Hfa 90 Mcg/Actuation (8 G)) 1 puff INH RQ6 PRN PRN Reason: Shortness of Breath Last Admin: 01/04/18 01:43 Dose: 1 puff Bacitracin (Bacitracin) 1 ea TOP TID [facility] Last Admin: 01/05/18 08:50 Dose: 1 ea Diphenhydramine HCl (Benadryl) 50 mg PO HS PRN PRN Reason: Sleep Last Admin: 01/02/18 21:15 Dose: 50 mg Famotidine (Pepcid) 40 mg PO HS [facility] Last Admin: 01/04/18 21:19 Dose: 40 mg Furosemide (Lasix) 20 mg PO DAILY [facility] Last Admin: 01/05/18 08:51 Dose: 20 mg Guaifenesin/Dextromethorphan (Robitussin Dm) 5 ml PO TID PRN PRN Reason: Cough Last Admin: 01/03/18 03:32 Dose: 5 ml Haloperidol (Haldol) 2 mg PO TID [facility] Last Admin: 01/05/18 08:51 Dose: 2 mg Cefazolin Sodium 1 gm/ Sodium (Chloride) 100 mls @ 100 mls/hr IVPB Q8 [facility]; Protocol Last Admin: 01/05/18 08:37 Dose: 100 mls/hr Insulin Human Lispro (Humalog) 0 units SC ACHS [facility]; Protocol Last Admin: 01/05/18 08:50 Dose: 4 units Lactulose (Enulose) 20 gm PO Q8 [facility] Last Admin: 01/05/18 09:06 Dose: Not Given Midodrine (Proamatine) 10 mg PO TID [facility] Last Admin: 01/05/18 09:05 Dose: 10 mg Octreotide Acetate (Sandostatin) 200 mcg SC Q8@0300,1100,1900 [facility] Last Admin: 01/05/18 04:04 Dose: 200 mcg Ondansetron HCl (Zofran Inj) 4 mg IVP Q8 PRN PRN Reason: Nausea/Vomiting Last Admin: 12/22/17 08:33 Dose: 4 mg Propranolol HCl (Inderal) 10 mg PO Q12 [facility] Last Admin: 01/05/18 08:51 Dose: 10 mg Sodium Bicarbonate (Sodium Bicarbonate Tab) 650 mg PO BID [facility] Last Admin: 01/05/18 08:52 Dose: 650 mg Spironolactone (Aldactone) 12.5 mg PO DAILY [facility] Last Admin: 01/05/18 08:49 Dose: 12.5 mg Thiamine HCl (Vitamin B1 Tab) 100 mg PO DAILY [facility] Last Admin: 01/05/18 08:51 Dose: 100 mg Trazodone HCl (Desyrel) 50 mg PO HS [facility] Last Admin: 01/04/18 21:19 Dose: 50 mg Vitamin B Complex/Vit C/Folic Acid (Nephro-Ree) 1 tab PO DAILY [facility] Last Admin: 01/05/18 08:51 Dose: 1 tab - Labs Labs: 01/05/18 05:40 01/05/18 05:40 PT 17.0 Seconds (9.8-13.1) H 12/13/17 14:10 INR 1.5 12/13/17 14:10 APTT 33.1 Seconds (25.6-37.1) 12/13/17 14:10 - Constitutional Appears: No Acute Distress - Eye Exam Eye Exam: Conjunctival injection - ENT Exam ENT Exam: Mucous Membranes Moist - Respiratory Exam Respiratory Exam: absent: Chest Wall Tenderness - Cardiovascular Exam Cardiovascular Exam: absent: Gallop, JVD, Rubs - GI/Abdominal Exam GI & Abdominal Exam: Normal Bowel Sounds - Extremities Exam Extremities Exam: absent: Calf Tenderness - Back Exam Back Exam: absent: CVA tenderness (L) - Neurological Exam Neurological Exam: Altered Assessment and Plan (1) SHELLIE (acute kidney injury) Assessment & Plan: acute kidney injury improving and recovering slowly. hepatorenal syndrome. 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 massive ascitis with recurrent paracentesis anemia recommendation intermittent use of 25% albumin for hypotension. continue midodrine and octreotid Prognosis is guarded. medication dose is adjusted per renal failure kidney function continue to improve serum creatinine down 1.4 Status post paracentesis 12/27 over 10 L of fluid was removed Status: Acute (2) Ascites Status: Acute
[2018-01-05] MEDS ORDERED: Lidocaine 1% Inj (20ml) ONE (12:27)
--- NOTE | 2018-01-05 13:30 | PCM.SURG1 ---
Surgeon's Initial Post Op Note - Surgeon's Notes Surgeon: Cruzito Reilly MD Network Support Engineer: NONE Type of Anesthesia: Local Pre-Operative Diagnosis: Ascites Operative Findings: US showed large amount of ascites Post-Operative Diagnosis: Ascites Operation Performed: US guided paracentesis Specimen/Specimens Removed: 11 liters of straw colored fluid Estimated Blood Loss: EBL {In ML}: 0 Blood Products Given: N/A Drains Used: No Drains Post-Op Condition: Fair Date of Surgery/Procedure: 01/05/18 Time of Surgery/Procedure: 13:25
--- NOTE | 2018-01-05 17:19 | CP.PCM.PN ---
Subjective - Date & Time of Evaluation Date of Evaluation: 01/05/18 Time of Evaluation: 17:18 - Subjective Subjective: no overnight events Objective - Vital Signs/Intake and Output Vital Signs (last 24 hours): Temp Pulse Resp BP Pulse Ox 98 F 74 18 97/57 L 110 H 01/05/18 16:26 01/05/18 16:26 01/05/18 16:26 01/05/18 16:26 01/05/18 16:26 - Medications Medications: Current Medications Acetaminophen (Tylenol 325mg Tab) 650 mg PO Q4 PRN PRN Reason: Pain, moderate (4-7) Last Admin: 12/24/17 17:48 Dose: 650 mg Acetaminophen (Tylenol 325mg Tab) 650 mg PO Q6 PRN PRN Reason: Fever >100.4 F Last Admin: 01/01/18 00:34 Dose: 650 mg Acetaminophen/Codeine Phosphate (Tylenol/Codeine 300 Mg/30 Mg) 1 tab PO Q6 PRN PRN Reason: Pain, severe (8-10) Last Admin: 12/25/17 21:44 Dose: 1 tab Albuterol (Ventolin Hfa 90 Mcg/Actuation (8 G)) 1 puff INH RQ6 PRN PRN Reason: Shortness of Breath Last Admin: 01/04/18 01:43 Dose: 1 puff Bacitracin (Bacitracin) 1 ea TOP TID [facility] Last Admin: 01/05/18 15:27 Dose: Not Given Diphenhydramine HCl (Benadryl) 50 mg PO HS PRN PRN Reason: Sleep Last Admin: 01/02/18 21:15 Dose: 50 mg Famotidine (Pepcid) 40 mg PO HS [facility] Last Admin: 01/04/18 21:19 Dose: 40 mg Furosemide (Lasix) 20 mg PO DAILY [facility] Last Admin: 01/05/18 08:51 Dose: 20 mg Guaifenesin/Dextromethorphan (Robitussin Dm) 5 ml PO TID PRN PRN Reason: Cough Last Admin: 01/03/18 03:32 Dose: 5 ml Haloperidol (Haldol) 2 mg PO TID [facility] Last Admin: 01/05/18 17:09 Dose: 2 mg Cefazolin Sodium 1 gm/ Sodium (Chloride) 100 mls @ 100 mls/hr IVPB Q8 [facility]; Protocol Last Admin: 01/05/18 17:07 Dose: 100 mls/hr Insulin Human Lispro (Humalog) 0 units SC ACHS [facility]; Protocol Last Admin: 01/05/18 17:09 Dose: 6 units Lactulose (Enulose) 20 gm PO Q8 [facility] Last Admin: 01/05/18 09:06 Dose: Not Given Midodrine (Proamatine) 10 mg PO TID [facility] Last Admin: 01/05/18 17:10 Dose: 10 mg Octreotide Acetate (Sandostatin) 200 mcg SC Q8@0300,1100,1900 [facility] Last Admin: 01/05/18 15:32 Dose: 200 mcg Ondansetron HCl (Zofran Inj) 4 mg IVP Q8 PRN PRN Reason: Nausea/Vomiting Last Admin: 12/22/17 08:33 Dose: 4 mg Propranolol HCl (Inderal) 10 mg PO Q12 [facility] Last Admin: 01/05/18 08:51 Dose: 10 mg Sodium Bicarbonate (Sodium Bicarbonate Tab) 650 mg PO BID [facility] Last Admin: 01/05/18 17:10 Dose: 650 mg Spironolactone (Aldactone) 12.5 mg PO DAILY [facility] Last Admin: 01/05/18 08:49 Dose: 12.5 mg Thiamine HCl (Vitamin B1 Tab) 100 mg PO DAILY [facility] Last Admin: 01/05/18 08:51 Dose: 100 mg Trazodone HCl (Desyrel) 50 mg PO HS [facility] Last Admin: 01/04/18 21:19 Dose: 50 mg Vitamin B Complex/Vit C/Folic Acid (Nephro-Ree) 1 tab PO DAILY [facility] Last Admin: 01/05/18 08:51 Dose: 1 tab - Labs Labs: 01/05/18 05:40 01/05/18 05:40 PT 17.0 Seconds (9.8-13.1) H 12/13/17 14:10 INR 1.5 12/13/17 14:10 APTT 33.1 Seconds (25.6-37.1) 12/13/17 14:10 - Neck Exam Neck Exam: Normal Inspection - Respiratory Exam Respiratory Exam: Clear to Ausculation Bilateral, NORMAL BREATHING PATTERN - Cardiovascular Exam Cardiovascular Exam: REGULAR RHYTHM - GI/Abdominal Exam GI & Abdominal Exam: Soft, Normal Bowel Sounds Assessment and Plan - Assessment and Plan (Free Text) Assessment: 57 yo male with ascites doing well s/p paracentesis dc planning when able
[2018-01-05] MEDS ORDERED: Insulin Lispro (humaLOG) 100 Units/ml Inj SC STA (18:06)
--- NOTE | 2018-01-05 18:30 | CP.PCM.PN ---
Subjective - Date & Time of Evaluation Date of Evaluation: 01/05/18 Time of Evaluation: 09:00 - Subjective Subjective: iv rx tolerated well repeat blood cultures pending Objective - Vital Signs/Intake and Output Vital Signs (last 24 hours): Temp Pulse Resp BP Pulse Ox 98 F 74 18 97/57 L 110 H 01/05/18 16:26 01/05/18 16:26 01/05/18 16:26 01/05/18 16:26 01/05/18 16:26 - Medications Medications: Current Medications Acetaminophen (Tylenol 325mg Tab) 650 mg PO Q4 PRN PRN Reason: Pain, moderate (4-7) Last Admin: 12/24/17 17:48 Dose: 650 mg Acetaminophen (Tylenol 325mg Tab) 650 mg PO Q6 PRN PRN Reason: Fever >100.4 F Last Admin: 01/01/18 00:34 Dose: 650 mg Acetaminophen/Codeine Phosphate (Tylenol/Codeine 300 Mg/30 Mg) 1 tab PO Q6 PRN PRN Reason: Pain, severe (8-10) Last Admin: 12/25/17 21:44 Dose: 1 tab Albuterol (Ventolin Hfa 90 Mcg/Actuation (8 G)) 1 puff INH RQ6 PRN PRN Reason: Shortness of Breath Last Admin: 01/04/18 01:43 Dose: 1 puff Bacitracin (Bacitracin) 1 ea TOP TID [facility] Last Admin: 01/05/18 18:09 Dose: 1 ea Diphenhydramine HCl (Benadryl) 50 mg PO HS PRN PRN Reason: Sleep Last Admin: 01/02/18 21:15 Dose: 50 mg Famotidine (Pepcid) 40 mg PO HS [facility] Last Admin: 01/04/18 21:19 Dose: 40 mg Furosemide (Lasix) 20 mg PO DAILY [facility] Last Admin: 01/05/18 08:51 Dose: 20 mg Guaifenesin/Dextromethorphan (Robitussin Dm) 5 ml PO TID PRN PRN Reason: Cough Last Admin: 01/03/18 03:32 Dose: 5 ml Haloperidol (Haldol) 2 mg PO TID [facility] Last Admin: 01/05/18 17:09 Dose: 2 mg Cefazolin Sodium 1 gm/ Sodium (Chloride) 100 mls @ 100 mls/hr IVPB Q8 [facility]; Protocol Last Admin: 01/05/18 17:07 Dose: 100 mls/hr Insulin Human Lispro (Humalog) 0 units SC ACHS [facility]; Protocol Last Admin: 01/05/18 17:09 Dose: 6 units Lactulose (Enulose) 20 gm PO Q8 [facility] Last Admin: 01/05/18 09:06 Dose: Not Given Midodrine (Proamatine) 10 mg PO TID [facility] Last Admin: 01/05/18 17:10 Dose: 10 mg Octreotide Acetate (Sandostatin) 200 mcg SC Q8@0300,1100,1900 [facility] Last Admin: 01/05/18 15:32 Dose: 200 mcg Ondansetron HCl (Zofran Inj) 4 mg IVP Q8 PRN PRN Reason: Nausea/Vomiting Last Admin: 12/22/17 08:33 Dose: 4 mg Propranolol HCl (Inderal) 10 mg PO Q12 [facility] Last Admin: 01/05/18 08:51 Dose: 10 mg Sodium Bicarbonate (Sodium Bicarbonate Tab) 650 mg PO BID [facility] Last Admin: 01/05/18 17:10 Dose: 650 mg Spironolactone (Aldactone) 12.5 mg PO DAILY [facility] Last Admin: 01/05/18 08:49 Dose: 12.5 mg Thiamine HCl (Vitamin B1 Tab) 100 mg PO DAILY [facility] Last Admin: 01/05/18 08:51 Dose: 100 mg Trazodone HCl (Desyrel) 50 mg PO HS [facility] Last Admin: 01/04/18 21:19 Dose: 50 mg Vitamin B Complex/Vit C/Folic Acid (Nephro-Ree) 1 tab PO DAILY [facility] Last Admin: 01/05/18 08:51 Dose: 1 tab - Labs Labs: 01/05/18 05:40 01/05/18 05:40 PT 17.0 Seconds (9.8-13.1) H 12/13/17 14:10 INR 1.5 12/13/17 14:10 APTT 33.1 Seconds (25.6-37.1) 12/13/17 14:10 - Constitutional Appears: Non-toxic, Chronically Ill - Head Exam Head Exam: NORMOCEPHALIC - Eye Exam Eye Exam: absent: Scleral icterus - ENT Exam ENT Exam: Mucous Membranes Dry - Neck Exam Neck Exam: absent: Lymphadenopathy - Respiratory Exam Respiratory Exam: Decreased Breath Sounds - Cardiovascular Exam Cardiovascular Exam: REGULAR RHYTHM - GI/Abdominal Exam GI & Abdominal Exam: Distended - Rectal Exam Rectal Exam: Deferred Assessment and Plan (1) SHELLIE (acute kidney injury) Status: Acute (2) Ascites Status: Acute (3) Abdominal pain Status: Acute (4) Alcohol abuse with intoxication Status: Acute (5) Anxiety Status: Chronic (6) Depression Status: Chronic (7) Diabetes mellitus Status: Chronic (8) Liver cirrhosis Status: Chronic
[2018-01-05] MEDS: guaiFENesin DM 100 mg-10 mg/5 ml UD PO PRN (21:05)
[2018-01-05] MEDS ORDERED: Dextrose 50% SYRINGE Inj (50 ml) IV PRN (22:47)
[2018-01-05] MEDS ORDERED: Glucagon Recombinant 1 mg Inj IM PRN (22:47)
[2018-01-05] MEDS: Insulin Regular 100 units/ml SC SCH (23:12)
[2018-01-06] MEDS: ceFAZolin 1 GM in Sodium Chloride 0.9% 100 ML IVPB SCH ×3 (00:08→17:17)
[2018-01-06] MEDS: guaiFENesin DM 100 mg-10 mg/5 ml UD PO PRN ×2 (05:47→21:24)
[2018-01-06] MEDS: Multivitamin Vitamin B Complex (Nephro-Vite) Tab PO SCH (08:51)
[2018-01-06] MEDS: Bacitracin 500 Units/gm Oint Foilpak UD TOP SCH ×3 (08:51→16:59)
--- NOTE | 2018-01-06 08:51 | PN ---
DATE: 01/05/2018 SUBJECTIVE: The patient seen and examined. Interim events noted. Consults noted and appreciated. The patient is with , needing paracentesis. Paracentesis is medically necessary. Unable to obtain patient's family consent. Okay with the physician consent for paracentesis. The patient . The patient is sleeping, arousable, feels okay. Denies any specific complaint. No chest pain or shortness of breath. PHYSICAL EXAMINATION: GENERAL: The patient is in no acute distress. VITAL SIGNS: Stable. HEART: S1, S2, normal, regular. LUNGS: Good bilateral air exchange. ABDOMEN: The patient has . No sign of acute abdomen. No guarding, no rigidity, no rebound. Bowel sound are present and normal EXTREMITIES: No edema. No calf swelling. No tenderness. No acute ischemia. CENTRAL NERVOUS SYSTEM: Essentially unchanged. DIAGNOSTIC DATA: Available diagnostic data reviewed. ASSESSMENT AND PLAN: The patient is for paracentesis today. Okay with physician consent emergent procedure. Unable to obtain family's consent. Plan as ordered. Robbin Romano MD
[2018-01-06] MEDS: Insulin Regular 100 units/ml SC SCH ×4 (08:55→21:21)
[2018-01-06] MEDS: Albumin Human 25% (12.5 gm/50 ml) IV SCH ×3 (10:47→21:11)
--- NOTE | 2018-01-06 11:10 | CP.PCM.PN ---
Subjective - Date & Time of Evaluation Date of Evaluation: 01/06/18 Time of Evaluation: 11:11 - Subjective Subjective: patient feeling much better more awake Vital signs stable Objective - Vital Signs/Intake and Output Vital Signs (last 24 hours): Temp Pulse Resp BP Pulse Ox 97.9 F 79 18 96/64 L 100 01/06/18 04:00 01/06/18 09:14 01/06/18 04:00 01/06/18 09:14 01/06/18 04:00 - Medications Medications: Current Medications Acetaminophen (Tylenol 325mg Tab) 650 mg PO Q4 PRN PRN Reason: Pain, moderate (4-7) Last Admin: 12/24/17 17:48 Dose: 650 mg Acetaminophen (Tylenol 325mg Tab) 650 mg PO Q6 PRN PRN Reason: Fever >100.4 F Last Admin: 01/01/18 00:34 Dose: 650 mg Acetaminophen/Codeine Phosphate (Tylenol/Codeine 300 Mg/30 Mg) 1 tab PO Q6 PRN PRN Reason: Pain, severe (8-10) Last Admin: 12/25/17 21:44 Dose: 1 tab Albumin Human (Albumin Human 25% (12.5 Gm/50 Ml)) 12.5 gm IV Q6 [facility] Last Admin: 01/06/18 10:47 Dose: 12.5 gm Albuterol (Ventolin Hfa 90 Mcg/Actuation (8 G)) 1 puff INH RQ6 PRN PRN Reason: Shortness of Breath Last Admin: 01/04/18 01:43 Dose: 1 puff Bacitracin (Bacitracin) 1 ea TOP TID [facility] Last Admin: 01/06/18 08:51 Dose: 1 ea Dextrose (Dextrose 50% Inj) 0 ml IV STAT PRN; Protocol PRN Reason: Hypoglycemia Protocol Dextrose (Glutose 15) 0 gm PO ONCE PRN; Protocol PRN Reason: Hypoglycemia Protocol Diphenhydramine HCl (Benadryl) 50 mg PO HS PRN PRN Reason: Sleep Last Admin: 01/05/18 21:05 Dose: 50 mg Famotidine (Pepcid) 40 mg PO HS [facility] Last Admin: 01/05/18 21:05 Dose: 40 mg Furosemide (Lasix) 20 mg PO DAILY [facility] Last Admin: 01/06/18 09:14 Dose: Not Given Glucagon (Glucagen Diagnostic Kit) 0 mg IM STAT PRN; Protocol PRN Reason: Hypoglycemia Protocol Guaifenesin/Dextromethorphan (Robitussin Dm) 5 ml PO TID PRN PRN Reason: Cough Last Admin: 01/06/18 05:47 Dose: 5 ml Haloperidol (Haldol) 2 mg PO TID [facility] Last Admin: 01/06/18 08:49 Dose: 2 mg Cefazolin Sodium 1 gm/ Sodium (Chloride) 100 mls @ 100 mls/hr IVPB Q8 [facility]; Protocol Last Admin: 01/06/18 08:52 Dose: 100 mls/hr Insulin Detemir (Levemir) 5 units SC [facility] Insulin Human Regular (Humulin R) 0 units SC ACHS [facility]; Protocol Last Admin: 01/06/18 08:55 Dose: 6 units Lactulose (Enulose) 20 gm PO Q8 [facility] Last Admin: 01/06/18 08:54 Dose: 20 gm Midodrine (Proamatine) 10 mg PO TID [facility] Last Admin: 01/06/18 08:48 Dose: 10 mg Octreotide Acetate (Sandostatin) 200 mcg SC Q8@0300,1100,1900 [facility] Last Admin: 01/06/18 04:03 Dose: 200 mcg Ondansetron HCl (Zofran Inj) 4 mg IVP Q8 PRN PRN Reason: Nausea/Vomiting Last Admin: 12/22/17 08:33 Dose: 4 mg Propranolol HCl (Inderal) 10 mg PO Q12 [facility] Last Admin: 01/06/18 09:14 Dose: Not Given Sodium Bicarbonate (Sodium Bicarbonate Tab) 650 mg PO BID [facility] Last Admin: 01/06/18 08:50 Dose: 650 mg Spironolactone (Aldactone) 12.5 mg PO DAILY [facility] Last Admin: 01/06/18 08:51 Dose: 12.5 mg Thiamine HCl (Vitamin B1 Tab) 100 mg PO DAILY [facility] Last Admin: 01/06/18 08:50 Dose: 100 mg Trazodone HCl (Desyrel) 50 mg PO HS [facility] Last Admin: 01/05/18 21:05 Dose: 50 mg Vitamin B Complex/Vit C/Folic Acid (Nephro-Ree) 1 tab PO DAILY [facility] Last Admin: 01/06/18 08:51 Dose: 1 tab - Labs Labs: 01/05/18 05:40 01/05/18 05:40 PT 17.0 Seconds (9.8-13.1) H 12/13/17 14:10 INR 1.5 12/13/17 14:10 APTT 33.1 Seconds (25.6-37.1) 12/13/17 14:10 - Constitutional Appears: No Acute Distress - Eye Exam Eye Exam: Conjunctival injection - ENT Exam ENT Exam: Mucous Membranes Moist - Neck Exam Neck Exam: absent: Lymphadenopathy - Respiratory Exam Respiratory Exam: NORMAL BREATHING PATTERN. absent: Chest Wall Tenderness - GI/Abdominal Exam GI & Abdominal Exam: Firm - Extremities Exam Extremities Exam: absent: Calf Tenderness - Back Exam Back Exam: absent: CVA tenderness (L), CVA tenderness (R) - Neurological Exam Neurological Exam: Awake - Skin Skin Exam: absent: Cyanosis Assessment and Plan (1) SHELLIE (acute kidney injury) Assessment & Plan: acute kidney injury improving and recovering slowly. 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 massive ascitis with recurrent paracentesis anemia recommendation intermittent use of 25% albumin for hypotension. continue midodrine Prognosis is guarded. medication dose is adjusted per renal failure kidney function continue to improve serum creatinine down 1.4 status post paracentesis with 5 L removed Status post paracentesis 12/27 over 10 L of fluid was removed status post paracentesis 01/05 and 11 L. fluid removed Status: Acute (2) Ascites Status: Acute
--- NOTE | 2018-01-06 12:04 | PN ---
DATE: 01/06/2018 SUBJECTIVE: The patient seen and examined. Interim events noted. Consults noted and appreciated. Gastroenterology, Nephrology and Interventional radiologist interventions noted and appreciated. The patient remains in regular medical floor with one to one observation for safety. The patient is sleeping, arousable. Denies any specific complaint of chest pain or shortness of breath, abdominal pain is much improved after 11 L paracentesis. PHYSICAL EXAMINATION: GENERAL: The patient is in no acute distress. VITAL SIGNS: Stable. HEART: S1, S2 normal and regular. LUNGS: Good bilateral air exchange. ABDOMEN: The patient still has gross ascites, but is much better than yesterday after 11 L paracentesis drainage. No sign of acute abdomen. No sign of acute complication. No guarding. No rebound. Bowel sounds are plus and normal. EXTREMITIES: No edema. No tenderness. No acute ischemia. CENTRAL NERVOUS SYSTEM: Exam is essentially unchanged. DIAGNOSTIC DATA: Available diagnostic data reviewed. ASSESSMENT AND PLAN: Overall, the patient is hemodynamically stable. Plan as ordered. Robbin Romano MD
--- NOTE | 2018-01-06 13:02 | CP.PCM.PN ---
Subjective - Date & Time of Evaluation Date of Evaluation: 01/06/18 Time of Evaluation: 08:00 - Subjective Subjective: iv rx tolerated well repeat blood cultures neg thus far Objective - Vital Signs/Intake and Output Vital Signs (last 24 hours): Temp Pulse Resp BP Pulse Ox 97.9 F 79 18 96/64 L 100 01/06/18 04:00 01/06/18 09:14 01/06/18 04:00 01/06/18 09:14 01/06/18 04:00 - Medications Medications: Current Medications Acetaminophen (Tylenol 325mg Tab) 650 mg PO Q4 PRN PRN Reason: Pain, moderate (4-7) Last Admin: 12/24/17 17:48 Dose: 650 mg Acetaminophen (Tylenol 325mg Tab) 650 mg PO Q6 PRN PRN Reason: Fever >100.4 F Last Admin: 01/01/18 00:34 Dose: 650 mg Acetaminophen/Codeine Phosphate (Tylenol/Codeine 300 Mg/30 Mg) 1 tab PO Q6 PRN PRN Reason: Pain, severe (8-10) Last Admin: 12/25/17 21:44 Dose: 1 tab Albumin Human (Albumin Human 25% (12.5 Gm/50 Ml)) 12.5 gm IV Q6 [facility] Last Admin: 01/06/18 10:47 Dose: 12.5 gm Albuterol (Ventolin Hfa 90 Mcg/Actuation (8 G)) 1 puff INH RQ6 PRN PRN Reason: Shortness of Breath Last Admin: 01/04/18 01:43 Dose: 1 puff Bacitracin (Bacitracin) 1 ea TOP TID [facility] Last Admin: 01/06/18 12:17 Dose: 1 ea Dextrose (Dextrose 50% Inj) 0 ml IV STAT PRN; Protocol PRN Reason: Hypoglycemia Protocol Dextrose (Glutose 15) 0 gm PO ONCE PRN; Protocol PRN Reason: Hypoglycemia Protocol Diphenhydramine HCl (Benadryl) 50 mg PO HS PRN PRN Reason: Sleep Last Admin: 01/05/18 21:05 Dose: 50 mg Famotidine (Pepcid) 40 mg PO HS [facility] Last Admin: 01/05/18 21:05 Dose: 40 mg Furosemide (Lasix) 20 mg PO DAILY [facility] Last Admin: 01/06/18 09:14 Dose: Not Given Glucagon (Glucagen Diagnostic Kit) 0 mg IM STAT PRN; Protocol PRN Reason: Hypoglycemia Protocol Guaifenesin/Dextromethorphan (Robitussin Dm) 5 ml PO TID PRN PRN Reason: Cough Last Admin: 01/06/18 05:47 Dose: 5 ml Haloperidol (Haldol) 2 mg PO TID [facility] Last Admin: 01/06/18 12:17 Dose: 2 mg Cefazolin Sodium 1 gm/ Sodium (Chloride) 100 mls @ 100 mls/hr IVPB Q8 [facility]; Protocol Last Admin: 01/06/18 08:52 Dose: 100 mls/hr Insulin Detemir (Levemir) 5 units SC HS [facility] Insulin Human Regular (Humulin R) 0 units SC ACHS [facility]; Protocol Last Admin: 01/06/18 11:56 Dose: 8 units Lactulose (Enulose) 20 gm PO Q8 [facility] Last Admin: 01/06/18 08:54 Dose: 20 gm Midodrine (Proamatine) 10 mg PO TID [facility] Last Admin: 01/06/18 12:17 Dose: 10 mg Octreotide Acetate (Sandostatin) 200 mcg SC Q8@0300,1100,1900 [facility] Last Admin: 01/06/18 12:12 Dose: 200 mcg Ondansetron HCl (Zofran Inj) 4 mg IVP Q8 PRN PRN Reason: Nausea/Vomiting Last Admin: 12/22/17 08:33 Dose: 4 mg Propranolol HCl (Inderal) 10 mg PO Q12 [facility] Last Admin: 01/06/18 09:14 Dose: Not Given Sodium Bicarbonate (Sodium Bicarbonate Tab) 650 mg PO BID [facility] Last Admin: 01/06/18 08:50 Dose: 650 mg Spironolactone (Aldactone) 12.5 mg PO DAILY [facility] Last Admin: 01/06/18 08:51 Dose: 12.5 mg Thiamine HCl (Vitamin B1 Tab) 100 mg PO DAILY [facility] Last Admin: 01/06/18 08:50 Dose: 100 mg Trazodone HCl (Desyrel) 50 mg PO HS [facility] Last Admin: 01/05/18 21:05 Dose: 50 mg Vitamin B Complex/Vit C/Folic Acid (Nephro-Ree) 1 tab PO DAILY [facility] Last Admin: 01/06/18 08:51 Dose: 1 tab - Labs Labs: 01/05/18 05:40 11/29/18 05:40 PT 17.0 Seconds (9.8-13.1) H 12/13/17 14:10 INR 1.5 12/13/17 14:10 APTT 33.1 Seconds (25.6-37.1) 12/13/17 14:10 - Constitutional Appears: Non-toxic, Chronically Ill - Head Exam Head Exam: NORMOCEPHALIC - Eye Exam Eye Exam: absent: Scleral icterus - ENT Exam ENT Exam: Mucous Membranes Dry - Neck Exam Neck Exam: absent: Lymphadenopathy - Respiratory Exam Respiratory Exam: Decreased Breath Sounds - Cardiovascular Exam Cardiovascular Exam: REGULAR RHYTHM - GI/Abdominal Exam GI & Abdominal Exam: Distended, Soft Assessment and Plan (1) SHELLIE (acute kidney injury) Status: Acute (2) Ascites Status: Acute (3) Abdominal pain Status: Acute (4) Alcohol abuse with intoxication Status: Acute (5) Anxiety Status: Chronic (6) Depression Status: Chronic (7) Diabetes mellitus Status: Chronic (8) Liver cirrhosis Status: Chronic - Assessment and Plan (Free Text) Assessment: cont iv antibiotics for min 14 days
--- NOTE | 2018-01-06 13:33 | US ---
Date of Procedure: 01/04/2018 PROCEDURE: Ultrasound-guided paracentesis, CPT 98742 Medications: 7 cc 1% Lidocaine HISTORY: Ascites, abdominal pain, cirrhosis TECHNIQUE: Following informed consent , the patient was placed supine on the stretcher and the site was marked. A limited abdominal ultrasound was performed that showed a large amount of intra-abdominal fluid. Procedural time out was called and the Pt's abdomen was marked and prepped and draped in the usual sterile fashion. Ultrasound-guided large volume paracentesis performed. A total of 11 liters of straw colored fluid was removed without complication. IMPRESSION: Ultrasound-guided large volume paracentesis.
[2018-01-06] MEDS: Insulin Detemir 100 Units/ml Inj SC SCH (22:19)
[2018-01-07] MEDS: ceFAZolin 1 GM in Sodium Chloride 0.9% 100 ML IVPB SCH ×3 (00:31→17:29)
[2018-01-07] MEDS: Albumin Human 25% (12.5 gm/50 ml) IV SCH (03:34)
[2018-01-07 07:20] LABS: HEMOGLOBIN 8.8 g/dL (12.0-18.0); MEAN CELL VOLUME 107.8 fl (80.0-94.0); MEAN CORPUSCULAR HEMOGLOBIN 35.6 pg (27.0-31.0); RBC 2.47 Mil/uL (4.40-5.90); RED CELL DISTRIBUTION WIDTH 18.8 % (11.5-14.5); WHITE BLOOD COUNT 5.2 K/uL (4.8-10.8)
[2018-01-07] MEDS: Insulin Regular 100 units/ml SC SCH ×5 (07:20→21:33)
[2018-01-07 07:44] LABS: ALB/GLOB RATIO 0.7 (1.0-2.1); ALBUMIN 2.4 g/dL (3.5-5.0); ALT/SGPT 16 U/L (21-72); AST/SGOT 33 U/L (17-59); BLOOD UREA NITROGEN 28 mg/dl (9-20); CALCIUM 8.2 mg/dL (8.4-10.2); GFR NON-AFRICAN AMERICAN > 60
[2018-01-07] MEDS: Bacitracin 500 Units/gm Oint Foilpak UD TOP SCH ×3 (08:30→17:23)
[2018-01-07] MEDS: Multivitamin Vitamin B Complex (Nephro-Vite) Tab PO SCH (08:33)
--- NOTE | 2018-01-07 16:45 | CP.PCM.PN ---
Subjective - Date & Time of Evaluation Date of Evaluation: 01/07/18 Time of Evaluation: 16:44 - Subjective Subjective: Nephrology Consultation Note Assessment: Stable Acute Kidney Injury (N17.9) likely due to hepatorenal syndrome: improved DM, HTN, alcoholic cirrhosis, anemia, acidodis Plan No acute need for renal replacement therapy at this time Maintain hemodynamics stable. Avoid hypotension. Patient not on ACEI/ARB due to recent SHELLIE. started aldactone and lasix Monitor Input/Output, daily weights and renal function with basic metabolic panel continue with Octreotide and Midodrine continue Iron thiamine, MVI and epogen for anemia, sodium bicarb 650 bid Dose meds/antibiotics for reduced GFR. Avoid fleets enema/magnesium based laxatives. Avoid nephrotoxins/NSAIDs/ iodinated contrast (unless needed emergently) Glycemic control Further work up for as per primary team Thanks for allowing me to participate in care of your patient. Please call if any Qs Dr Braxton Graham Office: [phone] Subjective: Noted events overnight. Patients feels okay. Denies chest pain, palpitation, shortness of breath, c/o leg swelling. All other negative Physical Examination: General Appearance: Comfortable, in no acute respiratory distress, co-operative . Vitals reviewed and noted as below Head; Atraumatic, normocephalic ENT: no ulcers no thrush. Tongue is midline. Oropharynx: no rash or ulcers. EYES: Pupils are equal, round and reactive to light accommodation. Eye muscles and extraocular movement intact. Sclera is anicteric. Neck; supple no lymphadenopathy, no thyromegaly or bruit Lungs: Normal respiratory rate/effort. Breath sounds bilateral equal and clear Heart: Normal rate. s1s2 normal. No rub or gallop. Extremities: trace edema. No varicose veins Neurological: Patient is alert, awake and oriented to person, place and time. No focal deficit. Strength bilateral appropriate and equal Skin: Warm and dry. Normal turgor. No rash. Palpitation: Normal elasticity for age Abdomen: Abdomen is soft. Bowel sounds +. There is mild epigastric abdominal tenderness, no guarding/rigidity no organomegaly. distended and ascitic + Psych: normal insight and normal affect/mood MSK: no joint tenderness or swelling. Digits and nails normal, no deformity : kidney or bladder not palpable Labs/imaging reviewed. Past medical history, past surgical history, family history, social history, allergy reviewed and noted as below Family hx: no hx of CKD. Rest non-contributory Objective - Vital Signs/Intake and Output Vital Signs (last 24 hours): Temp Pulse Resp BP Pulse Ox 98.2 F 77 18 104/46 L 100 01/07/18 16:20 01/07/18 16:20 01/07/18 16:20 01/07/18 16:20 01/07/18 16:20 - Medications Medications: Current Medications Acetaminophen (Tylenol 325mg Tab) 650 mg PO Q4 PRN PRN Reason: Pain, moderate (4-7) Last Admin: 12/24/17 17:48 Dose: 650 mg Acetaminophen (Tylenol 325mg Tab) 650 mg PO Q6 PRN PRN Reason: Fever >100.4 F Last Admin: 01/01/18 00:34 Dose: 650 mg Acetaminophen/Codeine Phosphate (Tylenol/Codeine 300 Mg/30 Mg) 1 tab PO Q6 PRN PRN Reason: Pain, severe (8-10) Last Admin: 12/25/17 21:44 Dose: 1 tab Albuterol (Ventolin Hfa 90 Mcg/Actuation (8 G)) 1 puff INH RQ6 PRN PRN Reason: Shortness of Breath Last Admin: 01/04/18 01:43 Dose: 1 puff Bacitracin (Bacitracin) 1 ea TOP TID [facility] Last Admin: 01/07/18 13:03 Dose: 1 ea Dextrose (Dextrose 50% Inj) 0 ml IV STAT PRN; Protocol PRN Reason: Hypoglycemia Protocol Dextrose (Glutose 15) 0 gm PO ONCE PRN; Protocol PRN Reason: Hypoglycemia Protocol Diphenhydramine HCl (Benadryl) 50 mg PO HS PRN PRN Reason: Sleep Last Admin: 01/05/18 21:05 Dose: 50 mg Famotidine (Pepcid) 40 mg PO HS [facility] Last Admin: 01/06/18 21:10 Dose: 40 mg Ferrous Gluconate (Fergon) 324 mg PO TID [facility] Last Admin: 01/07/18 13:03 Dose: 324 mg Furosemide (Lasix) 20 mg PO DAILY [facility] Last Admin: 01/07/18 08:34 Dose: 20 mg Glucagon (Glucagen Diagnostic Kit) 0 mg IM STAT PRN; Protocol PRN Reason: Hypoglycemia Protocol Guaifenesin/Dextromethorphan (Robitussin Dm) 5 ml PO TID PRN PRN Reason: Cough Last Admin: 01/06/18 21:24 Dose: 5 ml Haloperidol (Haldol) 2 mg PO TID [facility] Last Admin: 01/07/18 08:31 Dose: 2 mg Cefazolin Sodium 1 gm/ Sodium (Chloride) 100 mls @ 100 mls/hr IVPB Q8 [facility]; Pr otocol Last Admin: 01/07/18 08:36 Dose: 100 mls/hr Insulin Detemir (Levemir) 5 units SC HS [facility] Last Admin: 01/06/18 22:19 Dose: 5 units Insulin Human Regular (Humulin R) 0 units SC ACHS [facility]; Protocol Last Admin: 01/07/18 12:01 Dose: 6 units Lactulose (Enulose) 20 gm PO Q8 [facility] Last Admin: 01/07/18 08:31 Dose: 20 gm Midodrine (Proamatine) 10 mg PO TID [facility] Last Admin: 01/07/18 13:02 Dose: 10 mg Octreotide Acetate (Sandostatin) 200 mcg SC Q8@0300,1100,1900 [facility] Last Admin: 01/07/18 11:30 Dose: 200 mcg Ondansetron HCl (Zofran Inj) 4 mg IVP Q8 PRN PRN Reason: Nausea/Vomiting Last Admin: 12/22/17 08:33 Dose: 4 mg Propranolol HCl (Inderal) 10 mg PO Q12 [facility] Last Admin: 01/07/18 08:34 Dose: 10 mg Sodium Bicarbonate (Sodium Bicarbonate Tab) 650 mg PO BID [facility] Last Admin: 01/07/18 08:31 Dose: 650 mg Spironolactone (Aldactone) 12.5 mg PO DAILY [facility] Last Admin: 01/07/18 08:31 Dose: 12.5 mg Thiamine HCl (Vitamin B1 Tab) 100 mg PO DAILY [facility] Last Admin: 01/07/18 08:33 Dose: 100 mg Trazodone HCl (Desyrel) 50 mg PO HS [facility] Last Admin: 01/06/18 21:11 Dose: 50 mg Vitamin B Complex/Vit C/Folic Acid (Nephro-Ree) 1 tab PO DAILY [facility] Last Admin: 01/07/18 08:33 Dose: 1 tab - Labs Labs: 01/07/18 06:30 01/07/18 06:30 PT 17.0 Seconds (9.8-13.1) H 12/13/17 14:10 INR 1.5 12/13/17 14:10 APTT 33.1 Seconds (25.6-37.1) 12/13/17 14:10
[2018-01-07] MEDS: Haloperidol Lactate 2 mg/ml Liquid PO SCH (18:56)
[2018-01-07] MEDS: Insulin Detemir 100 Units/ml Inj SC SCH (21:34)
--- NOTE | 2018-01-07 22:23 | CP.PCM.PN ---
Subjective - Date & Time of Evaluation Date of Evaluation: 01/07/18 Time of Evaluation: 17:30 - Subjective Subjective: no overnight events Objective - Vital Signs/Intake and Output Vital Signs (last 24 hours): Temp Pulse Resp BP Pulse Ox 98.2 F 88 18 125/78 100 01/07/18 16:20 01/07/18 21:05 01/07/18 16:20 01/07/18 21:05 01/07/18 16:20 - Medications Medications: Current Medications Acetaminophen (Tylenol 325mg Tab) 650 mg PO Q4 PRN PRN Reason: Pain, moderate (4-7) Last Admin: 12/24/17 17:48 Dose: 650 mg Acetaminophen (Tylenol 325mg Tab) 650 mg PO Q6 PRN PRN Reason: Fever >100.4 F Last Admin: 01/01/18 00:34 Dose: 650 mg Acetaminophen/Codeine Phosphate (Tylenol/Codeine 300 Mg/30 Mg) 1 tab PO Q6 PRN PRN Reason: Pain, severe (8-10) Last Admin: 12/25/17 21:44 Dose: 1 tab Albuterol (Ventolin Hfa 90 Mcg/Actuation (8 G)) 1 puff INH RQ6 PRN PRN Reason: Shortness of Breath Last Admin: 01/04/18 01:43 Dose: 1 puff Bacitracin (Bacitracin) 1 ea TOP TID [facility] Last Admin: 01/07/18 17:23 Dose: 1 ea Dextrose (Dextrose 50% Inj) 0 ml IV STAT PRN; Protocol PRN Reason: Hypoglycemia Protocol Dextrose (Glutose 15) 0 gm PO ONCE PRN; Protocol PRN Reason: Hypoglycemia Protocol Diphenhydramine HCl (Benadryl) 50 mg PO HS PRN PRN Reason: Sleep Last Admin: 01/05/18 21:05 Dose: 50 mg Famotidine (Pepcid) 40 mg PO HS [facility] Last Admin: 01/07/18 21:04 Dose: 40 mg Ferrous Gluconate (Fergon) 324 mg PO TID [facility] Last Admin: 01/07/18 17:22 Dose: 324 mg Furosemide (Lasix) 20 mg PO DAILY [facility] Last Admin: 01/07/18 08:34 Dose: 20 mg Glucagon (Glucagen Diagnostic Kit) 0 mg IM STAT PRN; Protocol PRN Reason: Hypoglycemia Protocol Guaifenesin/Dextromethorphan (Robitussin Dm) 5 ml PO TID PRN PRN Reason: Cough Last Admin: 01/06/18 21:24 Dose: 5 ml Haloperidol Lactate (Haldol) 2 mg PO TID [facility] Last Admin: 01/07/18 18:56 Dose: 2 mg Cefazolin Sodium 1 gm/ Sodium (Chloride) 100 mls @ 100 mls/hr IVPB Q8 [facility]; Protocol Last Admin: 01/07/18 17:29 Dose: 100 mls/hr Insulin Detemir (Levemir) 5 units SC [facility] Last Admin: 01/07/18 21:34 Dose: 5 units Insulin Human Regular (Humulin R) 0 units SC ACHS [facility]; Protocol Last Admin: 01/07/18 21:33 Dose: 2 units Lactulose (Enulose) 20 gm PO Q8 [facility] Last Admin: 01/07/18 17:21 Dose: 20 gm Midodrine (Proamatine) 10 mg PO TID [facility] Last Admin: 01/07/18 13:02 Dose: 10 mg Octreotide Acetate (Sandostatin) 200 mcg SC Q8@0300,1100,1900 [facility] Last Admin: 01/07/18 18:13 Dose: 200 mcg Ondansetron HCl (Zofran Inj) 4 mg IVP Q8 PRN PRN Reason: Nausea/Vomiting Last Admin: 12/22/17 08:33 Dose: 4 mg Propranolol HCl (Inderal) 10 mg PO Q12 [facility] Last Admin: 01/07/18 21:05 Dose: 10 mg Sodium Bicarbonate (Sodium Bicarbonate Tab) 650 mg PO BID [facility] Last Admin: 01/07/18 17:22 Dose: 650 mg Spironolactone (Aldactone) 12.5 mg PO DAILY [facility] Last Admin: 01/07/18 08:31 Dose: 12.5 mg Thiamine HCl (Vitamin B1 Tab) 100 mg PO DAILY [facility] Last Admin: 01/07/18 08:33 Dose: 100 mg Trazodone HCl (Desyrel) 50 mg PO HS [facility] Last Admin: 01/07/18 21:04 Dose: 50 mg Vitamin B Complex/Vit C/Folic Acid (Nephro-Ree) 1 tab PO DAILY [facility] Last Admin: 01/07/18 08:33 Dose: 1 tab - Labs Labs: 01/07/18 06:30 01/07/18 06:30 PT 17.0 Seconds (9.8-13.1) H 12/13/17 14:10 INR 1.5 12/13/17 14:10 APTT 33.1 Seconds (25.6-37.1) 12/13/17 14:10 - Head Exam Head Exam: NORMOCEPHALIC - Neck Exam Neck Exam: Normal Inspection - Respiratory Exam Respiratory Exam: Clear to Ausculation Bilateral, NORMAL BREATHING PATTERN - Cardiovascular Exam Cardiovascular Exam: REGULAR RHYTHM - GI/Abdominal Exam GI & Abdominal Exam: Distended, Soft, Normal Bowel Sounds Assessment and Plan - Assessment and Plan (Free Text) Assessment: 57 yo male with ascites rapidly re-accumulating will need to discuss with renal if we can increase/maximize diuretics, otherwise may need to consider TIPS although not convinced he would be a good candidate
[2018-01-08] MEDS: ceFAZolin 1 GM in Sodium Chloride 0.9% 100 ML IVPB SCH ×3 (01:29→16:59)
[2018-01-08 07:07] LABS: HEMOGLOBIN 9.8 g/dL (12.0-18.0); MEAN CORPUSCULAR HEMOGLOBIN 36.8 pg (27.0-31.0); MEAN CORPUSCULAR HGB CONC 34.7 g/dL (33.0-37.0); RBC 2.65 Mil/uL (4.40-5.90); RED CELL DISTRIBUTION WIDTH 18.8 % (11.5-14.5); WHITE BLOOD COUNT 5.6 K/uL (4.8-10.8)
[2018-01-08 07:15] LABS: MEAN CELL VOLUME 106.3 fl (80.0-94.0)
[2018-01-08 07:37] LABS: ALB/GLOB RATIO 0.7 (1.0-2.1); ALBUMIN 2.7 g/dL (3.5-5.0); ALT/SGPT 14 U/L (21-72); AST/SGOT 33 U/L (17-59); BLOOD UREA NITROGEN 26 mg/dl (9-20); CALCIUM 8.7 mg/dL (8.4-10.2); GFR NON-AFRICAN AMERICAN > 60
[2018-01-08] MEDS: Insulin Regular 100 units/ml SC SCH ×4 (08:00→22:33)
[2018-01-08] MEDS: Bacitracin 500 Units/gm Oint Foilpak UD TOP SCH ×3 (09:27→17:00)
[2018-01-08] MEDS: Haloperidol Lactate 2 mg/ml Liquid PO SCH ×3 (09:29→17:03)
[2018-01-08] MEDS: Multivitamin Vitamin B Complex (Nephro-Vite) Tab PO SCH (09:34)
--- NOTE | 2018-01-08 10:08 | CP.PCM.PN ---
Subjective - Date & Time of Evaluation Date of Evaluation: 01/08/18 Time of Evaluation: 10:08 - Subjective Subjective: Nephrology Consultation Note Assessment: Stable Acute Kidney Injury (N17.9) likely due to hepatorenal syndrome: improved DM, HTN, alcoholic cirrhosis, anemia, acidodis Plan No acute need for renal replacement therapy at this time Maintain hemodynamics stable. Avoid hypotension. Patient not on ACEI/ARB due to recent SHELLIE. started aldactone and lasix Monitor Input/Output, daily weights and renal function with basic metabolic panel continue with Octreotide and Midodrine continue Iron thiamine, MVI and epogen for anemia, sodium bicarb 650 bid Dose meds/antibiotics for reduced GFR. Avoid fleets enema/magnesium based laxatives. Avoid nephrotoxins/NSAIDs/ iodinated contrast (unless needed emergently) Glycemic control Further work up for as per primary team Thanks for allowing me to participate in care of your patient. Please call if any Qs Dr Braxton Graham Office: [phone] Subjective: Noted events overnight. Patients feels okay. Denies chest pain, palpitation, shortness of breath, c/o leg swelling. All other negative on 1:1 Physical Examination: General Appearance: Comfortable, in no acute respiratory distress, co-operative . Vitals reviewed and noted as below Head; Atraumatic, normocephalic ENT: no ulcers no thrush. Tongue is midline. Oropharynx: no rash or ulcers. EYES: Pupils are equal, round and reactive to light accommodation. Eye muscles and extraocular movement intact. Sclera is anicteric. Neck; supple no lymphadenopathy, no thyromegaly or bruit Lungs: Normal respiratory rate/effort. Breath sounds bilateral equal and clear Heart: Normal rate. s1s2 normal. No rub or gallop. Extremities: trace edema. No varicose veins Neurological: Patient is alert, awake and oriented to person, place and time. No focal deficit. Strength bilateral appropriate and equal Skin: Warm and dry. Normal turgor. No rash. Palpitation: Normal elasticity for age Abdomen: Abdomen is soft. Bowel sounds +. There is mild epigastric abdominal tenderness, no guarding/rigidity no organomegaly. distended and ascitic + Psych: normal insight and normal affect/mood MSK: no joint tenderness or swelling. Digits and nails normal, no deformity : kidney or bladder not palpable Labs/imaging reviewed. Past medical history, past surgical history, family history, social history, allergy reviewed and noted as below Family hx: no hx of CKD. Rest non-contributory Objective - Vital Signs/Intake and Output Vital Signs (last 24 hours): Temp Pulse Resp BP Pulse Ox 98.3 F 79 20 112/53 L 100 01/08/18 08:11 01/08/18 09:32 01/08/18 08:11 01/08/18 09:33 01/08/18 08:11 Intake and Output: 01/08/18 01/08/18 06:59 18:59 Intake Total 200 Balance 200 - Medications Medications: Current Medications Acetaminophen (Tylenol 325mg Tab) 650 mg PO Q4 PRN PRN Reason: Pain, moderate (4-7) Last Admin: 12/24/17 17:48 Dose: 650 mg Acetaminophen (Tylenol 325mg Tab) 650 mg PO Q6 PRN PRN Reason: Fever >100.4 F Last Admin: 01/01/18 00:34 Dose: 650 mg Acetaminophen/Codeine Phosphate (Tylenol/Codeine 300 Mg/30 Mg) 1 tab PO Q6 PRN PRN Reason: Pain, severe (8-10) Last Admin: 12/25/17 21:44 Dose: 1 tab Albuterol (Ventolin Hfa 90 Mcg/Actuation (8 G)) 1 puff INH RQ6 PRN PRN Reason: Shortness of Breath Last Admin: 01/04/18 01:43 Dose: 1 puff Bacitracin (Bacitracin) 1 ea TOP TID [facility] Last Admin: 01/08/18 09:27 Dose: 1 ea Dextrose (Dextrose 50% Inj) 0 ml IV STAT PRN; Protocol PRN Reason: Hypoglycemia Protocol Dextrose (Glutose 15) 0 gm PO ONCE PRN; Protocol PRN Reason: Hypoglycemia Protocol Diphenhydramine HCl (Benadryl) 50 mg PO HS PRN PRN Reason: Sleep Last Admin: 01/05/18 21:05 Dose: 50 mg Famotidine (Pepcid) 40 mg PO HS [facility] Last Admin: 01/07/18 21:04 Dose: 40 mg Ferrous Gluconate (Fergon) 324 mg PO TID [facility] Last Admin: 01/08/18 09:28 Dose: 324 mg Furosemide (Lasix) 20 mg PO BID [facility] Last Admin: 01/08/18 09:33 Dose: 20 mg Glucagon (Glucagen Diagnostic Kit) 0 mg IM STAT PRN; Protocol PRN Reason: Hypoglycemia Protocol Guaifenesin/Dextromethorphan (Robitussin Dm) 5 ml PO TID PRN PRN Reason: Cough Last Admin: 01/06/18 21:24 Dose: 5 ml Haloperidol Lactate (Haldol) 2 mg PO TID [facility] Last Admin: 01/08/18 09:29 Dose: 2 mg Cefazolin Sodium 1 gm/ Sodium (Chloride) 100 mls @ 100 mls/hr IVPB Q8 [facility]; Protocol Last Admin: 01/08/18 09:26 Dose: 100 mls/hr Insulin Detemir (Levemir) 5 units SC HS [facility] Last Admin: 01/07/18 21:34 Dose: 5 units Insulin Human Regular (Humulin R) 0 units SC ACHS [facility]; Protocol Last Admin: 01/08/18 08:00 Dose: 3 units Lactulose (Enulose) 20 gm PO Q8 [facility] Last Admin: 01/08/18 09:27 Dose: 20 gm Midodrine (Proamatine) 10 mg PO TID [facility] Last Admin: 01/08/18 09:36 Dose: 10 mg Octreotide Acetate (Sandostatin) 200 mcg SC Q8@0300,1100,1900 [facility] Last Admin: 01/08/18 02:41 Dose: 200 mcg Ondansetron HCl (Zofran Inj) 4 mg IVP Q8 PRN PRN Reason: Nausea/Vomiting Last Admin: 12/22/17 08:33 Dose: 4 mg Propranolol HCl (Inderal) 10 mg PO Q12 [facility] Last Admin: 01/08/18 09:32 Dose: 10 mg Sodium Bicarbonate (Sodium Bicarbonate Tab) 650 mg PO BID [facility] Last Admin: 01/08/18 09:35 Dose: 650 mg Spironolactone (Aldactone) 25 mg PO DAILY [facility] Last Admin: 01/08/18 09:25 Dose: 25 mg Thiamine HCl (Vitamin B1 Tab) 100 mg PO DAILY [facility] Last Admin: 01/08/18 09:35 Dose: 100 mg Trazodone HCl (Desyrel) 50 mg PO HS [facility] Last Admin: 01/07/18 21:04 Dose: 50 mg Vitamin B Complex/Vit C/Folic Acid (Nephro-Ree) 1 tab PO DAILY [facility] Last Admin: 01/08/18 09:34 Dose: 1 tab - Labs Labs: 01/08/18 05:25 01/08/18 05:25 PT 17.0 Seconds (9.8-13.1) H 12/13/17 14:10 INR 1.5 12/13/17 14:10 APTT 33.1 Seconds (25.6-37.1) 12/13/17 14:10
--- NOTE | 2018-01-08 11:02 | PN ---
DATE: 01/08/2018 SUBJECTIVE: The patient seen and examined. Interim events noted. Consults noted and appreciated. The patient remains in regular medical floor with observation for safety. The patient is ambulatory. Feels okay. Denies any chest pain, shortness of breath or any abdominal pain. PHYSICAL EXAMINATION: GENERAL: The patient is in no acute distress. VITAL SIGNS: Stable. HEART: S1 and S2 normal and regular. LUNGS: Good bilateral air exchange. ABDOMEN: The patient has gross ascites, but no sign of acute abdomen. No guarding, no rigidity, no rebound. Bowel sounds are plus and normal. EXTREMITIES: No edema. No calf swelling. No tenderness. No acute ischemia. CENTRAL NERVOUS SYSTEMS: Essentially unchanged. DIAGNOSTIC DATA: Available diagnostic data reviewed. ASSESSMENT: Overall, the patient is hemodynamically stable. Creatinine is 1.2. We will try to increase diuretics. PLAN: As ordered. Case and plan discussed with the patient, although the patient is not able to fully comprehend the situation. Plan as ordered. Robbin Romano MD
--- NOTE | 2018-01-08 13:37 | CP.PCM.PN ---
Subjective - Date & Time of Evaluation Date of Evaluation: 01/08/18 Time of Evaluation: 08:00 - Subjective Subjective: c/o pain awake alert no fever Objective - Vital Signs/Intake and Output Vital Signs (last 24 hours): Temp Pulse Resp BP Pulse Ox 98.3 F 79 20 112/53 L 100 01/08/18 08:11 01/08/18 09:32 01/08/18 08:11 01/08/18 09:33 01/08/18 08:11 Intake and Output: 01/08/18 01/08/18 06:59 18:59 Intake Total 200 Balance 200 - Medications Medications: Current Medications Acetaminophen (Tylenol 325mg Tab) 650 mg PO Q4 PRN PRN Reason: Pain, moderate (4-7) Last Admin: 12/24/17 17:48 Dose: 650 mg Acetaminophen (Tylenol 325mg Tab) 650 mg PO Q6 PRN PRN Reason: Fever >100.4 F Last Admin: 01/01/18 00:34 Dose: 650 mg Acetaminophen/Codeine Phosphate (Tylenol/Codeine 300 Mg/30 Mg) 1 tab PO Q6 PRN PRN Reason: Pain, severe (8-10) Last Admin: 12/25/17 21:44 Dose: 1 tab Albuterol (Ventolin Hfa 90 Mcg/Actuation (8 G)) 1 puff INH RQ6 PRN PRN Reason: Shortness of Breath Last Admin: 01/04/18 01:43 Dose: 1 puff Bacitracin (Bacitracin) 1 ea TOP TID [facility] Last Admin: 01/08/18 09:27 Dose: 1 ea Dextrose (Dextrose 50% Inj) 0 ml IV STAT PRN; Protocol PRN Reason: Hypoglycemia Protocol Dextrose (Glutose 15) 0 gm PO ONCE PRN; Protocol PRN Reason: Hypoglycemia Protocol Diphenhydramine HCl (Benadryl) 50 mg PO HS PRN PRN Reason: Sleep Last Admin: 01/05/18 21:05 Dose: 50 mg Famotidine (Pepcid) 40 mg PO HS [facility] Last Admin: 01/07/18 21:04 Dose: 40 mg Ferrous Gluconate (Fergon) 324 mg PO TID [facility] Last Admin: 01/08/18 09:28 Dose: 324 mg Furosemide (Lasix) 20 mg PO BID [facility] Last Admin: 01/08/18 09:33 Dose: 20 mg Glucagon (Glucagen Diagnostic Kit) 0 mg IM STAT PRN; Protocol PRN Reason: Hypoglycemia Protocol Guaifenesin/Dextromethorphan (Robitussin Dm) 5 ml PO TID PRN PRN Reason: Cough Last Admin: 01/06/18 21:24 Dose: 5 ml Haloperidol Lactate (Haldol) 2 mg PO TID [facility] Last Admin: 01/08/18 09:29 Dose: 2 mg Cefazolin Sodium 1 gm/ Sodium (Chloride) 100 mls @ 100 mls/hr IVPB Q8 [facility]; Protocol Last Admin: 01/08/18 09:26 Dose: 100 mls/hr Insulin Detemir (Levemir) 5 units SC HS [facility] Last Admin: 01/07/18 21:34 Dose: 5 units Insulin Human Regular (Humulin R) 0 units SC ACHS [facility]; Protocol Last Admin: 01/08/18 08:00 Dose: 3 units Lactulose (Enulose) 20 gm PO Q8 [facility] Last Admin: 01/08/18 09:27 Dose: 20 gm Midodrine (Proamatine) 10 mg PO TID [facility] Last Admin: 01/08/18 09:36 Dose: 10 mg Octreotide Acetate (Sandostatin) 200 mcg SC Q8@0300,1100,1900 [facility] Last Admin: 01/08/18 02:41 Dose: 200 mcg Ondansetron HCl (Zofran Inj) 4 mg IVP Q8 PRN PRN Reason: Nausea/Vomiting Last Admin: 12/22/17 08:33 Dose: 4 mg Propranolol HCl (Inderal) 10 mg PO Q12 [facility] Last Admin: 01/08/18 09:32 Dose: 10 mg Sodium Bicarbonate (Sodium Bicarbonate Tab) 650 mg PO BID [facility] Last Admin: 01/08/18 09:35 Dose: 650 mg Spironolactone (Aldactone) 25 mg PO DAILY [facility] Last Admin: 01/08/18 09:25 Dose: 25 mg Thiamine HCl (Vitamin B1 Tab) 100 mg PO DAILY [facility] Last Admin: 01/08/18 09:35 Dose: 100 mg Trazodone HCl (Desyrel) 50 mg PO HS [facility] Last Admin: 01/07/18 21:04 Dose: 50 mg Vitamin B Complex/Vit C/Folic Acid (Nephro-Ree) 1 tab PO DAILY [facility] Last Admin: 01/08/18 09:34 Dose: 1 tab - Labs Labs: 01/08/18 05:25 01/08/18 05:25 PT 17.0 Seconds (9.8-13.1) H 12/13/17 14:10 INR 1.5 12/13/17 14:10 APTT 33.1 Seconds (25.6-37.1) 12/13/17 14:10 - Constitutional Appears: Non-toxic - Head Exam Head Exam: NORMOCEPHALIC - Eye Exam Eye Exam: absent: Scleral icterus - ENT Exam ENT Exam: Mucous Membranes Dry - Neck Exam Neck Exam: absent: Lymphadenopathy - Respiratory Exam Respiratory Exam: Decreased Breath Sounds - Cardiovascular Exam Cardiovascular Exam: REGULAR RHYTHM - GI/Abdominal Exam GI & Abdominal Exam: Distended, Soft, Tenderness Additional comments: + ascites no rebound Assessment and Plan (1) SHELLIE (acute kidney injury) Status: Acute (2) Ascites Status: Acute (3) Abdominal pain Status: Acute (4) Alcohol abuse with intoxication Status: Acute (5) Anxiety Status: Chronic (6) Depression Status: Chronic (7) Diabetes mellitus Status: Chronic (8) Liver cirrhosis Status: Chronic (9) Staph aureus infection Status: Acute - Assessment and Plan (Free Text) Assessment: s/p sepsis MSSA cont IV ancef for 2 weeks\\GI follow up
[2018-01-08] MEDS: guaiFENesin DM 100 mg-10 mg/5 ml UD PO PRN (21:48)
[2018-01-08] MEDS: Insulin Detemir 100 Units/ml Inj SC SCH (21:57)
[2018-01-09] MEDS: ceFAZolin 1 GM in Sodium Chloride 0.9% 100 ML IVPB SCH ×3 (00:40→17:26)
[2018-01-09 06:32] LABS: HEMOGLOBIN 8.9 g/dL (12.0-18.0); MEAN CELL VOLUME 106.2 fl (80.0-94.0); MEAN CORPUSCULAR HEMOGLOBIN 36.7 pg (27.0-31.0); MEAN CORPUSCULAR HGB CONC 34.6 g/dL (33.0-37.0); RBC 2.42 Mil/uL (4.40-5.90); RED CELL DISTRIBUTION WIDTH 18.6 % (11.5-14.5); WHITE BLOOD COUNT 5.6 K/uL (4.8-10.8)
[2018-01-09 07:04] LABS: ALB/GLOB RATIO 0.6 (1.0-2.1); ALBUMIN 2.4 g/dL (3.5-5.0); ALT/SGPT 19 U/L (21-72); AST/SGOT 31 U/L (17-59); BLOOD UREA NITROGEN 24 mg/dl (9-20); CALCIUM 8.2 mg/dL (8.4-10.2); GFR NON-AFRICAN AMERICAN > 60
[2018-01-09] MEDS: Insulin Regular 100 units/ml SC SCH ×4 (08:04→22:46)
[2018-01-09] MEDS: Haloperidol Lactate 2 mg/ml Liquid PO SCH ×3 (08:58→17:19)
[2018-01-09] MEDS: Multivitamin Vitamin B Complex (Nephro-Vite) Tab PO SCH (09:00)
--- NOTE | 2018-01-09 09:01 | PN ---
DATE: 01/07/2018 SUBJECTIVE: The patient seen and examined. Interim events noted. The patient remains in regular medical floor. Feels okay. Denies any chest pain or shortness of breath. Abdominal discomfort greatly improved after paracentesis. PHYSICAL EXAMINATION: GENERAL: The patient is in no acute distress. VITAL SIGNS: Stable. HEART: S1, S2 normal and regular. LUNGS: Good bilateral air exchange. ABDOMEN: The patient still has gross ascites. No sign of acute abdomen. No guarding, no rigidity, no rebound. Bowel sounds are plus and normal. EXTREMITIES: No calf swelling. No tenderness. No acute ischemia. No edema. CENTRAL NERVOUS SYSTEM EXAM: Essentially unchanged. DIAGNOSTIC DATA: Available diagnostic data reviewed. ASSESSMENT AND PLAN: Overall, the patient is hemodynamically stable. Plan as ordered. Robbin Romano MD
[2018-01-09] MEDS: Bacitracin 500 Units/gm Oint Foilpak UD TOP SCH ×3 (09:03→17:22)
--- NOTE | 2018-01-09 09:10 | CP.PCM.PN ---
Subjective - Date & Time of Evaluation Date of Evaluation: 01/09/18 Time of Evaluation: 09:18 - Subjective Subjective: no new events reported Vital signs stable Objective - Vital Signs/Intake and Output Vital Signs (last 24 hours): Temp Pulse Resp BP Pulse Ox 97.9 F 82 18 114/67 100 01/09/18 08:48 01/09/18 09:01 01/09/18 08:48 01/09/18 09:03 01/09/18 08:48 Intake and Output: 01/09/18 01/09/18 06:59 18:59 Output Total 300 Balance -300 - Medications Medications: Current Medications Acetaminophen (Tylenol 325mg Tab) 650 mg PO Q4 PRN PRN Reason: Pain, moderate (4-7) Last Admin: 12/24/17 17:48 Dose: 650 mg Acetaminophen (Tylenol 325mg Tab) 650 mg PO Q6 PRN PRN Reason: Fever >100.4 F Last Admin: 01/01/18 00:34 Dose: 650 mg Acetaminophen/Codeine Phosphate (Tylenol/Codeine 300 Mg/30 Mg) 1 tab PO Q6 PRN PRN Reason: Pain, severe (8-10) Last Admin: 12/25/17 21:44 Dose: 1 tab Albuterol (Ventolin Hfa 90 Mcg/Actuation (8 G)) 1 puff INH RQ6 PRN PRN Reason: Shortness of Breath Last Admin: 01/04/18 01:43 Dose: 1 puff Bacitracin (Bacitracin) 1 ea TOP TID [facility] Last Admin: 01/09/18 09:03 Dose: 1 ea Dextrose (Dextrose 50% Inj) 0 ml IV STAT PRN; Protocol PRN Reason: Hypoglycemia Protocol Dextrose (Glutose 15) 0 gm PO ONCE PRN; Protocol PRN Reason: Hypoglycemia Protocol Diphenhydramine HCl (Benadryl) 50 mg PO HS PRN PRN Reason: Sleep Last Admin: 01/08/18 23:43 Dose: 50 mg Famotidine (Pepcid) 40 mg PO HS [facility] Last Admin: 01/08/18 21:43 Dose: 40 mg Ferrous Gluconate (Fergon) 324 mg PO TID [facility] Last Admin: 01/09/18 09:01 Dose: 324 mg Furosemide (Lasix) 20 mg PO BID [facility] Last Admin: 01/09/18 09:03 Dose: 20 mg Glucagon (Glucagen Diagnostic Kit) 0 mg IM STAT PRN; Protocol PRN Reason: Hypoglycemia Protocol Guaifenesin/Dextromethorphan (Robitussin Dm) 5 ml PO TID PRN PRN Reason: Cough Last Admin: 01/08/18 21:48 Dose: 5 ml Haloperidol Lactate (Haldol) 2 mg PO TID [facility] Last Admin: 01/09/18 08:58 Dose: 2 mg Cefazolin Sodium 1 gm/ Sodium (Chloride) 100 mls @ 100 mls/hr IVPB Q8 [facility]; Protocol Last Admin: 01/09/18 00:40 Dose: 100 mls/hr Insulin Detemir (Levemir) 5 units SC HS [facility] Last Admin: 01/08/18 21:57 Dose: 5 units Insulin Human Regular (Humulin R) 0 units SC ACHS [facility]; Protocol Last Admin: 01/09/18 08:04 Dose: 3 units Lactulose (Enulose) 20 gm PO Q8 [facility] Last Admin: 01/09/18 09:04 Dose: 20 gm Midodrine (Proamatine) 10 mg PO TID [facility] Last Admin: 01/09/18 08:59 Dose: 10 mg Octreotide Acetate (Sandostatin) 200 mcg SC Q8@0300,1100,1900 [facility] Last Admin: 01/09/18 04:00 Dose: 200 mcg Ondansetron HCl (Zofran Inj) 4 mg IVP Q8 PRN PRN Reason: Nausea/Vomiting Last Admin: 12/22/17 08:33 Dose: 4 mg Propranolol HCl (Inderal) 10 mg PO Q12 [facility] Last Admin: 01/09/18 09:01 Dose: 10 mg Sodium Bicarbonate (Sodium Bicarbonate Tab) 650 mg PO BID [facility] Last Admin: 01/09/18 08:58 Dose: 650 mg Spironolactone (Aldactone) 25 mg PO DAILY [facility] Last Admin: 01/09/18 09:01 Dose: 25 mg Thiamine HCl (Vitamin B1 Tab) 100 mg PO DAILY [facility] Last Admin: 01/09/18 09:02 Dose: 100 mg Trazodone HCl (Desyrel) 50 mg PO HS [facility] Last Admin: 01/08/18 21:43 Dose: 50 mg Vitamin B Complex/Vit C/Folic Acid (Nephro-Ree) 1 tab PO DAILY [facility] Last Admin: 01/09/18 09:00 Dose: 1 tab - Labs Labs: 01/09/18 06:00 01/09/18 06:00 PT 17.0 Seconds (9.8-13.1) H 12/13/17 14:10 INR 1.5 12/13/17 14:10 APTT 33.1 Seconds (25.6-37.1) 12/13/17 14:10 - Constitutional Appears: No Acute Distress - Eye Exam Eye Exam: Conjunctival injection - ENT Exam ENT Exam: absent: Mucous Membranes Moist - Neck Exam Neck Exam: absent: Lymphadenopathy - Respiratory Exam Respiratory Exam: NORMAL BREATHING PATTERN. absent: Chest Wall Tenderness - GI/Abdominal Exam GI & Abdominal Exam: Soft, Normal Bowel Sounds - Extremities Exam Extremities Exam: absent: Calf Tenderness - Back Exam Back Exam: absent: CVA tenderness (L), CVA tenderness (R) - Neurological Exam Neurological Exam: Altered, Awake - Skin Skin Exam: absent: Cyanosis Assessment and Plan (1) SHELLIE (acute kidney injury) Assessment & Plan: acute kidney injury improving and recovering slowly. 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 massive ascitis with recurrent paracentesis anemia recommendation intermittent use of 25% albumin for hypotension. continue midodrine Prognosis is guarded. medication dose is adjusted per renal failure kidney function continue to improve serum creatinine down 1.2 status post paracentesis with 5 L removed Status post paracentesis 12/27 over 10 L of fluid was removed status post paracentesis 01/05 and 11 L. fluid removed Status: Acute (2) Ascites Status: Acute
[2018-01-09] MEDS: guaiFENesin DM 100 mg-10 mg/5 ml UD PO PRN (21:12)
[2018-01-09] MEDS: Insulin Detemir 100 Units/ml Inj SC SCH (22:44)
[2018-01-10] MEDS: ceFAZolin 1 GM in Sodium Chloride 0.9% 100 ML IVPB SCH ×3 (02:01→16:31)
--- NOTE | 2018-01-10 08:50 | PN ---
DATE: 01/09/2018 SUBJECTIVE: The patient seen and examined. Interim events noted. The patient remains in regular medical floor with observation for safety. Feels okay. Denies any specific complaint. Talked about going to the [place] on Tuesday. No chest pain. No shortness of breath. Abdominal discomfort is better. PHYSICAL EXAMINATION: GENERAL: The patient is in no acute distress. VITAL SIGNS: Stable. HEART: S1, S2 normal and regular. LUNGS: Good bilateral air exchange. ABDOMEN: Soft, nontender. The patient has gross ascites, but no sign of acute abdomen. No guarding, no rigidity, no rebound. Bowel sounds are plus and normal. EXTREMITIES: No calf swelling. No tenderness. No acute ischemia. CENTRAL NERVOUS SYSTEM: Essentially unchanged. DIAGNOSTIC DATA: Available diagnostic data reviewed. ASSESSMENT AND PLAN: Overall, the patient's general medical condition is stable. Plan as ordered. Robbin Romano MD
--- NOTE | 2018-01-10 08:55 | CP.PCM.PN ---
<Karoline Sanches - Last Filed: 01/10/18 11:14> Subjective - Date & Time of Evaluation Date of Evaluation: 01/10/18 Time of Evaluation: 08:00 - Subjective Subjective: Patient seen and examined this morning at the bedside. Found sleeping, arousable, no acute distress noted. Denies abdominal pain, dyspnea. Objective - Vital Signs/Intake and Output Vital Signs (last 24 hours): Temp Pulse Resp BP Pulse Ox 98.1 F 80 19 101/66 99 01/10/18 08:22 01/10/18 08:22 01/10/18 08:22 01/10/18 08:22 01/10/18 08:22 - Medications Medications: Current Medications Acetaminophen (Tylenol 325mg Tab) 650 mg PO Q4 PRN PRN Reason: Pain, moderate (4-7) Last Admin: 12/24/17 17:48 Dose: 650 mg Acetaminophen (Tylenol 325mg Tab) 650 mg PO Q6 PRN PRN Reason: Fever >100.4 F Last Admin: 01/01/18 00:34 Dose: 650 mg Albuterol (Ventolin Hfa 90 Mcg/Actuation (8 G)) 1 puff INH RQ6 PRN PRN Reason: Shortness of Breath Last Admin: 01/04/18 01:43 Dose: 1 puff Bacitracin (Bacitracin) 1 ea TOP TID [facility] Last Admin: 01/09/18 17:22 Dose: 1 ea Dextrose (Dextrose 50% Inj) 0 ml IV STAT PRN; Protocol PRN Reason: Hypoglycemia Protocol Dextrose (Glutose 15) 0 gm PO ONCE PRN; Protocol PRN Reason: Hypoglycemia Protocol Diphenhydramine HCl (Benadryl) 50 mg PO HS PRN PRN Reason: Sleep Last Admin: 01/09/18 21:13 Dose: 50 mg Famotidine (Pepcid) 40 mg PO HS [facility] Last Admin: 01/09/18 21:13 Dose: 40 mg Ferrous Gluconate (Fergon) 324 mg PO TID [facility] Last Admin: 01/09/18 17:17 Dose: 324 mg Furosemide (Lasix) 40 mg PO BID [facility] Last Admin: 01/09/18 17:20 Dose: 40 mg Glucagon (Glucagen Diagnostic Kit) 0 mg IM STAT PRN; Protocol PRN Reason: Hypoglycemia Protocol Guaifenesin/Dextromethorphan (Robitussin Dm) 5 ml PO TID PRN PRN Reason: Cough Last Admin: 01/09/18 21:12 Dose: 5 ml Haloperidol Lactate (Haldol) 2 mg PO TID [facility] Last Admin: 01/09/18 17:19 Dose: 2 mg Cefazolin Sodium 1 gm/ Sodium (Chloride) 100 mls @ 100 mls/hr IVPB Q8 [facility]; Protocol Last Admin: 01/10/18 02:01 Dose: 100 mls/hr Insulin Detemir (Levemir) 5 units SC [facility] Last Admin: 01/09/18 22:44 Dose: 5 units Insulin Human Regular (Humulin R) 0 units SC [facility]; Protocol Last Admin: 01/09/18 22:46 Dose: 2 units Lactulose (Enulose) 20 gm PO Q8 [facility] Last Admin: 01/10/18 01:48 Dose: Not Given Midodrine (Proamatine) 10 mg PO TID [facility] Last Admin: 01/09/18 17:18 Dose: 10 mg Octreotide Acetate (Sandostatin) 200 mcg SC Q8@0300,1100,1900 [facility] Last Admin: 01/10/18 02:00 Dose: 200 mcg Ondansetron HCl (Zofran Inj) 4 mg IVP Q8 PRN PRN Reason: Nausea/Vomiting Last Admin: 12/22/17 08:33 Dose: 4 mg Propranolol HCl (Inderal) 10 mg PO Q12 [facility] Last Admin: 01/09/18 21:13 Dose: 10 mg Sodium Bicarbonate (Sodium Bicarbonate Tab) 650 mg PO BID [facility] Last Admin: 01/09/18 17:17 Dose: 650 mg Spironolactone (Aldactone) 50 mg PO BID [facility] Last Admin: 01/09/18 17:21 Dose: 50 mg Thiamine HCl (Vitamin B1 Tab) 100 mg PO DAILY [facility] Last Admin: 01/09/18 09:02 Dose: 100 mg Trazodone HCl (Desyrel) 50 mg PO [facility] Last Admin: 01/09/18 21:13 Dose: 50 mg Vitamin B Complex/Vit C/Folic Acid (Nephro-Ree) 1 tab PO DAILY [facility] Last Admin: 01/09/18 09:00 Dose: 1 tab - Labs Labs: 01/09/18 06:00 01/09/18 06:00 PT 17.0 Seconds (9.8-13.1) H 12/13/17 14:10 INR 1.5 12/13/17 14:10 APTT 33.1 Seconds (25.6-37.1) 12/13/17 14:10 - Constitutional Appears: No Acute Distress, Chronically Ill - Head Exam Head Exam: NORMAL INSPECTION - Eye Exam Eye Exam: Normal appearance - ENT Exam ENT Exam: Mucous Membranes Moist - Neck Exam Neck Exam: Full ROM - Respiratory Exam Respiratory Exam: Decreased Breath Sounds, Clear to Ausculation Bilateral, Wheezes. absent: Accessory Muscle Use, Rales - Cardiovascular Exam Cardiovascular Exam: REGULAR RHYTHM, +S1, +S2. absent: Murmur - GI/Abdominal Exam GI & Abdominal Exam: Distended, Normal Bowel Sounds. absent: Guarding Additional comments: + moderate ascites, mild tenderness (diffuse), normal bowel sounds - Extremities Exam Extremities Exam: Normal Capillary Refill, Normal Inspection. absent: Calf Tenderness, Pedal Edema - Neurological Exam Neurological Exam: Alert - Psychiatric Exam Psychiatric exam: Normal Affect - Skin Skin Exam: Normal Color Assessment and Plan - Assessment and Plan (Free Text) Assessment: 57 y/o M with a PMHx of HTN, DM, asthma, ETOH abuse with liver cirrhosis, admitted for recurrent ascitis, auditory hallucinations, SHELLIE and Bacteremia. PLAN: Ascites - 2/2 to Alcholic Cirrohosis, poor prognosis - Worsening Ascites, s/p IR guided Paracentesis on 12/27 with 10 L and 01/05 with 11L removed - Therapeutic paracentesis PRN as tolerated - GI on board, Dr. Galdamez, worsening ascites may need more diuretics or TIPS - C/W aldactone, lasix, octreotide, lactulose and midodrine SHELLIE vs Hepatorenal - resolved, Crea 1.2 - nephrology on board, YARIEL/ARBS were held in light of kidney injury - Continue monitoring renal function Bacteremia -MSSA - ID on board, Dr. Davis - C/W Anceph for 2 weeks total needed as per ID (started on 01/02) Acute Psychosis -Evaluated by Psych, persecutory hallucinations, no capacity to make medical decisions -Haldol po TID -Trazodone HS -1:1 Anemia -H/H stable -Macrocytic Anemia, chronic liver disease, B12 and folate wnl -C/W ferrous sulfate po SW/Case management -Needs gaurdianship; unable to sign over POA -Will discuss case with SW today to start process for guardianship Hyperglycemia -HgA1C 6.0, prediabetic -BS uncontrolled, 250-350 ranges -Insulin 5units at night, increased to 8 units. Will consider starting basal bolus regimen. DVT -SCD's for now <Romano,Robbin K - Last Filed: 01/11/18 18:47> Objective - Vital Signs/Intake and Output Vital Signs (last 24 hours): Temp Pulse Resp BP Pulse Ox 98.4 F 73 20 112/64 100 01/11/18 16:16 01/11/18 16:16 01/11/18 16:16 01/11/18 16:16 01/11/18 16:16 Intake and Output: 01/11/18 01/11/18 11:59 23:59 Output Total 250 Balance -250 - Medications Medications: Current Medications Acetaminophen (Tylenol 325mg Tab) 650 mg PO Q4 PRN PRN Reason: Pain, moderate (4-7) Last Admin: 01/11/18 18:28 Dose: 650 mg Acetaminophen (Tylenol 325mg Tab) 650 mg PO Q6 PRN PRN Reason: Fever >100.4 F Last Admin: 01/01/18 00:34 Dose: 650 mg Albuterol (Ventolin Hfa 90 Mcg/Actuation (8 G)) 1 puff INH RQ6 PRN PRN Reason: Shortness of Breath Last Admin: 01/11/18 18:25 Dose: 1 puff Bacitracin (Bacitracin) 1 ea TOP TID [facility] Last Admin: 01/11/18 16:04 Dose: 1 ea Dextrose (Dextrose 50% Inj) 0 ml IV STAT PRN; Protocol PRN Reason: Hypoglycemia Protocol Dextrose (Glutose 15) 0 gm PO ONCE PRN; Protocol PRN Reason: Hypoglycemia Protocol Diphenhydramine HCl (Benadryl) 50 mg PO HS PRN PRN Reason: Sleep Last Admin: 01/10/18 20:44 Dose: 50 mg Famotidine (Pepcid) 40 mg PO HS [facility] Last Admin: 01/10/18 21:00 Dose: 40 mg Ferrous Gluconate (Fergon) 324 mg PO TID [facility] Last Admin: 01/11/18 16:05 Dose: 324 mg Furosemide (Lasix) 40 mg PO BID [facility] Last Admin: 01/11/18 16:02 Dose: 40 mg Glucagon (Glucagen Diagnostic Kit) 0 mg IM STAT PRN; Protocol PRN Reason: Hypoglycemia Protocol Guaifenesin/Dextromethorphan (Robitussin Dm) 5 ml PO TID PRN PRN Reason: Cough Last Admin: 01/10/18 20:56 Dose: 5 ml Haloperidol Lactate (Haldol) 2 mg PO TID [facility] Last Admin: 01/11/18 16:03 Dose: 2 mg Cefazolin Sodium 1 gm/ Sodium (Chloride) 100 mls @ 100 mls/hr IVPB Q8 [facility]; Protocol Last Admin: 01/11/18 16:05 Dose: 100 mls/hr Insulin Detemir (Levemir) 8 units SC [facility] Last Admin: 01/10/18 23:17 Dose: 8 units Insulin Human Regular (Humulin R) 0 units SC ACHS [facility]; Protocol Last Admin: 01/11/18 16:54 Dose: 8 units Lactulose (Enulose) 20 gm PO Q8 [facility] Last Admin: 01/11/18 16:04 Dose: Not Given Midodrine (Proamatine) 10 mg PO TID [facility] Last Admin: 01/11/18 16:03 Dose: 10 mg Octreotide Acetate (Sandostatin) 200 mcg SC Q8@0300,1100,1900 [facility] Last Admin: 01/11/18 12:10 Dose: 200 mcg Ondansetron HCl (Zofran Inj) 4 mg IVP Q8 PRN PRN Reason: Nausea/Vomiting Last Admin: 12/22/17 08:33 Dose: 4 mg Propranolol HCl (Inderal) 10 mg PO Q12 [facility] Last Admin: 01/11/18 08:42 Dose: Not Given Sodium Bicarbonate (Sodium Bicarbonate Tab) 650 mg PO BID [facility] Last Admin: 01/11/18 16:04 Dose: 650 mg Spironolactone (Aldactone) 50 mg PO BID [facility] Last Admin: 01/11/18 16:04 Dose: 50 mg Thiamine HCl (Vitamin B1 Tab) 100 mg PO DAILY [facility] Last Admin: 01/11/18 08:41 Dose: 100 mg Trazodone HCl (Desyrel) 50 mg PO HS [facility] Last Admin: 01/10/18 21:00 Dose: 50 mg Vitamin B Complex/Vit C/Folic Acid (Nephro-Ree) 1 tab PO DAILY [facility] Last Admin: 01/11/18 08:41 Dose: 1 tab - Labs Labs: 01/11/18 05:40 01/11/18 05:40 PT 17.0 Seconds (9.8-13.1) H 12/13/17 14:10 INR 1.5 12/13/17 14:10 APTT 33.1 Seconds (25.6-37.1) 12/13/17 14:10 Assessment and Plan - Assessment and Plan (Free Text) Assessment: Patient was personally seen and examined by me in rounds with residents. Available labs and diagnostic data reviewed. Case, Patient's condition and management plan discussed with residents in rounds. Agree with resident's progress note. Plan: As ordered.
[2018-01-10] MEDS: Haloperidol Lactate 2 mg/ml Liquid PO SCH ×3 (09:04→16:21)
[2018-01-10] MEDS: Bacitracin 500 Units/gm Oint Foilpak UD TOP SCH ×3 (09:05→16:23)
[2018-01-10] MEDS: Insulin Regular 100 units/ml SC SCH ×4 (09:05→22:54)
[2018-01-10] MEDS: Multivitamin Vitamin B Complex (Nephro-Vite) Tab PO SCH (09:06)
--- NOTE | 2018-01-10 10:55 | CP.PCM.PN ---
Subjective - Date & Time of Evaluation Date of Evaluation: 01/10/18 Time of Evaluation: 07:00 - Subjective Subjective: rx renewed cont rx total 14 days Objective - Vital Signs/Intake and Output Vital Signs (last 24 hours): Temp Pulse Resp BP Pulse Ox 98.1 F 80 19 101/60 99 01/10/18 08:22 01/10/18 09:06 01/10/18 08:22 01/10/18 09:06 01/10/18 08:22 - Medications Medications: Current Medications Acetaminophen (Tylenol 325mg Tab) 650 mg PO Q4 PRN PRN Reason: Pain, moderate (4-7) Last Admin: 12/24/17 17:48 Dose: 650 mg Acetaminophen (Tylenol 325mg Tab) 650 mg PO Q6 PRN PRN Reason: Fever >100.4 F Last Admin: 01/01/18 00:34 Dose: 650 mg Albuterol (Ventolin Hfa 90 Mcg/Actuation (8 G)) 1 puff INH RQ6 PRN PRN Reason: Shortness of Breath Last Admin: 01/04/18 01:43 Dose: 1 puff Bacitracin (Bacitracin) 1 ea TOP TID [facility] Last Admin: 01/10/18 09:05 Dose: 1 ea Dextrose (Dextrose 50% Inj) 0 ml IV STAT PRN; Protocol PRN Reason: Hypoglycemia Protocol Dextrose (Glutose 15) 0 gm PO ONCE PRN; Protocol PRN Reason: Hypoglycemia Protocol Diphenhydramine HCl (Benadryl) 50 mg PO HS PRN PRN Reason: Sleep Last Admin: 01/09/18 21:13 Dose: 50 mg Famotidine (Pepcid) 40 mg PO HS [facility] Last Admin: 01/09/18 21:13 Dose: 40 mg Ferrous Gluconate (Fergon) 324 mg PO TID [facility] Last Admin: 01/10/18 09:04 Dose: 324 mg Furosemide (Lasix) 40 mg PO BID [facility] Last Admin: 01/10/18 09:04 Dose: 40 mg Glucagon (Glucagen Diagnostic Kit) 0 mg IM STAT PRN; Protocol PRN Reason: Hypoglycemia Protocol Guaifenesin/Dextromethorphan (Robitussin Dm) 5 ml PO TID PRN PRN Reason: Cough Last Admin: 01/09/18 21:12 Dose: 5 ml Haloperidol Lactate (Haldol) 2 mg PO TID [facility] Last Admin: 01/10/18 09:04 Dose: 2 mg Cefazolin Sodium 1 gm/ Sodium (Chloride) 100 mls @ 100 mls/hr IVPB Q8 [facility]; Protocol Last Admin: 01/10/18 09:03 Dose: 100 mls/hr Insulin Detemir (Levemir) 5 units SC HS [facility] Last Admin: 01/09/18 22:44 Dose: 5 units Insulin Human Regular (Humulin R) 0 units SC ACHS [facility]; Protocol Last Admin: 01/10/18 09:05 Dose: 4 units Lactulose (Enulose) 20 gm PO Q8 [facility] Last Admin: 01/10/18 09:03 Dose: 20 gm Midodrine (Proamatine) 10 mg PO TID [facility] Last Admin: 01/10/18 09:03 Dose: 10 mg Octreotide Acetate (Sandostatin) 200 mcg SC Q8@0300,1100,1900 [facility] Last Admin: 01/10/18 02:00 Dose: 200 mcg Ondansetron HCl (Zofran Inj) 4 mg IVP Q8 PRN PRN Reason: Nausea/Vomiting Last Admin: 12/22/17 08:33 Dose: 4 mg Propranolol HCl (Inderal) 10 mg PO Q12 [facility] Last Admin: 01/10/18 09:06 Dose: 10 mg Sodium Bicarbonate (Sodium Bicarbonate Tab) 650 mg PO BID [facility] Last Admin: 01/10/18 09:05 Dose: 650 mg Spironolactone (Aldactone) 50 mg PO BID [facility] Last Admin: 01/10/18 09:05 Dose: 50 mg Thiamine HCl (Vitamin B1 Tab) 100 mg PO DAILY [facility] Last Admin: 01/10/18 09:07 Dose: 100 mg Trazodone HCl (Desyrel) 50 mg PO HS [facility] Last Admin: 01/09/18 21:13 Dose: 50 mg Vitamin B Complex/Vit C/Folic Acid (Nephro-Ree) 1 tab PO DAILY [facility] Last Admin: 01/10/18 09:06 Dose: 1 tab - Labs Labs: 01/09/18 06:00 01/09/18 06:00 PT 17.0 Seconds (9.8-13.1) H 12/13/17 14:10 INR 1.5 12/13/17 14:10 APTT 33.1 Seconds (25.6-37.1) 12/13/17 14:10 Assessment and Plan (1) SHELLIE (acute kidney injury) Status: Acute (2) Ascites Status: Acute (3) Abdominal pain Status: Acute (4) Alcohol abuse with intoxication Status: Acute (5) Anxiety Status: Chronic (6) Depression Status: Chronic (7) Diabetes mellitus Status: Chronic (8) Liver cirrhosis Status: Chronic (9) Staph aureus infection Status: Acute
[2018-01-10] MEDS: guaiFENesin DM 100 mg-10 mg/5 ml UD PO PRN (20:56)
[2018-01-10] MEDS: Insulin Detemir 100 Units/ml Inj SC SCH (23:17)
[2018-01-11] MEDS: ceFAZolin 1 GM in Sodium Chloride 0.9% 100 ML IVPB SCH ×3 (01:04→16:05)
[2018-01-11 06:34] LABS: HEMOGLOBIN 9.3 g/dL (12.0-18.0); MEAN CELL VOLUME 107.5 fl (80.0-94.0); MEAN CORPUSCULAR HEMOGLOBIN 36.7 pg (27.0-31.0); MEAN CORPUSCULAR HGB CONC 34.2 g/dL (33.0-37.0); RBC 2.53 Mil/uL (4.40-5.90); RED CELL DISTRIBUTION WIDTH 19.1 % (11.5-14.5); WHITE BLOOD COUNT 6.5 K/uL (4.8-10.8)
[2018-01-11 06:52] LABS: ALB/GLOB RATIO 0.7 (1.0-2.1); ALBUMIN 2.6 g/dL (3.5-5.0); ALT/SGPT 15 U/L (21-72); AST/SGOT 42 U/L (17-59); BLOOD UREA NITROGEN 31 mg/dl (9-20); CALCIUM 8.3 mg/dL (8.4-10.2); GFR NON-AFRICAN AMERICAN 57
[2018-01-11] MEDS: Bacitracin 500 Units/gm Oint Foilpak UD TOP SCH ×3 (08:40→16:04)
[2018-01-11] MEDS: Multivitamin Vitamin B Complex (Nephro-Vite) Tab PO SCH (08:41)
[2018-01-11] MEDS: Insulin Regular 100 units/ml SC SCH ×4 (08:43→22:18)
[2018-01-11] MEDS: Haloperidol Lactate 2 mg/ml Liquid PO SCH ×4 (08:44→16:03)
--- NOTE | 2018-01-11 11:03 | PN ---
DATE: 01/11/2018 SUBJECTIVE: The patient seen and examined. Interim events noted. Consults noted and appreciated. The patient remains in regular medical floor with observation. Denies any specific complaint. No chest pain or shortness of breath or abdominal pain. PHYSICAL EXAMINATION: GENERAL: The patient is in no acute distress. VITAL SIGNS: Stable. HEART: S1, S2 normal regular. LUNGS: Good bilateral air exchange. ABDOMEN: Soft, nontender. The patient has gross ascites, but no sign of acute abdomen. No guarding, no rigidity, no rebound. Bowel sounds are plus and normal. EXTREMITIES: No edema. No calf swelling. No tenderness. No acute ischemia. CENTRAL NERVOUS SYSTEM: Exam is essentially unchanged. DIAGNOSTIC DATA: Available diagnostic data reviewed. ASSESSMENT AND PLAN: Overall, the patient is medically stable. Plan as ordered. Robbin Romano MD
--- NOTE | 2018-01-11 12:52 | CP.PCM.PN ---
Subjective - Date & Time of Evaluation Date of Evaluation: 01/11/18 Time of Evaluation: 08:00 - Subjective Subjective: afebrile alert abd distended + ascites Objective - Vital Signs/Intake and Output Vital Signs (last 24 hours): Temp Pulse Resp BP Pulse Ox 97.9 F 61 20 81/41 L 100 01/11/18 08:08 01/11/18 08:42 01/11/18 08:08 01/11/18 08:42 01/11/18 08:08 - Medications Medications: Current Medications Acetaminophen (Tylenol 325mg Tab) 650 mg PO Q4 PRN PRN Reason: Pain, moderate (4-7) Last Admin: 01/11/18 06:04 Dose: 650 mg Acetaminophen (Tylenol 325mg Tab) 650 mg PO Q6 PRN PRN Reason: Fever >100.4 F Last Admin: 01/01/18 00:34 Dose: 650 mg Albuterol (Ventolin Hfa 90 Mcg/Actuation (8 G)) 1 puff INH RQ6 PRN PRN Reason: Shortness of Breath Last Admin: 01/04/18 01:43 Dose: 1 puff Bacitracin (Bacitracin) 1 ea TOP TID [facility] Last Admin: 01/11/18 12:08 Dose: 1 ea Dextrose (Dextrose 50% Inj) 0 ml IV STAT PRN; Protocol PRN Reason: Hypoglycemia Protocol Dextrose (Glutose 15) 0 gm PO ONCE PRN; Protocol PRN Reason: Hypoglycemia Protocol Diphenhydramine HCl (Benadryl) 50 mg PO HS PRN PRN Reason: Sleep Last Admin: 01/10/18 20:44 Dose: 50 mg Famotidine (Pepcid) 40 mg PO HS [facility] Last Admin: 01/10/18 21:00 Dose: 40 mg Ferrous Gluconate (Fergon) 324 mg PO TID [facility] Last Admin: 01/11/18 12:11 Dose: 324 mg Furosemide (Lasix) 40 mg PO BID [facility] Last Admin: 01/11/18 08:42 Dose: Not Given Glucagon (Glucagen Diagnostic Kit) 0 mg IM STAT PRN; Protocol PRN Reason: Hypoglycemia Protocol Guaifenesin/Dextromethorphan (Robitussin Dm) 5 ml PO TID PRN PRN Reason: Cough Last Admin: 01/10/18 20:56 Dose: 5 ml Haloperidol Lactate (Haldol) 2 mg PO TID [facility] Last Admin: 01/11/18 12:09 Dose: 2 mg Cefazolin Sodium 1 gm/ Sodium (Chloride) 100 mls @ 100 mls/hr IVPB Q8 [facility]; Protocol Last Admin: 01/11/18 08:40 Dose: 100 mls/hr Insulin Detemir (Levemir) 8 units SC [facility] Last Admin: 01/10/18 23:17 Dose: 8 units Insulin Human Regular (Humulin R) 0 units SC ACHS [facility]; Protocol Last Admin: 01/11/18 12:10 Dose: 4 units Lactulose (Enulose) 20 gm PO Q8 [facility] Last Admin: 01/11/18 08:40 Dose: 20 gm Midodrine (Proamatine) 10 mg PO TID [facility] Last Admin: 01/11/18 12:09 Dose: 10 mg Octreotide Acetate (Sandostatin) 200 mcg SC Q8@0300,1100,1900 [facility] Last Admin: 01/11/18 12:10 Dose: 200 mcg Ondansetron HCl (Zofran Inj) 4 mg IVP Q8 PRN PRN Reason: Nausea/Vomiting Last Admin: 12/22/17 08:33 Dose: 4 mg Propranolol HCl (Inderal) 10 mg PO Q12 [facility] Last Admin: 01/11/18 08:42 Dose: Not Given Sodium Bicarbonate (Sodium Bicarbonate Tab) 650 mg PO BID [facility] Last Admin: 01/11/18 08:41 Dose: 650 mg Spironolactone (Aldactone) 50 mg PO BID [facility] Last Admin: 01/11/18 08:42 Dose: Not Given Thiamine HCl (Vitamin B1 Tab) 100 mg PO DAILY [facility] Last Admin: 01/11/18 08:41 Dose: 100 mg Trazodone HCl (Desyrel) 50 mg PO [facility] Last Admin: 01/10/18 21:00 Dose: 50 mg Vitamin B Complex/Vit C/Folic Acid (Nephro-Ree) 1 tab PO DAILY [facility] Last Admin: 01/11/18 08:41 Dose: 1 tab - Labs Labs: 01/11/18 05:40 01/11/18 05:40 PT 17.0 Seconds (9.8-13.1) H 12/13/17 14:10 INR 1.5 12/13/17 14:10 APTT 33.1 Seconds (25.6-37.1) 12/13/17 14:10 - Constitutional Appears: Non-toxic, Chronically Ill - Head Exam Head Exam: NORMOCEPHALIC - Eye Exam Eye Exam: absent: Scleral icterus - ENT Exam ENT Exam: Mucous Membranes Dry - Neck Exam Neck Exam: absent: Lymphadenopathy - Respiratory Exam Respiratory Exam: Decreased Breath Sounds - Cardiovascular Exam Cardiovascular Exam: REGULAR RHYTHM - GI/Abdominal Exam GI & Abdominal Exam: Distended, Soft, Tenderness. absent: Guarding - Rectal Exam Rectal Exam: Deferred - Exam Exam: NORMAL INSPECTION - Extremities Exam Extremities Exam: Pedal Edema - Back Exam Back Exam: absent: CVA tenderness (L), CVA tenderness (R) - Neurological Exam Neurological Exam: Alert, Awake, CN II-XII Intact, Normal Gait Assessment and Plan (1) SHELLIE (acute kidney injury) Status: Acute (2) Ascites Status: Acute (3) Abdominal pain Status: Acute (4) Alcohol abuse with intoxication Status: Acute (5) Anxiety Status: Chronic (6) Depression Status: Chronic (7) Diabetes mellitus Status: Chronic (8) Liver cirrhosis Status: Chronic (9) Staph aureus infection Status: Acute
--- NOTE | 2018-01-11 13:26 | CP.PCM.PN ---
Subjective - Date & Time of Evaluation Date of Evaluation: 01/11/18 Time of Evaluation: 13:24 - Subjective Subjective: patient is partially confused to place and time Reaccumulated and go fluid Objective - Vital Signs/Intake and Output Vital Signs (last 24 hours): Temp Pulse Resp BP Pulse Ox 97.9 F 61 20 81/41 L 100 01/11/18 08:08 01/11/18 08:42 01/11/18 08:08 01/11/18 08:42 01/11/18 08:08 - Medications Medications: Current Medications Acetaminophen (Tylenol 325mg Tab) 650 mg PO Q4 PRN PRN Reason: Pain, moderate (4-7) Last Admin: 01/11/18 06:04 Dose: 650 mg Acetaminophen (Tylenol 325mg Tab) 650 mg PO Q6 PRN PRN Reason: Fever >100.4 F Last Admin: 01/01/18 00:34 Dose: 650 mg Albuterol (Ventolin Hfa 90 Mcg/Actuation (8 G)) 1 puff INH RQ6 PRN PRN Reason: Shortness of Breath Last Admin: 01/04/18 01:43 Dose: 1 puff Bacitracin (Bacitracin) 1 ea TOP TID [facility] Last Admin: 01/11/18 12:08 Dose: 1 ea Dextrose (Dextrose 50% Inj) 0 ml IV STAT PRN; Protocol PRN Reason: Hypoglycemia Protocol Dextrose (Glutose 15) 0 gm PO ONCE PRN; Protocol PRN Reason: Hypoglycemia Protocol Diphenhydramine HCl (Benadryl) 50 mg PO HS PRN PRN Reason: Sleep Last Admin: 01/10/18 20:44 Dose: 50 mg Famotidine (Pepcid) 40 mg PO HS [facility] Last Admin: 01/10/18 21:00 Dose: 40 mg Ferrous Gluconate (Fergon) 324 mg PO TID [facility] Last Admin: 01/11/18 12:11 Dose: 324 mg Furosemide (Lasix) 40 mg PO BID [facility] Last Admin: 01/11/18 08:42 Dose: Not Given Glucagon (Glucagen Diagnostic Kit) 0 mg IM STAT PRN; Protocol PRN Reason: Hypoglycemia Protocol Guaifenesin/Dextromethorphan (Robitussin Dm) 5 ml PO TID PRN PRN Reason: Cough Last Admin: 01/10/18 20:56 Dose: 5 ml Haloperidol Lactate (Haldol) 2 mg PO TID [facility] Last Admin: 01/11/18 12:09 Dose: 2 mg Cefazolin Sodium 1 gm/ Sodium (Chloride) 100 mls @ 100 mls/hr IVPB Q8 [facility]; Protocol Last Admin: 01/11/18 08:40 Dose: 100 mls/hr Insulin Detemir (Levemir) 8 units SC [facility] Last Admin: 01/10/18 23:17 Dose: 8 units Insulin Human Regular (Humulin R) 0 units SC ACHS [facility]; Protocol Last Admin: 01/11/18 12:10 Dose: 4 units Lactulose (Enulose) 20 gm PO Q8 [facility] Last Admin: 01/11/18 08:40 Dose: 20 gm Midodrine (Proamatine) 10 mg PO TID [facility] Last Admin: 01/11/18 12:09 Dose: 10 mg Octreotide Acetate (Sandostatin) 200 mcg SC Q8@0300,1100,1900 [facility] Last Admin: 01/11/18 12:10 Dose: 200 mcg Ondansetron HCl (Zofran Inj) 4 mg IVP Q8 PRN PRN Reason: Nausea/Vomiting Last Admin: 12/22/17 08:33 Dose: 4 mg Propranolol HCl (Inderal) 10 mg PO Q12 [facility] Last Admin: 01/11/18 08:42 Dose: Not Given Sodium Bicarbonate (Sodium Bicarbonate Tab) 650 mg PO BID [facility] Last Admin: 01/11/18 08:41 Dose: 650 mg Spironolactone (Aldactone) 50 mg PO BID [facility] Last Admin: 01/11/18 08:42 Dose: Not Given Thiamine HCl (Vitamin B1 Tab) 100 mg PO DAILY [facility] Last Admin: 01/11/18 08:41 Dose: 100 mg Trazodone HCl (Desyrel) 50 mg PO [facility] Last Admin: 01/10/18 21:00 Dose: 50 mg Vitamin B Complex/Vit C/Folic Acid (Nephro-Ree) 1 tab PO DAILY [facility] Last Admin: 01/11/18 08:41 Dose: 1 tab - Labs Labs: 01/11/18 05:40 01/11/18 05:40 PT 17.0 Seconds (9.8-13.1) H 12/13/17 14:10 INR 1.5 12/13/17 14:10 APTT 33.1 Seconds (25.6-37.1) 12/13/17 14:10 - Constitutional Appears: No Acute Distress - Eye Exam Eye Exam: Conjunctival injection - ENT Exam ENT Exam: Mucous Membranes Moist - Respiratory Exam Respiratory Exam: NORMAL BREATHING PATTERN - Cardiovascular Exam Cardiovascular Exam: absent: Gallop, JVD, Rubs - GI/Abdominal Exam GI & Abdominal Exam: Soft, Normal Bowel Sounds - Extremities Exam Extremities Exam: absent: Calf Tenderness - Back Exam Back Exam: absent: CVA tenderness (L), CVA tenderness (R) - Neurological Exam Neurological Exam: Alert - Skin Skin Exam: absent: Cyanosis Assessment and Plan (1) SHELLIE (acute kidney injury) Assessment & Plan: Assessment & Plan: acute kidney injury improving and recovering slowly. HRS reaccumulation of ascites and fluid Liver cirrhosis due to Alcoholic liver disease . massive ascitis with recurrent paracentesis anemia recommendation intermittent use of 25% albumin for hypotension. continue midodrine Prognosis is guarded. medication dose is adjusted per renal failure kidney function continue to improve serum creatinine down 1.2 status post paracentesis with 5 L removed Status post paracentesis 12/27 over 10 L of fluid was removed status post paracentesis 01/05 and 11 L. fluid removed Status: Acute (2) Ascites Status: Acute
[2018-01-11] MEDS: Albuterol HFA 90 mcg/actuation (8 g) INH PRN (18:25)
[2018-01-11] MEDS: Insulin Detemir 100 Units/ml Inj SC SCH (22:17)
[2018-01-12] MEDS: ceFAZolin 1 GM in Sodium Chloride 0.9% 100 ML IVPB SCH ×3 (01:49→16:40)
[2018-01-12] MEDS: Bacitracin 500 Units/gm Oint Foilpak UD TOP SCH ×3 (08:29→16:37)
[2018-01-12] MEDS: Multivitamin Vitamin B Complex (Nephro-Vite) Tab PO SCH (08:33)
[2018-01-12] MEDS: Insulin Regular 100 units/ml SC SCH ×4 (08:34→21:46)
--- NOTE | 2018-01-12 09:19 | CP.PCM.PN ---
Subjective - Date & Time of Evaluation Date of Evaluation: 01/12/18 Time of Evaluation: 09:17 - Subjective Subjective: no overnight events Objective - Vital Signs/Intake and Output Vital Signs (last 24 hours): Temp Pulse Resp BP Pulse Ox 97.9 F 68 20 95/52 L 100 01/12/18 08:11 01/12/18 08:11 01/12/18 08:11 01/12/18 08:34 01/12/18 08:11 - Medications Medications: Current Medications Acetaminophen (Tylenol 325mg Tab) 650 mg PO Q4 PRN PRN Reason: Pain, moderate (4-7) Last Admin: 01/11/18 18:28 Dose: 650 mg Acetaminophen (Tylenol 325mg Tab) 650 mg PO Q6 PRN PRN Reason: Fever >100.4 F Last Admin: 01/01/18 00:34 Dose: 650 mg Albuterol (Ventolin Hfa 90 Mcg/Actuation (8 G)) 1 puff INH RQ6 PRN PRN Reason: Shortness of Breath Last Admin: 01/11/18 18:25 Dose: 1 puff Bacitracin (Bacitracin) 1 ea TOP TID [facility] Last Admin: 01/12/18 08:29 Dose: 1 ea Dextrose (Dextrose 50% Inj) 0 ml IV STAT PRN; Protocol PRN Reason: Hypoglycemia Protocol Dextrose (Glutose 15) 0 gm PO ONCE PRN; Protocol PRN Reason: Hypoglycemia Protocol Diphenhydramine HCl (Benadryl) 50 mg PO HS PRN PRN Reason: Sleep Last Admin: 01/11/18 22:17 Dose: 50 mg Famotidine (Pepcid) 40 mg PO HS [facility] Last Admin: 01/11/18 22:16 Dose: 40 mg Ferrous Gluconate (Fergon) 324 mg PO TID [facility] Last Admin: 01/12/18 08:31 Dose: 324 mg Furosemide (Lasix) 40 mg PO BID [facility] Last Admin: 01/12/18 08:33 Dose: Not Given Glucagon (Glucagen Diagnostic Kit) 0 mg IM STAT PRN; Protocol PRN Reason: Hypoglycemia Protocol Guaifenesin/Dextromethorphan (Robitussin Dm) 5 ml PO TID PRN PRN Reason: Cough Last Admin: 01/10/18 20:56 Dose: 5 ml Haloperidol Lactate (Haldol) 2 mg PO TID [facility] Last Admin: 01/11/18 16:03 Dose: 2 mg Cefazolin Sodium 1 gm/ Sodium (Chloride) 100 mls @ 100 mls/hr IVPB Q8 [facility]; Protocol Last Admin: 01/12/18 08:28 Dose: 100 mls/hr Insulin Detemir (Levemir) 8 units SC HS [facility] Last Admin: 01/11/18 22:17 Dose: 8 units Insulin Human Regular (Humulin R) 0 units SC ACHS [facility]; Protocol Last Admin: 01/12/18 08:34 Dose: 4 units Lactulose (Enulose) 20 gm PO Q8 [facility] Last Admin: 01/12/18 08:30 Dose: 20 gm Midodrine (Proamatine) 10 mg PO TID [facility] Last Admin: 01/12/18 08:31 Dose: 10 mg Octreotide Acetate (Sandostatin) 200 mcg SC Q8@0300,1100,1900 [facility] Last Admin: 01/12/18 03:16 Dose: 200 mcg Ondansetron HCl (Zofran Inj) 4 mg IVP Q8 PRN PRN Reason: Nausea/Vomiting Last Admin: 12/22/17 08:33 Dose: 4 mg Propranolol HCl (Inderal) 10 mg PO Q12 [facility] Last Admin: 01/12/18 08:34 Dose: Not Given Sodium Bicarbonate (Sodium Bicarbonate Tab) 650 mg PO BID [facility] Last Admin: 01/12/18 08:32 Dose: 650 mg Spironolactone (Aldactone) 50 mg PO BID [facility] Last Admin: 01/12/18 08:30 Dose: Not Given Thiamine HCl (Vitamin B1 Tab) 100 mg PO DAILY [facility] Last Admin: 01/12/18 08:32 Dose: 100 mg Trazodone HCl (Desyrel) 50 mg PO [facility] Last Admin: 01/11/18 22:17 Dose: 50 mg Vitamin B Complex/Vit C/Folic Acid (Nephro-Ree) 1 tab PO DAILY [facility] Last Admin: 01/12/18 08:33 Dose: 1 tab - Labs Labs: 01/11/18 05:40 01/11/18 05:40 PT 17.0 Seconds (9.8-13.1) H 12/13/17 14:10 INR 1.5 12/13/17 14:10 APTT 33.1 Seconds (25.6-37.1) 12/13/17 14:10 - Head Exam Head Exam: NORMOCEPHALIC - Neck Exam Neck Exam: Normal Inspection - Respiratory Exam Respiratory Exam: NORMAL BREATHING PATTERN - Cardiovascular Exam Cardiovascular Exam: REGULAR RHYTHM - GI/Abdominal Exam GI & Abdominal Exam: Distended, Soft, Normal Bowel Sounds Assessment and Plan - Assessment and Plan (Free Text) Assessment: 57 yo male with ascites aggressive diuretics if possible, by renal if cant aggressively diurese with lasix/aldactone, will consider TIPS for refractory ascites no clear evidence of encephalopathy will need to clarify pt's underlying mental status changes due to psych illness, not hepatic encephalopathy
[2018-01-12] MEDS: Haloperidol Lactate 2 mg/ml Liquid PO SCH ×3 (10:17→16:37)
--- NOTE | 2018-01-12 10:32 | CP.PCM.PN ---
Subjective - Date & Time of Evaluation Date of Evaluation: 01/12/18 Time of Evaluation: 10:31 - Subjective Subjective: no new events reported overnight Vital sign noted to be stable Objective - Vital Signs/Intake and Output Vital Signs (last 24 hours): Temp Pulse Resp BP Pulse Ox 97.9 F 68 20 95/52 L 100 01/12/18 08:11 01/12/18 08:11 01/12/18 08:11 01/12/18 08:34 01/12/18 08:11 - Medications Medications: Current Medications Acetaminophen (Tylenol 325mg Tab) 650 mg PO Q4 PRN PRN Reason: Pain, moderate (4-7) Last Admin: 01/11/18 18:28 Dose: 650 mg Acetaminophen (Tylenol 325mg Tab) 650 mg PO Q6 PRN PRN Reason: Fever >100.4 F Last Admin: 01/01/18 00:34 Dose: 650 mg Albuterol (Ventolin Hfa 90 Mcg/Actuation (8 G)) 1 puff INH RQ6 PRN PRN Reason: Shortness of Breath Last Admin: 01/11/18 18:25 Dose: 1 puff Bacitracin (Bacitracin) 1 ea TOP TID [facility] Last Admin: 01/12/18 08:29 Dose: 1 ea Dextrose (Dextrose 50% Inj) 0 ml IV STAT PRN; Protocol PRN Reason: Hypoglycemia Protocol Dextrose (Glutose 15) 0 gm PO ONCE PRN; Protocol PRN Reason: Hypoglycemia Protocol Diphenhydramine HCl (Benadryl) 50 mg PO HS PRN PRN Reason: Sleep Last Admin: 01/11/18 22:17 Dose: 50 mg Famotidine (Pepcid) 40 mg PO HS [facility] Last Admin: 01/11/18 22:16 Dose: 40 mg Ferrous Gluconate (Fergon) 324 mg PO TID [facility] Last Admin: 01/12/18 08:31 Dose: 324 mg Furosemide (Lasix) 40 mg PO BID [facility] Last Admin: 01/12/18 08:33 Dose: Not Given Glucagon (Glucagen Diagnostic Kit) 0 mg IM STAT PRN; Protocol PRN Reason: Hypoglycemia Protocol Guaifenesin/Dextromethorphan (Robitussin Dm) 5 ml PO TID PRN PRN Reason: Cough Last Admin: 01/10/18 20:56 Dose: 5 ml Haloperidol Lactate (Haldol) 2 mg PO TID [facility] Last Admin: 01/12/18 10:17 Dose: 2 mg Cefazolin Sodium 1 gm/ Sodium (Chloride) 100 mls @ 100 mls/hr IVPB Q8 [facility]; Protocol Last Admin: 01/12/18 08:28 Dose: 100 mls/hr Insulin Detemir (Levemir) 8 units SC [facility] Last Admin: 01/11/18 22:17 Dose: 8 units Insulin Human Regular (Humulin R) 0 units SC ACHS [facility]; Protocol Last Admin: 01/12/18 08:34 Dose: 4 units Lactulose (Enulose) 20 gm PO Q8 [facility] Last Admin: 01/12/18 08:30 Dose: 20 gm Midodrine (Proamatine) 10 mg PO TID [facility] Last Admin: 01/12/18 08:31 Dose: 10 mg Octreotide Acetate (Sandostatin) 200 mcg SC Q8@0300,1100,1900 [facility] Last Admin: 01/12/18 03:16 Dose: 200 mcg Ondansetron HCl (Zofran Inj) 4 mg IVP Q8 PRN PRN Reason: Nausea/Vomiting Last Admin: 12/22/17 08:33 Dose: 4 mg Propranolol HCl (Inderal) 10 mg PO Q12 [facility] Last Admin: 01/12/18 08:34 Dose: Not Given Sodium Bicarbonate (Sodium Bicarbonate Tab) 650 mg PO BID [facility] Last Admin: 01/12/18 08:32 Dose: 650 mg Spironolactone (Aldactone) 50 mg PO BID [facility] Last Admin: 01/12/18 08:30 Dose: Not Given Thiamine HCl (Vitamin B1 Tab) 100 mg PO DAILY [facility] Last Admin: 01/12/18 08:32 Dose: 100 mg Trazodone HCl (Desyrel) 50 mg PO [facility] Last Admin: 01/11/18 22:17 Dose: 50 mg Vitamin B Complex/Vit C/Folic Acid (Nephro-Ree) 1 tab PO DAILY [facility] Last Admin: 01/12/18 08:33 Dose: 1 tab - Labs Labs: 01/11/18 05:40 01/11/18 05:40 PT 17.0 Seconds (9.8-13.1) H 12/13/17 14:10 INR 1.5 12/13/17 14:10 APTT 33.1 Seconds (25.6-37.1) 12/13/17 14:10 - Constitutional Appears: No Acute Distress - Eye Exam Eye Exam: Conjunctival injection - ENT Exam ENT Exam: Mucous Membranes Moist - Respiratory Exam Respiratory Exam: NORMAL BREATHING PATTERN - Cardiovascular Exam Cardiovascular Exam: absent: Gallop, JVD, Rubs - GI/Abdominal Exam GI & Abdominal Exam: Firm, Normal Bowel Sounds - Extremities Exam Extremities Exam: absent: Calf Tenderness - Back Exam Back Exam: absent: CVA tenderness (L), CVA tenderness (R) - Neurological Exam Neurological Exam: Awake - Skin Skin Exam: absent: Cyanosis Assessment and Plan (1) SHELLIE (acute kidney injury) Assessment & Plan: acute kidney injury improving and recovering slowly. reaccumulation of ascites and fluid Liver cirrhosis due to Alcoholic liver disease . massive ascitis with recurrent paracentesis anemia recommendation intermittent use of 25% albumin for hypotension. continue midodrine Prognosis is guarded. medication dose is adjusted per renal failure kidney function continue to improve serum creatinine down 1.2 status post paracentesis with 5 L removed Status post paracentesis 12/27 over 10 L of fluid was removed status post paracentesis 01/05 and 11 L. fluid removed Status: Acute (2) Ascites Status: Acute
--- NOTE | 2018-01-12 11:10 | PN ---
DATE: 01/12/2018 SUBJECTIVE: The patient seen and examined. Interim events noted. Consults noted and appreciated. The patient remains in regular medical floor. Awake, responsive, confused. Wants to go to [facility]. Denies any chest pain or shortness of breath. Abdominal pain is controlled. PHYSICAL EXAMINATION: GENERAL: The patient is in no acute distress. VITAL SIGNS: Stable. HEART EXAM: S1, S2 normal and regular. LUNGS: Good bilateral air exchange. ABDOMEN: The patient has gross hepatitis, but no sign of acute abdomen. No guarding. No rigidity. No rebound. Abdominal sounds are present and normal. EXTREMITIES EXAM: No edema. No calf swelling. No tenderness. No acute ischemia. CENTRAL NERVOUS EXAM: Essentially unchanged. DIAGNOSTIC DATA: Available diagnostic data reviewed. ASSESSMENT AND PLAN: Overall the patient is medically stable. Request psychiatric issue address. Remains on one to one observation for safety. Plan as ordered. Robbin Romano MD
[2018-01-12] MEDS: Insulin Detemir 100 Units/ml Inj SC SCH (21:59)
[2018-01-13] MEDS: ceFAZolin 1 GM in Sodium Chloride 0.9% 100 ML IVPB SCH ×3 (01:36→17:28)
[2018-01-13] MEDS: guaiFENesin DM 100 mg-10 mg/5 ml UD PO PRN ×2 (04:37→21:43)
[2018-01-13] MEDS ORDERED: Glucagon Recombinant 1 mg Inj IM PRN (06:42)
[2018-01-13] MEDS ORDERED: Dextrose 50% SYRINGE Inj (50 ml) IV PRN (06:42)
[2018-01-13] MEDS: Insulin Regular 100 units/ml SC SCH ×4 (08:44→21:46)
[2018-01-13] MEDS: Bacitracin 500 Units/gm Oint Foilpak UD TOP SCH ×3 (08:45→17:37)
[2018-01-13] MEDS: Multivitamin Vitamin B Complex (Nephro-Vite) Tab PO SCH (08:45)
--- NOTE | 2018-01-13 11:09 | CP.PCM.PN ---
Subjective - Date & Time of Evaluation Date of Evaluation: 01/13/18 Time of Evaluation: 11:08 - Subjective Subjective: patient remain on observation Essentially no significant changes clinically Vital signs stable Objective - Vital Signs/Intake and Output Vital Signs (last 24 hours): Temp Pulse Resp BP Pulse Ox 98.0 F 87 18 92/47 L 98 01/13/18 08:00 01/13/18 08:00 01/13/18 08:00 01/13/18 08:58 01/13/18 08:00 - Medications Medications: Current Medications Acetaminophen (Tylenol 325mg Tab) 650 mg PO Q4 PRN PRN Reason: Pain, moderate (4-7) Last Admin: 01/13/18 04:59 Dose: 650 mg Acetaminophen (Tylenol 325mg Tab) 650 mg PO Q6 PRN PRN Reason: Fever >100.4 F Last Admin: 01/01/18 00:34 Dose: 650 mg Albuterol (Ventolin Hfa 90 Mcg/Actuation (8 G)) 1 puff INH RQ6 PRN PRN Reason: Shortness of Breath Last Admin: 01/11/18 18:25 Dose: 1 puff Bacitracin (Bacitracin) 1 ea TOP TID [facility] Last Admin: 01/13/18 08:45 Dose: 1 ea Dextrose (Dextrose 50% Inj) 0 ml IV STAT PRN; Protocol PRN Reason: Hypoglycemia Protocol Dextrose (Glutose 15) 0 gm PO ONCE PRN; Protocol PRN Reason: Hypoglycemia Protocol Dextrose (Dextrose 50% Inj) 0 ml IV STAT PRN; Protocol PRN Reason: Hypoglycemia Protocol Dextrose (Glutose 15) 0 gm PO ONCE PRN; Protocol PRN Reason: Hypoglycemia Protocol Diphenhydramine HCl (Benadryl) 50 mg PO HS PRN PRN Reason: Sleep Last Admin: 01/12/18 22:05 Dose: 50 mg Famotidine (Pepcid) 40 mg PO HS [facility] Last Admin: 01/12/18 21:55 Dose: 40 mg Ferrous Gluconate (Fergon) 324 mg PO TID [facility] Last Admin: 01/13/18 08:49 Dose: 324 mg Furosemide (Lasix) 40 mg PO BID [facility] Last Admin: 01/13/18 08:58 Dose: Not Given Glucagon (Glucagen Diagnostic Kit) 0 mg IM STAT PRN; Protocol PRN Reason: Hypoglycemia Protocol Glucagon (Glucagen Diagnostic Kit) 0 mg IM STAT PRN; Protocol PRN Reason: Hypoglycemia Protocol Guaifenesin/Dextromethorphan (Robitussin Dm) 5 ml PO TID PRN PRN Reason: Cough Last Admin: 01/13/18 04:37 Dose: 5 ml Haloperidol Lactate (Haldol) 2 mg PO TID [facility] Last Admin: 01/12/18 16:37 Dose: 2 mg Cefazolin Sodium 1 gm/ Sodium (Chloride) 100 mls @ 100 mls/hr IVPB Q8 [facility]; Protocol Last Admin: 01/13/18 08:46 Dose: 100 mls/hr Insulin Detemir (Levemir) 15 units SC HS [facility] Insulin Human Regular (Humulin R) 0 units SC ACHS [facility]; Protocol Last Admin: 01/13/18 08:44 Dose: 6 units Lactulose (Enulose) 20 gm PO Q8 [facility] Last Admin: 01/13/18 08:40 Dose: 20 gm Midodrine (Proamatine) 10 mg PO TID [facility] Last Admin: 01/13/18 08:43 Dose: 10 mg Octreotide Acetate (Sandostatin) 200 mcg SC Q8@0300,1100,1900 [facility] Last Admin: 01/13/18 11:05 Dose: 200 mcg Ondansetron HCl (Zofran Inj) 4 mg IVP Q8 PRN PRN Reason: Nausea/Vomiting Last Admin: 12/22/17 08:33 Dose: 4 mg Propranolol HCl (Inderal) 10 mg PO Q12 [facility] Last Admin: 01/13/18 08:57 Dose: Not Given Sodium Bicarbonate (Sodium Bicarbonate Tab) 650 mg PO BID [facility] Last Admin: 01/13/18 08:43 Dose: 650 mg Spironolactone (Aldactone) 50 mg PO BID [facility] Last Admin: 01/13/18 08:57 Dose: Not Given Thiamine HCl (Vitamin B1 Tab) 100 mg PO DAILY [facility] Last Admin: 01/13/18 08:49 Dose: 100 mg Trazodone HCl (Desyrel) 50 mg PO HS [facility] Last Admin: 01/12/18 21:55 Dose: 50 mg Vitamin B Complex/Vit C/Folic Acid (Nephro-Ree) 1 tab PO DAILY [facility] Last Admin: 01/13/18 08:45 Dose: 1 tab - Labs Labs: 01/11/18 05:40 01/11/18 05:40 PT 17.0 Seconds (9.8-13.1) H 12/13/17 14:10 INR 1.5 12/13/17 14:10 APTT 33.1 Seconds (25.6-37.1) 12/13/17 14:10 - Constitutional Appears: No Acute Distress - Eye Exam Eye Exam: Conjunctival injection - ENT Exam ENT Exam: Mucous Membranes Moist - Neck Exam Neck Exam: absent: Lymphadenopathy - Respiratory Exam Respiratory Exam: NORMAL BREATHING PATTERN. absent: Chest Wall Tenderness - Cardiovascular Exam Cardiovascular Exam: absent: Gallop, JVD, Rubs - GI/Abdominal Exam GI & Abdominal Exam: Distended - Extremities Exam Extremities Exam: absent: Calf Tenderness - Back Exam Back Exam: absent: CVA tenderness (L), CVA tenderness (R) - Neurological Exam Neurological Exam: Awake - Skin Skin Exam: absent: Cyanosis Assessment and Plan (1) SHELLIE (acute kidney injury) Assessment & Plan: Assessment & Plan: acute kidney injury improving and recovering slowly. reaccumulation of ascites and fluid Liver cirrhosis due to Alcoholic liver disease . massive ascitis with recurrent paracentesis anemia recommendation intermittent use of 25% albumin for hypotension. continue midodrine Prognosis is guarded. medication dose is adjusted per renal failure kidney function continue somewhat stable although serum creatinine up to 1.3 status post paracentesis with 5 L removed Status post paracentesis 12/27 over 10 L of fluid was removed status post paracentesis 01/05 and 11 L. fluid removed Status: Acute (2) Ascites Status: Acute
[2018-01-13] MEDS: Haloperidol Lactate 2 mg/ml Liquid PO SCH ×3 (11:11→17:37)
--- NOTE | 2018-01-13 14:04 | CP.PCM.PN ---
Subjective - Date & Time of Evaluation Date of Evaluation: 01/13/18 Time of Evaluation: 09:00 - Subjective Subjective: iv rx renewed Objective - Vital Signs/Intake and Output Vital Signs (last 24 hours): Temp Pulse Resp BP Pulse Ox 98.0 F 87 18 92/47 L 98 01/13/18 08:00 01/13/18 08:00 01/13/18 08:00 01/13/18 08:58 01/13/18 08:00 - Medications Medications: Current Medications Acetaminophen (Tylenol 325mg Tab) 650 mg PO Q4 PRN PRN Reason: Pain, moderate (4-7) Last Admin: 01/13/18 04:59 Dose: 650 mg Acetaminophen (Tylenol 325mg Tab) 650 mg PO Q6 PRN PRN Reason: Fever >100.4 F Last Admin: 01/01/18 00:34 Dose: 650 mg Albuterol (Ventolin Hfa 90 Mcg/Actuation (8 G)) 1 puff INH RQ6 PRN PRN Reason: Shortness of Breath Last Admin: 01/11/18 18:25 Dose: 1 puff Bacitracin (Bacitracin) 1 ea TOP TID [facility] Last Admin: 01/13/18 12:33 Dose: 1 ea Dextrose (Dextrose 50% Inj) 0 ml IV STAT PRN; Protocol PRN Reason: Hypoglycemia Protocol Dextrose (Glutose 15) 0 gm PO ONCE PRN; Protocol PRN Reason: Hypoglycemia Protocol Dextrose (Dextrose 50% Inj) 0 ml IV STAT PRN; Protocol PRN Reason: Hypoglycemia Protocol Dextrose (Glutose 15) 0 gm PO ONCE PRN; Protocol PRN Reason: Hypoglycemia Protocol Diphenhydramine HCl (Benadryl) 50 mg PO HS PRN PRN Reason: Sleep Last Admin: 01/12/18 22:05 Dose: 50 mg Famotidine (Pepcid) 40 mg PO HS [facility] Last Admin: 01/12/18 21:55 Dose: 40 mg Ferrous Gluconate (Fergon) 324 mg PO TID [facility] Last Admin: 01/13/18 12:34 Dose: 324 mg Furosemide (Lasix) 40 mg PO BID [facility] Last Admin: 01/13/18 08:58 Dose: Not Given Glucagon (Glucagen Diagnostic Kit) 0 mg IM STAT PRN; Protocol PRN Reason: Hypoglycemia Protocol Glucagon (Glucagen Diagnostic Kit) 0 mg IM STAT PRN; Protocol PRN Reason: Hypoglycemia Protocol Guaifenesin/Dextromethorphan (Robitussin Dm) 5 ml PO TID PRN PRN Reason: Cough Last Admin: 01/13/18 04:37 Dose: 5 ml Haloperidol Lactate (Haldol) 2 mg PO TID [facility] Last Admin: 01/13/18 11:11 Dose: 2 mg Cefazolin Sodium 1 gm/ Sodium (Chloride) 100 mls @ 100 mls/hr IVPB Q8 [facility]; Protocol Last Admin: 01/13/18 08:46 Dose: 100 mls/hr Insulin Detemir (Levemir) 15 units SC HS [facility] Insulin Human Regular (Humulin R) 0 units SC ACHS [facility]; Protocol Lactulose (Enulose) 20 gm PO Q8 [facility] Last Admin: 01/13/18 08:40 Dose: 20 gm Midodrine (Proamatine) 10 mg PO TID [facility] Last Admin: 01/13/18 12:36 Dose: 10 mg Octreotide Acetate (Sandostatin) 200 mcg SC Q8@0300,1100,1900 [facility] Last Admin: 01/13/18 11:05 Dose: 200 mcg Ondansetron HCl (Zofran Inj) 4 mg IVP Q8 PRN PRN Reason: Nausea/Vomiting Last Admin: 12/22/17 08:33 Dose: 4 mg Propranolol HCl (Inderal) 10 mg PO Q12 [facility] Last Admin: 01/13/18 08:57 Dose: Not Given Sodium Bicarbonate (Sodium Bicarbonate Tab) 650 mg PO BID [facility] Last Admin: 01/13/18 08:43 Dose: 650 mg Spironolactone (Aldactone) 50 mg PO BID [facility] Last Admin: 01/13/18 08:57 Dose: Not Given Thiamine HCl (Vitamin B1 Tab) 100 mg PO DAILY [facility] Last Admin: 01/13/18 08:49 Dose: 100 mg Trazodone HCl (Desyrel) 50 mg PO HS [facility] Last Admin: 01/12/18 21:55 Dose: 50 mg Vitamin B Complex/Vit C/Folic Acid (Nephro-Ree) 1 tab PO DAILY [facility] Last Admin: 01/13/18 08:45 Dose: 1 tab - Labs Labs: 01/11/18 05:40 01/11/18 05:40 PT 17.0 Seconds (9.8-13.1) H 12/13/17 14:10 INR 1.5 12/13/17 14:10 APTT 33.1 Seconds (25.6-37.1) 12/13/17 14:10 Assessment and Plan (1) SHELLIE (acute kidney injury) Status: Acute (2) Ascites Status: Acute (3) Abdominal pain Status: Acute (4) Alcohol abuse with intoxication Status: Acute (5) Anxiety Status: Chronic (6) Depression Status: Chronic (7) Diabetes mellitus Status: Chronic (8) Liver cirrhosis Status: Chronic (9) Staph aureus infection Status: Acute
--- NOTE | 2018-01-13 14:52 | CP.PCM.PN ---
Subjective - Date & Time of Evaluation Date of Evaluation: 01/13/18 Time of Evaluation: 14:51 - Subjective Subjective: no overrnight events Objective - Vital Signs/Intake and Output Vital Signs (last 24 hours): Temp Pulse Resp BP Pulse Ox 98.0 F 87 18 92/47 L 98 01/13/18 08:00 01/13/18 08:00 01/13/18 08:00 01/13/18 08:58 01/13/18 08:00 - Medications Medications: Current Medications Acetaminophen (Tylenol 325mg Tab) 650 mg PO Q4 PRN PRN Reason: Pain, moderate (4-7) Last Admin: 01/13/18 04:59 Dose: 650 mg Acetaminophen (Tylenol 325mg Tab) 650 mg PO Q6 PRN PRN Reason: Fever >100.4 F Last Admin: 01/01/18 00:34 Dose: 650 mg Albuterol (Ventolin Hfa 90 Mcg/Actuation (8 G)) 1 puff INH RQ6 PRN PRN Reason: Shortness of Breath Last Admin: 01/11/18 18:25 Dose: 1 puff Bacitracin (Bacitracin) 1 ea TOP TID [facility] Last Admin: 01/13/18 12:33 Dose: 1 ea Dextrose (Dextrose 50% Inj) 0 ml IV STAT PRN; Protocol PRN Reason: Hypoglycemia Protocol Dextrose (Glutose 15) 0 gm PO ONCE PRN; Protocol PRN Reason: Hypoglycemia Protocol Dextrose (Dextrose 50% Inj) 0 ml IV STAT PRN; Protocol PRN Reason: Hypoglycemia Protocol Dextrose (Glutose 15) 0 gm PO ONCE PRN; Protocol PRN Reason: Hypoglycemia Protocol Diphenhydramine HCl (Benadryl) 50 mg PO HS PRN PRN Reason: Sleep Last Admin: 01/12/18 22:05 Dose: 50 mg Famotidine (Pepcid) 40 mg PO HS [facility] Last Admin: 01/12/18 21:55 Dose: 40 mg Ferrous Gluconate (Fergon) 324 mg PO TID [facility] Last Admin: 01/13/18 12:34 Dose: 324 mg Furosemide (Lasix) 40 mg PO BID [facility] Last Admin: 01/13/18 08:58 Dose: Not Given Glucagon (Glucagen Diagnostic Kit) 0 mg IM STAT PRN; Protocol PRN Reason: Hypoglycemia Protocol Glucagon (Glucagen Diagnostic Kit) 0 mg IM STAT PRN; Protocol PRN Reason: Hypoglycemia Protocol Guaifenesin/Dextromethorphan (Robitussin Dm) 5 ml PO TID PRN PRN Reason: Cough Last Admin: 01/13/18 04:37 Dose: 5 ml Haloperidol Lactate (Haldol) 2 mg PO TID [facility] Last Admin: 01/13/18 14:27 Dose: 2 mg Cefazolin Sodium 1 gm/ Sodium (Chloride) 100 mls @ 100 mls/hr IVPB Q8 [facility]; Protocol Last Admin: 01/13/18 08:46 Dose: 100 mls/hr Insulin Detemir (Levemir) 15 units SC HS [facility] Insulin Human Regular (Humulin R) 0 units SC ACHS [facility]; Protocol Lactulose (Enulose) 20 gm PO Q8 [facility] Last Admin: 01/13/18 08:40 Dose: 20 gm Midodrine (Proamatine) 10 mg PO TID [facility] Last Admin: 01/13/18 12:36 Dose: 10 mg Octreotide Acetate (Sandostatin) 200 mcg SC Q8@0300,1100,1900 [facility] Last Admin: 01/13/18 11:05 Dose: 200 mcg Ondansetron HCl (Zofran Inj) 4 mg IVP Q8 PRN PRN Reason: Nausea/Vomiting Last Admin: 12/22/17 08:33 Dose: 4 mg Propranolol HCl (Inderal) 10 mg PO Q12 [facility] Last Admin: 01/13/18 08:57 Dose: Not Given Sodium Bicarbonate (Sodium Bicarbonate Tab) 650 mg PO BID [facility] Last Admin: 01/13/18 08:43 Dose: 650 mg Spironolactone (Aldactone) 50 mg PO BID [facility] Last Admin: 01/13/18 08:57 Dose: Not Given Thiamine HCl (Vitamin B1 Tab) 100 mg PO DAILY [facility] Last Admin: 01/13/18 08:49 Dose: 100 mg Trazodone HCl (Desyrel) 50 mg PO HS [facility] Last Admin: 01/12/18 21:55 Dose: 50 mg Vitamin B Complex/Vit C/Folic Acid (Nephro-Ree) 1 tab PO DAILY [facility] Last Admin: 01/13/18 08:45 Dose: 1 tab - Labs Labs: 01/11/18 05:40 01/11/18 05:40 PT 17.0 Seconds (9.8-13.1) H 12/13/17 14:10 INR 1.5 12/13/17 14:10 APTT 33.1 Seconds (25.6-37.1) 12/13/17 14:10 - Head Exam Head Exam: NORMOCEPHALIC - Neck Exam Neck Exam: Normal Inspection - Respiratory Exam Respiratory Exam: Clear to Ausculation Bilateral, NORMAL BREATHING PATTERN - Cardiovascular Exam Cardiovascular Exam: REGULAR RHYTHM - GI/Abdominal Exam GI & Abdominal Exam: Distended, Soft, Normal Bowel Sounds Assessment and Plan - Assessment and Plan (Free Text) Assessment: 57 yo male with refractory ascites consider tips aggresisve diuresis if ok with renal
--- NOTE | 2018-01-13 16:14 | CP.PCM.PN ---
<Karoline Sanches - Last Filed: 01/13/18 16:11> Subjective - Date & Time of Evaluation Date of Evaluation: 01/13/18 Time of Evaluation: 08:00 - Subjective Subjective: Pt was seen and evaluated with Dr. Romano at the bedside. Seen sitting in bed, no distress noted. Accuchecks noted to be elevated, Levemir increased to 15qHS Objective - Vital Signs/Intake and Output Vital Signs (last 24 hours): Temp Pulse Resp BP Pulse Ox 98.0 F 87 18 92/47 L 98 01/13/18 08:00 01/13/18 08:00 01/13/18 08:00 01/13/18 08:58 01/13/18 08:00 - Medications Medications: Current Medications Acetaminophen (Tylenol 325mg Tab) 650 mg PO Q4 PRN PRN Reason: Pain, moderate (4-7) Last Admin: 01/13/18 04:59 Dose: 650 mg Acetaminophen (Tylenol 325mg Tab) 650 mg PO Q6 PRN PRN Reason: Fever >100.4 F Last Admin: 01/01/18 00:34 Dose: 650 mg Albuterol (Ventolin Hfa 90 Mcg/Actuation (8 G)) 1 puff INH RQ6 PRN PRN Reason: Shortness of Breath Last Admin: 01/11/18 18:25 Dose: 1 puff Bacitracin (Bacitracin) 1 ea TOP TID [facility] Last Admin: 01/13/18 12:33 Dose: 1 ea Dextrose (Dextrose 50% Inj) 0 ml IV STAT PRN; Protocol PRN Reason: Hypoglycemia Protocol Dextrose (Glutose 15) 0 gm PO ONCE PRN; Protocol PRN Reason: Hypoglycemia Protocol Dextrose (Dextrose 50% Inj) 0 ml IV STAT PRN; Protocol PRN Reason: Hypoglycemia Protocol Dextrose (Glutose 15) 0 gm PO ONCE PRN; Protocol PRN Reason: Hypoglycemia Protocol Diphenhydramine HCl (Benadryl) 50 mg PO HS PRN PRN Reason: Sleep Last Admin: 01/12/18 22:05 Dose: 50 mg Famotidine (Pepcid) 40 mg PO HS [facility] Last Admin: 01/12/18 21:55 Dose: 40 mg Ferrous Gluconate (Fergon) 324 mg PO TID [facility] Last Admin: 01/13/18 12:34 Dose: 324 mg Furosemide (Lasix) 40 mg PO BID [facility] Last Admin: 01/13/18 08:58 Dose: Not Given Glucagon (Glucagen Diagnostic Kit) 0 mg IM STAT PRN; Protocol PRN Reason: Hypoglycemia Protocol Glucagon (Glucagen Diagnostic Kit) 0 mg IM STAT PRN; Protocol PRN Reason: Hypoglycemia Protocol Guaifenesin/Dextromethorphan (Robitussin Dm) 5 ml PO TID PRN PRN Reason: Cough Last Admin: 01/13/18 04:37 Dose: 5 ml Haloperidol Lactate (Haldol) 2 mg PO TID [facility] Last Admin: 01/13/18 14:27 Dose: 2 mg Cefazolin Sodium 1 gm/ Sodium (Chloride) 100 mls @ 100 mls/hr IVPB Q8 [facility]; Protocol Last Admin: 01/13/18 08:46 Dose: 100 mls/hr Insulin Detemir (Levemir) 15 units SC [facility] Insulin Human Regular (Humulin R) 0 units SC ACHS [facility]; Protocol Lactulose (Enulose) 20 gm PO Q8 [facility] Last Admin: 01/13/18 08:40 Dose: 20 gm Midodrine (Proamatine) 10 mg PO TID [facility] Last Admin: 01/13/18 12:36 Dose: 10 mg Octreotide Acetate (Sandostatin) 200 mcg SC Q8@0300,1100,1900 [facility] Last Admin: 01/13/18 11:05 Dose: 200 mcg Ondansetron HCl (Zofran Inj) 4 mg IVP Q8 PRN PRN Reason: Nausea/Vomiting Last Admin: 12/22/17 08:33 Dose: 4 mg Propranolol HCl (Inderal) 10 mg PO Q12 [facility] Last Admin: 01/13/18 08:57 Dose: Not Given Sodium Bicarbonate (Sodium Bicarbonate Tab) 650 mg PO BID [facility] Last Admin: 01/13/18 08:43 Dose: 650 mg Spironolactone (Aldactone) 50 mg PO BID [facility] Last Admin: 01/13/18 08:57 Dose: Not Given Thiamine HCl (Vitamin B1 Tab) 100 mg PO DAILY [facility] Last Admin: 01/13/18 08:49 Dose: 100 mg Trazodone HCl (Desyrel) 50 mg PO [facility] Last Admin: 01/12/18 21:55 Dose: 50 mg Vitamin B Complex/Vit C/Folic Acid (Nephro-Ree) 1 tab PO DAILY [facility] Last Admin: 01/13/18 08:45 Dose: 1 tab - Labs Labs: 01/11/18 05:40 01/11/18 05:40 PT 17.0 Seconds (9.8-13.1) H 12/13/17 14:10 INR 1.5 12/13/17 14:10 APTT 33.1 Seconds (25.6-37.1) 12/13/17 14:10 - Constitutional Appears: No Acute Distress - Eye Exam Eye Exam: Normal appearance - ENT Exam ENT Exam: Mucous Membranes Moist - Respiratory Exam Respiratory Exam: Decreased Breath Sounds, Clear to Ausculation Bilateral. absent: Rales, Wheezes - Cardiovascular Exam Cardiovascular Exam: REGULAR RHYTHM - GI/Abdominal Exam GI & Abdominal Exam: Distended, Soft, Normal Bowel Sounds. absent: Tenderness Additional comments: moderate asicites - Neurological Exam Neurological Exam: Alert, Normal Gait - Psychiatric Exam Psychiatric exam: Normal Affect - Skin Skin Exam: Normal Color Assessment and Plan - Assessment and Plan (Free Text) Assessment: 57 y/o M with a PMHx of HTN, DM, asthma, ETOH abuse with liver cirrhosis, admitted for recurrent ascitis, auditory hallucinations, SHELLIE and Bacteremia. PLAN: Ascites - 2/2 to Alcholic Cirrohosis, poor prognosis - Worsening Ascites, s/p IR guided Paracentesis on 12/27 with 10 L and 01/05 with 11L removed - Therapeutic paracentesis PRN as tolerated - GI on board, Dr. Galdamez, worsening ascites may need more diuretics or TIPS - C/W aldactone, lasix, octreotide, lactulose and midodrine SHELLIE vs Hepatorenal - resolved, Crea 1.2 - nephrology on board, YARIEL/ARBS were held in light of kidney injury - Continue monitoring renal function Bacteremia -MSSA - ID on board, Dr. Davis - C/W Anceph for 2 weeks total needed as per ID (started on 01/02) Acute Psychosis -Evaluated by Psych, persecutory hallucinations, no capacity to make medical decisions -Haldol po TID -Trazodone HS -1:1 Anemia -H/H stable -Macrocytic Anemia, chronic liver disease, B12 and folate wnl -C/W ferrous sulfate po SW/Case management -Needs gaurdianship; unable to sign over POA Hyperglycemia -HgA1C 6.0, prediabetic -BS uncontrolled, 250-350 ranges -Levemir increased to 15 units. Will consider starting basal bolus regimen. DVT -SCD's for now <Juan AntonioRobbin K - Last Filed: 01/15/18 17:35> Objective - Vital Signs/Intake and Output Vital Signs (last 24 hours): Temp Pulse Resp BP Pulse Ox 97.2 F L 70 18 122/58 L 99 01/15/18 15:51 01/15/18 15:51 01/15/18 15:51 01/15/18 17:10 01/15/18 15:51 - Medications Medications: Current Medications Acetaminophen (Tylenol 325mg Tab) 650 mg PO Q4 PRN PRN Reason: Pain, moderate (4-7) Last Admin: 01/15/18 17:30 Dose: 650 mg Acetaminophen (Tylenol 325mg Tab) 650 mg PO Q6 PRN PRN Reason: Fever >100.4 F Last Admin: 01/01/18 00:34 Dose: 650 mg Albuterol (Ventolin Hfa 90 Mcg/Actuation (8 G)) 1 puff INH RQ6 PRN PRN Reason: Shortness of Breath Last Admin: 01/15/18 14:40 Dose: 1 puff Bacitracin (Bacitracin) 1 ea TOP TID [facility] Last Admin: 01/15/18 17:10 Dose: 1 ea Dextrose (Dextrose 50% Inj) 0 ml IV STAT PRN; Protocol PRN Reason: Hypoglycemia Protocol Dextrose (Glutose 15) 0 gm PO ONCE PRN; Protocol PRN Reason: Hypoglycemia Protocol Dextrose (Dextrose 50% Inj) 0 ml IV STAT PRN; Protocol PRN Reason: Hypoglycemia Protocol Dextrose (Glutose 15) 0 gm PO ONCE PRN; Protocol PRN Reason: Hypoglycemia Protocol Diphenhydramine HCl (Benadryl) 50 mg PO HS PRN PRN Reason: Sleep Last Admin: 01/15/18 00:37 Dose: 50 mg Famotidine (Pepcid) 40 mg PO HS [facility] Last Admin: 01/14/18 21:47 Dose: 40 mg Ferrous Gluconate (Fergon) 324 mg PO TID [facility] Last Admin: 01/15/18 17:12 Dose: 324 mg Furosemide (Lasix) 40 mg PO BID [facility] Last Admin: 01/15/18 17:10 Dose: 40 mg Glucagon (Glucagen Diagnostic Kit) 0 mg IM STAT PRN; Protocol PRN Reason: Hypoglycemia Protocol Glucagon (Glucagen Diagnostic Kit) 0 mg IM STAT PRN; Protocol PRN Reason: Hypoglycemia Protocol Guaifenesin/Dextromethorphan (Robitussin Dm) 5 ml PO TID PRN PRN Reason: Cough Last Admin: 01/13/18 21:43 Dose: 5 ml Haloperidol Lactate (Haldol) 2 mg PO TID [facility] Last Admin: 01/15/18 17:10 Dose: 2 mg Cefazolin Sodium 1 gm/ Sodium (Chloride) 100 mls @ 100 mls/hr IVPB Q8 [facility]; Protocol Last Admin: 01/15/18 17:08 Dose: 100 mls/hr Insulin Detemir (Levemir) 18 units SC HS [facility] Last Admin: 01/14/18 22:18 Dose: 18 units Insulin Human Regular (Humulin R) 0 units SC ACHS [facility]; Protocol Last Admin: 01/15/18 17:11 Dose: 6 units Lactulose (Enulose) 20 gm PO Q8 [facility] Last Admin: 01/15/18 17:12 Dose: 20 gm Midodrine (Proamatine) 10 mg PO TID [facility] Last Admin: 01/15/18 17:10 Dose: 10 mg Octreotide Acetate (Sandostatin) 200 mcg SC Q8@0300,1100,1900 [facility] Last Admin: 01/15/18 10:27 Dose: 200 mcg Ondansetron HCl (Zofran Inj) 4 mg IVP Q8 PRN PRN Reason: Nausea/Vomiting Last Admin: 12/22/17 08:33 Dose: 4 mg Propranolol HCl (Inderal) 10 mg PO Q12 [facility] Last Admin: 01/15/18 08:54 Dose: 10 mg Sodium Bicarbonate (Sodium Bicarbonate Tab) 650 mg PO BID [facility] Last Admin: 01/15/18 17:10 Dose: 650 mg Spironolactone (Aldactone) 100 mg PO BID [facility] Last Admin: 01/15/18 17:09 Dose: 100 mg Thiamine HCl (Vitamin B1 Tab) 100 mg PO DAILY [facility] Last Admin: 01/15/18 08:54 Dose: 100 mg Trazodone HCl (Desyrel) 50 mg PO HS [facility] Last Admin: 01/14/18 21:46 Dose: 50 mg Vitamin B Complex/Vit C/Folic Acid (Nephro-Ree) 1 tab PO DAILY [facility] Last Admin: 01/15/18 08:54 Dose: 1 tab - Labs Labs: 01/15/18 06:00 01/15/18 06:00 PT 17.0 Seconds (9.8-13.1) H 12/13/17 14:10 INR 1.5 12/13/17 14:10 APTT 33.1 Seconds (25.6-37.1) 12/13/17 14:10 Assessment and Plan - Assessment and Plan (Free Text) Assessment: Patient was personally seen and examined by me in rounds with residents. Available labs and diagnostic data reviewed. Case, Patient's condition and management plan discussed with residents in rounds. Agree with resident's progress note. Plan: As ordered.
[2018-01-13] MEDS ORDERED: Insulin Detemir 100 Units/ml Inj SC SCH ×2 (22:00)
[2018-01-14] MEDS: ceFAZolin 1 GM in Sodium Chloride 0.9% 100 ML IVPB SCH ×3 (01:24→17:01)
[2018-01-14 06:47] LABS: HEMOGLOBIN 8.4 g/dL (12.0-18.0); MEAN CORPUSCULAR HEMOGLOBIN 36.8 pg (27.0-31.0); MEAN CORPUSCULAR HGB CONC 33.8 g/dL (33.0-37.0); RBC 2.27 Mil/uL (4.40-5.90); RED CELL DISTRIBUTION WIDTH 19.5 % (11.5-14.5); WHITE BLOOD COUNT 5.6 K/uL (4.8-10.8)
[2018-01-14] MEDS: Insulin Regular 100 units/ml SC SCH ×4 (07:00→22:18)
[2018-01-14 07:03] LABS: ALB/GLOB RATIO 0.6 (1.0-2.1); ALBUMIN 2.4 g/dL (3.5-5.0); ALT/SGPT 15 U/L (21-72); AST/SGOT 34 U/L (17-59); BLOOD UREA NITROGEN 33 mg/dl (9-20); CALCIUM 8.1 mg/dL (8.4-10.2); GFR NON-AFRICAN AMERICAN 52
[2018-01-14] MEDS: Multivitamin Vitamin B Complex (Nephro-Vite) Tab PO SCH (08:49)
[2018-01-14] MEDS: Haloperidol Lactate 2 mg/ml Liquid PO SCH ×3 (08:49→17:03)
[2018-01-14] MEDS: Bacitracin 500 Units/gm Oint Foilpak UD TOP SCH ×3 (08:51→17:04)
--- NOTE | 2018-01-14 11:12 | PN ---
DATE: 01/14/2018 SUBJECTIVE: The patient seen and examined. Interim events noted. Consults noted and appreciated. Gastroenterology followup and intervention noted and appreciated. The patient remains in regular medical floor with one-to-one observation for safety. The patient feels okay. Still complains of abdominal distention but no pain, nausea, vomiting or diarrhea. PHYSICAL EXAMINATION: GENERAL: The patient is in no acute distress. VITAL SIGNS: Stable. HEART: S1 and S2, normal and regular. LUNGS: Good bilateral air exchange. ABDOMEN: Soft, nontender. The patient has gross ascites, but no sign of acute abdomen. No guarding. No rigidity. No rebound. Bowel sounds are plus and normal. EXTREMITIES: No edema. No calf swelling. No tenderness. No acute ischemia. [employer]: Exam is essentially unchanged. DIAGNOSTIC DATA: Available diagnostic data reviewed. ASSESSMENT AND PLAN: Overall, the patient's general medical condition is stable. Long-term prognosis remains poor. Plan as ordered. Robbin Romano MD
--- NOTE | 2018-01-14 13:29 | CP.PCM.PN ---
Subjective - Date & Time of Evaluation Date of Evaluation: 01/14/18 Time of Evaluation: 13:28 - Subjective Subjective: Assessment: Stable Acute Kidney Injury (N17.9) likely due to hepatorenal syndrome: improved DM, HTN, alcoholic cirrhosis, anemia, acidosis Plan No acute need for renal replacement therapy at this time renal function stable Maintain hemodynamics stable. Avoid hypotension. Patient not on ACEI/ARB due to recent SHELLIE. Monitor Input/Output, daily weights and renal function with basic metabolic panel continue with Octreotide and Midodrine continue Iron thiamine, MVI and epogen for anemia, sodium bicarb 650 bid S: feels ok no complaints Physical Examination: General Appearance: Comfortable, in no acute respiratory distress, co-operative . Vitals reviewed and noted as below Head; Atraumatic, normocephalic ENT: no ulcers no thrush. Tongue is midline. Oropharynx: no rash or ulcers. EYES: Pupils are equal, round and reactive to light accommodation. Eye muscles and extraocular movement intact. Sclera is anicteric. Neck; supple no lymphadenopathy, no thyromegaly or bruit Lungs: Normal respiratory rate/effort. Breath sounds bilateral equal and clear Heart: Normal rate. s1s2 normal. No rub or gallop. Extremities: trace edema. No varicose veins Neurological: Patient is alert, awake and oriented to person, place and time. No focal deficit. Strength bilateral appropriate and equal Skin: Warm and dry. Normal turgor. No rash. Palpitation: Normal elasticity for age Abdomen: Abdomen is soft. Bowel sounds +. There is mild epigastric abdominal tenderness, no guarding/rigidity no organomegaly. distended and ascitic + Psych: normal insight and normal affect/mood MSK: no joint tenderness or swelling. Digits and nails normal, no deformity : kidney or bladder not palpable Labs/imaging reviewed. Past medical history, past surgical history, family history, social history, allergy reviewed and noted as below Family hx: no hx of CKD. Rest non-contributory Objective - Vital Signs/Intake and Output Vital Signs (last 24 hours): Temp Pulse Resp BP Pulse Ox 97.5 F L 74 20 101/61 98 01/14/18 07:51 01/14/18 08:49 01/14/18 07:51 01/14/18 08:50 01/14/18 07:51 - Medications Medications: Current Medications Acetaminophen (Tylenol 325mg Tab) 650 mg PO Q4 PRN PRN Reason: Pain, moderate (4-7) Last Admin: 01/14/18 02:30 Dose: 650 mg Acetaminophen (Tylenol 325mg Tab) 650 mg PO Q6 PRN PRN Reason: Fever >100.4 F Last Admin: 01/01/18 00:34 Dose: 650 mg Albuterol (Ventolin Hfa 90 Mcg/Actuation (8 G)) 1 puff INH RQ6 PRN PRN Reason: Shortness of Breath Last Admin: 01/11/18 18:25 Dose: 1 puff Bacitracin (Bacitracin) 1 ea TOP TID [facility] Last Admin: 01/14/18 12:31 Dose: 1 ea Dextrose (Dextrose 50% Inj) 0 ml IV STAT PRN; Protocol PRN Reason: Hypoglycemia Protocol Dextrose (Glutose 15) 0 gm PO ONCE PRN; Protocol PRN Reason: Hypoglycemia Protocol Dextrose (Dextrose 50% Inj) 0 ml IV STAT PRN; Protocol PRN Reason: Hypoglycemia Protocol Dextrose (Glutose 15) 0 gm PO ONCE PRN; Protocol PRN Reason: Hypoglycemia Protocol Diphenhydramine HCl (Benadryl) 50 mg PO HS PRN PRN Reason: Sleep Last Admin: 01/13/18 23:02 Dose: 50 mg Famotidine (Pepcid) 40 mg PO HS [facility] Last Admin: 01/13/18 21:45 Dose: 40 mg Ferrous Gluconate (Fergon) 324 mg PO TID [facility] Last Admin: 01/14/18 12:31 Dose: 324 mg Furosemide (Lasix) 40 mg PO BID [facility] Last Admin: 01/14/18 08:50 Dose: 40 mg Glucagon (Glucagen Diagnostic Kit) 0 mg IM STAT PRN; Protocol PRN Reason: Hypoglycemia Protocol Glucagon (Glucagen Diagnostic Kit) 0 mg IM STAT PRN; Protocol PRN Reason: Hypoglycemia Protocol Guaifenesin/Dextromethorphan (Robitussin Dm) 5 ml PO TID PRN PRN Reason: Cough Last Admin: 01/13/18 21:43 Dose: 5 ml Haloperidol Lactate (Haldol) 2 mg PO TID [facility] Last Admin: 01/14/18 12:32 Dose: 2 mg Cefazolin Sodium 1 gm/ Sodium (Chloride) 100 mls @ 100 mls/hr IVPB Q8 [facility]; Protocol Last Admin: 12/08/18 08:48 Dose: 100 mls/hr Insulin Detemir (Levemir) 18 units SC [facility] Insulin Human Regular (Humulin R) 0 units SC ACHS [facility]; Protocol Last Admin: 01/14/18 12:32 Dose: 4 units Lactulose (Enulose) 20 gm PO Q8 [facility] Last Admin: 01/14/18 08:50 Dose: 20 gm Midodrine (Proamatine) 10 mg PO TID [facility] Last Admin: 01/14/18 12:33 Dose: 10 mg Octreotide Acetate (Sandostatin) 200 mcg SC Q8@0300,1100,1900 [facility] Last Admin: 01/14/18 12:42 Dose: 200 mcg Ondansetron HCl (Zofran Inj) 4 mg IVP Q8 PRN PRN Reason: Nausea/Vomiting Last Admin: 12/22/17 08:33 Dose: 4 mg Propranolol HCl (Inderal) 10 mg PO Q12 [facility] Last Admin: 01/14/18 08:49 Dose: Not Given Sodium Bicarbonate (Sodium Bicarbonate Tab) 650 mg PO BID [facility] Last Admin: 01/14/18 08:52 Dose: 650 mg Spironolactone (Aldactone) 75 mg PO BID [facility] Last Admin: 01/14/18 12:31 Dose: 75 mg Thiamine HCl (Vitamin B1 Tab) 100 mg PO DAILY [facility] Last Admin: 01/13/18 08:49 Dose: 100 mg Trazodone HCl (Desyrel) 50 mg PO [facility] Last Admin: 01/13/18 21:38 Dose: 50 mg Vitamin B Complex/Vit C/Folic Acid (Nephro-Ree) 1 tab PO DAILY [facility] Last Admin: 01/14/18 08:49 Dose: 1 tab - Labs Labs: 01/14/18 05:30 01/14/18 05:30 PT 17.0 Seconds (9.8-13.1) H 12/13/17 14:10 INR 1.5 12/13/17 14:10 APTT 33.1 Seconds (25.6-37.1) 12/13/17 14:10
[2018-01-14] MEDS: Albuterol HFA 90 mcg/actuation (8 g) INH PRN (21:48)
[2018-01-14] MEDS: Insulin Detemir 100 Units/ml Inj SC SCH (22:18)
[2018-01-15] MEDS: ceFAZolin 1 GM in Sodium Chloride 0.9% 100 ML IVPB SCH ×3 (00:38→17:08)
[2018-01-15 07:34] LABS: HEMOGLOBIN 9.2 g/dL (12.0-18.0); MEAN CELL VOLUME 109.2 fl (80.0-94.0); MEAN CORPUSCULAR HEMOGLOBIN 37.5 pg (27.0-31.0); MEAN CORPUSCULAR HGB CONC 34.3 g/dL (33.0-37.0); RBC 2.44 Mil/uL (4.40-5.90); RED CELL DISTRIBUTION WIDTH 20.1 % (11.5-14.5); WHITE BLOOD COUNT 6.1 K/uL (4.8-10.8)
[2018-01-15 08:00] LABS: ALB/GLOB RATIO 0.6 (1.0-2.1); ALBUMIN 2.7 g/dL (3.5-5.0); ALT/SGPT 9 U/L (21-72); AST/SGOT 29 U/L (17-59); BLOOD UREA NITROGEN 34 mg/dl (9-20); CALCIUM 8.4 mg/dL (8.4-10.2); GFR NON-AFRICAN AMERICAN 52
[2018-01-15] MEDS: Insulin Regular 100 units/ml SC SCH ×4 (08:38→22:17)
[2018-01-15] MEDS: Haloperidol Lactate 2 mg/ml Liquid PO SCH ×3 (08:51→17:10)
[2018-01-15] MEDS: Bacitracin 500 Units/gm Oint Foilpak UD TOP SCH ×3 (08:52→17:10)
[2018-01-15] MEDS: Multivitamin Vitamin B Complex (Nephro-Vite) Tab PO SCH (08:54)
--- NOTE | 2018-01-15 11:56 | PN ---
DATE: 01/15/2018 SUBJECTIVE: The patient seen and examined. Interim events noted. Consults noted and appreciated. The patient remains in regular medical floor with one-to-one observation for safety, sleeping, arousable. Feels okay. Denies any specific complaint. No specific issue reported by nursing staff. PHYSICAL EXAMINATION: GENERAL: The patient is in no acute distress. VITAL SIGNS: Stable. The patient lost 2 pounds after increasing Aldactone 75 mg twice a day. HEART: S1 and S2, normal and regular. LUNGS: Good bilateral air exchange. ABDOMEN: The patient has gross ascites. No sign of acute abdomen. No guarding. No rigidity. No rebound. Bowel sounds are plus and normal. EXTREMITIES: No edema. No calf swelling. No tenderness. No acute ischemia. [employer]: Exam is essentially unchanged. DIAGNOSTIC DATA: Available diagnostic data reviewed. ASSESSMENT AND PLAN: Overall, the patient's general medical condition is stable. Tolerating increasing diuretics slowly. We will increase Aldactone to 100 mg twice a day and repeat chemistry tomorrow. Plan as ordered. Robbin Romano MD
--- NOTE | 2018-01-15 12:10 | CP.PCM.PN ---
Subjective - Date & Time of Evaluation Date of Evaluation: 01/15/18 Time of Evaluation: 09:00 - Subjective Subjective: afeb alert nad Objective - Vital Signs/Intake and Output Vital Signs (last 24 hours): Temp Pulse Resp BP Pulse Ox 98.5 F 77 20 123/70 98 01/15/18 08:48 01/15/18 08:48 01/15/18 08:48 01/15/18 08:54 01/15/18 08:48 - Medications Medications: Current Medications Acetaminophen (Tylenol 325mg Tab) 650 mg PO Q4 PRN PRN Reason: Pain, moderate (4-7) Last Admin: 01/15/18 06:45 Dose: 650 mg Acetaminophen (Tylenol 325mg Tab) 650 mg PO Q6 PRN PRN Reason: Fever >100.4 F Last Admin: 01/01/18 00:34 Dose: 650 mg Albuterol (Ventolin Hfa 90 Mcg/Actuation (8 G)) 1 puff INH RQ6 PRN PRN Reason: Shortness of Breath Last Admin: 01/14/18 21:48 Dose: 1 puff Bacitracin (Bacitracin) 1 ea TOP TID [facility] Last Admin: 01/15/18 08:52 Dose: 1 ea Dextrose (Dextrose 50% Inj) 0 ml IV STAT PRN; Protocol PRN Reason: Hypoglycemia Protocol Dextrose (Glutose 15) 0 gm PO ONCE PRN; Protocol PRN Reason: Hypoglycemia Protocol Dextrose (Dextrose 50% Inj) 0 ml IV STAT PRN; Protocol PRN Reason: Hypoglycemia Protocol Dextrose (Glutose 15) 0 gm PO ONCE PRN; Protocol PRN Reason: Hypoglycemia Protocol Diphenhydramine HCl (Benadryl) 50 mg PO HS PRN PRN Reason: Sleep Last Admin: 01/15/18 00:37 Dose: 50 mg Famotidine (Pepcid) 40 mg PO HS [facility] Last Admin: 01/14/18 21:47 Dose: 40 mg Ferrous Gluconate (Fergon) 324 mg PO TID [facility] Last Admin: 01/15/18 08:53 Dose: 324 mg Furosemide (Lasix) 40 mg PO BID [facility] Last Admin: 01/15/18 08:54 Dose: 40 mg Glucagon (Glucagen Diagnostic Kit) 0 mg IM STAT PRN; Protocol PRN Reason: Hypoglycemia Protocol Glucagon (Glucagen Diagnostic Kit) 0 mg IM STAT PRN; Protocol PRN Reason: Hypoglycemia Protocol Guaifenesin/Dextromethorphan (Robitussin Dm) 5 ml PO TID PRN PRN Reason: Cough Last Admin: 01/13/18 21:43 Dose: 5 ml Haloperidol Lactate (Haldol) 2 mg PO TID [facility] Last Admin: 01/15/18 08:51 Dose: 2 mg Cefazolin Sodium 1 gm/ Sodium (Chloride) 100 mls @ 100 mls/hr IVPB Q8 [facility]; Protocol Last Admin: 01/15/18 08:49 Dose: 100 mls/hr Insulin Detemir (Levemir) 18 units SC HS [facility] Last Admin: 01/14/18 22:18 Dose: 18 units Insulin Human Regular (Humulin R) 0 units SC ACHS [facility]; Protocol Last Admin: 01/15/18 08:38 Dose: 2 units Lactulose (Enulose) 20 gm PO Q8 [facility] Last Admin: 01/15/18 08:52 Dose: 20 gm Midodrine (Proamatine) 10 mg PO TID [facility] Last Admin: 01/15/18 08:53 Dose: 10 mg Octreotide Acetate (Sandostatin) 200 mcg SC Q8@0300,1100,1900 [facility] Last Admin: 01/15/18 10:27 Dose: 200 mcg Ondansetron HCl (Zofran Inj) 4 mg IVP Q8 PRN PRN Reason: Nausea/Vomiting Last Admin: 12/22/17 08:33 Dose: 4 mg Propranolol HCl (Inderal) 10 mg PO Q12 [facility] Last Admin: 01/15/18 08:54 Dose: 10 mg Sodium Bicarbonate (Sodium Bicarbonate Tab) 650 mg PO BID [facility] Last Admin: 01/15/18 08:53 Dose: 650 mg Spironolactone (Aldactone) 100 mg PO BID [facility] Last Admin: 01/15/18 08:52 Dose: 100 mg Thiamine HCl (Vitamin B1 Tab) 100 mg PO DAILY [facility] Last Admin: 01/15/18 08:54 Dose: 100 mg Trazodone HCl (Desyrel) 50 mg PO HS [facility] Last Admin: 01/14/18 21:46 Dose: 50 mg Vitamin B Complex/Vit C/Folic Acid (Nephro-Ree) 1 tab PO DAILY [facility] Last Admin: 01/15/18 08:54 Dose: 1 tab - Labs Labs: 01/15/18 06:00 01/15/18 06:00 PT 17.0 Seconds (9.8-13.1) H 12/13/17 14:10 INR 1.5 12/13/17 14:10 APTT 33.1 Seconds (25.6-37.1) 12/13/17 14:10 - Constitutional Appears: Non-toxic, Chronically Ill - Head Exam Head Exam: NORMOCEPHALIC - Eye Exam Eye Exam: absent: Scleral icterus - ENT Exam ENT Exam: Mucous Membranes Dry - Neck Exam Neck Exam: absent: Lymphadenopathy - Respiratory Exam Respiratory Exam: Decreased Breath Sounds - Cardiovascular Exam Cardiovascular Exam: REGULAR RHYTHM - GI/Abdominal Exam GI & Abdominal Exam: Distended, Guarding, Soft, Tenderness. absent: Rigid Assessment and Plan (1) SHELLIE (acute kidney injury) Status: Acute (2) Ascites Status: Acute (3) Abdominal pain Status: Acute (4) Alcohol abuse with intoxication Status: Acute (5) Anxiety Status: Chronic (6) Depression Status: Chronic (7) Diabetes mellitus Status: Chronic (8) Liver cirrhosis Status: Chronic (9) Staph aureus infection Status: Acute - Assessment and Plan (Free Text) Assessment: to comnplete 14 days iv rx then d/c poor prognosis
[2018-01-15] MEDS: Albuterol HFA 90 mcg/actuation (8 g) INH PRN (14:40)
[2018-01-15] MEDS: Insulin Detemir 100 Units/ml Inj SC SCH (21:19)
[2018-01-16] MEDS: ceFAZolin 1 GM in Sodium Chloride 0.9% 100 ML IVPB SCH ×3 (01:06→16:56)
[2018-01-16 06:32] LABS: MEAN CELL VOLUME 109.3 fl (80.0-94.0); MEAN CORPUSCULAR HEMOGLOBIN 38.1 pg (27.0-31.0); MEAN CORPUSCULAR HGB CONC 34.8 g/dL (33.0-37.0); RBC 2.37 Mil/uL (4.40-5.90); RED CELL DISTRIBUTION WIDTH 20.1 % (11.5-14.5); WHITE BLOOD COUNT 4.9 K/uL (4.8-10.8)
[2018-01-16 06:54] LABS: ALB/GLOB RATIO 0.6 (1.0-2.1); ALBUMIN 2.6 g/dL (3.5-5.0); CALCIUM 8.4 mg/dL (8.4-10.2)
[2018-01-16] MEDS: Insulin Regular 100 units/ml SC SCH ×4 (08:30→21:29)
[2018-01-16] MEDS: Haloperidol Lactate 2 mg/ml Liquid PO SCH ×3 (08:32→16:52)
[2018-01-16] MEDS: Bacitracin 500 Units/gm Oint Foilpak UD TOP SCH ×3 (08:32→16:55)
[2018-01-16] MEDS: Multivitamin Vitamin B Complex (Nephro-Vite) Tab PO SCH (08:35)
--- NOTE | 2018-01-16 10:43 | CP.PCM.PN ---
Subjective - Date & Time of Evaluation Date of Evaluation: 01/16/18 Time of Evaluation: 10:45 - Subjective Subjective: no new events reported Vital sign noted Objective - Vital Signs/Intake and Output Vital Signs (last 24 hours): Temp Pulse Resp BP Pulse Ox 98.2 F 79 18 104/61 93 L 01/16/18 09:00 01/16/18 09:00 01/16/18 09:00 01/16/18 09:00 01/16/18 09:00 - Medications Medications: Current Medications Acetaminophen (Tylenol 325mg Tab) 650 mg PO Q4 PRN PRN Reason: Pain, moderate (4-7) Last Admin: 01/16/18 10:11 Dose: 650 mg Albuterol (Ventolin Hfa 90 Mcg/Actuation (8 G)) 1 puff INH RQ6 PRN PRN Reason: Shortness of Breath Last Admin: 01/15/18 14:40 Dose: 1 puff Bacitracin (Bacitracin) 1 ea TOP TID [facility] Last Admin: 01/16/18 08:32 Dose: 1 ea Dextrose (Dextrose 50% Inj) 0 ml IV STAT PRN; Protocol PRN Reason: Hypoglycemia Protocol Dextrose (Glutose 15) 0 gm PO ONCE PRN; Protocol PRN Reason: Hypoglycemia Protocol Dextrose (Dextrose 50% Inj) 0 ml IV STAT PRN; Protocol PRN Reason: Hypoglycemia Protocol Dextrose (Glutose 15) 0 gm PO ONCE PRN; Protocol PRN Reason: Hypoglycemia Protocol Diphenhydramine HCl (Benadryl) 50 mg PO HS PRN PRN Reason: Sleep Last Admin: 01/15/18 23:12 Dose: 50 mg Famotidine (Pepcid) 40 mg PO HS [facility] Last Admin: 01/15/18 21:19 Dose: 40 mg Ferrous Gluconate (Fergon) 324 mg PO TID [facility] Last Admin: 01/16/18 08:34 Dose: 324 mg Furosemide (Lasix) 40 mg PO BID [facility] Last Admin: 01/16/18 08:33 Dose: 40 mg Glucagon (Glucagen Diagnostic Kit) 0 mg IM STAT PRN; Protocol PRN Reason: Hypoglycemia Protocol Glucagon (Glucagen Diagnostic Kit) 0 mg IM STAT PRN; Protocol PRN Reason: Hypoglycemia Protocol Guaifenesin/Dextromethorphan (Robitussin Dm) 5 ml PO TID PRN PRN Reason: Cough Last Admin: 01/13/18 21:43 Dose: 5 ml Haloperidol Lactate (Haldol) 2 mg PO TID [facility] Last Admin: 01/16/18 08:32 Dose: 2 mg Cefazolin Sodium 1 gm/ Sodium (Chloride) 100 mls @ 100 mls/hr IVPB Q8 [facility]; Protocol Last Admin: 01/16/18 08:31 Dose: 100 mls/hr Insulin Detemir (Levemir) 18 units SC HS [facility] Last Admin: 01/15/18 21:19 Dose: 18 units Insulin Human Regular (Humulin R) 0 units SC ACHS [facility]; Protocol Last Admin: 01/16/18 08:30 Dose: 2 units Lactulose (Enulose) 20 gm PO Q8 [facility] Last Admin: 01/16/18 08:34 Dose: 20 gm Midodrine (Proamatine) 10 mg PO TID [facility] Last Admin: 01/16/18 08:33 Dose: 10 mg Octreotide Acetate (Sandostatin) 200 mcg SC Q8@0300,1100,1900 [facility] Last Admin: 01/16/18 10:22 Dose: 200 mcg Ondansetron HCl (Zofran Inj) 4 mg IVP Q8 PRN PRN Reason: Nausea/Vomiting Last Admin: 12/22/17 08:33 Dose: 4 mg Propranolol HCl (Inderal) 10 mg PO Q12 [facility] Last Admin: 01/16/18 08:34 Dose: 10 mg Sodium Bicarbonate (Sodium Bicarbonate Tab) 650 mg PO BID [facility] Last Admin: 01/16/18 08:32 Dose: 650 mg Spironolactone (Aldactone) 100 mg PO BID [facility] Last Admin: 01/16/18 08:35 Dose: 100 mg Thiamine HCl (Vitamin B1 Tab) 100 mg PO DAILY [facility] Last Admin: 01/16/18 08:36 Dose: 100 mg Trazodone HCl (Desyrel) 50 mg PO HS [facility] Last Admin: 01/15/18 21:19 Dose: 50 mg Vitamin B Complex/Vit C/Folic Acid (Nephro-Ree) 1 tab PO DAILY [facility] Last Admin: 01/16/18 08:35 Dose: 1 tab - Labs Labs: 01/16/18 05:45 01/16/18 05:45 PT 17.0 Seconds (9.8-13.1) H 12/13/17 14:10 INR 1.5 12/13/17 14:10 APTT 33.1 Seconds (25.6-37.1) 12/13/17 14:10 - Constitutional Appears: No Acute Distress - Eye Exam Eye Exam: Conjunctival injection - ENT Exam ENT Exam: Mucous Membranes Moist - Neck Exam Neck Exam: absent: Lymphadenopathy - Respiratory Exam Respiratory Exam: NORMAL BREATHING PATTERN - Cardiovascular Exam Cardiovascular Exam: absent: Gallop, JVD, Rubs - GI/Abdominal Exam GI & Abdominal Exam: Distended - Extremities Exam Extremities Exam: absent: Calf Tenderness - Back Exam Back Exam: absent: CVA tenderness (L), CVA tenderness (R) - Neurological Exam Neurological Exam: Alert - Skin Skin Exam: absent: Cyanosis Assessment and Plan (1) SHELLIE (acute kidney injury) Assessment & Plan: acute kidney injury serum creatinine going up slowly again Secondary to hepatorenal syndrome reaccumulation of ascites and fluid 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 massive ascitis with recurrent paracentesis anemia diabetes mellitus recommendation intermittent use of 25% albumin for hypotension. continue midodrine Prognosis is guarded. medication dose is adjusted per renal failure kidney function continue somewhat stable although serum creatinine up to 1.3 status post paracentesis with 5 L removed Status post paracentesis 12/27 over 10 L of fluid was removed status post paracentesis 01/05 and 11 L. fluid removed Status: Acute (2) Ascites Status: Acute
--- NOTE | 2018-01-16 11:07 | PN ---
DATE: 01/16/2018 SUBJECTIVE: The patient seen and examined. Interim events noted. The patient remains in regular medical floor with one-to-one observation for safety. Denies any specific complaints. No chest pain. No shortness of breath. PHYSICAL EXAMINATION: GENERAL: The patient is in no acute distress. VITAL SIGNS: Stable. HEART: S1 and S2 normal and regular. LUNGS: Good bilateral air exchange. ABDOMEN: The patient has gross ascites with no sign of acute abdomen. No guarding, no rigidity, no rebound. Bowel sounds are plus and normal. EXTREMITIES: No edema. No calf swelling. No tenderness. No acute ischemia. CENTRAL NERVOUS SYSTEM: Exam is essentially unchanged. DIAGNOSTIC DATA: Available diagnostic data reviewed. ASSESSMENT AND PLAN: Overall, the patient is medically stable. Weight is 195. Blood pressure in on lower side. So we will not adjust diuretic at this time. Plan as ordered. Robbin Romano MD
--- NOTE | 2018-01-16 11:17 | CP.PCM.PN ---
Subjective - Date & Time of Evaluation Date of Evaluation: 01/16/18 Time of Evaluation: 08:30 - Subjective Subjective: wants to go to [facility] Objective - Vital Signs/Intake and Output Vital Signs (last 24 hours): Temp Pulse Resp BP Pulse Ox 98.2 F 79 18 104/61 93 L 01/16/18 09:00 01/16/18 09:00 01/16/18 09:00 01/16/18 09:00 01/16/18 09:00 - Medications Medications: Current Medications Acetaminophen (Tylenol 325mg Tab) 650 mg PO Q4 PRN PRN Reason: Pain, moderate (4-7) Last Admin: 01/16/18 10:11 Dose: 650 mg Albuterol (Ventolin Hfa 90 Mcg/Actuation (8 G)) 1 puff INH RQ6 PRN PRN Reason: Shortness of Breath Last Admin: 01/15/18 14:40 Dose: 1 puff Bacitracin (Bacitracin) 1 ea TOP TID [facility] Last Admin: 01/16/18 08:32 Dose: 1 ea Dextrose (Dextrose 50% Inj) 0 ml IV STAT PRN; Protocol PRN Reason: Hypoglycemia Protocol Dextrose (Glutose 15) 0 gm PO ONCE PRN; Protocol PRN Reason: Hypoglycemia Protocol Dextrose (Dextrose 50% Inj) 0 ml IV STAT PRN; Protocol PRN Reason: Hypoglycemia Protocol Dextrose (Glutose 15) 0 gm PO ONCE PRN; Protocol PRN Reason: Hypoglycemia Protocol Diphenhydramine HCl (Benadryl) 50 mg PO HS PRN PRN Reason: Sleep Last Admin: 01/15/18 23:12 Dose: 50 mg Famotidine (Pepcid) 40 mg PO HS [facility] Last Admin: 01/15/18 21:19 Dose: 40 mg Ferrous Gluconate (Fergon) 324 mg PO TID [facility] Last Admin: 01/16/18 08:34 Dose: 324 mg Furosemide (Lasix) 40 mg PO BID [facility] Last Admin: 01/16/18 08:33 Dose: 40 mg Glucagon (Glucagen Diagnostic Kit) 0 mg IM STAT PRN; Protocol PRN Reason: Hypoglycemia Protocol Glucagon (Glucagen Diagnostic Kit) 0 mg IM STAT PRN; Protocol PRN Reason: Hypoglycemia Protocol Guaifenesin/Dextromethorphan (Robitussin Dm) 5 ml PO TID PRN PRN Reason: Cough Last Admin: 01/13/18 21:43 Dose: 5 ml Haloperidol Lactate (Haldol) 2 mg PO TID [facility] Last Admin: 01/16/18 08:32 Dose: 2 mg Cefazolin Sodium 1 gm/ Sodium (Chloride) 100 mls @ 100 mls/hr IVPB Q8 [facility]; Protocol Last Admin: 01/16/18 08:31 Dose: 100 mls/hr Insulin Detemir (Levemir) 18 units SC HS [facility] Last Admin: 01/15/18 21:19 Dose: 18 units Insulin Human Regular (Humulin R) 0 units SC ACHS [facility]; Protocol Last Admin: 01/16/18 08:30 Dose: 2 units Lactulose (Enulose) 20 gm PO Q8 [facility] Last Admin: 01/16/18 08:34 Dose: 20 gm Midodrine (Proamatine) 10 mg PO TID [facility] Last Admin: 01/16/18 08:33 Dose: 10 mg Octreotide Acetate (Sandostatin) 200 mcg SC Q8@0300,1100,1900 [facility] Last Admin: 01/16/18 10:22 Dose: 200 mcg Ondansetron HCl (Zofran Inj) 4 mg IVP Q8 PRN PRN Reason: Nausea/Vomiting Last Admin: 12/22/17 08:33 Dose: 4 mg Propranolol HCl (Inderal) 10 mg PO Q12 [facility] Last Admin: 01/16/18 08:34 Dose: 10 mg Sodium Bicarbonate (Sodium Bicarbonate Tab) 650 mg PO BID [facility] Last Admin: 01/16/18 08:32 Dose: 650 mg Spironolactone (Aldactone) 100 mg PO BID [facility] Last Admin: 01/16/18 08:35 Dose: 100 mg Thiamine HCl (Vitamin B1 Tab) 100 mg PO DAILY [facility] Last Admin: 01/16/18 08:36 Dose: 100 mg Trazodone HCl (Desyrel) 50 mg PO HS [facility] Last Admin: 01/15/18 21:19 Dose: 50 mg Vitamin B Complex/Vit C/Folic Acid (Nephro-Ree) 1 tab PO DAILY [facility] Last Admin: 01/16/18 08:35 Dose: 1 tab - Labs Labs: 01/16/18 05:45 01/16/18 05:45 PT 17.0 Seconds (9.8-13.1) H 12/13/17 14:10 INR 1.5 12/13/17 14:10 APTT 33.1 Seconds (25.6-37.1) 12/13/17 14:10 - Head Exam Head Exam: NORMOCEPHALIC - Neck Exam Neck Exam: Normal Inspection - Respiratory Exam Respiratory Exam: Clear to Ausculation Bilateral - Cardiovascular Exam Cardiovascular Exam: REGULAR RHYTHM - GI/Abdominal Exam GI & Abdominal Exam: Distended, Soft, Normal Bowel Sounds Assessment and Plan - Assessment and Plan (Free Text) Assessment: 57 yo male with refractory ascites Cr stable but elevated ID input and ID input appreciated still on 1:1
[2018-01-16] MEDS: Albuterol HFA 90 mcg/actuation (8 g) INH PRN (17:09)
[2018-01-16] MEDS: Insulin Detemir 100 Units/ml Inj SC SCH (21:29)
[2018-01-17] MEDS: ceFAZolin 1 GM in Sodium Chloride 0.9% 100 ML IVPB SCH ×2 (02:10→08:48)
[2018-01-17 08:27] LABS: MEAN CORPUSCULAR HEMOGLOBIN 37.3 pg (27.0-31.0); MEAN CORPUSCULAR HGB CONC 33.3 g/dL (33.0-37.0); RBC 2.42 Mil/uL (4.40-5.90); RED CELL DISTRIBUTION WIDTH 20.2 % (11.5-14.5)
[2018-01-17 08:39] LABS: ALB/GLOB RATIO 0.6 (1.0-2.1); ALBUMIN 2.7 g/dL (3.5-5.0); ALT/SGPT 7 U/L (21-72); AST/SGOT 34 U/L (17-59); BLOOD UREA NITROGEN 34 mg/dl (9-20); CALCIUM 8.4 mg/dL (8.4-10.2); GFR NON-AFRICAN AMERICAN 57
[2018-01-17] MEDS: Bacitracin 500 Units/gm Oint Foilpak UD TOP SCH ×3 (08:50→17:27)
[2018-01-17] MEDS: Haloperidol Lactate 2 mg/ml Liquid PO SCH ×3 (08:51→17:25)
[2018-01-17] MEDS: Multivitamin Vitamin B Complex (Nephro-Vite) Tab PO SCH (08:53)
[2018-01-17] MEDS: Insulin Regular 100 units/ml SC SCH ×4 (09:02→21:49)
--- NOTE | 2018-01-17 09:26 | CP.PCM.PN ---
<Karoline Sanches - Last Filed: 01/17/18 15:56> Subjective - Date & Time of Evaluation Date of Evaluation: 01/17/18 Time of Evaluation: 09:00 - Subjective Subjective: Seen and evaluated this morning with Dr. Romano. States he "wants to go home." Complains of feeling dyspnic over the past few days. Appears comfortable. Reduced breath sounds BL. 1;1 at bedside. Plan for paracentesis today. Objective - Vital Signs/Intake and Output Vital Signs (last 24 hours): Temp Pulse Resp BP Pulse Ox 97.8 F 77 18 118/74 100 01/17/18 08:13 01/17/18 08:52 01/17/18 08:13 01/17/18 09:01 01/17/18 08:13 - Medications Medications: Current Medications Acetaminophen (Tylenol 325mg Tab) 650 mg PO Q4 PRN PRN Reason: Pain, moderate (4-7) Last Admin: 01/16/18 10:11 Dose: 650 mg Albuterol (Ventolin Hfa 90 Mcg/Actuation (8 G)) 1 puff INH RQ6 PRN PRN Reason: Shortness of Breath Last Admin: 01/16/18 17:09 Dose: 1 puff Bacitracin (Bacitracin) 1 ea TOP TID [facility] Last Admin: 01/17/18 08:50 Dose: 1 ea Dextrose (Dextrose 50% Inj) 0 ml IV STAT PRN; Protocol PRN Reason: Hypoglycemia Protocol Dextrose (Glutose 15) 0 gm PO ONCE PRN; Protocol PRN Reason: Hypoglycemia Protocol Dextrose (Dextrose 50% Inj) 0 ml IV STAT PRN; Protocol PRN Reason: Hypoglycemia Protocol Dextrose (Glutose 15) 0 gm PO ONCE PRN; Protocol PRN Reason: Hypoglycemia Protocol Diphenhydramine HCl (Benadryl) 50 mg PO HS PRN PRN Reason: Sleep Last Admin: 01/16/18 21:26 Dose: 50 mg Famotidine (Pepcid) 40 mg PO HS [facility] Last Admin: 01/16/18 21:26 Dose: 40 mg Ferrous Gluconate (Fergon) 324 mg PO TID [facility] Last Admin: 01/17/18 08:50 Dose: 324 mg Furosemide (Lasix) 60 mg PO BID [facility] Last Admin: 01/17/18 09:01 Dose: 60 mg Glucagon (Glucagen Diagnostic Kit) 0 mg IM STAT PRN; Protocol PRN Reason: Hypoglycemia Protocol Glucagon (Glucagen Diagnostic Kit) 0 mg IM STAT PRN; Protocol PRN Reason: Hypoglycemia Protocol Guaifenesin/Dextromethorphan (Robitussin Dm) 5 ml PO TID PRN PRN Reason: Cough Last Admin: 01/13/18 21:43 Dose: 5 ml Haloperidol Lactate (Haldol) 2 mg PO TID [facility] Last Admin: 01/17/18 08:51 Dose: 2 mg Cefazolin Sodium 1 gm/ Sodium (Chloride) 100 mls @ 100 mls/hr IVPB Q8 [facility]; Protocol Last Admin: 01/17/18 08:48 Dose: 100 mls/hr Insulin Detemir (Levemir) 18 units SC [facility] Last Admin: 01/16/18 21:29 Dose: 18 units Insulin Human Regular (Humulin R) 0 units SC ACHS [facility]; Protocol Last Admin: 01/17/18 09:02 Dose: 4 units Lactulose (Enulose) 20 gm PO Q8 [facility] Last Admin: 01/17/18 08:50 Dose: 20 gm Midodrine (Proamatine) 10 mg PO TID [facility] Last Admin: 01/17/18 08:53 Dose: 10 mg Octreotide Acetate (Sandostatin) 200 mcg SC Q8@0300,1100,1900 [facility] Last Admin: 01/17/18 02:07 Dose: 200 mcg Ondansetron HCl (Zofran Inj) 4 mg IVP Q8 PRN PRN Reason: Nausea/Vomiting Last Admin: 12/22/17 08:33 Dose: 4 mg Propranolol HCl (Inderal) 10 mg PO Q12 [facility] Last Admin: 01/17/18 08:52 Dose: 10 mg Sodium Bicarbonate (Sodium Bicarbonate Tab) 650 mg PO BID [facility] Last Admin: 01/17/18 08:53 Dose: 650 mg Spironolactone (Aldactone) 100 mg PO BID [facility] Last Admin: 01/17/18 08:48 Dose: 100 mg Thiamine HCl (Vitamin B1 Tab) 100 mg PO DAILY [facility] Last Admin: 01/17/18 08:53 Dose: 100 mg Trazodone HCl (Desyrel) 50 mg PO [facility] Last Admin: 01/16/18 21:26 Dose: 50 mg Vitamin B Complex/Vit C/Folic Acid (Nephro-Ree) 1 tab PO DAILY [facility] Last Admin: 01/17/18 08:53 Dose: 1 tab - Labs Labs: 01/17/18 08:13 01/17/18 08:13 PT 17.0 Seconds (9.8-13.1) H 12/13/17 14:10 INR 1.5 12/13/17 14:10 APTT 33.1 Seconds (25.6-37.1) 12/13/17 14:10 - Constitutional Appears: No Acute Distress - Eye Exam Eye Exam: Normal appearance, Scleral icterus - ENT Exam ENT Exam: Mucous Membranes Moist - Neck Exam Neck Exam: Full ROM - Respiratory Exam Respiratory Exam: Decreased Breath Sounds, Clear to Ausculation Bilateral. absent: Rales, Wheezes - Cardiovascular Exam Cardiovascular Exam: REGULAR RHYTHM, +S1, +S2 - GI/Abdominal Exam GI & Abdominal Exam: Distended, Normal Bowel Sounds. absent: Tenderness - Extremities Exam Extremities Exam: absent: Pedal Edema - Neurological Exam Neurological Exam: Alert - Psychiatric Exam Psychiatric exam: Anxious - Skin Skin Exam: Normal Color Assessment and Plan - Assessment and Plan (Free Text) Assessment: 57 y/o M with a PMHx of HTN, DM, asthma, ETOH abuse with liver cirrhosis, admitted for recurrent ascitis, auditory hallucinations, SHELLIE and Bacteremia. Complaining of worsening dyspnea, may need therapeutic paracentesis. PLAN: Ascites - 2/2 to Alcholic Cirrohosis, poor prognosis - Worsening Ascites, s/p IR guided Paracentesis on 12/27 with 10 L and 01/05 with 11L removed - Therapeutic paracentesis PRN as tolerated. Likely today - GI on board, Dr. Galdamez, worsening ascites may need more diuretics or TIPS - C/W aldactone, lasix, octreotide, lactulose and midodrine. Lasix increased today SHELLIE vs Hepatorenal - resolved, Crea 1.2 - nephrology on board, YARIEL/ARBS were held in light of kidney injury - Continue monitoring renal function Bacteremia -MSSA - ID on board, Dr. Davis - C/W Anceph for 2 weeks total needed as per ID (started on 01/02) Acute Psychosis -Evaluated by Psych today, Dr. Morales, pt has capacity to make decisions, stable for discharge. -Haldol po TID -Trazodone HS -1:1. Anemia -H/H stable -Macrocytic Anemia, chronic liver disease, B12 and folate wnl -C/W ferrous sulfate po Hyperglycemia -HgA1C 6.0, prediabetic -BS uncontrolled, 250-350 ranges -Levemir 18 DVT -SCD's for now <Robbin Romano - Last Filed: 01/20/18 10:04> Objective - Vital Signs/Intake and Output Vital Signs (last 24 hours): Temp Pulse Resp BP Pulse Ox 98 F 71 18 96/63 L 100 01/18/18 09:00 01/18/18 09:00 01/18/18 09:00 01/18/18 09:09 01/18/18 09:00 - Labs Labs: 01/18/18 06:00 01/18/18 06:00 PT 22.6 Seconds (9.8-13.1) H 01/17/18 11:43 INR 2.0 01/17/18 11:43 APTT 38.8 Seconds (25.6-37.1) H 01/17/18 11:43 Assessment and Plan - Assessment and Plan (Free Text) Assessment: Patient was personally seen and examined by me in rounds with residents. Available labs and diagnostic data reviewed. Case, Patient's condition and management plan discussed with residents in rounds. Agree with resident's progress note. Plan: As ordered.
--- NOTE | 2018-01-17 09:48 | CP.PCM.CON ---
History of Present Illness - History of Present Illness History of Present Illness: Psychiatry consult follow-up note CC: "They aren't taking care of me, so I want to leave." HPI: 57 y/o M with a PMHx of HTN, DM, asthma, ETOH abuse with liver cirrhosis, was admitted for evaluation and management of recurrent abdominal pain, abdominal distension and acute psychosis. Acute psychosis has resolved. Patient denies depression/anxiety/AH/VH/SI. A + O x 4; knows the president, is able to understand his current medical issues and able to express that the risks of leaving the hospital against medical advice include worsening liver and kidney function, more fluid retention/ascites, and . His reason for wanting to leave the hospital is that he does not believe he is getting the appropriate treatment he needs and wants to leave to either go back to his home country () or find another hospital. Patient does not want psychiatric admission at this time. Psychoeducation provided on the dangers of ETOH abuse. Impression: 57 yo male initially had acute delirium due to medical issues, which has now resolved. He has capacity to make medical decisions at this time. -Patient is psychiatrically clear for discharge -Patient has capacity to make medical decisions and capacity to make the decision to leave AMA -Continue Haldol; recommend outpatient psychiatric follow-up upon discharge -No 1:1 indicated for psychiatric reasons -Call for psychiatric re-consultation if needed Past Patient History - Infectious Disease Hx of Infectious Diseases: None - Past Medical History & Family History Past Medical History?: Yes - Past Social History Smoking Status: Never Smoked - CARDIAC Hx Cardiac Disorders: Yes Hx Atrial Fibrillation: Yes Hx Hypertension: Yes - PULMONARY Hx Respiratory Disorders: Yes Hx Asthma: Yes - NEUROLOGICAL Hx Neurological Disorder: No - HEENT Hx HEENT Problems: No - RENAL Hx Chronic Kidney Disease: No - ENDOCRINE/METABOLIC Hx Endocrine Disorders: Yes (DM) Hx Diabetes Mellitus Type 2: Yes - HEMATOLOGICAL/ONCOLOGICAL Hx Blood Disorders: No Hx Human Immunodeficiency Virus (HIV): No - INTEGUMENTARY Hx Dermatological Problems: No - MUSCULOSKELETAL/RHEUMATOLOGICAL Hx Musculoskeletal Disorders: Yes Hx Falls: Yes - GASTROINTESTINAL Hx Gastrointestinal Disorders: No - GENITOURINARY/GYNECOLOGICAL Hx Genitourinary Disorders: No - PSYCHIATRIC Hx Psychophysiologic Disorder: Yes Hx Anxiety: Yes Hx Bipolar Disorder: Yes Hx Depression: Yes - SURGICAL HISTORY Hx Surgeries: Yes Hx Herniorrhaphy: Yes - ANESTHESIA Hx Anesthesia: Yes Hx Anesthesia Reactions: No Meds Allergies/Adverse Reactions: Allergies Allergy/AdvReac Type Severity Reaction Status Date / Time No Known Allergies Allergy Verified 12/13/17 13:08 - Medications Medications: Current Medications Acetaminophen (Tylenol 325mg Tab) 650 mg PO Q4 PRN PRN Reason: Pain, moderate (4-7) Last Admin: 01/16/18 10:11 Dose: 650 mg Albuterol (Ventolin Hfa 90 Mcg/Actuation (8 G)) 1 puff INH RQ6 PRN PRN Reason: Shortness of Breath Last Admin: 01/16/18 17:09 Dose: 1 puff Bacitracin (Bacitracin) 1 ea TOP TID [facility] Last Admin: 01/17/18 08:50 Dose: 1 ea Dextrose (Dextrose 50% Inj) 0 ml IV STAT PRN; Protocol PRN Reason: Hypoglycemia Protocol Dextrose (Glutose 15) 0 gm PO ONCE PRN; Protocol PRN Reason: Hypoglycemia Protocol Dextrose (Dextrose 50% Inj) 0 ml IV STAT PRN; Protocol PRN Reason: Hypoglycemia Protocol Dextrose (Glutose 15) 0 gm PO ONCE PRN; Protocol PRN Reason: Hypoglycemia Protocol Diphenhydramine HCl (Benadryl) 50 mg PO HS PRN PRN Reason: Sleep Last Admin: 01/16/18 21:26 Dose: 50 mg Famotidine (Pepcid) 40 mg PO HS [facility] Last Admin: 01/16/18 21:26 Dose: 40 mg Ferrous Gluconate (Fergon) 324 mg PO TID [facility] Last Admin: 01/17/18 08:50 Dose: 324 mg Furosemide (Lasix) 60 mg PO BID [facility] Last Admin: 01/17/18 09:01 Dose: 60 mg Glucagon (Glucagen Diagnostic Kit) 0 mg IM STAT PRN; Protocol PRN Reason: Hypoglycemia Protocol Glucagon (Glucagen Diagnostic Kit) 0 mg IM STAT PRN; Protocol PRN Reason: Hypoglycemia Protocol Guaifenesin/Dextromethorphan (Robitussin Dm) 5 ml PO TID PRN PRN Reason: Cough Last Admin: 01/13/18 21:43 Dose: 5 ml Haloperidol Lactate (Haldol) 2 mg PO TID [facility] Last Admin: 01/17/18 08:51 Dose: 2 mg Insulin Detemir (Levemir) 18 units SC HS [facility] Last Admin: 01/16/18 21:29 Dose: 18 units Insulin Human Regular (Humulin R) 0 units SC [facility]; Protocol Last Admin: 01/17/18 09:02 Dose: 4 units Lactulose (Enulose) 20 gm PO Q8 [facility] Last Admin: 01/17/18 08:50 Dose: 20 gm Midodrine (Proamatine) 10 mg PO TID [facility] Last Admin: 01/17/18 08:53 Dose: 10 mg Octreotide Acetate (Sandostatin) 200 mcg SC Q8@0300,1100,1900 [facility] Last Admin: 01/17/18 02:07 Dose: 200 mcg Ondansetron HCl (Zofran Inj) 4 mg IVP Q8 PRN PRN Reason: Nausea/Vomiting Last Admin: 12/22/17 08:33 Dose: 4 mg Propranolol HCl (Inderal) 10 mg PO Q12 [facility] Last Admin: 01/17/18 08:52 Dose: 10 mg Sodium Bicarbonate (Sodium Bicarbonate Tab) 650 mg PO BID [facility] Last Admin: 01/17/18 08:53 Dose: 650 mg Spironolactone (Aldactone) 100 mg PO BID [facility] Last Admin: 01/17/18 08:48 Dose: 100 mg Thiamine HCl (Vitamin B1 Tab) 100 mg PO DAILY [facility] Last Admin: 01/17/18 08:53 Dose: 100 mg Trazodone HCl (Desyrel) 50 mg PO [facility] Last Admin: 01/16/18 21:26 Dose: 50 mg Vitamin B Complex/Vit C/Folic Acid (Nephro-Ree) 1 tab PO DAILY [facility] Last Admin: 01/17/18 08:53 Dose: 1 tab Results - Vital Signs Recent Vital Signs: Last Vital Signs Temp 97.8 F 01/17/18 08:13 Pulse 77 01/17/18 08:52 Resp 18 01/17/18 08:13 BP 118/74 01/17/18 09:01 Pulse Ox 100 01/17/18 08:13 - Labs Result Diagrams: 01/17/18 08:13 01/17/18 08:13 Labs: Laboratory Results - last 24 hr 01/16/18 01/16/18 01/16/18 11:46 17:07 21:27 WBC RBC Hgb Hct MCV MCH MCHC RDW Plt Count Sodium Potassium Chloride Carbon Dioxide Anion Gap BUN Creatinine Est GFR ( Amer) Est GFR (Non-Af Amer) POC Glucose (mg/dL) 209 H 196 H 219 H Random Glucose Calcium Phosphorus Magnesium Total Bilirubin AST ALT Alkaline Phosphatase Total Protein Albumin Globulin Albumin/Globulin Ratio 01/17/18 01/17/18 01/17/18 05:56 08:13 08:13 WBC 5.0 RBC 2.42 L Hgb 9.0 L Hct 27.1 L MCV 112.0 H D MCH 37.3 H MCHC 33.3 RDW 20.2 H Plt Count 158 Sodium 135 Potassium 4.3 Chloride 106 Carbon Dioxide 23 Anion Gap 10 BUN 34 H Creatinine 1.3 Est GFR ( Amer) > 60 Est GFR (Non-Af Amer) 57 POC Glucose (mg/dL) 236 H Random Glucose 195 H Calcium 8.4 Phosphorus 4.1 Magnesium 1.7 Total Bilirubin 1.2 AST 34 ALT 7 L D Alkaline Phosphatase 95 Total Protein 6.8 Albumin 2.7 L Globulin 4.2 H Albumin/Globulin Ratio 0.6 L
--- NOTE | 2018-01-17 10:07 | CP.PCM.PN ---
Subjective - Date & Time of Evaluation Date of Evaluation: 01/17/18 Time of Evaluation: 06:00 - Subjective Subjective: remains same GI on board IV rx to be completed- 14 days Objective - Vital Signs/Intake and Output Vital Signs (last 24 hours): Temp Pulse Resp BP Pulse Ox 97.8 F 77 18 118/74 100 01/17/18 08:13 01/17/18 08:52 01/17/18 08:13 01/17/18 09:01 01/17/18 08:13 - Medications Medications: Current Medications Acetaminophen (Tylenol 325mg Tab) 650 mg PO Q4 PRN PRN Reason: Pain, moderate (4-7) Last Admin: 01/16/18 10:11 Dose: 650 mg Albuterol (Ventolin Hfa 90 Mcg/Actuation (8 G)) 1 puff INH RQ6 PRN PRN Reason: Shortness of Breath Last Admin: 01/16/18 17:09 Dose: 1 puff Bacitracin (Bacitracin) 1 ea TOP TID [facility] Last Admin: 01/17/18 08:50 Dose: 1 ea Dextrose (Dextrose 50% Inj) 0 ml IV STAT PRN; Protocol PRN Reason: Hypoglycemia Protocol Dextrose (Glutose 15) 0 gm PO ONCE PRN; Protocol PRN Reason: Hypoglycemia Protocol Dextrose (Dextrose 50% Inj) 0 ml IV STAT PRN; Protocol PRN Reason: Hypoglycemia Protocol Dextrose (Glutose 15) 0 gm PO ONCE PRN; Protocol PRN Reason: Hypoglycemia Protocol Diphenhydramine HCl (Benadryl) 50 mg PO HS PRN PRN Reason: Sleep Last Admin: 01/16/18 21:26 Dose: 50 mg Famotidine (Pepcid) 40 mg PO HS [facility] Last Admin: 01/16/18 21:26 Dose: 40 mg Ferrous Gluconate (Fergon) 324 mg PO TID [facility] Last Admin: 01/17/18 08:50 Dose: 324 mg Furosemide (Lasix) 60 mg PO BID [facility] Last Admin: 01/17/18 09:01 Dose: 60 mg Glucagon (Glucagen Diagnostic Kit) 0 mg IM STAT PRN; Protocol PRN Reason: Hypoglycemia Protocol Glucagon (Glucagen Diagnostic Kit) 0 mg IM STAT PRN; Protocol PRN Reason: Hypoglycemia Protocol Guaifenesin/Dextromethorphan (Robitussin Dm) 5 ml PO TID PRN PRN Reason: Cough Last Admin: 01/13/18 21:43 Dose: 5 ml Haloperidol Lactate (Haldol) 2 mg PO TID [facility] Last Admin: 01/17/18 08:51 Dose: 2 mg Insulin Detemir (Levemir) 18 units SC [facility] Last Admin: 01/16/18 21:29 Dose: 18 units Insulin Human Regular (Humulin R) 0 units SC [facility]; Protocol Last Admin: 01/17/18 09:02 Dose: 4 units Lactulose (Enulose) 20 gm PO Q8 [facility] Last Admin: 01/17/18 08:50 Dose: 20 gm Midodrine (Proamatine) 10 mg PO TID [facility] Last Admin: 01/17/18 08:53 Dose: 10 mg Octreotide Acetate (Sandostatin) 200 mcg SC Q8@0300,1100,1900 [facility] Last Admin: 01/17/18 02:07 Dose: 200 mcg Ondansetron HCl (Zofran Inj) 4 mg IVP Q8 PRN PRN Reason: Nausea/Vomiting Last Admin: 12/22/17 08:33 Dose: 4 mg Propranolol HCl (Inderal) 10 mg PO Q12 [facility] Last Admin: 01/17/18 08:52 Dose: 10 mg Sodium Bicarbonate (Sodium Bicarbonate Tab) 650 mg PO BID [facility] Last Admin: 01/17/18 08:53 Dose: 650 mg Spironolactone (Aldactone) 100 mg PO BID [facility] Last Admin: 01/17/18 08:48 Dose: 100 mg Thiamine HCl (Vitamin B1 Tab) 100 mg PO DAILY [facility] Last Admin: 01/17/18 08:53 Dose: 100 mg Trazodone HCl (Desyrel) 50 mg PO [facility] Last Admin: 01/16/18 21:26 Dose: 50 mg Vitamin B Complex/Vit C/Folic Acid (Nephro-Ree) 1 tab PO DAILY [facility] Last Admin: 01/17/18 08:53 Dose: 1 tab - Labs Labs: 01/17/18 08:13 01/17/18 08:13 PT 17.0 Seconds (9.8-13.1) H 12/13/17 14:10 INR 1.5 12/13/17 14:10 APTT 33.1 Seconds (25.6-37.1) 12/13/17 14:10 Assessment and Plan (1) SHELLIE (acute kidney injury) Status: Acute (2) Ascites Status: Acute (3) Abdominal pain Status: Acute (4) Alcohol abuse with intoxication Status: Acute (5) Anxiety Status: Chronic (6) Depression Status: Chronic (7) Diabetes mellitus Status: Chronic (8) Liver cirrhosis Status: Chronic (9) Staph aureus infection Status: Acute
[2018-01-17 11:59] LABS: PROTHROMBIN TIME 22.6 Seconds (9.8-13.1)
--- NOTE | 2018-01-17 12:00 | CP.PCM.PN ---
Subjective - Date & Time of Evaluation Date of Evaluation: 01/17/18 Time of Evaluation: 11:59 - Subjective Subjective: Patient is still one-to-one observation Vital signs noted to be stable no new event reported Objective - Vital Signs/Intake and Output Vital Signs (last 24 hours): Temp Pulse Resp BP Pulse Ox 97.8 F 77 18 118/74 100 01/17/18 08:13 01/17/18 08:52 01/17/18 08:13 01/17/18 09:01 01/17/18 08:13 - Medications Medications: Current Medications Acetaminophen (Tylenol 325mg Tab) 650 mg PO Q4 PRN PRN Reason: Pain, moderate (4-7) Last Admin: 01/16/18 10:11 Dose: 650 mg Albuterol (Ventolin Hfa 90 Mcg/Actuation (8 G)) 1 puff INH RQ6 PRN PRN Reason: Shortness of Breath Last Admin: 01/16/18 17:09 Dose: 1 puff Bacitracin (Bacitracin) 1 ea TOP TID [facility] Last Admin: 01/17/18 08:50 Dose: 1 ea Dextrose (Dextrose 50% Inj) 0 ml IV STAT PRN; Protocol PRN Reason: Hypoglycemia Protocol Dextrose (Glutose 15) 0 gm PO ONCE PRN; Protocol PRN Reason: Hypoglycemia Protocol Dextrose (Dextrose 50% Inj) 0 ml IV STAT PRN; Protocol PRN Reason: Hypoglycemia Protocol Dextrose (Glutose 15) 0 gm PO ONCE PRN; Protocol PRN Reason: Hypoglycemia Protocol Diphenhydramine HCl (Benadryl) 50 mg PO HS PRN PRN Reason: Sleep Last Admin: 01/16/18 21:26 Dose: 50 mg Famotidine (Pepcid) 40 mg PO HS [facility] Last Admin: 01/16/18 21:26 Dose: 40 mg Ferrous Gluconate (Fergon) 324 mg PO TID [facility] Last Admin: 01/17/18 08:50 Dose: 324 mg Furosemide (Lasix) 60 mg PO BID [facility] Last Admin: 01/17/18 09:01 Dose: 60 mg Glucagon (Glucagen Diagnostic Kit) 0 mg IM STAT PRN; Protocol PRN Reason: Hypoglycemia Protocol Glucagon (Glucagen Diagnostic Kit) 0 mg IM STAT PRN; Protocol PRN Reason: Hypoglycemia Protocol Guaifenesin/Dextromethorphan (Robitussin Dm) 5 ml PO TID PRN PRN Reason: Cough Last Admin: 01/13/18 21:43 Dose: 5 ml Haloperidol Lactate (Haldol) 2 mg PO TID [facility] Last Admin: 01/17/18 08:51 Dose: 2 mg Insulin Detemir (Levemir) 18 units SC [facility] Last Admin: 01/16/18 21:29 Dose: 18 units Insulin Human Regular (Humulin R) 0 units SC [facility]; Protocol Last Admin: 01/17/18 09:02 Dose: 4 units Lactulose (Enulose) 20 gm PO Q8 [facility] Last Admin: 01/17/18 08:50 Dose: 20 gm Midodrine (Proamatine) 10 mg PO TID [facility] Last Admin: 01/17/18 08:53 Dose: 10 mg Octreotide Acetate (Sandostatin) 200 mcg SC Q8@0300,1100,1900 [facility] Last Admin: 01/17/18 02:07 Dose: 200 mcg Ondansetron HCl (Zofran Inj) 4 mg IVP Q8 PRN PRN Reason: Nausea/Vomiting Last Admin: 12/22/17 08:33 Dose: 4 mg Propranolol HCl (Inderal) 10 mg PO Q12 [facility] Last Admin: 01/17/18 08:52 Dose: 10 mg Sodium Bicarbonate (Sodium Bicarbonate Tab) 650 mg PO BID [facility] Last Admin: 01/17/18 08:53 Dose: 650 mg Spironolactone (Aldactone) 100 mg PO BID [facility] Last Admin: 01/17/18 08:48 Dose: 100 mg Thiamine HCl (Vitamin B1 Tab) 100 mg PO DAILY [facility] Last Admin: 01/17/18 08:53 Dose: 100 mg Trazodone HCl (Desyrel) 50 mg PO [facility] Last Admin: 01/16/18 21:26 Dose: 50 mg Vitamin B Complex/Vit C/Folic Acid (Nephro-Ree) 1 tab PO DAILY [facility] Last Admin: 01/17/18 08:53 Dose: 1 tab - Labs Labs: 01/17/18 08:13 01/17/18 08:13 PT 17.0 Seconds (9.8-13.1) H 12/13/17 14:10 INR 1.5 12/13/17 14:10 APTT 33.1 Seconds (25.6-37.1) 12/13/17 14:10 - Constitutional Appears: No Acute Distress - Eye Exam Eye Exam: Conjunctival injection - ENT Exam ENT Exam: Mucous Membranes Moist - Respiratory Exam Respiratory Exam: NORMAL BREATHING PATTERN. absent: Chest Wall Tenderness - Cardiovascular Exam Cardiovascular Exam: absent: Gallop, JVD, Rubs - GI/Abdominal Exam GI & Abdominal Exam: Distended - Extremities Exam Extremities Exam: absent: Calf Tenderness - Back Exam Back Exam: absent: CVA tenderness (L), CVA tenderness (R) - Neurological Exam Neurological Exam: Altered Assessment and Plan (1) SHELLIE (acute kidney injury) Assessment & Plan: acute kidney injury serum creatinine serum creatinine improving the last 24 hours creatinine came down to 1.3 Secondary to hepatorenal syndrome reaccumulation of ascites and fluid Liver cirrhosis due to Alcoholic liver disease . massive ascitis with recurrent paracentesis anemia diabetes mellitus recommendation intermittent use of 25% albumin for hypotension. continue midodrine Prognosis is guarded. medication dose is adjusted per renal failure kidney function continue somewhat stable although serum creatinine up to 1.3 status post paracentesis with 5 L removed Status post paracentesis 12/27 over 10 L of fluid was removed status post paracentesis 01/05 and 11 L. fluid removed Status: Acute (2) Ascites Status: Acute
[2018-01-17 12:01] LABS: PARTIAL THROMBOPLASTIN TIME 38.8 Seconds (25.6-37.1)
[2018-01-17] MEDS ORDERED: Lidocaine 1% Inj (20ml) ONE (12:53)
--- NOTE | 2018-01-17 13:43 | PCM.SURG1 ---
Surgeon's Initial Post Op Note - Surgeon's Notes Surgeon: Cruzito Reilly MD Machine Marker: NONE Type of Anesthesia: Local Pre-Operative Diagnosis: Ascites, cirrhosis Operative Findings: US showed large amount of ascites Post-Operative Diagnosis: Cirrhosis Operation Performed: US guided paracentesis Specimen/Specimens Removed: 9 liters of straw colored fluid Estimated Blood Loss: EBL {In ML}: 0 Blood Products Given: N/A Drains Used: No Drains Post-Op Condition: Fair Date of Surgery/Procedure: 01/17/18 Time of Surgery/Procedure: 13:40
[2018-01-17 14:31] VITALS: O2SAT 100
[2018-01-17] MEDS: Albumin Human 25% (12.5 gm/50 ml) IV SCH ×3 (16:21→21:07)
[2018-01-17] MEDS: Insulin Detemir 100 Units/ml Inj SC SCH (21:50)
[2018-01-18] MEDS: Albumin Human 25% (12.5 gm/50 ml) IV SCH ×2 (03:14→09:01)
[2018-01-18 06:35] LABS: HEMOGLOBIN 8.7 g/dL (12.0-18.0); MEAN CORPUSCULAR HEMOGLOBIN 37.5 pg (27.0-31.0); MEAN CORPUSCULAR HGB CONC 34.1 g/dL (33.0-37.0); RBC 2.32 Mil/uL (4.40-5.90); RED CELL DISTRIBUTION WIDTH 20.1 % (11.5-14.5); WHITE BLOOD COUNT 4.4 K/uL (4.8-10.8)
[2018-01-18 07:03] LABS: ALB/GLOB RATIO 0.7 (1.0-2.1); ALBUMIN 2.7 g/dL (3.5-5.0); ALT/SGPT 16 U/L (21-72); AST/SGOT 25 U/L (17-59); BLOOD UREA NITROGEN 31 mg/dl (9-20); CALCIUM 8.4 mg/dL (8.4-10.2); GFR NON-AFRICAN AMERICAN 52
[2018-01-18] MEDS: Insulin Regular 100 units/ml SC SCH ×2 (09:04→11:50)
[2018-01-18] MEDS: Haloperidol Lactate 2 mg/ml Liquid PO SCH ×2 (09:05→13:14)
[2018-01-18] MEDS: Multivitamin Vitamin B Complex (Nephro-Vite) Tab PO SCH (09:06)
[2018-01-18] MEDS: Bacitracin 500 Units/gm Oint Foilpak UD TOP SCH ×2 (09:06→13:13)
[2018-01-18 09:09] VITALS: BP 96/63
[2018-01-18 09:20] VITALS: PULSE 71; RESP 18; TEMP 98
--- NOTE | 2018-01-18 11:54 | CP.PCM.PN ---
Subjective - Date & Time of Evaluation Date of Evaluation: 01/18/18 Time of Evaluation: 11:53 - Subjective Subjective: Vital signs stable No new event except paracentesis done yesterday Objective - Vital Signs/Intake and Output Vital Signs (last 24 hours): Temp Pulse Resp BP Pulse Ox 98 F 71 18 96/63 L 100 01/18/18 09:00 01/18/18 09:00 01/18/18 09:00 01/18/18 09:09 01/18/18 09:00 - Medications Medications: Current Medications Acetaminophen (Tylenol 325mg Tab) 650 mg PO Q4 PRN PRN Reason: Pain, moderate (4-7) Last Admin: 01/16/18 10:11 Dose: 650 mg Albuterol (Ventolin Hfa 90 Mcg/Actuation (8 G)) 1 puff INH RQ6 PRN PRN Reason: Shortness of Breath Last Admin: 01/16/18 17:09 Dose: 1 puff Bacitracin (Bacitracin) 1 ea TOP TID [facility] Last Admin: 01/18/18 09:06 Dose: 1 ea Dextrose (Dextrose 50% Inj) 0 ml IV STAT PRN; Protocol PRN Reason: Hypoglycemia Protocol Dextrose (Glutose 15) 0 gm PO ONCE PRN; Protocol PRN Reason: Hypoglycemia Protocol Dextrose (Dextrose 50% Inj) 0 ml IV STAT PRN; Protocol PRN Reason: Hypoglycemia Protocol Dextrose (Glutose 15) 0 gm PO ONCE PRN; Protocol PRN Reason: Hypoglycemia Protocol Diphenhydramine HCl (Benadryl) 50 mg PO HS PRN PRN Reason: Sleep Last Admin: 01/17/18 21:43 Dose: 50 mg Famotidine (Pepcid) 40 mg PO HS JERED Last Admin: 01/17/18 21:43 Dose: 40 mg Ferrous Gluconate (Fergon) 324 mg PO TID JERED Last Admin: 01/18/18 09:07 Dose: 324 mg Furosemide (Lasix) 60 mg PO BID [facility] Last Admin: 01/18/18 09:08 Dose: Not Given Glucagon (Glucagen Diagnostic Kit) 0 mg IM STAT PRN; Protocol PRN Reason: Hypoglycemia Protocol Glucagon (Glucagen Diagnostic Kit) 0 mg IM STAT PRN; Protocol PRN Reason: Hypoglycemia Protocol Guaifenesin/Dextromethorphan (Robitussin Dm) 5 ml PO TID PRN PRN Reason: Cough Last Admin: 01/13/18 21:43 Dose: 5 ml Haloperidol Lactate (Haldol) 2 mg PO TID [facility] Last Admin: 01/18/18 09:05 Dose: 2 mg Insulin Detemir (Levemir) 18 units SC [facility] Last Admin: 01/17/18 21:50 Dose: 18 units Insulin Human Regular (Humulin R) 0 units SC [facility]; Protocol Last Admin: 01/18/18 11:50 Dose: 6 units Lactulose (Enulose) 20 gm PO Q8 [facility] Last Admin: 01/18/18 09:06 Dose: 20 gm Midodrine (Proamatine) 10 mg PO TID [facility] Last Admin: 01/18/18 09:05 Dose: 10 mg Octreotide Acetate (Sandostatin) 200 mcg SC Q8@0600,1400,2200 [facility] Last Admin: 01/18/18 05:00 Dose: 200 mcg Ondansetron HCl (Zofran Inj) 4 mg IVP Q8 PRN PRN Reason: Nausea/Vomiting Last Admin: 12/22/17 08:33 Dose: 4 mg Propranolol HCl (Inderal) 10 mg PO Q12 [facility] Last Admin: 01/18/18 09:09 Dose: Not Given Sodium Bicarbonate (Sodium Bicarbonate Tab) 650 mg PO BID [facility] Last Admin: 01/18/18 09:05 Dose: 650 mg Spironolactone (Aldactone) 100 mg PO BID [facility] Last Admin: 01/18/18 09:03 Dose: Not Given Thiamine HCl (Vitamin B1 Tab) 100 mg PO DAILY [facility] Last Admin: 01/18/18 09:06 Dose: 100 mg Trazodone HCl (Desyrel) 50 mg PO [facility] Last Admin: 01/17/18 21:43 Dose: 50 mg Vitamin B Complex/Vit C/Folic Acid (Nephro-Ree) 1 tab PO DAILY [facility] Last Admin: 01/18/18 09:06 Dose: 1 tab - Labs Labs: 01/18/18 06:00 01/18/18 06:00 PT 22.6 Seconds (9.8-13.1) H 01/17/18 11:43 INR 2.0 01/17/18 11:43 APTT 38.8 Seconds (25.6-37.1) H 01/17/18 11:43 - Constitutional Appears: No Acute Distress - Eye Exam Eye Exam: Conjunctival injection - ENT Exam ENT Exam: Mucous Membranes Moist - Neck Exam Neck Exam: absent: Lymphadenopathy - Respiratory Exam Respiratory Exam: NORMAL BREATHING PATTERN - Cardiovascular Exam Cardiovascular Exam: absent: Gallop, JVD, Rubs - GI/Abdominal Exam GI & Abdominal Exam: Soft, Normal Bowel Sounds - Extremities Exam Extremities Exam: absent: Calf Tenderness - Back Exam Back Exam: absent: CVA tenderness (L), CVA tenderness (R) - Neurological Exam Neurological Exam: Awake - Skin Skin Exam: absent: Cyanosis Assessment and Plan (1) SHELLIE (acute kidney injury) Assessment & Plan: acute kidney injury serum creatinine serum creatinine improving the last 24 hours creatinine came down to 1.3 Secondary to hepatorenal syndrome reaccumulation of ascites and fluid 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 massive ascitis with recurrent paracentesis anemia diabetes mellitus recommendation intermittent use of 25% albumin for hypotension. continue midodrine Prognosis is guarded. medication dose is adjusted per renal failure kidney function continue somewhat stable although serum creatinine up to 1.3 status post paracentesis with 5 L removed Status post paracentesis 12/27 over 10 L of fluid was removed status post paracentesis 01/05 and 11 L. fluid removed Status post paracentesis 01/17/2018 and 9 L removed Status: Acute (2) Ascites Status: Acute
--- NOTE | 2018-01-18 12:32 | CP.PCM.PCO ---
Assessment/Plan - Assessment/Plan Assessment (Free Text): Patient stable, in no distress, ambulating on unit without difficulty. Abdomen softer today after paracentesis yesterday, 9L of fluid taken out. Lung sounds clear, heart S1S2, alert and oriented x 3. Pt was seen by psych yesterday, patient is competent to make medical decisions. Pt states he is going home today to his friend, states his friend does not work and is always home. Educated patient on importance of compliance with medications and follow up visit with Dr. Romano. Pt verbalized understanding and states he will call Dr. Romano's office to make an appointment. Discussed with Dr. Romano, medications given as per med rec. RN taught patient how to draw up and administer insulin, return demonstration satisfactory. Rx faxed to [facility] pharmacy so patient has meds in hand prior to d/c. Patient cleared by Dr. Galdamez and Dr. Kim. Appointment made by burton Ramirez/c RN, for f/u with Dr. Romano. Meds as per med rec. - Consults Consult Orders: Consultations
--- NOTE | 2018-01-18 17:16 | CP.PCM.DIS ---
Provider - Provider Date of Admission: 12/15/17 09:21 Attending physician: Robbin Romano MD Consults: 12/13/17 13:56 Crisis Evaluation As Ordered Comment: Physician Instructions: Reason For Exam: SI 12/13/17 17:28 Gastroenterology Consult Stat Comment: Consulting Provider: Juan Galdamez Consulting Physician: Juan Galdamez Reason for Consult: Ascitis-recurrent. 12/14/17 06:46 Psychiatry Consult Routine Comment: Consulting Provider: Yariel Herrera Consulting Physician: Yariel Herrera Reason for Consult: Suicidal ideations 12/14/17 12:25 Nephrology Consult Routine Comment: Consulting Provider: Apolinar Kim Consulting Physician: Apolinar Kim Reason for Consult: Acute kidney disease 12/30/17 10:10 Social Work Referral Routine Comment: Homeless Physician Instructions: Reason For Exam: Homeless 01/02/18 12:48 Infectious Disease Consult Routine Comment: Consulting Provider: Rg Davis Consulting Physician: Rg Davis Reason for Consult: Positive blood culture Time Spent in preparation of Discharge (in minutes): 35 Diagnosis - Discharge Diagnosis (1) SHELLIE (acute kidney injury) Status: Resolved (2) Abdominal pain Status: Chronic (3) Ascites Status: Chronic Hospital Course - Lab Results Lab Results: Micro Results 12/16/17 13:36 Peritoneal Fluid Fungal Culture - Final NO FUNGUS GROWTH IN 4 WEEKS. 01/02/18 18:28 Blood Blood Culture - Final NO GROWTH AFTER 5 DAYS 01/02/18 18:28 Blood Gram Stain - Final TEST NOT PERFORMED 01/01/18 08:41 Blood-Venous S.aureus & Coag-Neg Staph PNA FISH - Final 01/01/18 08:41 Blood-Venous Blood Culture - Final Staphylococcus Aureus 01/01/18 08:41 Blood-Venous Gram Stain - Final 12/16/17 13:36 Body Fluid - Abdominal Cavity Gram Stain - Final 12/16/17 13:36 Body Fluid - Abdominal Cavity Body Fluid Culture - Final No growth. 12/16/17 13:36 Abdominal Fluid Anaerobic Culture - Final No growth. Most Recent Lab Values WBC 4.4 K/uL (4.8-10.8) L 01/18/18 06:00 RBC 2.32 Mil/uL (4.40-5.90) L 01/18/18 06:00 Hgb 8.7 g/dL (12.0-18.0) L 01/18/18 06:00 Hct 25.5 % (35.0-51.0) L 01/18/18 06:00 MCV 110.0 fl (80.0-94.0) H D 01/18/18 06:00 MCH 37.5 pg (27.0-31.0) H 01/18/18 06:00 MCHC 34.1 g/dL (33.0-37.0) 01/18/18 06:00 RDW 20.1 % (11.5-14.5) H 01/18/18 06:00 Plt Count 131 K/uL (130-400) 01/18/18 06:00 MPV 9.4 fl (7.2-11.7) 12/16/17 10:03 Neut % (Auto) 44.9 % (50.0-75.0) L 12/16/17 10:03 Lymph % (Auto) 35.2 % (20.0-40.0) 12/16/17 10:03 [place] % (Auto) 14.6 % (0.0-10.0) H 12/16/17 10:03 Eos % (Auto) 4.0 % (0.0-4.0) 12/16/17 10:03 Baso % (Auto) 1.3 % (0.0-2.0) 12/16/17 10:03 Neut # (Auto) 2.0 K/uL (1.8-7.0) 12/16/17 10:03 Lymph # (Auto) 1.5 K/uL (1.0-4.3) 12/16/17 10:03 [place] # (Auto) 0.6 K/uL (0.0-0.8) 12/16/17 10:03 Eos # (Auto) 0.2 K/uL (0.0-0.7) 12/16/17 10:03 Baso # (Auto) 0.1 K/uL (0.0-0.2) 12/16/17 10:03 PT 22.6 Seconds (9.8-13.1) H 01/17/18 11:43 INR 2.0 01/17/18 11:43 APTT 38.8 Seconds (25.6-37.1) H 01/17/18 11:43 pCO2 32 mm/Hg (35-45) L 12/13/17 19:30 pO2 83 mm/Hg (80-100) 12/13/17 19:30 HCO3 24.7 mmol/L (21-28) 12/13/17 19:30 ABG pH 7.46 (7.35-7.45) H 12/13/17 19:30 ABG Total CO2 23.8 mmol/L (22-28) 12/13/17 19:30 ABG O2 Saturation 100.5 % (95-98) H 12/13/17 19:30 ABG Base Excess -0.3 mmol/L (-2.0-3.0) 12/13/17 19:30 Alcides Test Yes 12/13/17 19:30 ABG Potassium 3.0 mmol/L (3.6-5.2) L 12/13/17 19:30 A-a O2 Difference 27.0 mm/Hg 12/13/17 19:30 Sodium 129.0 mmol/L (132-148) L 12/13/17 19:30 Chloride 100.0 mmol/L (98-107) 12/13/17 19:30 Glucose 252 mg/dL (75-110) H 12/13/17 19:30 Lactate 2.7 mmol/L (0.7-2.1) H 12/13/17 19:30 FiO2 21.0 % 12/13/17 19:30 Sodium 134 mmol/l (132-148) 01/18/18 06:00 Potassium 4.2 MMOL/L (3.6-5.0) 01/18/18 06:00 Chloride 102 mmol/L (98-107) 01/18/18 06:00 Carbon Dioxide 24 mmol/L (22-30) 01/18/18 06:00 Anion Gap 12 (10-20) 01/18/18 06:00 BUN 31 mg/dl (9-20) H 01/18/18 06:00 Creatinine 1.4 mg/dl (0.8-1.5) 01/18/18 06:00 Est GFR ( Amer) > 60 01/18/18 06:00 Est GFR (Non-Af Amer) 52 01/18/18 06:00 POC Glucose (mg/dL) 273 mg/dL (65-110) H 01/18/18 11:25 Random Glucose 165 mg/dL (75-110) H 01/18/18 06:00 Hemoglobin A1c 6.0 % (4.2-6.5) 01/02/18 07:08 Calcium 8.4 mg/dL (8.4-10.2) 01/18/18 06:00 Phosphorus 3.7 mg/dl (2.5-4.5) 01/18/18 06:00 Magnesium 1.8 MG/DL (1.6-2.3) 01/18/18 06:00 Total Bilirubin 1.6 mg/dl (0.2-1.3) H 01/18/18 06:00 AST 25 U/L (17-59) 01/18/18 06:00 ALT 16 U/L (21-72) L D 01/18/18 06:00 Alkaline Phosphatase 82 U/L (38-126) 01/18/18 06:00 Ammonia 26 umo/L (16-60) 12/16/17 10:03 NT-Pro-B Natriuret Pep 1540 pg/ml (0-900) H 12/13/17 14:10 Total Protein 6.3 G/DL (6.3-8.2) 01/18/18 06:00 Albumin 2.7 g/dL (3.5-5.0) L 01/18/18 06:00 Globulin 3.7 gm/dL (2.2-3.9) 01/18/18 06:00 Albumin/Globulin Ratio 0.7 (1.0-2.1) L 01/18/18 06:00 Lipase 30 U/L (23-300) 12/16/17 10:03 Arterial Blood Potassium 3.0 mmol/L (3.6-5.2) L 12/13/17 19:30 Urine Osmolality 314 mosm/kg (300-1000) 12/15/17 01:15 Ur Random Creatinine 254.2 mg/dL 12/15/17 01:15 Ur Random Sodium < 5 mmol/L 12/15/17 01:15 Fluid Source Peritoneal/ascites 12/16/17 13:36 Fluid Appearance Cloudy (CLEAR) 12/16/17 13:36 Fluid WBC 140.0 /mm3 (0.0-300.0) 12/16/17 13:36 Fluid RBC 20.0 /mm3 (0.0-0.0) H 12/16/17 13:36 Fluid Tot Cell Count 100 (0-0) H 12/16/17 13:36 Fluid Neutrophils 41.0 % (0-0) H 12/16/17 13:36 Fluid Lymphocytes 40.0 % (0-0) H 12/16/17 13:36 Fld Monocyte/Macrophag 19 % (0-0) H 12/16/17 13:36 Fluid Albumin 0.5 g/dL 12/16/17 13:36 Fluid Comment None 12/16/17 13:36 Urine Opiates Screen Positive (NEGATIVE) H 12/15/17 01:15 Urine Methadone Screen Negative (NEGATIVE) 12/15/17 01:15 Ur Barbiturates Screen Negative (NEGATIVE) 12/15/17 01:15 Ur Phencyclidine Scrn Negative (NEGATIVE) 12/15/17 01:15 Ur Amphetamines Screen Negative (NEGATIVE) 12/15/17 01:15 U Benzodiazepines Scrn Positive (NEGATIVE) 12/15/17 01:15 U Oth Cocaine Metabols Negative (NEGATIVE) 12/15/17 01:15 U Cannabinoids Screen Negative (NEGATIVE) 12/15/17 01:15 U Ethyl Alcohol Screen None detected mg/dL 12/14/17 16:00 - Hospital Course Hospital Course: Pt is a 57 y/o M with a PMHx of HTN, DM, asthma, ETOH abuse with liver cirrhosis, was admitted for evaluation and management recurrent massive ascities, SHELLIE, and acute delerium and psychosis. Pt was noted to have significant ascites which was recurrent and was required to have 3 paracentesis by IR during this admission (12/26 with 10.6 L removed , 01/04 with 11L removed, 01/17 with 9 L removed). He was evaluated for his delirium but psychiatry and placed on 1:1 and haldol prn and deemed not having capacity to make his own medical decisions. Nephrology was consulted for patient's SHELLIE, and he was diagnosed with hepatorenal syndrome and treated with fluids and eventually resolved. He was also noted to have bacteremia with blood cultures growing MSSA for which ID was consulted and he received 2 weeks total of antibiotics. Repeat Blood cultures were negative. His mentation improved during his stay and on re- evaluation, psychiatry stated he was capable of making his own medical decision. His sugars were noted to be elevated and he was started on Levemir 18 units at night. Pt was stable and cleared for discharge with instructions to f/u in clinic in 1 week. Discharge Exam - Head Exam Head Exam: NORMOCEPHALIC - Eye Exam Eye Exam: Normal appearance, Scleral icterus - ENT Exam ENT Exam: Mucous Membranes Moist - Respiratory Exam Respiratory Exam: Decreased Breath Sounds, NORMAL BREATHING PATTERN - Cardiovascular Exam Cardiovascular Exam: REGULAR RHYTHM, +S1, +S2. absent: Systolic Murmur - GI/Abdominal Exam GI & Abdominal Exam: Distended, Normal Bowel Sounds, Soft. absent: Firm, Guarding, Rigid, Tenderness - Extremities Exam Extremities exam: pedal edema (trace bl) - Neurological Exam Neurological exam: Alert, Oriented x3 - Psychiatric Exam Psychiatric exam: Normal Affect - Skin Skin Exam: Normal Color Discharge Plan - Discharge Medications Prescriptions: Albuterol HFA [Ventolin HFA 90 mcg/actuation (8 g)] 1 puff INH RQ6 PRN #1 inhaler PRN Reason: Shortness Of Breath Famotidine [Pepcid] 40 mg PO HS #30 tab Ferrous Gluconate [Fergon] 325 mg PO TID #90 tab Furosemide [Lasix] 40 mg PO BID #60 tab Haloperidol Lactate [Haldol] 2 mg PO TID #90 ml Insulin Detemir [Levemir] 18 units SC HS #1 vial Insulin Human Regular [HumuLIN R] 5 units SC TID #1 ml Lactulose [Enulose] 20 gm PO Q8 #90 udc Midodrine [Proamatine] 5 mg PO TID #90 tab Spironolactone [Aldactone] 100 mg PO BID #60 tab Thiamine [Vitamin B1 Tab] 100 mg PO DAILY #30 tab - Follow Up Plan Condition: FAIR Disposition: HOME/ ROUTINE Instructions: Shortness of Breath (Dyspnea) (DC), Fluid in the Belly (Ascites) (DC), Acute Abdominal Pain (DC), Acute Abdominal Pain (GEN) Additional Instructions: january 25 a las 11 am Referrals: Robbin Romano MD [Staff Provider] - Yariel Herrera MD [Medical Doctor] - Juan Galdamez MD, PhD [Staff Provider] - Beba Castillo MD [Medical Doctor] -
--- NOTE | 2018-01-20 10:56 | US ---
Date of Procedure: 01/17/2018 PROCEDURE: Ultrasound-guided paracentesis, CPT 33288 Medications: 7 cc 1% Lidocaine HISTORY: Ascites, abdominal pain, cirrhosis TECHNIQUE: Following informed consent , the patient was placed supine on the stretcher and the site was marked. A limited abdominal ultrasound was performed that showed a large amount of intra-abdominal fluid. Procedural time out was called and the Pt's abdomen was marked and prepped and draped in the usual sterile fashion. Ultrasound-guided large volume paracentesis performed. A total of 10. 5 liters of straw colored fluid was removed without complication. IMPRESSION: Ultrasound-guided large volume paracentesis.
--- NOTE | 2018-01-24 16:09 | PQF ---
PROVIDER RESPONSE TEXT: Bacteremia, mssa REVIEWER QUERY TEXT: Bacteremia Underlying Cause Bacteremia is documented in the Discharge Summary. 01/03 progress note documented "MSSA Septicemia." Please specify pt's final diagnosis. The patient's Clinical Indicators include: 01/03 progress note documented "MSSA Septicemia." Query created by: Lizbeth Perez on 01/24/2018 7:50 AM Electronically signed by: Robbin Romano 01/24/2018 4:05 PM
== END 2018-01-18 13:48 | disposition home or self-care (01) | DRG 432 ==
LOC: H.ER 12:52 → H.ERHOLD 15:44 → H.MEDSURG1 22:43 → OBSVTOIN 12-15 09:21 → H.MEDSURG1 12-19 14:46
PROVIDERS: ADMIT Internal Medicine; ATTEND Internal Medicine
PROC: 0W9G3ZZ Drainage of Peritoneal Cavity, Percutaneous Approach (ICD-10-PCS; principal; 2017-12-14)
PROC: 0W9G3ZZ Drainage of Peritoneal Cavity, Percutaneous Approach (ICD-10-PCS; 2017-12-27)
PROC: 0W9G3ZZ Drainage of Peritoneal Cavity, Percutaneous Approach (ICD-10-PCS; 2018-01-05)
PROC: 0W9G3ZZ Drainage of Peritoneal Cavity, Percutaneous Approach (ICD-10-PCS; 2018-01-17)
DX: K70.31 Alcoholic cirrhosis of liver with ascites (principal); K76.7 Hepatorenal syndrome; R45.851 Suicidal ideations; N17.9 Acute kidney failure, unspecified; E87.2 Acidosis; F23 Brief psychotic disorder; F05 Delirium due to known physiological condition; R78.81 Bacteremia; E87.6 Hypokalemia; F31.9 Bipolar disorder, unspecified; F41.9 Anxiety disorder, unspecified; I48.91 Unspecified atrial fibrillation; J45.909 Unspecified asthma, uncomplicated; S60.512A Abrasion of left hand, initial encounter; S80.212A Abrasion, left knee, initial encounter; W01.0XXA Fall on same level from slipping, tripping and stumbling without subsequent striking against object, initial encounter; I12.9 Hypertensive chronic kidney disease with stage 1 through stage 4 chronic kidney disease, or unspecified chronic kidney disease; N18.9 Chronic kidney disease, unspecified; E88.09 Other disorders of plasma-protein metabolism, not elsewhere classified; E11.22 Type 2 diabetes mellitus with diabetic chronic kidney disease; Z59.0 Homelessness; D53.9 Nutritional anemia, unspecified; D63.8 Anemia in other chronic diseases classified elsewhere; E11.65 Type 2 diabetes mellitus with hyperglycemia; F10.129 Alcohol abuse with intoxication, unspecified; B95.61 Methicillin susceptible Staphylococcus aureus infection as the cause of diseases classified elsewhere

== ENCOUNTER 2018-01-19 21:42 | Emergency (ER) | payer MEDICARE ==
[2018-01-19 21:42] VITALS: BMI 27.4
[2018-01-19 22:57] LABS: BASO % 0.7 % (0.0-2.0); EOS # 0.1 K/uL (0.0-0.7); HEMOGLOBIN 9.6 g/dL (12.0-18.0); LYMPH # 1.2 K/uL (1.0-4.3); LYMPH % 20.7 % (20.0-40.0); MEAN CELL VOLUME 108.6 fl (80.0-94.0); MEAN CORPUSCULAR HEMOGLOBIN 37.3 pg (27.0-31.0); MEAN CORPUSCULAR HGB CONC 34.3 g/dL (33.0-37.0); MEAN PLATELET VOLUME 11.9 fl (7.2-11.7); MONO # 0.7 K/uL (0.0-0.8); MONO % 11.4 % (0.0-10.0); NEUT # 3.8 K/uL (1.8-7.0); NEUT % 65.2 % (50.0-75.0); RBC 2.58 Mil/uL (4.40-5.90); WHITE BLOOD COUNT 5.8 K/uL (4.8-10.8)
[2018-01-19 23:42] LABS: INR 1.8; PROTHROMBIN TIME 20.5 Seconds (9.8-13.1)
[2018-01-19 23:44] LABS: PARTIAL THROMBOPLASTIN TIME 28.6 Seconds (25.6-37.1)
--- NOTE | 2018-01-20 00:32 | ED PDOC ---
HPI: General Adult Time Seen by Provider: 01/19/18 21:56 Chief Complaint (Nursing): Medical Clearance Chief Complaint (Provider): Abdominal Pain History Per: Patient ( ) History/Exam Limitations: no limitations Onset/Duration Of Symptoms: Days (x1) Additional Complaint(s): 57 y/o male with history of liver cirrhosis, presents to the ED with abdominal pain. Patient was recently diagnosed with liver cirrhosis with h epatorenal syndrome and was discharged. He was supposed to be accompanied with his friend and go to [facility] to see his family. The friend that he was supposed to go with and pay for his ticket was hospitalized. Patient had no place to go and was walking around a local supermarket and asked to be brought to the hospital. Patient has no active medical complaints at this time but states he has chronic back pain. Past Medical History Reviewed: Historical Data, Nursing Documentation, Vital Signs Vital Signs: Last Vital Signs Temp 97.6 F 01/19/18 21:50 Pulse 116 H 01/19/18 21:50 Resp 16 01/19/18 21:50 BP 117/40 L 01/19/18 21:50 Pulse Ox 94 L 01/19/18 21:50 - Medical History PMH: Anxiety, Asthma, Atrial Fibrillation, Bipolar Disorder, Depression, Diabetes, HTN, Chronic Pain (Back) Denies: HIV, Chronic Kidney Disease Other PMH: Liver Cirrhosis - Surgical History Surgical History: No Surg Hx - Family History Family History: States: Unknown Family Hx - Social History Current smoker - smoking cessation education provided: No Alcohol: None Drugs: Denies - Immunization History Hx Tetanus Toxoid Vaccination: (unk) Hx Influenza Vaccination: No Hx Pneumococcal Vaccination: (unk) - Home Medications Home Medications: Ambulatory Orders Medication Instructions Recorded Albuterol HFA [Ventolin HFA 90 1 puff INH RQ6 PRN #1 inhaler 01/18/18 mcg/actuation (8 g)] Famotidine [Pepcid] 40 mg PO HS #30 tab 01/18/18 Ferrous Gluconate [Fergon] 325 mg PO TID #90 tab 01/18/18 Furosemide [Lasix] 40 mg PO BID #60 tab 01/18/18 Haloperidol Lactate [Haldol] 2 mg PO TID #90 ml 01/18/18 Insulin Detemir [Levemir] 18 units SC HS #1 vial 01/18/18 Insulin Human Regular [HumuLIN R] 5 units SC TID #1 ml 01/18/18 Lactulose [Enulose] 20 gm PO Q8 #90 udc 01/18/18 Midodrine [Proamatine] 5 mg PO TID #90 tab 01/18/18 Spironolactone [Aldactone] 100 mg PO BID #60 tab 01/18/18 Thiamine [Vitamin B1 Tab] 100 mg PO DAILY #30 tab 01/18/18 - Allergies Allergies/Adverse Reactions: Allergies Allergy/AdvReac Type Severity Reaction Status Date / Time No Known Allergies Allergy Verified 12/13/17 13:08 Review of Systems ROS Statement: Except As Marked, All Systems Reviewed And Found Negative Gastrointestinal: Positive for: Abdominal Pain Physical Exam - Reviewed Nursing Documentation Reviewed: Yes Vital Signs Reviewed: Yes - Physical Exam Appears: Positive for: Well, Non-toxic, No Acute Distress Head Exam: Positive for: ATRAUMATIC, NORMOCEPHALIC Skin: Positive for: Normal Color, Warm, Dry Eye Exam: Positive for: EOMI, Normal appearance, PERRL ENT: Positive for: Normal ENT Inspection Cardiovascular/Chest: Positive for: Regular Rate, Rhythm, Tachycardia. Negative for: Murmur Respiratory: Positive for: Normal Breath Sounds. Negative for: Respiratory Distress Gastrointestinal/Abdominal: Positive for: Distended, Asicites. Negative for: Tenderness Extremity: Positive for: Normal ROM. Negative for: Pedal Edema, Deformity Neurologic/Psych: Positive for: Alert, Oriented. Negative for: Motor/Sensory Deficits - Laboratory Results Result Diagrams: 01/19/18 22:45 01/19/18 22:45 - ECG O2 Sat by Pulse Oximetry: 94 (RA) Pulse Ox Interpretation: Abnormal Medical Decision Making Medical Decision Making: Time: 21:57 Initial Impression: 57 y/o male with nonspecific complaint in setting of homelessness and recent discharge; malingering Initial Plan: * Alcohol serum * Ammonia * CMP * CBC w/ diff * PTT * Prothrombin time 05:30 Labs reviewed no clinically significant abnormalities with exception of alcohol levels. Patient is clinically sober for discharge. Diagnosis is alcohol abuse and liver cirrhosis. Scribe Attestation: Documented by Alfred Cisneros acting as a scribe for Yeyo Carreno MD. Provider Scribe Attestation: All medical record entries made by the Scribe were at my direction and personally dictated by me. I have reviewed the chart and agree that the record accurately reflects my personal performance of the history, physical exam, medical decision making, and the department course for this patient. I have also personally directed, reviewed, and agree with the discharge instructions and disposition. Disposition - Clinical Impression Clinical Impression: Alcohol intoxication - Patient ED Disposition Is Patient to be Admitted: No - Disposition Disposition: Routine/Home Disposition Time: 05:30 Condition: STABLE Additional Instructions: CHRISTEN MANZO, thank you for letting us take care of you today. Your provider was Yeyo Carreno MD and you were treated for BEHAVIORAL. The emergency medical care you received today was directed at your acute symptoms. If you were prescribed any medication, please fill it and take as directed. It may take several days for your symptoms to resolve. Return to the Emergency Department if your symptoms worsen, do not improve, or if you have any other problems. Please contact your doctor or call one of the physicians/clinics you have been referred to that are listed on the Patient Visit Information form that is inclu ded in your discharge packet. Bring any paperwork you were given at discharge with you along with any medications you are taking to your follow up visit. Our treatment cannot replace ongoing medical care by a primary care provider outside of the emergency department. Thank you for allowing the [facility] team to be part of your care today. If you had an X-Ray or CT scan: A Radiologist will review the ED reading if any change in treatment is needed we will contact you. If you had a blood, urine, or wound culture: It will take several days for the results, if any change in treatment is needed we will contact you. If you had an STI test: It will take 48 hours for the results. Please call after 1 week if you have not heard back. Instructions: Alcohol Abuse and Alcoholism (DC) Forms: [facility] (Portuguese)
[2018-01-20 00:58] LABS: BLOOD UREA NITROGEN 27 mg/dl (9-20); GFR NON-AFRICAN AMERICAN 57
[2018-01-20 00:59] LABS: ALBUMIN 2.9 g/dL (3.5-5.0); CALCIUM 8.4 mg/dL (8.4-10.2)
[2018-01-20 01:00] LABS: ALB/GLOB RATIO 0.8 (1.0-2.1); ALT/SGPT 12 U/L (21-72); AST/SGOT 30 U/L (17-59)
[2018-01-20 05:34] VITALS: BP 114/68; PULSE 101; RESP 17; TEMP 98.1; O2SAT 94
== END 2018-01-20 06:25 | disposition home or self-care (01) ==
LOC: H.ER 21:42
DX: F10.129 Alcohol abuse with intoxication, unspecified (principal); K74.60 Unspecified cirrhosis of liver; E11.9 Type 2 diabetes mellitus without complications; I10 Essential (primary) hypertension; Z59.0 Homelessness; Z79.4 Long term (current) use of insulin